=== PATIENT | male | born 1945 | race Caucasian/White ===

== ENCOUNTER → 2017-03-08 | Outpatient (CLI) | payer OTHER ==
[~2017-03-08] MED LIST: ASPI325T45 PO; CLIN300C2 PO; DUTA0.5C PO; FLUT0.15 NAE; HYDR12.56 PO; LORA24TA7 PO; METO25TA56 PO; NAPR-1169 PO; ROSU5TAB PO; SPIR25TA PO; TAMS0.4C38 PO; [UNRECOGNIZED DRUG - CODE] NAE
[2017-03-08 12:57] LABS: HEMATOCRIT 42.2 % (42-52); MEAN CELL VOLUME 90.9 fL (80-100); MEAN CORPUSCULAR HEMOGLOBIN 30.8 pg (25-34); MEAN CORPUSCULAR HGB CONC 33.9 g/dl (32-36); MEAN PLATELET VOLUME 9.9 fL (7.4-10.4); PLATELET COUNT 179 K/uL (130-400); RED BLOOD COUNT 4.64 M/uL (4.7-6.1); WHITE BLOOD COUNT 5.17 K/uL (4.8-10.8)
[2017-03-08 13:15] LABS: CALCIUM 9.1 mg/dl (8.5-10.1)
[2017-03-08 13:16] LABS: ALT/SGPT 37 U/L (12-78); AST/SGOT 30 U/L (15-37); BLOOD UREA NITROGEN 26 mg/dl (7-18); BUN/CREATININE RATIO 18.5 (10-20); CARBON DIOXIDE 27 mmol/L (21-32); CHLORIDE 105 mmol/L (98-107); CHOLESTEROL 168 mg/dl (0-200); GLUCOSE 106 mg/dl (70-99); MAGNESIUM 2.6 mg/dl (1.8-2.4); POTASSIUM 3.7 mmol/L (3.5-5.1); SODIUM 140 mmol/L (136-145); TRIGLYCERIDES 169 mg/dl (0-150); VERY LOW DENSITY LIPOPROT CALC 34 mg/dl
[2017-03-08 13:36] LABS: ALKALINE PHOSPHATASE 97 U/L (45-117); CHOLESTEROL/HDL RATIO 3.5; HDL CHOLESTEROL 48 mg/dl; THYROID STIMULATING HORMONE 0.941 uIu/ml (0.300-4.500)
[2017-03-08 14:05] LABS: ESTIMATED AVERAGE GLUCOSE 123 mg/dl; HA1C FLAG Normal (Normal)
== END | disposition home or self-care (01) ==
LOC: C.LABPBG 10:02
PROVIDERS: ATTEND Physician Assistant Medical
DX: I10 Essential (primary) hypertension (principal); E78.5 Hyperlipidemia, unspecified; R00.2 Palpitations; Z51.81 Encounter for therapeutic drug level monitoring; Z79.899 Other long term (current) drug therapy

== ENCOUNTER 2017-05-01 00:35 | Emergency (ER) | payer OTHER ==
[~2017-05-01] VITALS: Ht 177.8 cm; Wt 84.0 kg
[2017-05-01 00:46] VITALS: TEMP 36.8; Ht 177.8 cm; Wt 84.0 kg
--- NOTE | 2017-05-01 01:24 | EMERGENCY ROOM VISIT NOTE ---
History Report prepared by Kate: Clementine Atkinson Under the Supervision of: Dr. Mariel Dunlap D.O. First contact with patient: 00:56 Chief Complaint: FEVER Stated Complaint: SWOLLEN FOOT,FEVER,TROUBLE BREATHING History of Present Illness The patient is a 71 year old male who presents to the Emergency Room with complaints of persistent right foot pain, swelling, and erythema starting yesterday morning. The patient also had a fever today. He has a history of similar symptoms occurring about a year ago which resolved with antibiotics. The patient also reports difficulty breathing and congestion which started a few days ago. He has a cough with mucous production. He does not have a history of diabetes. He is unsure about any previous episodes of gout. He also has a history of hypertension and heart disease. He takes aspirin daily. He is not a smoker. The patient denies chest pain, abdominal pain, or any other complaints. Source of History: patient Onset: yesterday morning Position: foot (right) Quality: other (swelling and erythema) Timing: other (persistent) Associated Symptoms: + fevers, + cough, + SOB, No chest pain, No abdominal pain Review of Systems See HPI for pertinent positives & negatives. A total of 10 systems reviewed and were otherwise negative. Past Medical & Surgical Medical Problems: (1) Heart disease (2) Hypertension Surgical Problems: (1) History of cardiac catheterization (2) Hx of cholecystectomy Family History Cancer Diabetes mellitus Gallbladder disease Heart disease Hypertension Lung disease Social History Smoking Status: Former Smoker Alcohol Use: none Marital Status: Housing Status: lives with significant other Occupation Status: employed Current/Historical Medications Scheduled Clindamycin Hcl (Cleocin), 1 CAP PO TID Loratadine/Pseudoephedrine (Claritin-D 24 Hour), 1 TAB PO DAILY Oxymetazoline Hcl (Afrin 12 Hour), 1 SPRAY JEAN-PAUL Q12 Allergies Coded Allergies: Penicillins (Verified Allergy, Intermediate, RASH, 05/01/17) Sulfa Antibiotics (Verified Allergy, Intermediate, RASH, 05/01/17) Uncoded Allergies: ALLERGY SHOTS (Allergy, Severe, CAUSES BLINDNESS, 05/01/17) STEROIDS (Allergy, Severe, CAUSES BLINDNESS, 05/01/17) Physical Exam Vital Signs Date Time Temp Pulse Resp B/P (MAP) Pulse Ox O2 Delivery O2 Flow Rate FiO2 05/01/17 03:35 72 20 136/72 97 05/01/17 02:31 58 18 139/71 95 Room Air 05/01/17 00:46 36.8 65 18 136/75 95 Room Air Physical Exam HEENT: Head - normocephalic and atraumatic Pupils are equal, round, and reactive to light. Extraocular eye muscles are intact, and sclera are anicteric. Nose - moist nasal mucosa without discharge. Mouth - moist buccal mucosa. Oropharynx is nonerythematous and there is no tonsillar exudate or edema noted. Neck: Supple; no JVD, nuchal rigidity, cervical lymphadenopathy. Heart: Regular rate and rhythm. There is a normal S1 and S2 with no murmurs, clicks, or gallops appreciated. Lungs: Clear to auscultation bilaterally with no wheezes, rales, or rhonchi. Abdomen: Soft, completely nontender, nondistended, with good bowel sounds. There are no palpable pulsatile masses or hepatosplenomegaly. There is no guarding, rigidity, or rebound noted. Extremities: No evidence of cyanosis, clubbing, or edema. There are easily palpable peripheral pulses. Right foot is erythematous on both the plantar and dorsal surface in the mid foot and great toe area. Right foot is warm to touch. Skin: warm and dry with good turgor and no rashes. Medical Decision & Procedures ER Provider Diagnostic Interpretation: X-ray results as stated below per interpretation by me: CHEST X-RAY No cardiomegaly, no pulmonary infiltrates, no consolidation. RIGHT FOOT X-RAY No obvious evidence of osteomyelitis, no obvious fracture. Laboratory Results 05/01/17 01:20 Red Blood Count 4.22, Mean Corpuscular Volume 90.3, Mean Corpuscular Hemoglobin 30.6, Mean Corpuscular Hemoglobin Concent 33.9, Mean Platelet Volume 9.6, Neutrophils (%) (Auto) 59.2, Lymphocytes (%) (Auto) 24.8, Monocytes (%) (Auto) 12.3, Eosinophils (%) (Auto) 3.6, Basophils (%) (Auto) 0.0, Neutrophils # (Auto ) 4.66, Lymphocytes # (Auto) 1.95, Monocytes # (Auto) 0.97, Eosinophils # (Auto ) 0.28, Basophils # (Auto) 0.00 05/01/17 01:20 Test 05/01/17 01:20 05/01/17 01:27 White Blood Count 7.87 K/uL (4.8-10.8) Red Blood Count 4.22 M/uL (4.7-6.1) Hemoglobin 12.9 g/dL (14.0-18.0) Hematocrit 38.1 % (42-52) Mean Corpuscular Volume 90.3 fL (80-100) Mean Corpuscular Hemoglobin 30.6 pg (25-34) Mean Corpuscular Hemoglobin Concent 33.9 g/dl (32-36) Platelet Count 167 K/uL (130-400) Mean Platelet Volume 9.6 fL (7.4-10.4) Neutrophils (%) (Auto) 59.2 % Lymphocytes (%) (Auto) 24.8 % Monocytes (%) (Auto) 12.3 % Eosinophils (%) (Auto) 3.6 % Basophils (%) (Auto) 0.0 % Neutrophils # (Auto) 4.66 K/uL (1.4-6.5) Lymphocytes # (Auto) 1.95 K/uL (1.2-3.4) Monocytes # (Auto) 0.97 K/uL (0.11-0.59) Eosinophils # (Auto) 0.28 K/uL (0-0.5) Basophils # (Auto) 0.00 K/uL (0-0.2) RDW Standard Deviation 43.0 fL (36.4-46.3) RDW Coefficient of Variation 13.1 % (11.5-14.5) Immature Granulocyte % (Auto) 0.1 % Immature Granulocyte # (Auto) 0.01 K/uL (0.00-0.02) Prothrombin Time 10.7 SECONDS (9.0-12.0) Prothromb Time International Ratio 1.0 (0.9-1.1) Activated Partial Thromboplast Time 31.3 SECONDS (21.0-31.0) Partial Thromboplastin Ratio 1.2 Anion Gap 8.0 mmol/L (3-11) Est Creatinine Clear Calc Drug Dose 60.0 ml/min Estimated GFR () 71.1 Estimated GFR (Non- 61.3 BUN/Creatinine Ratio 18.7 (10-20) Uric Acid 6.6 mg/dl (2.6-7.2) Calcium Level 8.2 mg/dl (8.5-10.1) Total Bilirubin 0.4 mg/dl (0.2-1) Aspartate Amino Transf (AST/SGOT) 15 U/L (15-37) Alanine Aminotransferase (ALT/SGPT) 26 U/L (12-78) Alkaline Phosphatase 96 U/L (45-117) Total Protein 7.3 gm/dl (6.4-8.2) Albumin 3.3 gm/dl (3.4-5.0) Globulin 4.0 gm/dl (2.5-4.0) Albumin/Globulin Ratio 0.8 (0.9-2) Bedside Lactic Acid Venous 0.96 mmol/L (0.90-1.70) Laboratory results per my review. Medications Administered Medications (Trade) Dose Ordered Sig/Day Route Start Time Stop Time Status Last Admin Dose Admin Clindamycin Phosphate 900 mg/ Dextrose 106 ml @ 100 mls/hr ONE ONCE IV 05/01/17 02:30 05/01/17 03:33 DC 05/01/17 02:30 100 MLS/HR Ketorolac Tromethamine (Toradol Inj) 30 mg NOW STAT IV 05/01/17 02:33 05/01/17 02:34 DC 05/01/17 02:38 30 MG Procedure Clindamycin Phosphate 900 mg/Dextrose 106 ml @ 100 mls/hr IV, Toradol Inj 30 mg IV ED Course 0056: Past medical records reviewed. The patient was evaluated in room B12B. A complete history and physical exam was performed. A septic protocol was performed. The patient went for an x-ray of the right foot as described above. 0210: I reevaluated the patient. He does not want anything for pain right now. 0230: Clindamycin Phosphate 900 mg/Dextrose 106 ml @ 100 mls/hr IV 0233: Toradol Inj 30 mg IV 0305: Upon reevaluation, the patient is resting comfortably. I discussed findings and results with him. He verbalized agreement of the treatment plan. He was discharged home. Medical Decision The patient presents to the Emergency Room with complaints of right foot swelling and erythema. Differential diagnosis includes but is not limited to gout, cellulitis, osteomyelitis, sepsis, bacteremia, pneumonia. His labs showed white count of 7.8, hemoglobin of 12.9, BUN 22, creatinine 1.2, lactic acid 0.9 , glucose 104, LFTs are normal, coags normal. I attest that I have personally reviewed the patient's current medication list. Patient was found to have normal blood pressure on screening and does not require follow-up. The patient hasn't significant erythema and edema to the right foot. This was outlined. Findings were considered an acute cellulitis. There is no evidence of osteomyelitis. The patient has multiple drug allergies. He will be treated with IV clindamycin and oral clindamycin. The patient was given specific instructions to return to the ER if symptoms worsened. Impression Primary Impression: Cellulitis of right foot Scribe Attestation The scribe's documentation has been prepared under my direction and personally reviewed by me in its entirety. I confirm that the note above accurately reflects all work, treatment, procedures, and medical decision making performed by me. Departure Information Dispostion Home / Self-Care Prescriptions Clindamycin Hcl (CLEOCIN) 300 Mg Cap 1 CAP PO TID for 10 Days, #30 CAP Prov: Mariel Dunlap D.O. 05/01/17 Referrals No Doctor, Assigned (PCP) Forms HOME CARE DOCUMENTATION FORM, IMPORTANT VISIT INFORMATION Patient Instructions Cellulitis Dc, My [facility] Additional Instructions Rest with the right foot elevated. Clindamycin - every 8 hours Return to the ER if you develop worsening symptoms such as fever, vomiting, or redness extends up the ankle/leg.
[2017-05-01 01:37] LABS: COMPLETE YES; EOS % 3.6 %; HEMATOCRIT 38.1 % (42-52); IG% 0.1 %; LYMPH % 24.8 %; LYMPH ABS # 1.95 K/uL (1.2-3.4); MEAN CELL VOLUME 90.3 fL (80-100); MEAN CORPUSCULAR HEMOGLOBIN 30.6 pg (25-34); MEAN CORPUSCULAR HGB CONC 33.9 g/dl (32-36); MEAN PLATELET VOLUME 9.6 fL (7.4-10.4); MONO % 12.3 %; NEUT % 59.2 %; PLATELET COUNT 167 K/uL (130-400); RED BLOOD COUNT 4.22 M/uL (4.7-6.1); WHITE BLOOD COUNT 7.87 K/uL (4.8-10.8)
[2017-05-01] MEDS ORDERED: [UNRECOGNIZED DRUG - CODE] NAE (01:46)
[2017-05-01] MEDS ORDERED: LORA24TA7 PO (01:46)
[2017-05-01 01:54] LABS: PARTIAL THROMBOPLASTIN RATIO 1.2; PROTHROMBIN TIME (PATIENT) 10.7 SECONDS (9.0-12.0)
[2017-05-01 01:55] LABS: BUN/CREATININE RATIO 18.7 (10-20); CALCIUM 8.2 mg/dl (8.5-10.1); CREATININE 1.2 mg/dl (0.60-1.40); POTASSIUM 3.6 mmol/L (3.5-5.1); URIC ACID 6.6 mg/dl (2.6-7.2)
[2017-05-01 01:58] LABS: ALB/GLOB RATIO 0.8 (0.9-2)
[2017-05-01] MEDS ORDERED: CLINDAMYCIN IV 900 MG in DEXTROSE 5% ADD-VANTAGE 100ML 100 ML IV ONE (02:30)
[2017-05-01] MEDS ORDERED: KETOROLAC TROMETHAMINE 30 MG/ML VIAL IV STA (02:33)
[2017-05-01] MEDS ORDERED: CLIN300C2 PO (03:26)
[2017-05-01 03:35] VITALS: BP 136/72; PULSE 72; O2SAT 97
--- NOTE | 2017-05-01 06:44 | DIAGNOSTIC IMAGING REPORT ---
RIGHT FOOT MIN 3 VIEWS ROUTINE CLINICAL HISTORY: right foot pain - redness - eval for osteo Right pain COMPARISON: None. DISCUSSION: Moderate generalized degenerative change. Bunion deformity distal first metatarsal. Hallux obvious configuration. Degenerative change of the second metatarsophalangeal joint. No well-defined lytic or blastic process. Moderate soft tissue edema. IMPRESSION: Soft tissue edema. Degenerative change. Electronically signed by: Devante Pond M.D. 05/01/2017 6:43 AM Dictated Date/Time: 05/01/2017 6:40 AM
--- NOTE | 2017-05-01 06:45 | DIAGNOSTIC IMAGING REPORT ---
CHEST ONE VIEW PORTABLE CLINICAL HISTORY: Sepsis dyspnea COMPARISON STUDY: No previous studies for comparison. FINDINGS: Minimal parenchymal interstitial infiltrate left base. Lungs otherwise appear clear. Diaphragms smooth. IMPRESSION: Minimal infiltrate left base. Electronically signed by: Devante Pond M.D. 05/01/2017 6:43 AM Dictated Date/Time: 05/01/2017 6:43 AM
== END 2017-05-01 03:36 | disposition home or self-care (01) ==
LOC: C.EDB 00:37
DX: L03.115 Cellulitis of right lower limb (principal); R06.00 Dyspnea, unspecified; R05 Cough; E11.9 Type 2 diabetes mellitus without complications; I10 Essential (primary) hypertension; Z79.82 Long term (current) use of aspirin; Z87.891 Personal history of nicotine dependence; Z83.3 Family history of diabetes mellitus; Z82.49 Family history of ischemic heart disease and other diseases of the circulatory system

== ENCOUNTER 2017-08-31 07:16 | Emergency (ER) | payer OTHER ==
[~2017-08-31] VITALS: Ht 177.8 cm; Wt 88.0 kg
[~2017-08-31 07:16] MED LIST changes: -ASPI325T45 PO; -CLIN300C2 PO; -DUTA0.5C PO; -FLUT0.15 NAE; -HYDR12.56 PO; -METO25TA56 PO; -NAPR-1169 PO; -ROSU5TAB PO; -SPIR25TA PO; -TAMS0.4C38 PO
[2017-08-31 07:30] VITALS: TEMP 36.3; Ht 177.8 cm; Wt 88.0 kg
[2017-08-31 07:36] VITALS: O2SAT 96
[2017-08-31] MEDS ORDERED: SODIUM CHLORIDE 0.9% 1000ML 1,000 ML IV ONE (07:45)
[2017-08-31] MEDS ORDERED: METO25TA56 PO (07:58)
[2017-08-31] MEDS ORDERED: ROSU5TAB PO (07:58)
[2017-08-31] MEDS ORDERED: HYDR12.56 PO (07:58)
[2017-08-31] MEDS ORDERED: ASPI325T45 PO (07:58)
--- NOTE | 2017-08-31 08:10 | EMERGENCY ROOM VISIT NOTE ---
History Report prepared by Kate: Juanita Barron Under the Supervision of: Dr. Eduardo Pelletier M.D. First contact with patient: 07:37 Chief Complaint: ILLNESS Stated Complaint: DIZZINESS/NAUSEA History of Present Illness The patient is a 72 year old male who presents to the Emergency Room with complaints of constant dizziness beginning this morning. He states that yesterday he was feeling fine, but he was feeling more tired than usual. He went to bed and woke up this morning with dizziness that he describes as feeling like the room is spinning. He has never experienced this before. The patient's symptoms worsen with sitting up and he states he is unable to stand because he feels so dizzy. His legs feel weak and he is still feeling very tired. He states that this is unusual for him. He is also nauseated. The patient was brought to the ED by ambulance for further evaluation. He denies any drug or alcohol use. He denies any recent changes to his medications. Source of History: patient Onset: this morning Position: other (global) Quality: other (dizziness) Timing: constant Modifying Factors (Worsening): other (sitting up) Modifying Factors (Relieving): rest Associated Symptoms: + fatigue, + weakness (legs) Review of Systems All systems have been listed, reviewed, and are negative other than those previously mentioned. Please see Additional Medical History Sheet. Past Medical & Surgical Medical Problems: (1) Heart disease (2) Hypertension Surgical Problems: (1) History of cardiac catheterization (2) Hx of cholecystectomy Family History Cancer Diabetes mellitus Gallbladder disease Heart disease Hypertension Lung disease Social History Smoking Status: Never Smoker Alcohol Use: none Marital Status: Housing Status: lives with significant other Occupation Status: employed Current/Historical Medications Scheduled Aspirin (Aspirin), 325 MG PO DAILY Dutasteride (Avodart), 0.5 MG PO DAILY Fluticasone Propionate (Nasal) (Flonase Allergy Relief), 1 SPRAY JEAN-PAUL BID Hydrochlorothiazide (Hctz), 12.5 MG PO DAILY Metoprolol Tartrate (Lopressor) (Lopressor), 12.5 MG PO BID Rosuvastatin Calcium (Crestor), 10 MG PO DAILY Spironolactone (Aldactone), 25 MG PO DAILY Tamsulosin Hcl (Flomax), 0.4 MG PO DAILY Scheduled PRN Naproxen (Naprosyn), 500 MG PO BID PRN for PRN Allergies Coded Allergies: Penicillins (Verified Allergy, Intermediate, RASH, 08/31/17) Sulfa Antibiotics (Verified Allergy, Intermediate, RASH, 08/31/17) Uncoded Allergies: ALLERGY SHOTS (Allergy, Severe, CAUSES BLINDNESS, 05/01/17) STEROIDS (Allergy, Severe, CAUSES BLINDNESS, 05/01/17) Physical Exam Vital Signs Date Time Temp Pulse Resp B/P (MAP) Pulse Ox O2 Delivery O2 Flow Rate FiO2 08/31/17 11:54 81 18 151/89 96 Room Air 08/31/17 10:45 76 20 141/82 96 Room Air 08/31/17 08:53 70 20 141/68 96 Room Air 86 156/95 08/31/17 07:36 96 Room Air 08/31/17 07:30 36.3 62 20 148/84 96 Room Air 08/31/17 07:23 66 Physical Exam GENERAL: Patient awake, alert, oriented x 3. Patient follows commands. Patient does not appear toxic. Patient is adequately hydrated and well- nourished. Patient appears exhausted, was asleep on my arrival but awakened easily. Patient appears to have no pain at present time. SKIN: No erythema, pallor, cyanosis or rash HEENT: Normal head, pupils equal, reactive to light and accommodation. Right gaze nystagmus. Ears normal. Oral cavity and posterior pharynx appear normal. Neck: Without adenopathy, no neck vein distention. LUNGS: Clear to auscultation. No wheezes, no rales, no rhonchi. HEART: No murmurs. No gallops. No rubs ABDOMEN: No masses, no rebound, no hepatomegaly or splenomegaly. EXTREMITIES: No signs of trauma. No pedal or pretibial edema. No calf or thigh tenderness. NEUROLOGIC: Cranial nerves II-XII within normal limits. No gross motor sensory function deficits. Patient moves all extremities well. Medical Decision & Procedures ER Provider Diagnostic Interpretation: Radiology results as stated below per my review and radiologist interpretation: CT SCAN OF THE BRAIN WITHOUT IV CONTRAST CLINICAL HISTORY: Dizziness and weakness. COMPARISON STUDY: No priors. TECHNIQUE: Unenhanced axial CT scan of the brain is performed from the vertex to the skull base. CT DOSE: 537.48 mGy.cm FINDINGS: Brain parenchyma: There are age-related involutional changes noting mild subcortical and periventricular microangiopathic change. There is no hemorrhage, mass effect, or evidence of acute territorial ischemia by CT criteria. Robin-white matter is preserved. No extra-axial fluid collection is seen. Ventricles, sulci, cisterns: Prominent secondary to involutional change. Intracranial vasculature: The intracranial vessels at the skull base are normal as visualized. Calvarium: Unremarkable. Sinuses and mastoids: There is moderate mucosal thickening throughout the ethmoid sinuses. Mild mucosal thickening is seen within the maxillary antra and the left frontal sinus. An air-fluid level seen in the right sphenoid sinus. The mastoid air cells are well pneumatized. A 1.5 cm slightly hyperdense ovoid structure is noted in the right nasal cavity on image #3. Orbits: The bony orbits are grossly intact. There are bilateral ocular lens implants. IMPRESSION: 1. There is no hemorrhage, mass effect, or evidence of acute territorial ischemia by CT criteria. 2. Paranasal sinus disease as above. 3. There is a 1.5 cm ovoid and slightly hyperdense structure noted in the right nasal cavity. This may represent inspissated secretions, a retention cyst, or possibly a polyp. Correlation with direct visualization is recommended. Electronically signed by: Baltazar Green M.D. 08/31/2017 8:36 AM Dictated Date/Time: 08/31/2017 8:33 AM SINGLE VIEW CHEST CLINICAL HISTORY: Dizziness and weakness. FINDINGS: An AP, portable, semierect chest radiograph is compared to study dated 05/01/2017. The cardiomediastinal silhouette is unremarkable. There is mild bibasilar atelectasis. The lungs and pleural spaces are otherwise clear. No pneumothorax is seen. The bony thorax is grossly intact. Cholecystectomy clips are seen in the right upper quadrant. IMPRESSION: No acute cardiopulmonary abnormality. Electronically signed by: Baltazar Green M.D. 08/31/2017 8:16 AM Dictated Date/Time: 08/31/2017 8:15 AM Laboratory Results 08/31/17 08:05 Red Blood Count 4.42, Mean Corpuscular Volume 88.5, Mean Corpuscular Hemoglobin 30.3, Mean Corpuscular Hemoglobin Concent 34.3, Mean Platelet Volume 9.6, Neutrophils (%) (Auto) 64.3, Lymphocytes (%) (Auto) 24.5, Monocytes (%) (Auto) 6.6, Eosinophils (%) (Auto) 4.4, Basophils (%) (Auto) 0.0, Neutrophils # (Auto) 3.53, Lymphocytes # (Auto) 1.34, Monocytes # (Auto) 0.36, Eosinophils # (Auto) 0.24, Basophils # (Auto) 0.00 08/31/17 08:05 Test 08/31/17 08:05 08/31/17 09:55 White Blood Count 5.48 K/uL (4.8-10.8) Red Blood Count 4.42 M/uL (4.7-6.1) Hemoglobin 13.4 g/dL (14.0-18.0) Hematocrit 39.1 % (42-52) Mean Corpuscular Volume 88.5 fL (80-100) Mean Corpuscular Hemoglobin 30.3 pg (25-34) Mean Corpuscular Hemoglobin Concent 34.3 g/dl (32-36) Platelet Count 142 K/uL (130-400) Mean Platelet Volume 9.6 fL (7.4-10.4) Neutrophils (%) (Auto) 64.3 % Lymphocytes (%) (Auto) 24.5 % Monocytes (%) (Auto) 6.6 % Eosinophils (%) (Auto) 4.4 % Basophils (%) (Auto) 0.0 % Neutrophils # (Auto) 3.53 K/uL (1.4-6.5) Lymphocytes # (Auto) 1.34 K/uL (1.2-3.4) Monocytes # (Auto) 0.36 K/uL (0.11-0.59) Eosinophils # (Auto) 0.24 K/uL (0-0.5) Basophils # (Auto) 0.00 K/uL (0-0.2) RDW Standard Deviation 42.6 fL (36.4-46.3) RDW Coefficient of Variation 13.1 % (11.5-14.5) Immature Granulocyte % (Auto) 0.2 % Immature Granulocyte # (Auto) 0.01 K/uL (0.00-0.02) Anion Gap 6.0 mmol/L (3-11) Est Creatinine Clear Calc Drug Dose 51.5 ml/min Estimated GFR () 54.3 Estimated GFR (Non- 46.9 BUN/Creatinine Ratio 23.0 (10-20) Calcium Level 8.6 mg/dl (8.5-10.1) Total Bilirubin 0.4 mg/dl (0.2-1) Aspartate Amino Transf (AST/SGOT) 22 U/L (15-37) Alanine Aminotransferase (ALT/SGPT) 31 U/L (12-78) Alkaline Phosphatase 88 U/L (45-117) Troponin I 0.029 ng/ml (0-0.045) Total Protein 6.7 gm/dl (6.4-8.2) Albumin 3.2 gm/dl (3.4-5.0) Globulin 3.5 gm/dl (2.5-4.0) Albumin/Globulin Ratio 0.9 (0.9-2) Urine Color YELLOW Urine Appearance CLEAR (CLEAR) Urine pH 5.5 (4.5-7.5) Urine Specific [place] 1.020 (1.000-1.030) Urine Protein 1+ (NEG) Urine Glucose (UA) NEG (NEG) Urine Ketones NEG (NEG) Urine Occult Blood NEG (NEG) Urine Nitrite NEG (NEG) Urine Bilirubin NEG (NEG) Urine Urobilinogen NEG (NEG) Urine Leukocyte Esterase NEG (NEG) Urine WBC (Auto) 0 /hpf (0-5) Urine RBC (Auto) 0-4 /hpf (0-4) Urine Hyaline Casts (Auto) 1-5 /lpf (0-5) Urine Epithelial Cells (Auto) 0-5 /lpf (0-5) Urine Bacteria (Auto) NEG (NEG) Laboratory results as stated above per my review. Medications Administered Medications (Trade) Dose Ordered Sig/Day Route Start Time Stop Time Status Last Admin Dose Admin Sodium Chloride 1,000 ml @ 1,000 mls/hr Q1H ONCE IV 08/31/17 07:45 08/31/17 08:44 DC 08/31/17 08:53 1,000 MLS/HR ECG Indication: nausea Rate (beats per minute): 65 Rhythm: sinus with SA Findings: no acute ischemic change, no ectopy ED Course 0738: Past medical records reviewed. The patient was evaluated in room B11B. A complete history and physical examination was performed. 0745: NSS 1000 ml @ 1000 mls/hr IV 0942: I updated the patient. He is feeling better and going to have an ambulatory trial. 1041: The patient passed his ambulatory trial at this time. He is doing well. 1144: I reassessed the patient at this time. He is feeling better and resting comfortably. I discussed the results and treatment plan with the patient. I answered all pertaining questions that he had. He expressed understanding and verbalized agreement. The patient will be discharged home. Medical Decision Nurses notes reviewed. Medical history sheet reviewed. Differential diagnosis includes but is not limited to: CVA, TIA, BPV, vestibular neuronitis, dehydration, anemia, metabolic disorder. The patient is here with dizziness and weakness. He was evaluated for possible stroke. CT is negative. Patient is no focal deficits. Multiple labs were obtained. Please see above. The patient was given IV fluids followed by oral rehydration. The patient felt significantly better. He was able to pass an ambulatory trial. He was not orthostatic. I believe the patient is safe to return home. He was given encouraged to continue pushing fluids. The patient is to follow-up with his family physician. Medication Reconcilliation Current Medication List: was personally reviewed by me Blood Pressure Screening Patient's blood pressure: Elevated blood pressure Blood pressure disposition: Referred to PCP Impression Primary Impression: Dehydration Additional Impression: Weakness Scribe Attestation The scribe's documentation has been prepared under my direction and personally reviewed by me in its entirety. I confirm that the note above accurately reflects all work, treatment, procedures, and medical decision making performed by me. Departure Information Dispostion Home / Self-Care Referrals No Doctor, Assigned (PCP) Forms HOME CARE DOCUMENTATION FORM, IMPORTANT VISIT INFORMATION, WORK / SCHOOL INSTRUCTIONS Patient Instructions [facility] Additional Instructions Drink extra fluids today and tomorrow. REST Continue your current medications as prescribed. Problem Qualifiers
[2017-08-31 08:14] LABS: COMPLETE YES; EOS % 4.4 %; HEMATOCRIT 39.1 % (42-52); IG% 0.2 %; LYMPH % 24.5 %; LYMPH ABS # 1.34 K/uL (1.2-3.4); MEAN CELL VOLUME 88.5 fL (80-100); MEAN CORPUSCULAR HEMOGLOBIN 30.3 pg (25-34); MEAN CORPUSCULAR HGB CONC 34.3 g/dl (32-36); MEAN PLATELET VOLUME 9.6 fL (7.4-10.4); MONO % 6.6 %; NEUT % 64.3 %; PLATELET COUNT 142 K/uL (130-400); RED BLOOD COUNT 4.42 M/uL (4.7-6.1); WHITE BLOOD COUNT 5.48 K/uL (4.8-10.8)
--- NOTE | 2017-08-31 08:17 | DIAGNOSTIC IMAGING REPORT ---
SINGLE VIEW CHEST CLINICAL HISTORY: Dizziness and weakness. FINDINGS: An AP, portable, semierect chest radiograph is compared to study dated 05/01/2017. The cardiomediastinal silhouette is unremarkable. There is mild bibasilar atelectasis. The lungs and pleural spaces are otherwise clear. No pneumothorax is seen. The bony thorax is grossly intact. Cholecystectomy clips are seen in the right upper quadrant. IMPRESSION: No acute cardiopulmonary abnormality. Electronically signed by: Baltazar Green M.D. 08/31/2017 8:16 AM Dictated Date/Time: 08/31/2017 8:15 AM
[2017-08-31 08:32] LABS: CALCIUM 8.6 mg/dl (8.5-10.1); CREATININE 1.49 mg/dl (0.60-1.40); POTASSIUM 4.5 mmol/L (3.5-5.1)
[2017-08-31 08:37] LABS: ALB/GLOB RATIO 0.9 (0.9-2)
--- NOTE | 2017-08-31 08:38 | DIAGNOSTIC IMAGING REPORT ---
CT SCAN OF THE BRAIN WITHOUT IV CONTRAST CLINICAL HISTORY: Dizziness and weakness. COMPARISON STUDY: No priors. TECHNIQUE: Unenhanced axial CT scan of the brain is performed from the vertex to the skull base. CT DOSE: 537.48 mGy.cm FINDINGS: Brain parenchyma: There are age-related involutional changes noting mild subcortical and periventricular microangiopathic change. There is no hemorrhage, mass effect, or evidence of acute territorial ischemia by CT criteria. Robin-white matter is preserved. No extra-axial fluid collection is seen. Ventricles, sulci, cisterns: Prominent secondary to involutional change. Intracranial vasculature: The intracranial vessels at the skull base are normal as visualized. Calvarium: Unremarkable. Sinuses and mastoids: There is moderate mucosal thickening throughout the ethmoid sinuses. Mild mucosal thickening is seen within the maxillary antra and the left frontal sinus. An air-fluid level seen in the right sphenoid sinus. The mastoid air cells are well pneumatized. A 1.5 cm slightly hyperdense ovoid structure is noted in the right nasal cavity on image #3. Orbits: The bony orbits are grossly intact. There are bilateral ocular lens implants. IMPRESSION: 1. There is no hemorrhage, mass effect, or evidence of acute territorial ischemia by CT criteria. 2. Paranasal sinus disease as above. 3. There is a 1.5 cm ovoid and slightly hyperdense structure noted in the right nasal cavity. This may represent inspissated secretions, a retention cyst, or possibly a polyp. Correlation with direct visualization is recommended. Electronically signed by: Baltazar Green M.D. 08/31/2017 8:36 AM Dictated Date/Time: 08/31/2017 8:33 AM
[2017-08-31] MEDS ORDERED: SPIR25TA PO (10:00)
[2017-08-31] MEDS ORDERED: NAPR-1169 PO (10:00)
[2017-08-31] MEDS ORDERED: FLUT0.15 NAE (10:00)
[2017-08-31] MEDS ORDERED: DUTA0.5C PO (10:00)
[2017-08-31] MEDS ORDERED: TAMS0.4C38 PO (10:00)
[2017-08-31 10:17] LABS: URINE APPEARANCE CLEAR (CLEAR); URINE BILIRUBIN NEG (NEG); URINE COLOR YELLOW; URINE EPITHELIAL CELL AUTO 0-5 /lpf (0-5); URINE NITRITE NEG (NEG); URINE PH 5.5 (4.5-7.5); UROBILINOGEN NEG (NEG); ZZUR CULT IF INDIC CLEAN CATCH NO
[2017-08-31 10:18] LABS: MANUAL MICROSCOPIC REQUIRED? NO; REVIEW REQ? NO
[2017-08-31 11:54] VITALS: BP 151/89; PULSE 81; O2SAT 96
== END 2017-08-31 11:56 | disposition home or self-care (01) ==
LOC: EDBD 07:16 → C.EDB 07:19
DX: E86.0 Dehydration (principal); R53.1 Weakness; I51.9 Heart disease, unspecified; I10 Essential (primary) hypertension; Z83.3 Family history of diabetes mellitus; Z82.49 Family history of ischemic heart disease and other diseases of the circulatory system; Z79.82 Long term (current) use of aspirin

== ENCOUNTER 2017-12-11 23:09 | Emergency (ER) | payer OTHER ==
[~2017-12-11] VITALS: Ht 177.8 cm; Wt 89.6 kg
[~2017-12-11 23:09] MED LIST changes: +ASPI325T45 PO; +DUTA0.5C PO; +FLUT0.15 NAE; +HYDR12.56 PO; -LORA24TA7 PO; +METO25TA56 PO; +NAPR-1169 PO; +ROSU5TAB PO; +SPIR25TA PO; +TAMS0.4C38 PO; -[UNRECOGNIZED DRUG - CODE] NAE
[2017-12-11 23:26] VITALS: TEMP 36.6; Ht 177.8 cm; Wt 89.6 kg
[2017-12-12 00:29] LABS: EOS % 3.7 %; EOS ABS # 0.25 K/uL (0-0.5); HEMATOCRIT 37.4 % (42-52); HEMOGLOBIN 12.8 g/dL (14.0-18.0); IG# 0.01 K/uL (0.00-0.02); LYMPH % 27.7 %; LYMPH ABS # 1.88 K/uL (1.2-3.4); MEAN CELL VOLUME 92.1 fL (80-100); MEAN CORPUSCULAR HEMOGLOBIN 31.5 pg (25-34); MEAN CORPUSCULAR HGB CONC 34.2 g/dl (32-36); MEAN PLATELET VOLUME 9.9 fL (7.4-10.4); MONO ABS # 0.61 K/uL (0.11-0.59); NEUT % 59.5 %; NEUT ABS # 4.04 K/uL (1.4-6.5); PLATELET COUNT 158 K/uL (130-400); RED CELL DISTRIBUTION WIDTH CV 13.4 % (11.5-14.5); RED CELL DISTRIBUTION WIDTH SD 44.6 fL (36.4-46.3); WHITE BLOOD COUNT 6.79 K/uL (4.8-10.8)
[2017-12-12 00:34] LABS: ALBUMIN 3.3 gm/dl (3.4-5.0); CALCIUM 8.4 mg/dl (8.5-10.1); CREATININE 1.28 mg/dl (0.60-1.40); POTASSIUM 3.8 mmol/L (3.5-5.1)
[2017-12-12 00:37] LABS: TOTAL PROTEIN 7.2 gm/dl (6.4-8.2)
[2017-12-12] MEDS ORDERED: SODIUM CHLORIDE 0.9% 1000ML 1,000 ML IV STA (01:14)
[2017-12-12] MEDS ORDERED: MoRPHine SULFATE 4 MG/ML 1 ML CARP\\VIAL IV STA (01:14)
[2017-12-12] MEDS ORDERED: ONDANSETRON INJ 2 MG/ML 2 ML VIAL IV STA (01:14)
--- NOTE | 2017-12-12 01:18 | EMERGENCY ROOM VISIT NOTE ---
History Report prepared by Kate: Nadeem Guardado Under the Supervision of: Dr. Susan Bowling M.D. First contact with patient: 01:07 Chief Complaint: ABDOMINAL PAIN Stated Complaint: PAIN IN RT SIDE Nursing Triage Summary: Pt complains of right sided rib/abdominal pain. It started yesterday. Denies any nausea, vomiting or diarrhea. Pt denies cough. Pt does report pain is similar to when he had pleurisy. History of Present Illness The patient is a 72 year old male who presents to the Emergency Room with complaints of constant right sided abdominal pain starting yesterday around 1700. The patient currently rates his discomfort as a 4/10 in severity. He notes that the pain started after eating supper. He reports that he is also having some shortness of breath. He is denying any vomiting or blood in his stool and his last bowel movement was normal this morning. He notes that he drank a beer tonight for the first time in six months, and this did not make the pain worse. 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 He states his client renewal specialist recently increased his 81 mg baby aspirin to a full strength aspirin daily. He ate ham, potatoes, and peas for supper. He takes a baby aspirin daily. Source of History: patient Onset: yesterday around 1700 Position: abdomen (right sided) Symptom Intensity: 4/10 Timing: constant Associated Symptoms: + SOB, No vomiting Review of Systems See HPI for pertinent positives & negatives. A total of 10 systems reviewed and were otherwise negative. Past Medical & Surgical Medical Problems: (1) Heart disease (2) Hypertension Surgical Problems: (1) History of cardiac catheterization (2) Hx of cholecystectomy Family History Cancer Diabetes mellitus Gallbladder disease Heart disease Hypertension Lung disease Social History Smoking Status: Never Smoker Alcohol Use: none Marital Status: Housing Status: lives with significant other Occupation Status: employed Current/Historical Medications Scheduled Aspirin (Aspirin), 325 MG PO DAILY Hydrochlorothiazide (Hctz), 12.5 MG PO DAILY Levofloxacin (Levaquin), 750 MG PO DAILY Metoprolol Tartrate (Lopressor) (Lopressor), 12.5 MG PO BID Rosuvastatin Calcium (Crestor), 10 MG PO DAILY Terazosin Hcl (Hytrin), 1 TAB PO DAILY Scheduled PRN Fluticasone Propionate (Nasal) (Flonase Allergy Relief), 1 SPRAY JEAN-PAUL BID PRN for allergy symptoms Allergies Coded Allergies: Penicillins (Verified Allergy, Intermediate, RASH, 12/12/17) Sulfa Antibiotics (Verified Allergy, Intermediate, RASH, 12/12/17) Uncoded Allergies: ALLERGY SHOTS (Allergy, Severe, CAUSES BLINDNESS, 05/01/17) STEROIDS (Allergy, Severe, CAUSES BLINDNESS, 05/01/17) Physical Exam Vital Signs Date Time Temp Pulse Resp B/P (MAP) Pulse Ox O2 Delivery O2 Flow Rate FiO2 12/12/17 03:03 66 16 164/92 96 12/12/17 01:57 68 16 171/95 94 Room Air 12/12/17 01:30 57 12/12/17 00:58 65 16 147/98 97 12/11/17 23:26 36.6 65 19 178/75 95 Room Air Physical Exam Vital signs reviewed. General: Well-appearing male, in no significant distress. HEENT: No scleral icterus, PERRLA, neck supple. Atraumatic. Cardiovascular: Regular rate and rhythm, no extra sounds. Pulmonary: Clear to auscultation bilaterally, normal work of breathing. Abdomen: Tenderness to palpation in the right upper quadrant. No rebound or guarding. Soft, nondistended, positive bowel sounds. Musculoskeletal: Atraumatic, no peripheral edema. Neurologic: Patient awake alert and oriented x 3 Skin: Warm, dry, no rash Medical Decision & Procedures ER Provider Diagnostic Interpretation: X-ray results as stated below per interpretation by me: CHEST: Increased interstitial marking to the bases bilaterally. No pneumothorax. No evidence of failure. Radiology results as stated below per my review and radiologist interpretation: CT ABDOMEN & PELVIS With Contrast: Cholecystectomy. No biliary ductal dilatation. No radiographic evidence of pancreatitis. Basilar infiltrates. Cardiomegaly. Too small to characterize low attenuation foci in kidneys. Large heterogeneous prostate. No evidence of colitis or diverticulitis. Appendix not identified. Radiologist: Claire Sims M.D Laboratory Results 12/11/17 23:45 Red Blood Count 4.06, Mean Corpuscular Volume 92.1, Mean Corpuscular Hemoglobin 31.5, Mean Corpuscular Hemoglobin Concent 34.2, Mean Platelet Volume 9.9, Neutrophils (%) (Auto) 59.5, Lymphocytes (%) (Auto) 27.7, Monocytes (%) (Auto) 9.0, Eosinophils (%) (Auto) 3.7, Basophils (%) (Auto) 0.0, Neutrophils # (Auto) 4.04, Lymphocytes # (Auto) 1.88, Monocytes # (Auto) 0.61, Eosinophils # (Auto) 0.25, Basophils # (Auto) 0.00 12/11/17 23:45 Test 12/11/17 23:45 12/12/17 01:20 White Blood Count 6.79 K/uL (4.8-10.8) Red Blood Count 4.06 M/uL (4.7-6.1) Hemoglobin 12.8 g/dL (14.0-18.0) Hematocrit 37.4 % (42-52) Mean Corpuscular Volume 92.1 fL (80-100) Mean Corpuscular Hemoglobin 31.5 pg (25-34) Mean Corpuscular Hemoglobin Concent 34.2 g/dl (32-36) Platelet Count 158 K/uL (130-400) Mean Platelet Volume 9.9 fL (7.4-10.4) Neutrophils (%) (Auto) 59.5 % Lymphocytes (%) (Auto) 27.7 % Monocytes (%) (Auto) 9.0 % Eosinophils (%) (Auto) 3.7 % Basophils (%) (Auto) 0.0 % Neutrophils # (Auto) 4.04 K/uL (1.4-6.5) Lymphocytes # (Auto) 1.88 K/uL (1.2-3.4) Monocytes # (Auto) 0.61 K/uL (0.11-0.59) Eosinophils # (Auto) 0.25 K/uL (0-0.5) Basophils # (Auto) 0.00 K/uL (0-0.2) RDW Standard Deviation 44.6 fL (36.4-46.3) RDW Coefficient of Variation 13.4 % (11.5-14.5) Immature Granulocyte % (Auto) 0.1 % Immature Granulocyte # (Auto) 0.01 K/uL (0.00-0.02) Anion Gap 7.0 mmol/L (3-11) Est Creatinine Clear Calc Drug Dose 60.5 ml/min Estimated GFR () 65.3 Estimated GFR (Non- 56.3 BUN/Creatinine Ratio 20.6 (10-20) Calcium Level 8.4 mg/dl (8.5-10.1) Total Bilirubin 0.2 mg/dl (0.2-1) Aspartate Amino Transf (AST/SGOT) 19 U/L (15-37) Alanine Aminotransferase (ALT/SGPT) 30 U/L (12-78) Alkaline Phosphatase 112 U/L (45-117) Total Protein 7.2 gm/dl (6.4-8.2) Albumin 3.3 gm/dl (3.4-5.0) Globulin 3.9 gm/dl (2.5-4.0) Albumin/Globulin Ratio 0.8 (0.9-2) Lipase 368 U/L (73-393) Urine Color YELLOW Urine Appearance CLEAR (CLEAR) Urine pH 5.5 (4.5-7.5) Urine Specific [place] 1.022 (1.000-1.030) Urine Protein 3+ (NEG) Urine Glucose (UA) NEG (NEG) Urine Ketones NEG (NEG) Urine Occult Blood NEG (NEG) Urine Nitrite NEG (NEG) Urine Bilirubin NEG (NEG) Urine Urobilinogen NEG (NEG) Urine Leukocyte Esterase NEG (NEG) Urine WBC (Auto) 0 /hpf (0-5) Urine RBC (Auto) 0-4 /hpf (0-4) Urine Hyaline Casts (Auto) 1-5 /lpf (0-5) Urine Epithelial Cells (Auto) 5-10 /lpf (0-5) Urine Bacteria (Auto) NEG (NEG) Laboratory results per my review. Medications Administered Medications (Trade) Dose Ordered Sig/Day Route Start Time Stop Time Status Last Admin Dose Admin Morphine Sulfate (MoRPHine SULFATE INJ) 4 mg NOW STAT IV 12/12/17 01:14 12/12/17 01:17 DC 12/12/17 01:25 4 MG Ondansetron HCl (Zofran Inj) 4 mg NOW STAT IV 12/12/17 01:14 12/12/17 01:17 DC 12/12/17 01:24 4 MG Sodium Chloride 1,000 ml @ 150 mls/hr Q6H40M STAT IV 12/12/17 01:14 12/12/17 04:21 DC 12/12/17 01:24 150 MLS/HR Levofloxacin (Levaquin Tab) 750 mg NOW ONCE PO 12/12/17 02:30 12/12/17 02:31 DC 12/12/17 03:04 750 MG ED Course 0107: Past medical records reviewed. The patient was evaluated in room A3. A complete history and physical examination was performed. 0114: Sodium Chloride 1000 ml @ 150 mls/hr IV, Zofran 4mg IV, Morphine Sulfate 4mg IV 0230: Levofloxacin 750mg PO 0252: Upon reevaluation, the patient appeared to have improvement of his symptoms. I discussed findings with him. He verbalized agreement of the treatment plan. He was discharged home. Medical Decision Differential diagnoses include: Pancreatitis, peptic ulcer disease, hepatitis, biliary obstruction, constipation, diverticulitis, pneumonia, pleural effusion This patient was evaluated and appeared to be in no distress. IV access was obtained and laboratory work was drawn. The patient was placed on the cardiac tech and found to be in a normal sinus rhythm. Vital signs are stable. Laboratory work reveals a normal white blood cell count, stable H&H. There is no elevation of the lipase. Urinalysis is clear. CT scan of the abdomen and pelvis was performed and is significant for bilateral basilar infiltrates per STAT RAD. There is no significant intra-abdominal finding to explain the patient's pain. On reevaluation, the patient was concerned about his full dose aspirin as a new change in his medications. He was advised to hold his aspirin and begin Pepcid 20 mg twice a day. He was started on Levaquin 750 mg by mouth daily for 7 days for the possibility of pneumonia as read by radiology. The patient was discharged to the care of his family. Shortly thereafter the local radiologist read the CAT scan as bibasilar atelectasis. As the patient has no fever, no cough and no white count, he was advised to stop the Levaquin. He will hold his aspirin and begin Protonix 40 mg daily for 30 days. He will follow-up with his PCP and client renewal specialist as soon as possible. The patient will return to the ER for worsening of symptoms, fevers, shortness of breath, cough or any medical concerns. Medication Reconcilliation Current Medication List: was personally reviewed by me Blood Pressure Screening Patient's blood pressure: Elevated blood pressure Blood pressure disposition: Elevated BP felt to be situational Impression Primary Impression: Epigastric abdominal pain Additional Impression: Bilateral atelectasis Scribe Attestation The scribe's documentation has been prepared under my direction and personally reviewed by me in its entirety. I confirm that the note above accurately reflects all work, treatment, procedures, and medical decision making performed by me. Departure Information Dispostion Home / Self-Care Prescriptions Levofloxacin (Levaquin) 750 Mg Tab 750 MG PO DAILY, #6 TAB Prov: Susan Bowling M.D. 12/12/17 Referrals Ritu Robledo DO (PCP) Forms Call Back Authorization, HOME CARE DOCUMENTATION FORM, IMPORTANT VISIT INFORMATION Patient Instructions [facility] Additional Instructions Diagnosis: Bilateral pneumonia, epigastric abdominal pain Hold your aspirin for 2 days. Resume at 81 mg daily and then speak with cardiology. Pepcid 20 mg twice daily as needed for gastritis. Levaquin 750 mg daily for the next 6 days, start tomorrow. Follow-up with your primary care physician this week for reevaluation. Return to the ER for worsening of symptoms or any medical concerns. Problem Qualifiers
[2017-12-12] MEDS ORDERED: OPTIRAY 320 IV PRN (01:30)
[2017-12-12] MEDS ORDERED: LEVOFLOXACIN 250 MG TAB PO ONE (02:30)
[2017-12-12] MEDS ORDERED: TERA1CAP PO (02:59)
[2017-12-12 03:03] VITALS: BP 164/92; PULSE 66; O2SAT 96
[2017-12-12] MEDS ORDERED: LEVO1TAB35 PO (03:44)
--- NOTE | 2017-12-12 07:07 | DIAGNOSTIC IMAGING REPORT ---
SINGLE VIEW CHEST CLINICAL HISTORY: Dyspnea. FINDINGS: An AP, portable, upright chest radiograph is compared to study dated 08/31/2017. The examination is degraded by portable technique and patient rotation. The heart is enlarged and there is atherosclerotic calcification of the thoracic aorta. The pulmonary vasculature is noncongested. Bibasilar airspace opacities are noted. No large pleural effusion or pneumothorax is seen. The skeletal structures are osteopenic. The bony thorax is grossly intact. IMPRESSION: 1. Cardiomegaly without radiographic evidence of congestive failure. 2. There are bibasilar airspace opacities. This likely represents atelectasis. Clinical correlation will be required. Electronically signed by: Baltazar Green M.D. 12/12/2017 7:05 AM Dictated Date/Time: 12/12/2017 7:04 AM
--- NOTE | 2017-12-12 07:21 | DIAGNOSTIC IMAGING REPORT ---
CT SCAN OF THE ABDOMEN AND PELVIS WITH IV CONTRAST CLINICAL HISTORY: Right upper quadrant abdominal pain. Reported history of recent cholecystectomy. COMPARISON STUDY: No priors. TECHNIQUE: Following the IV administration of 118 cc of Optiray 320, CT scan of the abdomen and pelvis is performed from the lung bases to the proximal femora. Images are reviewed in the axial, sagittal, and coronal planes. IV contrast was administered without complication. A dose lowering technique was utilized adhering to the principles of ALARA. CT DOSE: 512.92 mGy.cm FINDINGS: Lung bases: The heart is enlarged and without pericardial effusion. The coronary arteries are densely calcified. There is bibasilar consolidation. A tiny hiatal hernia is identified. Liver: The contrast-enhanced liver is normal in size, contour, and attenuation. There is no intrahepatic biliary ductal dilatation. The hepatic veins and portal veins are patent. Gallbladder: Surgically absent noting clips in the gallbladder fossa. No fluid or inflammatory changes seen in the gallbladder fossa. Spleen: Normal in size and attenuation. Pancreas: Unremarkable. Adrenal glands: Unremarkable. Kidneys: The contrast enhanced kidneys demonstrate cortical atrophy and are without hydronephrosis. The kidneys enhance symmetrically. A 1.6 cm cyst is noted in the left lower pole. Additional subcentimeter cortical hypodensities also likely represent cysts but are too small for definitive characterization. Abdominal vasculature: The abdominal aorta is normal in course and caliber noting moderate atherosclerotic calcification. Bowel: There is mild colonic diverticulosis without CT evidence of acute diverticulitis. Mild colonic fecal retention is observed. No bowel obstruction is seen. The appendix is well-visualized and normal. Peritoneum: There is no intraperitoneal free air or abdominal ascites. There is mild inflammatory change seen just deep to the peritoneal reflection the right upper quadrant on image #143. No organized fluid collection is identified. Lymphadenopathy: None. Pelvic viscera: The prostate gland is enlarged and heterogeneous, measuring 6.3 cm in transverse diameter. The bladder wall is thickened and trabeculated. Small bladder diverticula are noted and the appearance is consistent with chronic bladder outlet obstruction. The seminal vesicles are normal as visualized. Skeletal structures: The skeletal structures are osteopenic. There is mild to moderate lumbosacral spondylosis and scoliosis. No lytic or blastic lesions are seen. IMPRESSION: 1. The gallbladder is surgically absent. No inflammatory change or fluid is identified in the gallbladder fossa. 2. There is minimal inflammatory change seen just deep to the peritoneal reflection in the ventricles right upper quadrant. This is nonspecific and may be related to the reported history of recent surgery. No organized fluid collection is identified. 3. There is bibasilar consolidation which likely represents atelectasis. Correlate clinically for evidence of pneumonia. 4. Cardiomegaly. 5. Additional findings as above. Electronically signed by: Baltazar Green M.D. 12/12/2017 7:19 AM Dictated Date/Time: 12/12/2017 7:02 AM
== END 2017-12-12 03:40 | disposition home or self-care (01) ==
LOC: C.EDB 23:10 → C.EDA 12-12 03:40
DX: R10.13 Epigastric pain (principal); J98.11 Atelectasis; I51.9 Heart disease, unspecified; I10 Essential (primary) hypertension; Z83.3 Family history of diabetes mellitus; Z82.49 Family history of ischemic heart disease and other diseases of the circulatory system; Z79.82 Long term (current) use of aspirin

== ENCOUNTER → 2017-12-12 | Outpatient (CLI) | payer OTHER ==
[~2017-12-12] MED LIST changes: +LEVO1TAB35 PO; +TERA1CAP PO
[2017-12-12 12:30] LABS: BASO % 0.2 %; BASO ABS # 0.01 K/uL (0-0.2); EOS % 4.3 %; EOS ABS # 0.26 K/uL (0-0.5); HEMATOCRIT 38.4 % (42-52); HEMOGLOBIN 12.8 g/dL (14.0-18.0); IG# 0.01 K/uL (0.00-0.02); LYMPH % 25.9 %; LYMPH ABS # 1.56 K/uL (1.2-3.4); MEAN CELL VOLUME 93.2 fL (80-100); MEAN CORPUSCULAR HEMOGLOBIN 31.1 pg (25-34); MEAN CORPUSCULAR HGB CONC 33.3 g/dl (32-36); MEAN PLATELET VOLUME 9.7 fL (7.4-10.4); MONO % 10.9 %; MONO ABS # 0.66 K/uL (0.11-0.59); NEUT % 58.5 %; NEUT ABS # 3.53 K/uL (1.4-6.5); PLATELET COUNT 165 K/uL (130-400); RED CELL DISTRIBUTION WIDTH CV 13.8 % (11.5-14.5); RED CELL DISTRIBUTION WIDTH SD 46.7 fL (36.4-46.3); WHITE BLOOD COUNT 6.03 K/uL (4.8-10.8)
[2017-12-12 18:23] LABS: ALBUMIN 3.3 gm/dl (3.4-5.0); ALKALINE PHOSPHATASE 93 U/L (45-117); ALT/SGPT 29 U/L (12-78); AST/SGOT 18 U/L (15-37); BLOOD UREA NITROGEN 20 mg/dl (7-18); CALCIUM 8.6 mg/dl (8.5-10.1); CARBON DIOXIDE 27 mmol/L (21-32); CREATININE 1.21 mg/dl (0.60-1.40); GLUCOSE 91 mg/dl (70-99); POTASSIUM 4.4 mmol/L (3.5-5.1); SODIUM 138 mmol/L (136-145); TOTAL PROTEIN 7.2 gm/dl (6.4-8.2)
== END | disposition home or self-care (01) ==
LOC: C.LABPBG 10:46
PROVIDERS: ATTEND Family Medicine
DX: R10.9 Unspecified abdominal pain (principal)

== ENCOUNTER → 2018-01-01 | Day surgery (SDC) | payer OTHER ==
[2017-12-20 08:44] VITALS: Ht 177.8 cm; Wt 86.4 kg
[~2018-01-01] VITALS: Ht 177.8 cm; Wt 86.4 kg
[~2018-01-01] MED LIST changes: -ASPI325T45 PO; +ASPI81TA28 PO; +DAYQLIQ PO; -DUTA0.5C PO; -HYDR12.56 PO; +HYDR25TA4 PO; -LEVO1TAB35 PO; +LIDOCAINE HCL 2% 2 ML VIAL (20MG/ML) ONE; +MAGN1CAP4 PO; +METR-163 PO; +MIDAZOLAM HCL 1 MG/ML 2ML VIAL ONE; -NAPR-1169 PO; +ONDANSETRON INJ 2 MG/ML 2 ML VIAL ONE; +OXYM0.056 INTNAS; +PROPOFOL IV EMULSION 10 MG/ML 20 ML VIAL IV ONE; +ROSU20TA PO; -ROSU5TAB PO; +SODIUM CHLORIDE 0.9% 500ML 500 ML IV ONE; -SPIR25TA PO; -TERA1CAP PO; +TERA1CAP63 PO
[2018-01-01 13:38] VITALS: TEMP 36.8
--- NOTE | 2018-01-01 13:53 | Endo History and Physical ---
History & Physical Date of Service: Jan 01, 2018. Chief Complaint: history of polyps Referring Physician: Dr. Ritu Robledo History of Present Illness 72 yo CM who presents for EGD secondary to history of colon polyps. Past Surgical History Hx Cardiac Surgery: Yes (HEART CATH X3, STENT X3) Hx Internal Defibrillator: No Hx Pacemaker: No Hx Abdominal Surgery: Yes (ABDI) Hx of Implantable Prosthesis: No Hx Post-Op Nausea and Vomiting: No Hx Cancer Surgery: No Hx Thoracic Surgery: No Hx Orthopedic: No Hx Urinary Tract Surgery: No Family History None Social History Smoking Status: Former Smoker Hx Substance Use: No Hx Alcohol Use: No Allergies Coded Allergies: Prednisone (Unverified Allergy, Severe, BLINDNESS, 01/01/18) Penicillins (Verified Allergy, Intermediate, RASH, 12/20/17) Sulfa Antibiotics (Verified Allergy, Intermediate, RASH, 12/20/17) Adhesives (Verified Allergy, Unknown, SKIN IRRITATION AND ULCER WITH EXTENDED USE, 12/20/17) Apple Cider Vinegar (Verified Allergy, Unknown, RASH, 12/20/17) Uncoded Allergies: ALLERGY SHOTS (Allergy, Severe, CAUSES BLINDNESS, 05/01/17) STEROIDS (Allergy, Severe, CAUSES BLINDNESS, 05/01/17) Current Medications Reported Home Medications Medications Dose Route/Sig Max Daily Dose Days Date Category Dose Instructions Afrin (Oxymetazoline Hcl) 0.05 % Spr 1 [place] INTNAS DAILY 01/01/18 Reported [Dayquil] 1 Dose PO QAM PRN 12/20/17 Reported Magnesium (Magnesium Oxide) 500 Mg Cap 1 Cap PO DAILY 12/20/17 Reported Flomax (Tamsulosin Hcl) 0.4 Mg Cap 0.4 Mg PO DAILY 12/20/[address] OF TERAZOSIN - NEW PRESCRIPTION, HAS NOT STARTED YET Aspirin Ec (Aspirin) 81 Mg Tab 81 Mg PO QAM 12/20/17 Reported Hctz (Hydrochlorothiazide) 25 Mg Tab 25 Mg PO QAM 12/20/17 Reported Crestor (Rosuvastatin Calcium) 20 Mg Tab 0.5 Tab PO HS 12/20/17 Reported Flonase Allergy Relief (Fluticasone Propionate (Nasal)) 50 Mcg/Act Spr 1 [place] JEAN-PAUL BID PRN 08/31/17 Reported Lopressor (Metoprolol Tartrate) 25 Mg Tab 12.5 Mg PO BID 08/31/17 Reported Vital Signs Weight (Kilograms): 86.36 Height (Feet): 5 Height (Inches): 10 Date Time Temp Pulse Resp B/P (MAP) Pulse Ox O2 Delivery O2 Flow Rate FiO2 01/01/18 13:38 36.8 56 20 164/92 (116) 97 Room Air Physical Exam General Appearance: WD/WN, no apparent distress Respiratory/Chest: Auscultation: breath sounds normal Cardiovascular: Heart Auscultation: RRR Abdomen: Bowel Sounds: normal Inspection & Palpation: soft, non-distended, no tenderness, guarding & rebound Assessment and Plan Assessment: 72 yo CM who presents for EGD secondary to history of colon polyps. Plan: Proceed with colonoscopy.
--- NOTE | 2018-01-01 15:14 | GI REPORT ---
Procedure Date: 01/01/2018 2:41 PM Procedure: Colonoscopy Indications: High risk colon cancer surveillance: Personal history of colonic polyps Medicines: Monitored Anesthesia Care Complications: No immediate complications. Estimated Blood Loss: Estimated blood loss: none. Procedure: Pre-Anesthesia Assessment: - Prior to the procedure, a History and Physical was performed, and patient medications and allergies were reviewed. The patient's tolerance of previous anesthesia was also reviewed. The risks and benefits of the procedure and the sedation options and risks were discussed with the patient. All questions were answered, and informed consent was obtained. Prior Anticoagulants: The patient has taken aspirin, last dose was day of procedure. ASA Grade Assessment: III - A patient with severe systemic disease. After reviewing the risks and benefits, the patient was deemed in satisfactory condition to undergo the procedure. After I obtained informed consent, the scope was passed under direct vision. Throughout the procedure, the patient's blood pressure, pulse, and oxygen saturations were monitored continuously. The On-site loaner was introduced through the anus and advanced to the terminal ileum. The colonoscopy was performed without difficulty. The patient tolerated the procedure well. The quality of the bowel preparation was good. The ileocecal valve, appendiceal orifice, and rectum were photographed. Findings: The perianal and digital rectal examinations were normal. Multiple small-mouthed diverticula were found in the sigmoid colon. Non-bleeding internal hemorrhoids were found during retroflexion. The hemorrhoids were small. Impression: - Diverticulosis in the sigmoid colon. - Non-bleeding internal hemorrhoids. - No specimens collected. Recommendation: - Resume previous diet. - Continue present medications. - Repeat colonoscopy for surveillance based on pathology results. - Return to primary care physician as previously scheduled. Ayan Bean, 01/01/2018 3:14:02 PM This report has been signed electronically. Note Initiated On: 01/01/2018 2:41 PM I attest to the content of the Intraoperative Record and orders documented therein, exceptions below
--- NOTE | 2018-01-01 15:19 | Discharge Instructions ---
Endoscopy Patient Instructions Date / Procedure(s) Performed Jan 01, 2018. Colonoscopy Allergy Information Coded Allergies: Prednisone (Unverified Allergy, Severe, BLINDNESS, 01/01/18) Penicillins (Verified Allergy, Intermediate, RASH, 12/20/17) Sulfa Antibiotics (Verified Allergy, Intermediate, RASH, 12/20/17) Adhesives (Verified Allergy, Unknown, SKIN IRRITATION AND ULCER WITH EXTENDED USE, 12/20/17) Apple Cider Vinegar (Verified Allergy, Unknown, RASH, 12/20/17) Uncoded Allergies: ALLERGY SHOTS (Allergy, Severe, CAUSES BLINDNESS, 05/01/17) STEROIDS (Allergy, Severe, CAUSES BLINDNESS, 05/01/17) Discharge Date / Findings Jan 01, 2018. Diverticulosis Internal hemorrhoids Medication Instructions OK to resume all medications today as prescribed Reported Home Medications Medications Dose Route/Sig Max Daily Dose Days Date Category Dose Instructions Afrin (Oxymetazoline Hcl) 0.05 % Spr 1 [place] INTNAS DAILY 01/01/18 Reported [Dayquil] 1 Dose PO QAM PRN 12/20/17 Reported Magnesium (Magnesium Oxide) 500 Mg Cap 1 Cap PO DAILY 12/20/17 Reported Flomax (Tamsulosin Hcl) 0.4 Mg Cap 0.4 Mg PO DAILY 12/20/[address] OF TERAZOSIN - NEW PRESCRIPTION, HAS NOT STARTED YET Aspirin Ec (Aspirin) 81 Mg Tab 81 Mg PO QAM 12/20/17 Reported Hctz (Hydrochlorothiazide) 25 Mg Tab 25 Mg PO QAM 12/20/17 Reported Crestor (Rosuvastatin Calcium) 20 Mg Tab 0.5 Tab PO HS 12/20/17 Reported Flonase Allergy Relief (Fluticasone Propionate (Nasal)) 50 Mcg/Act Spr 1 [place] JEAN-PAUL BID PRN 08/31/17 Reported Lopressor (Metoprolol Tartrate) 25 Mg Tab 12.5 Mg PO BID 08/31/17 Reported Provider Instructions Activity Restrictions - No exercising or heavy lifting for 24 hours. - Do not drink alcohol the day of the procedure. - Do not drive a car or operate machinery until the day after the procedure. - Do not make any important decisions or sign important papers in 24 hours after the procedure. Following Day: - Return to full activity which may include returning to work/school. Diet Start your diet with liquids and light foods (jello, soup, juice, toast). Then eat your usual diet if not nauseated. Treatment For Common After Affects For mild abdominal pain, bloating, or excessive gas: - Rest - Eat lightly - Lie on right side Follow-Up Information Follow-up with Dr. Ritu Robledo as scheduled Anesthesia Information What You Should Know You have had a procedure that required some medicine to reduce anxiety and discomfort. This treatment is called moderate sedation. After receiving the treatment, you may be sleepy, but you will be able to breathe on your own. The effects of the treatment may last for several hours. Follow these instructions along with Activity/Diet recommendations noted above: * Do NOT do anything where dizziness or clumsiness would be dangerous. * Rest quietly at home today, then you can be up and about tomorrow. * Have a responsible person stay with you the rest of today. * You may have had an I.V. today. If so, you may take the dressing off later today. Recommendations Call your doctor if: * Trouble breathing * Continuous vomiting for more than 24 hours * Temperature above 101 degrees * Severe abdominal pain or bloating * Pain not relieved by pain medicine ordered * There is increased drainage or redness from any incision * A large amount of rectal bleeding greater than 2-3 tablespoons. (If you had a polyp/s removed or have hemorrhoids, a small amount of blood - from the rectum is to be expected.) * You have any unanswered questions or concerns. IN THE EVENT OF A SERIOUS EMERGENCY, GO TO THE NEAREST EMERGENCY ROOM Your discharge instructions were prepared by provider Ayan Bean. Patient Instructions Signature Page Freddie Soliman Patient (or Guardian) Signature/Date: I have read and understand the instructions given to me by my caregivers. Caregiver/RN/Doctor Signature/Date: The above-named patient and/or guardian has received patient instructions on this date. + Original Patient Signature Page (only) stays with chart. Please make copy for patient.
[2018-01-01 15:40] VITALS: BP 166/105; PULSE 57; O2SAT 95
--- NOTE | 2018-01-01 16:10 | Anesthesiology Progress Note ---
Anesthesia Post Op Note Date & Time Jan 01, 2018 at 16:10 Vital Signs Pain Intensity: 3 Vital Signs Past 12 Hours Date Time Temp Pulse Resp B/P (MAP) Pulse Ox O2 Delivery O2 Flow Rate FiO2 01/01/18 15:40 57 18 166/105 (125) 95 Room Air 01/01/18 15:25 55 18 143/87 (105) 96 Room Air 01/01/18 15:10 63 16 155/85 (108) 95 Nasal Cannula 2 01/01/18 13:38 36.8 56 20 164/92 (116) 97 Room Air Notes Mental Status: alert / awake / arousable, participated in evaluation Pt Amnestic to Procedure: Yes Nausea / Vomiting: adequately controlled Pain: adequately controlled Airway Patency, RR, SpO2: stable & adequate BP & HR: stable & adequate Hydration State: stable & adequate Anesthetic Complications: no major complications apparent
== END | disposition home or self-care (01) ==
LOC: C.GI 12:59
PROVIDERS: ATTEND Internal Medicine
DX: Z12.11 Encounter for screening for malignant neoplasm of colon (principal); Z86.010 Personal history of colon polyps; K57.30 Diverticulosis of large intestine without perforation or abscess without bleeding; K64.8 Other hemorrhoids; I10 Essential (primary) hypertension; K21.9 Gastro-esophageal reflux disease without esophagitis; I25.10 Atherosclerotic heart disease of native coronary artery without angina pectoris; E78.5 Hyperlipidemia, unspecified; K44.9 Diaphragmatic hernia without obstruction or gangrene; Z95.5 Presence of coronary angioplasty implant and graft; Z90.49 Acquired absence of other specified parts of digestive tract; Z87.891 Personal history of nicotine dependence; Z88.0 Allergy status to penicillin; Z88.2 Allergy status to sulfonamides; Z88.8 Allergy status to other drugs, medicaments and biological substances; Z79.82 Long term (current) use of aspirin; Z98.41 Cataract extraction status, right eye; Z98.42 Cataract extraction status, left eye

== ENCOUNTER → 2018-01-28 | Day surgery (SDC) | payer OTHER ==
[2018-01-16 16:24] VITALS: Ht 177.8 cm; Wt 86.4 kg
[~2018-01-28] VITALS: Ht 177.8 cm; Wt 86.4 kg
[~2018-01-28] MED LIST changes: -DAYQLIQ PO; +LISI10TA PO; -METR-163 PO; +OMEP40CA41 PO; -TERA1CAP63 PO
--- NOTE | 2018-01-28 13:17 | Endo History and Physical ---
History & Physical Date of Service: Jan 28, 2018. Chief Complaint: Abd pain, Black stools, hiatal hernia, nausea Referring Physician: Ritu Robledo History of Present Illness 72 yo CM who presents for EGD secondary to abdominal pain, black stools and hiatal hernia. Past Surgical History Hx Cardiac Surgery: Yes (HEART CATH X3, STENT X3) Hx Internal Defibrillator: No Hx Pacemaker: No Hx Abdominal Surgery: Yes (ABDI) Hx of Implantable Prosthesis: No Hx Post-Op Nausea and Vomiting: No Hx Cancer Surgery: No Hx Thoracic Surgery: No Hx Orthopedic: No Hx Urinary Tract Surgery: No Family History None Social History Smoking Status: Former Smoker Hx Substance Use: No Hx Alcohol Use: No Allergies Coded Allergies: Prednisone (Unverified Allergy, Severe, BLINDNESS, 01/28/18) Penicillins (Verified Allergy, Intermediate, RASH, 01/28/18) Sulfa Antibiotics (Verified Allergy, Intermediate, RASH, 01/28/18) Adhesives (Verified Allergy, Unknown, SKIN IRRITATION AND ULCER WITH EXTENDED USE, 01/28/18) Apple Cider Vinegar (Verified Allergy, Unknown, RASH, 01/28/18) Uncoded Allergies: ALLERGY SHOTS (Allergy, Severe, CAUSES BLINDNESS, 05/01/17) STEROIDS (Allergy, Severe, CAUSES BLINDNESS, 05/01/17) Current Medications Reported Home Medications Medications Dose Route/Sig Max Daily Dose Days Date Category Dose Instructions Prinivil (Lisinopril) 10 Mg Tab 10 Mg PO QAM 01/16/18 Reported Prilosec (Omeprazole) 40 Mg Cap 40 Mg PO QAM 01/16/18 Reported Afrin (Oxymetazoline Hcl) 0.05 % Spr 1 [place] INTNAS DAILY 01/01/18 Reported Magnesium (Magnesium Oxide) 500 Mg Cap 1 Cap PO DAILY 12/20/17 Reported Flomax (Tamsulosin Hcl) 0.4 Mg Cap 0.4 Mg PO DAILY 12/20/[address] OF TERAZOSIN - NEW PRESCRIPTION, HAS NOT STARTED YET Aspirin Ec (Aspirin) 81 Mg Tab 81 Mg PO QAM 12/20/17 Reported Hctz (Hydrochlorothiazide) 25 Mg Tab 25 Mg PO QAM 12/20/17 Reported Crestor (Rosuvastatin Calcium) 20 Mg Tab 10 Mg PO HS 12/20/17 Reported Flonase Allergy Relief (Fluticasone Propionate (Nasal)) 50 Mcg/Act Spr 1 [place] JEAN-PAUL BID PRN 08/31/17 Reported Lopressor (Metoprolol Tartrate) 25 Mg Tab 12.5 Mg PO BID 08/31/17 Reported Vital Signs Weight (Kilograms): 86.36 Height (Feet): 5 Height (Inches): 10 Date Time Temp Pulse Resp B/P (MAP) Pulse Ox O2 Delivery O2 Flow Rate FiO2 01/28/18 11:57 36.4 57 18 176/94 (121) 97 Room Air Physical Exam General Appearance: WD/WN, no apparent distress Respiratory/Chest: Auscultation: breath sounds normal Cardiovascular: Heart Auscultation: RRR Abdomen: Bowel Sounds: normal Inspection & Palpation: soft, non-distended, no tenderness, guarding & rebound Assessment and Plan Assessment: 72 yo CM who presents for EGD secondary to abdominal pain, black stools and hiatal hernia. Plan: Proceed with EGD.
--- NOTE | 2018-01-28 13:41 | GI REPORT ---
Procedure Date: 01/28/2018 12:56 PM Procedure: Upper GI endoscopy Indications: Epigastric abdominal pain, Gastro-esophageal reflux disease Medicines: Monitored Anesthesia Care Complications: No immediate complications. Estimated Blood Loss: Estimated blood loss: none. Procedure: Pre-Anesthesia Assessment: - Prior to the procedure, a History and Physical was performed, and patient medications and allergies were reviewed. The patient's tolerance of previous anesthesia was also reviewed. The risks and benefits of the procedure and the sedation options and risks were discussed with the patient. All questions were answered, and informed consent was obtained. Prior Anticoagulants: The patient has taken aspirin, last dose was 1 day prior to procedure. ASA Grade Assessment: III - A patient with severe systemic disease. After reviewing the risks and benefits, the patient was deemed in satisfactory condition to undergo the procedure. After obtaining informed consent, the endoscope was passed under direct vision. Throughout the procedure, the patient's blood pressure, pulse, and oxygen saturations were monitored continuously. The On-site loaner was introduced through the mouth, and advanced to the second part of duodenum. The upper GI endoscopy was accomplished without difficulty. The patient tolerated the procedure well. Findings: A non-obstructing Schatzki ring (acquired) was found at the gastroesophageal junction. A small hiatal hernia was present. Biopsies were taken with a cold forceps in the gastric antrum for Helicobacter pylori testing. The examined duodenum was normal. Impression: - Non-obstructing Schatzki ring. - Small hiatal hernia. - Normal examined duodenum. - Biopsies were taken with a cold forceps for Helicobacter pylori testing. Recommendation: - Resume previous diet. - Continue present medications. - Await pathology results. - Return to primary care physician as previously scheduled. Ayan Bean, 01/28/2018 1:40:26 PM This report has been signed electronically. Note Initiated On: 01/28/2018 12:56 PM I attest to the content of the Intraoperative Record and orders documented therein, exceptions below
--- NOTE | 2018-01-28 13:41 | Discharge Instructions ---
Endoscopy Patient Instructions Date / Procedure(s) Performed Jan 28, 2018. EGD Allergy Information Coded Allergies: Prednisone (Unverified Allergy, Severe, BLINDNESS, 01/28/18) Penicillins (Verified Allergy, Intermediate, RASH, 01/28/18) Sulfa Antibiotics (Verified Allergy, Intermediate, RASH, 01/28/18) Adhesives (Verified Allergy, Unknown, SKIN IRRITATION AND ULCER WITH EXTENDED USE, 01/28/18) Apple Cider Vinegar (Verified Allergy, Unknown, RASH, 01/28/18) Uncoded Allergies: ALLERGY SHOTS (Allergy, Severe, CAUSES BLINDNESS, 05/01/17) STEROIDS (Allergy, Severe, CAUSES BLINDNESS, 05/01/17) Discharge Date / Findings Jan 28, 2018. Gastric antrum biopsies Hiatal hernia Non-obstructing Schatzki's ring Medication Instructions Stopped Medication(s): Aspirin last taken on 01/27/18 OK to resume all medications today as prescribed Reported Home Medications Medications Dose Route/Sig Max Daily Dose Days Date Category Dose Instructions Prinivil (Lisinopril) 10 Mg Tab 10 Mg PO QAM 01/16/18 Reported Prilosec (Omeprazole) 40 Mg Cap 40 Mg PO QAM 01/16/18 Reported Afrin (Oxymetazoline Hcl) 0.05 % Spr 1 [place] INTNAS DAILY 01/01/18 Reported Magnesium (Magnesium Oxide) 500 Mg Cap 1 Cap PO DAILY 12/20/17 Reported Flomax (Tamsulosin Hcl) 0.4 Mg Cap 0.4 Mg PO DAILY 12/20/[address] OF TERAZOSIN - NEW PRESCRIPTION, HAS NOT STARTED YET Aspirin Ec (Aspirin) 81 Mg Tab 81 Mg PO QAM 12/20/17 Reported Hctz (Hydrochlorothiazide) 25 Mg Tab 25 Mg PO QAM 12/20/17 Reported Crestor (Rosuvastatin Calcium) 20 Mg Tab 10 Mg PO HS 12/20/17 Reported Flonase Allergy Relief (Fluticasone Propionate (Nasal)) 50 Mcg/Act Spr 1 [place] JEAN-PAUL BID PRN 08/31/17 Reported Lopressor (Metoprolol Tartrate) 25 Mg Tab 12.5 Mg PO BID 08/31/17 Reported Provider Instructions Activity Restrictions - No exercising or heavy lifting for 24 hours. - Do not drink alcohol the day of the procedure. - Do not drive a car or operate machinery until the day after the procedure. - Do not make any important decisions or sign important papers in 24 hours after the procedure. Following Day: - Return to full activity which may include returning to work/school. Diet Start your diet with liquids and light foods (jello, soup, juice, toast). Then eat your usual diet if not nauseated. Treatment For Common After Affects For mild abdominal pain, bloating, or excessive gas: - Rest - Eat lightly - Lie on right side Follow-Up Information Follow-up with Ritu Robledo as scheduled Anesthesia Information What You Should Know You have had a procedure that required some medicine to reduce anxiety and discomfort. This treatment is called moderate sedation. After receiving the treatment, you may be sleepy, but you will be able to breathe on your own. The effects of the treatment may last for several hours. Follow these instructions along with Activity/Diet recommendations noted above: * Do NOT do anything where dizziness or clumsiness would be dangerous. * Rest quietly at home today, then you can be up and about tomorrow. * Have a responsible person stay with you the rest of today. * You may have had an I.V. today. If so, you may take the dressing off later today. Recommendations Call your doctor if: * Trouble breathing * Continuous vomiting for more than 24 hours * Temperature above 101 degrees * Severe abdominal pain or bloating * Pain not relieved by pain medicine ordered * There is increased drainage or redness from any incision * A large amount of rectal bleeding greater than 2-3 tablespoons. (If you had a polyp/s removed or have hemorrhoids, a small amount of blood - from the rectum is to be expected.) * You have any unanswered questions or concerns. IN THE EVENT OF A SERIOUS EMERGENCY, GO TO THE NEAREST EMERGENCY ROOM Your discharge instructions were prepared by provider Ayan Bean. Patient Instructions Signature Page Freddie Soliman Patient (or Guardian) Signature/Date: I have read and understand the instructions given to me by my caregivers. Caregiver/RN/Doctor Signature/Date: The above-named patient and/or guardian has received patient instructions on this date. + Original Patient Signature Page (only) stays with chart. Please make copy for patient.
--- NOTE | 2018-01-28 13:59 | Anesthesiology Progress Note ---
Anesthesia Post Op Note Date & Time Jan 28, 2018 at 13:59 Vital Signs Pain Intensity: 0 Vital Signs Past 12 Hours Date Time Temp Pulse Resp B/P (MAP) Pulse Ox O2 Delivery O2 Flow Rate FiO2 01/28/18 13:48 36.4 56 16 115/66 (82) 95 Room Air 01/28/18 11:57 36.4 57 18 176/94 (121) 97 Room Air Notes Mental Status: alert / awake / arousable, participated in evaluation Pt Amnestic to Procedure: Yes Nausea / Vomiting: adequately controlled Pain: adequately controlled Airway Patency, RR, SpO2: stable & adequate BP & HR: stable & adequate Hydration State: stable & adequate Anesthetic Complications: no major complications apparent
[2018-01-28 14:17] VITALS: BP 139/80; PULSE 54; O2SAT 96
== END | disposition home or self-care (01) ==
LOC: C.GI 11:19
PROVIDERS: ATTEND Internal Medicine
DX: K29.50 Unspecified chronic gastritis without bleeding (principal); K21.9 Gastro-esophageal reflux disease without esophagitis; K22.2 Esophageal obstruction; K44.9 Diaphragmatic hernia without obstruction or gangrene; R19.5 Other fecal abnormalities; I25.10 Atherosclerotic heart disease of native coronary artery without angina pectoris; I10 Essential (primary) hypertension; F41.9 Anxiety disorder, unspecified; M19.90 Unspecified osteoarthritis, unspecified site; Z98.41 Cataract extraction status, right eye; Z98.42 Cataract extraction status, left eye; Z90.49 Acquired absence of other specified parts of digestive tract; Z87.891 Personal history of nicotine dependence; Z88.0 Allergy status to penicillin; Z88.2 Allergy status to sulfonamides; Z91.018 Allergy to other foods; Z79.82 Long term (current) use of aspirin; Z79.899 Other long term (current) drug therapy

== ENCOUNTER → 2018-02-26 | Outpatient (CLI) | payer OTHER ==
[~2018-02-26] MED LIST changes: +AMINOPHYLLINE 25 MG/ML 20ML VIAL IV ONE; -LIDOCAINE HCL 2% 2 ML VIAL (20MG/ML) ONE; -MIDAZOLAM HCL 1 MG/ML 2ML VIAL ONE; -ONDANSETRON INJ 2 MG/ML 2 ML VIAL ONE; -PROPOFOL IV EMULSION 10 MG/ML 20 ML VIAL IV ONE; +REGADENOSON 0.4 MG/5 ML SYR ONE; -SODIUM CHLORIDE 0.9% 500ML 500 ML IV ONE
--- NOTE | 2018-02-26 17:05 | Myocardial Perfusion Study ---
Myocardial Perfusion Study Rpt Myocardial Perfusion Study Rpt Date of Service 02/26/2018 Myocardial Perfusion Study Rpt Procedure: 1. Myocardial perfusion study performed in multiple views/images 2. Lexiscan pharmacologic stress ECG Indications: 1. Chest pain 2. CAD status post PCI Consent: Informed written consent was obtained prior to the procedure. Ordering physician: Dr. Robledo Procedural details: For the stress portion of the study, Lexiscan 0.4 mg was intravenously administered followed by a saline flush. This was followed by 32.1 mCi of technetium 99m Cardiolite, injected at 11:15 a.m. on 02/26/2018. 30 minutes following the injection, imaging of the heart was performed in multiple projections. For the rest portion of the study, 11.1 mCi technetium 99m Cardiolite was injected intravenously at 9:20 a.m. on 02/26/2018. 1 hour following the injection, imaging of the heart was performed in the same projections. Lexiscan stress ECG: Resting ECG demonstrated: Sinus bradycardia at 55 bpm Maximum heart rate: 90 bpm Resting blood pressure: 153/87 mmHg Maximum blood pressure: 172/90 mmHg Maximal, age-predicted heart rate: 60 % Significant ST changes: None Arrhythmia: None Symptoms: Transient lightheadedness. No chest pain or shortness of breath. Findings: Rotating raw imaging demonstrated no significant lung uptake. There is no significant motion artifact. Heart size appeared normal. Myocardial perfusion demonstrated a small to moderate sized area with mildly to moderately reduced uptake involving the inferior wall from base to mid ventricle, which was reversible on rest imaging. Other areas appear to have normal perfusion. Ejection fraction: 65 % Wall motion: Normal No significant transient ischemic dilation. Impression: 1. Abnormal myocardial perfusion study suggesting base to mid inferior ischemia (RCA territory). 2. Normal wall motion. 3. Normal left ventricular systolic function. EF 65%. 4. Nondiagnostic Lexiscan ECG. 5. No chest pain reported. 6. Abnormal findings were communicated with ordering physician via electronic health record. Phone calls were attempted but were unsuccessful.
== END | disposition home or self-care (01) ==
LOC: C.NUCL 09:04
PROVIDERS: ATTEND Family Medicine
DX: R07.9 Chest pain, unspecified (principal)

== ENCOUNTER 2021-09-09 06:15 | Inpatient (IN) ==
--- NOTE | 2021-09-09 06:49 | Emergency Department Note ---
History of Present Illness General Chief complaint: Shortness of Breath/Dyspnea Stated complaint: SOB Time Seen by Provider: 09/09/21 06:31 History of Present Illness 76-year-old male presents to the ED with a chief complaint of shortness of breath. The patient was diagnosed with Covid several days ago. He states that he has had Covid symptoms for couple of weeks. Initially had some diarrhea and fevers and chills and has had some upper respiratory symptoms as well. His primary complaint this morning was that he could not catch his breath and had shallow breathing. He also reports some nausea and vomiting yesterday. He also reports body aches today. He had some chest pain a week ago but does not have any now. His shortness of breath is worse with exertion. EMS brought him in. They had a room air oxygen saturations of 88%. He was also 88% here off of oxygen. He does not wear home oxygen. No immunization for covid. Home Medications Medication Instructions Recorded Confirmed Type aspirin 325 mg tablet 162.5 mg PO BID 04/17/19 09/09/21 History metoprolol tartrate 25 mg tablet 12.5 mg PO BID #180 tab 06/05/19 09/09/21 Rx rosuvastatin 40 mg tablet 40 mg PO QPM 11/19/19 09/09/21 History cholecalciferol (vitamin D3) 50 2,000 unit PO QAM 09/23/20 09/09/21 History mcg (2,000 unit) capsule lanolin alcohols-mineral 1 applic TOPICAL DAILY 05/05/21 09/09/21 History oil-w.petrolatum-ceresin topical cream (Eucerin) allopurinol 100 mg tablet 300 mg PO QAM 09/09/21 09/09/21 History amlodipine 10 mg tablet 10 mg PO QAM 09/09/21 09/09/21 History losartan 100 mg tablet 100 mg PO QAM 09/09/21 09/09/21 History tamsulosin 0.4 mg capsule (Flomax) 0.04 mg PO QPM 09/09/21 09/09/21 History vitamin B12 0.5 mg-folic acid 1 mg 1 tab PO QAM 09/09/21 09/09/21 History tablet Allergies Allergy/AdvReac Type Severity Reaction Status Date / Time prednisone Allergy Severe BLINDNESS Verified 09/09/21 07:29 Penicillins Allergy Intermediate RASH Verified 09/09/21 07:29 Sulfa (Sulfonamide Allergy Intermediate RASH Verified 09/09/21 07:29 Antibiotics) adhesive Allergy Unknown SKIN Verified 09/09/21 07:29 IRRITATION AND ULCER WITH EXTENDED USE ALLERGY SHOTS Allergy Severe CAUSES Uncoded 09/09/21 07:29 BLINDNESS STEROIDS Allergy Severe CAUSES Uncoded 09/09/21 07:29 BLINDNESS Apple Cider Vinegar Allergy Unknown RASH Uncoded 09/09/21 07:29 Past Med/Surg History Medical History (Updated 09/09/21 @ 08:29 by Alex Awad DO) Allergic rhinitis Arthritis BPH (benign prostatic hyperplasia) CAD (coronary artery disease) Chronic kidney disease, stage III (moderate) Chronic sinusitis Depression with anxiety Gout Hiatal hernia History of colonic polyps Hyperlipidemia Hypertension Prediabetes Schatzki's ring Tinea corporis Vitamin D deficiency Surgical History History of cataract surgery History of cholecystectomy History of coronary artery stent placement Distal LAD stent 2007, proximal LAD June 2009, stent to the RCA 2013 History of eye surgery Family History Father Cardiac disorder Hypertension Prostate cancer Myocardial infarction, Onset Age: 65 Brother Cardiac disorder Diabetes Mother Diabetes Liver cancer Ovarian cancer, Onset Age: 59 Sister Diabetes Denies family history of Breast cancer Colorectal cancer Social History Smoking Status: Former smoker Age Quit Using Tobacco: 37; Second Hand Exposure: No; Hx Alcohol Use: Yes Hx Substance Use: No Preferred Language: French Visual Impairment: Limited Hearing Ability: Hard of Hearing [place] Required: No Beliefs That Will Affect Care: None marital status: Current Living Situation: Spouse Current Living Situation Comment: , grandson, grandson GF and their 4 young children current occupational status: retired Feels Safe at Home: Yes Childhood Exposure to Second-Hand Smoke: Yes Diet Comment: regular caffeine: No during the past year weight has: remained stable Dental Care, Regularly: Yes Physical Activity Frequency: 1-2 Times per Week Physical Activity Frequency Comment: walking Seatbelt Use: never Sunscreen Use: No Review of Systems A total of 10 systems reviewed and were otherwise negative Physical Exam Vital Signs Vital Signs - 24 hr 09/09/21 06:27 09/09/21 06:28 09/09/21 06:49 Temperature 37.2 C 37.2 C Temperature Source Oral Oral Pulse Rate 87 Pulse Rate [Apical] Pulse Rhythm Regular Pulse Strength Normal Respiratory Rate 24 Respiratory Effort / Characteristics Labored Short of Breath Labored Respiratory Depth Normal Normal Respiratory Pattern Regular Regular Blood Pressure 146/87 H Blood Pressure [Right Arm] Blood Pressure Mean 106 Blood Pressure Mean [Right Arm] Blood Pressure Position Lying Blood Pressure Position [Right Arm] Pulse Oximetry 94 88 L 93 Oxygen Delivery Method Nasal Cannula Room Air Nasal Cannula Oxygen Flow Rate 4 4 Sepsis Recent Fever Within 48 Hours No Sepsis New/Unexplained Change in Mental Status No Sepsis Action Taken by Nursing No Action Required Oxygen Flow Rate - Titration Pulse Oximetry Post Tiitration 09/09/21 06:50 09/09/21 07:46 Temperature Temperature Source Pulse Rate Pulse Rate [Apical] 93 H Pulse Rhythm Pulse Strength Respiratory Rate 24 Respiratory Effort / Characteristics Respiratory Depth Respiratory Pattern Blood Pressure Blood Pressure [Right Arm] 128/72 Blood Pressure Mean Blood Pressure Mean [Right Arm] 90 Blood Pressure Position Blood Pressure Position [Right Arm] Semi-fowlers Pulse Oximetry 88 L 91 Oxygen Delivery Method Room Air Nasal Cannula Oxygen Flow Rate 2 Sepsis Recent Fever Within 48 Hours Sepsis New/Unexplained Change in Mental Status Sepsis Action Taken by Nursing Oxygen Flow Rate - Titration 4 Pulse Oximetry Post Tiitration 93 CONSTITUTIONAL/VITAL SIGNS: Reviewed / noted above. GENERAL: Non-toxic in appearance. INTEGUMENTARY: Warm, dry, and [place]. HEAD: Normocephalic. EYES: without scleral icterus or trauma. ENT/OROPHARYNX: clear and moist. LYMPHADENOPATHY/NECK: Is supple without lymphadenopathy or meningismus. RESPIRATORY: Minimal crackles in the left base. Mild increased work of breathing. CARDIOVASCULAR: Regular rate and rhythm. GI/ABDOMEN: Soft and nontender. No organomegaly or pulsatile mass. EXTREMITIES: Warm and well perfused. BACK: No CVA tenderness. NEUROLOGICAL: Intact without focal deficits. PSYCHIATRIC: normal affect. MUSCULOSKELETAL: Normally developed with good muscle tone. TRIAGE NURSING DOCUMENTATION REVIEWED. Medical Decision Making Differential Diagnosis The differential was considered includes acute myocardial infarction, acute coronary syndrome, myocarditis, pericarditis, pericardial effusions /tamponad, esophageal perforation, pulmonary embolism, pneumonia, pneumothorax, cardiomyopathy, congestive heart, anemia , COPD/asthma exacerbation. Medical Records Attestation: I reviewed the patient's medical records. Home Medications Current Medication List: was personally reviewed by me Laboratory Data Attestation: I reviewed the patient's lab results. Result diagrams: 09/09/21 07:16 09/09/21 07:16 Lab Results 09/09/21 09/09/21 09/09/21 Range/Units 07:16 07:16 07:16 WBC 6.11 (4.8-10.8) K/uL RBC 3.92 L (4.7-6.1) M/uL Hgb 12.4 L (14.0-18.0) g/dL Hct 36.6 L (42-52) % MCV 93.4 (80-100) fL MCH 31.6 (25-34) pg MCHC 33.9 (32-36) g/dL RDW Std Deviation 48.2 H (36.4-46.3) fL RDW Coeff of Judith 14.1 (11.5-14.5) % Plt Count 180 (130-400) K/uL MPV 9.6 (7.4-10.4) fL Immature Gran % (Auto) 0.3 % Neut % (Auto) 80.4 % Lymph % (Auto) 10.1 % [place] % (Auto) 9.0 % Eos % (Auto) 0.0 % Baso % (Auto) 0.2 % Neut # (Auto) 4.91 (1.4-6.5) K/uL Lymph # (Auto) 0.62 L (1.2-3.4) K/uL [place] # (Auto) 0.55 (0.11-0.59) K/uL Eos # (Auto) 0.00 (0-0.5) K/uL Baso # (Auto) 0.01 (0-0.2) K/uL Immature Gran # (Auto) 0.02 (0.00-0.02) K/uL PT 10.0 (9.0-12.0) Seconds INR 1.0 (0.9-1.1) APTT 29.7 (21.0-31.0) Seconds PTT Ratio 1.1 D-Dimer 790 H* (0-500) ug/L FEU Sodium 139 (136-145) mmol/L Potassium 4.2 (3.5-5.1) mmol/L Chloride 108 H (98-107) mmol/L Carbon Dioxide 23 (21-32) mmol/L Anion Gap 8.0 (3-11) BUN 38 H (7-18) mg/dl Creatinine 2.05 H (0.6-1.4) mg/dl Est Cr Clr Drug Dosing 33.8 ml/min Est GFR ( Amer) 35.9 ml/min Est GFR (Non-Af Amer) 31.0 ml/min BUN/Creatinine Ratio 18.3 (10-20) Glucose 119 H (70-99) mg/dl Calcium 8.5 (8.5-10.1) mg/dl Total Bilirubin 0.3 (0.2-1) mg/dl AST 54 H (15-37) U/L ALT 42 (12-78) U/L Alkaline Phosphatase 61 (45-117) U/L Troponin I 0.025 (0-0.045) ng/ml NT-Pro-B Natriuret Pep 156 (0-900) pg/ml Total Protein 6.7 (6.4-8.2) gm/dl Albumin 2.3 L (3.4-5.0) gm/dl Globulin 4.4 H (2.5-4.0) gm/dl Albumin/Globulin Ratio 0.5 L (0.9-2) COVID-19 Eval Order 09/09/21 Range/Units 07:42 WBC (4.8-10.8) K/uL RBC (4.7-6.1) M/uL Hgb (14.0-18.0) g/dL Hct (42-52) % MCV (80-100) fL MCH (25-34) pg MCHC (32-36) g/dL RDW Std Deviation (36.4-46.3) fL RDW Coeff of Judith (11.5-14.5) % Plt Count (130-400) K/uL MPV (7.4-10.4) fL Immature Gran % (Auto) % Neut % (Auto) % Lymph % (Auto) % [place] % (Auto) % Eos % (Auto) % Baso % (Auto) % Neut # (Auto) (1.4-6.5) K/uL Lymph # (Auto) (1.2-3.4) K/uL [place] # (Auto) (0.11-0.59) K/uL Eos # (Auto) (0-0.5) K/uL Baso # (Auto) (0-0.2) K/uL Immature Gran # (Auto) (0.00-0.02) K/uL PT (9.0-12.0) Seconds INR (0.9-1.1) APTT (21.0-31.0) Seconds PTT Ratio D-Dimer (0-500) ug/L FEU Sodium (136-145) mmol/L Potassium (3.5-5.1) mmol/L Chloride (98-107) mmol/L Carbon Dioxide (21-32) mmol/L Anion Gap (3-11) BUN (7-18) mg/dl Creatinine (0.6-1.4) mg/dl Est Cr Clr Drug Dosing ml/min Est GFR ( Amer) ml/min Est GFR (Non-Af Amer) ml/min BUN/Creatinine Ratio (10-20) Glucose (70-99) mg/dl Calcium (8.5-10.1) mg/dl Total Bilirubin (0.2-1) mg/dl AST (15-37) U/L ALT (12-78) U/L Alkaline Phosphatase (45-117) U/L Troponin I (0-0.045) ng/ml NT-Pro-B Natriuret Pep (0-900) pg/ml Total Protein (6.4-8.2) gm/dl Albumin (3.4-5.0) gm/dl Globulin (2.5-4.0) gm/dl Albumin/Globulin Ratio (0.9-2) COVID-19 Eval Order Covid19 at [facility] Imaging Data Radiologist's Impression: Chest X-Ray 09/09/21 06:44 XR chest 1V portable HISTORY: Dyspnea COMPARISON: Chest 11/27/2019. FINDINGS: No pneumothorax. No pleural effusions. The heart is mildly enlarged. There are patchy peripheral airspace opacities within the mid to lower lung zones most pronounced on the left. This is consistent with a multifocal viral pneumonia. IMPRESSION: Multifocal viral pneumonia. ACT 112: Negative or not required by law. Electronically signed by: Praful Gonzalez M.D. 09/09/2021 7:47 AM ECG Data Attestation: I personally reviewed and interpreted this ECG as follows: Additional Comments: Twelve-lead EKG: Per my interpretation there is normal sinus rhythm at a rate of 82. No ST elevation. No PVCs. Normal QTC MDM Narrative Patient presents with shortness of breath that is worse with exertion as detailed above. Vital signs are stable. Oxygen saturation is documented at 88% on room air. Twelve-lead EKG shows normal sinus rhythm at a rate of 82 without ischemic changes. Chest x-ray revealed findings suggesting a bilateral viral pneumonia. CBC was unremarkable. Chemistry panel shows a an elevation of the BUN and creatinine over the patient's baseline. Troponin was negative. BNP is normal. D-dimer was slightly elevated likely related to Covid. The patient has ox saturations of 88% on room air and will require further inpatient evaluation and care. He does not use oxygen at home. He will be seen by the hospitalist for further evaluation and care. He was given a liter of normal saline IV here. He was placed on oxygen and his oxygen saturations are in the low 90s on 2 to 3 L. Impression & Plan Pneumonia due to COVID-19 virus, Hypoxia, JUDY (acute kidney injury) Discharge Plan Visit Data Chief Complaint: Shortness of Breath/Dyspnea Stated Complaint: SOB ED Provider: Alex Awad Discharge Problem: Pneumonia due to COVID-19 virus, Hypoxia, JUDY (acute kidney injury) Patient Disposition: Being Evaluated by Hospitalist Forms Stand Alone Forms: My [facility], Virtual Emergency Department, Important Visit Information Prescriptions Prescriptions: No Action cholecalciferol (vitamin D3) 50 mcg (2,000 unit) capsule 2,000 unit PO QAM RF: 0 metoprolol tartrate 25 mg tablet 12.5 mg PO BID Qty: 180 RF: 3 rosuvastatin 40 mg tablet 40 mg PO QPM RF: 0 Eucerin Cream 1 applic topical DAILY RF: 0 aspirin 325 mg Tablet 162.5 mg PO BID RF: 0 vitamin [id number] acid 0.5-1 mg Tablet 1 tab PO QAM RF: 0 allopurinol 100 mg tablet 300 mg PO QAM RF: 0 tamsulosin [Flomax] 0.4 mg capsule 0.04 mg PO QPM RF: 0 amlodipine 10 mg tablet 10 mg PO QAM RF: 0 losartan 100 mg tablet 100 mg PO QAM RF: 0 Referrals Referrals: Ritu Robledo DO [Primary Care Provider] -
[2021-09-09 07:29] LABS: Basophils # (auto) 0.01 K/uL (0-0.2); Basophils % (auto) 0.2 %; Hematocrit (blood only) 36.6 % (42-52); Hemoglobin 12.4 g/dL (14.0-18.0); Immature Granulocytes # (auto) 0.02 K/uL (0.00-0.02); Immature Granulocytes % (auto) 0.3 %; Lymphocytes # (auto) 0.62 K/uL (1.2-3.4); Lymphocytes % (auto) 10.1 %; Mean Corpuscular Hemoglobin 31.6 pg (25-34); Mean Corpuscular Hgb Conc 33.9 g/dL (32-36); Mean Corpuscular Volume 93.4 fL (80-100); Mean Platelet Volume 9.6 fL (7.4-10.4); Monocytes # (auto) 0.55 K/uL (0.11-0.59); Neutrophils # (auto) 4.91 K/uL (1.4-6.5); Neutrophils % (auto) 80.4 %; Platelet Count 180 K/uL (130-400); RDW Coefficient of Variation 14.1 % (11.5-14.5); RDW Standard Deviation 48.2 fL (36.4-46.3); Red Blood Count 3.92 M/uL (4.7-6.1); White Blood Count 6.11 K/uL (4.8-10.8)
[2021-09-09 07:40] LABS: Partial Thromboplastin Ratio 1.1; Partial Thromboplastin Time 29.7 Seconds (21.0-31.0)
[2021-09-09 07:41] LABS: D Dimer 790 ug/L FEU (0-500)
[2021-09-09 07:47] LABS: Albumin Level 2.3 gm/dl (3.4-5.0); BUN Creatinine Ratio 18.3 (10-20); Calcium 8.5 mg/dl (8.5-10.1); Creatinine Clr Calc Pharmacy 33.8 ml/min; Est GFR (African American) 35.9 ml/min; Potassium 4.2 mmol/L (3.5-5.1)
--- NOTE | 2021-09-09 07:48 | XRay Report ---
XR chest 1V portable HISTORY: Dyspnea COMPARISON: Chest 11/27/2019. FINDINGS: No pneumothorax. No pleural effusions. The heart is mildly enlarged. There are patchy perip heral airspace opacities within the mid to lower lung zones most pronounced on the left. This is cons istent with a multifocal viral pneumonia. IMPRESSION: Multifocal viral pneumonia. ACT 112: Negative or not required by law. Electronically signed by: Praful Gonzalez M.D. 09/09/2021 7:47 AM
[2021-09-09 07:52] LABS: Albumin Globulin Ratio 0.5 (0.9-2); Bilirubin,Total 0.3 mg/dl (0.2-1); Globulin 4.4 gm/dl (2.5-4.0); Total Protein 6.7 gm/dl (6.4-8.2); Troponin I 0.025 ng/ml (0-0.045)
[2021-09-09] MEDS ORDERED: SODIUM CHLORIDE 0.9% 1000ML 1,000 ML IV ONE (07:54)
--- NOTE | 2021-09-09 08:28 | History & Physical Report ---
Date of Service September 09, 2021 Assessment & Plan (1) Pneumonia due to COVID-19 virus: Plan: Unvaccinated No dexamethasone due to history of retinal detachment. Patient specifically declines this even in a life or scenario. No remdesivir given borderline renal function and duration of symptoms - 14 days through illness Does not meet criteria for baricitinib. Encourage pronation (2) Acute respiratory failure with hypoxia: Plan: Aim O2 sats > 90%. 2LPM O2 on admission. (3) History of coronary artery stent placement: Plan: Distal LAD stent 2007, proximal LAD June 2009, stent to the RCA 2013 Continue asa (reduce to 81mg PO daily), metoprolol and rosuvastatin (losartan on hold due to elevated Cr) (4) BPH (benign prostatic hyperplasia): Plan: Tamsulosin 0.4mg PO daily (5) Chronic kidney disease, stage III (moderate): Plan: Cr 2.05 on admission, elevated from baseline but not diagnostic of JUDY from prior baseline 1.43. Iv fluids given in ER but will discontinue further fluids to avoid making his respiratory state worse. (6) Hypertension: Plan: Hold amlodipine. and losartan. Continue metoprolol. If blood pressure elevated will restart on amlodipine. (7) Vitamin D deficiency: Plan: Continue supplementation (8) Gout: Plan: No active flares Continue allopurinol (9) Benign essential tremor: Plan: Primidone PRN. Will avoid scheduled dosing as patient is already significantly fatigued. Plan: VTE Prophylaxis - Lovenox 40mg SQ BID Diet - heart healthy Disposition - admit to med/tele Admission and Anticipated Discharge Date Admission Date: September 09, 2021 History of Present Illness Chief Complaint: Shortness of breath Primary Care Provider: Ritu Robledo DO Freddie Soliman is a 76 year old male who presents to the ER with shortness of breath. Sick for 14 days. Short of breath (not getting worse but not improving), loss of taste and smell, nasal congestion, sore throat, poor appetite. No chest pain, diarrhea, abdominal pain, urinary symptoms. Diagnosed with COVID-19 two days ago. He comes to the ER today He reports prior retinal detachment with prednisone eye drops. He tells me this occurred twice. Therefore declines all steroids. In the ER SARS-COV-2 PCR positive. CXR concerning for multifocal pneumonia. Allergies Allergy/AdvReac Type Severity Reaction Status Date / Time prednisone Allergy Severe BLINDNESS Verified 09/09/21 07:29 Penicillins Allergy Intermediate RASH Verified 09/09/21 07:29 Sulfa (Sulfonamide Allergy Intermediate RASH Verified 09/09/21 07:29 Antibiotics) adhesive Allergy Unknown SKIN Verified 09/09/21 07:29 IRRITATION AND ULCER WITH EXTENDED USE ALLERGY SHOTS Allergy Severe CAUSES Uncoded 09/09/21 07:29 BLINDNESS STEROIDS Allergy Severe CAUSES Uncoded 09/09/21 07:29 BLINDNESS Apple Cider Vinegar Allergy Unknown RASH Uncoded 09/09/21 07:29 Home Medications Medication Instructions Recorded Confirmed Type aspirin 325 mg tablet 162.5 mg PO BID 04/17/19 09/09/21 History metoprolol tartrate 25 mg tablet 12.5 mg PO BID #180 tab 06/05/19 09/09/21 Rx rosuvastatin 40 mg tablet 40 mg PO QPM 11/19/19 09/09/21 History cholecalciferol (vitamin D3) 50 2,000 unit PO QAM 09/23/20 09/09/21 History mcg (2,000 unit) capsule lanolin alcohols-mineral 1 applic TOPICAL DAILY 05/05/21 09/09/21 History oil-w.petrolatum-ceresin topical cream (Eucerin) allopurinol 100 mg tablet 300 mg PO QAM 09/09/21 09/09/21 History amlodipine 10 mg tablet 10 mg PO QAM 09/09/21 09/09/21 History losartan 100 mg tablet 100 mg PO QAM 09/09/21 09/09/21 History tamsulosin 0.4 mg capsule (Flomax) 0.4 mg PO QPM 09/09/21 09/09/21 History vitamin B12 0.5 mg-folic acid 1 mg 1 tab PO QAM 09/09/21 09/09/21 History tablet Past Med/Surg History Medical History (Updated 09/10/21 @ 08:42 by Juan Carlos Johnson MD) Allergic rhinitis Arthritis BPH (benign prostatic hyperplasia) CAD (coronary artery disease) Chronic kidney disease, stage III (moderate) Chronic sinusitis Depression with anxiety Gout Hiatal hernia History of colonic polyps Hyperlipidemia Hypertension Prediabetes Schatzki's ring Tinea corporis Vitamin D deficiency Surgical History History of cataract surgery History of cholecystectomy History of coronary artery stent placement Distal LAD stent 2007, proximal LAD June 2009, stent to the RCA 2013 History of eye surgery Family History Father Cardiac disorder Hypertension Prostate cancer Myocardial infarction, Onset Age: 65 Brother Cardiac disorder Diabetes Mother Diabetes Liver cancer Ovarian cancer, Onset Age: 59 Sister Diabetes Denies family history of Breast cancer Colorectal cancer Social History Smoking Status: Former smoker Age Quit Using Tobacco: 37; Second Hand Exposure: No; Do You Dip or Chew Tobacco: No; Hx Alcohol Use: No Hx Substance Use: No Preferred Language: Bulgarian Communication Ability: Effective Visual Impairment: Limited Hearing Ability: Hard of Hearing Unemployment Inspector Required: No Beliefs That Will Affect Care: None marital status: Current Living Situation: Spouse Current Living Situation Comment: , grandson, grandson GF and their 4 young children current occupational status: retired Other Information That Helps Us Care for You: No Feels Safe at Home: Yes Safety Concerns: Feels Safe At This Time Childhood Exposure to Second-Hand Smoke: Yes Diet Comment: regular caffeine: No during the past year weight has: remained stable Dental Care, Regularly: Yes Physical Activity Frequency: 1-2 Times per Week Physical Activity Frequency Comment: walking Seatbelt Use: never Sunscreen Use: No Assistive Devices: Oxygen - Continuous Review of Systems Review of Systems: All systems reviewed & are unremarkable except as noted in HPI & below Reports a provider diagnosed him with possible Parkisnon's, reports a tremor worse when trying to hold objects Physical Exam Constitutional: WD/WN, vitals as above + obese Eyes: + anicteric sclerae; normal pupil size ENMT: external ear and nose normal, oropharynx normal Neck: trachea midline, no thyromegaly Respiratory: + uses accessory muscles and able to speak in complete sentences; no labored breathing, no retractions, expiratory phase not prolonged and no audible wheezes Auscultation: + diminished lung sounds (throughout); no crackles and no wheezes Cardiovascular: Rate/Rhythm: regular rate and regular rhythm Heart Sounds: no murmur Vessels: no JVD Extremities: normal capillary refill; no calf tenderness and no pedal edema Gastrointestinal (Abdomen): normal bowel sounds, soft, nontender, no hepatosplenomegaly Musculoskeletal: no cyanosis or clubbing, extremities motor strength 5/5 Skin: no rashes, warm and dry Neurologic: moves all extremities and awake; no focal motor deficits (no lateralizing deficit) and not confused Psychiatric: A+Ox3, euthymic affect Genitourinary: no CVA tenderness Results & Data Results & Data ([facility]) Vital Signs (Past 12 Hours) Vital Signs Temp Pulse Pulse Resp BP BP Pulse Ox 09/09/21 07:46 93 H 24 128/72 91 09/09/21 06:50 88 L 09/09/21 06:49 93 09/09/21 06:28 37.2 C 87 24 146/87 H 88 L 09/09/21 06:27 37.2 C 94 Laboratory Results Abnormal lab results 09/09/21 09/09/21 09/09/21 Range/Units 07:16 07:16 07:16 RBC 3.92 L (4.7-6.1) M/uL Hgb 12.4 L (14.0-18.0) g/dL Hct 36.6 L (42-52) % RDW Std Deviation 48.2 H (36.4-46.3) fL Lymph # (Auto) 0.62 L (1.2-3.4) K/uL D-Dimer 790 H* (0-500) ug/L FEU Chloride 108 H (98-107) mmol/L BUN 38 H (7-18) mg/dl Creatinine 2.05 H (0.6-1.4) mg/dl Glucose 119 H (70-99) mg/dl AST 54 H (15-37) U/L Albumin 2.3 L (3.4-5.0) gm/dl Globulin 4.4 H (2.5-4.0) gm/dl Albumin/Globulin Ratio 0.5 L (0.9-2) Diagnostic Findings XR chest 1V portable HISTORY: Dyspnea COMPARISON: Chest 11/27/2019. FINDINGS: No pneumothorax. No pleural effusions. The heart is mildly enlarged. There are patchy peripheral airspace opacities within the mid to lower lung zones most pronounced on the left. This is consistent with a multifocal viral pneumonia. IMPRESSION: Multifocal viral pneumonia. Medications Administered ER Medications Given: NSS 1L bolus ECG Indication: SOB/dyspnea Rate (beats per minute): 82 Rhythm: normal sinus Findings: + other (T wave flatterning in inferior leads) Comparison ECG Date: from (Nov 27, 2019) Change: no significant change Code Status & VTE Plan Code Status Full - as discussed with the patient VTE Prophylaxis Plan VTE Prophylaxis will be ordered: Yes PG Care Time/CCT Total # of Minutes Spent Total Time Spent with Patient: Total time spent is greater than 50% in coordination of care (as documented) at patient's floor/unit and/or counseling patient: Coding Level of Care Code 40651 Initial Inpt Care Lvl 3 Diagnoses Acute respiratory failure with hypoxia J96.01 History of coronary artery stent placement Z95.5 BPH (benign prostatic hyperplasia) N40.0 Chronic kidney disease, stage III (moderate) N18.3 Hypertension I10 Vitamin D deficiency E55.9 Gout M10.9 Pneumonia due to COVID-19 virus U07.1; J12.82 Benign essential tremor G25.0
[2021-09-09] MEDS ORDERED: dexAMETHasone 6 MG in SYRINGE 0 ML IV STA (08:52)
[2021-09-09] MEDS: allopurinoL 300 MG TAB PO SCH (11:31)
[2021-09-09] MEDS: CHOLECALCIFEROL 1,000 UNITS 25 MCG TAB PO SCH (11:31)
[2021-09-09] MEDS: METOPROLOL TARTRATE 25 MG TAB PO SCH ×2 (11:31→20:38)
[2021-09-09 11:49] LABS: Appearance Urine Clear (Clear); Bilirubin Urine Negative (Negative); Blood Urine 2+ (Negative); Color Urine Yellow; Epithelial Cell Urine Auto 20-30 /lpf (0-5); Glucose Urine UA Negative (Negative); Ketones Urine Negative (Negative); Leukocyte Esterase Urine Negative (Negative); Nitrite Urine Negative (Negative); Protein Urine 4+ (Negative); RBC Urine Automated 0-4 /hpf (0-4); Specific Gravity Urine 1.018 (1.000-1.030); Urobilinogen Urine Negative (Negative)
[2021-09-09 13:08] LABS: Bacteria Urine Automated 1+ (Negative); Mucus Urine Present (None Prsent)
[2021-09-09] MEDS ORDERED: PRIMIDONE 50 MG TAB PO PRN (15:58)
[2021-09-09] MEDS ORDERED: CHLORASEPTIC 1.4% SOLN 180 ML BTL MT PRN (18:08)
[2021-09-09] MEDS: ROSUVASTATIN CALCIUM 20 MG TAB PO SCH (20:37)
[2021-09-09] MEDS: TAMSULOSIN HCL 0.4 MG CAP PO SCH (20:38)
[2021-09-09] MEDS: ENOXAPARIN INJ 40 MG/0.4 ML SYR SQ SCH (20:39)
[2021-09-09] MEDS ORDERED: TAMSULOSIN HCL 0.4 MG CAP PO SCH (21:00)
[2021-09-09] MEDS: MELATONIN 3 MG TAB PO PRN (21:29)
[2021-09-10 07:02] LABS: Basophils # (auto) 0.01 K/uL (0-0.2); Basophils % (auto) 0.2 %; Hematocrit (blood only) 36.5 % (42-52); Hemoglobin 12.2 g/dL (14.0-18.0); Immature Granulocytes # (auto) 0.02 K/uL (0.00-0.02); Immature Granulocytes % (auto) 0.3 %; Lymphocytes # (auto) 0.82 K/uL (1.2-3.4); Lymphocytes % (auto) 13.4 %; Mean Corpuscular Hemoglobin 31.6 pg (25-34); Mean Corpuscular Hgb Conc 33.4 g/dL (32-36); Mean Corpuscular Volume 94.6 fL (80-100); Mean Platelet Volume 9.4 fL (7.4-10.4); Monocytes # (auto) 0.47 K/uL (0.11-0.59); Monocytes % (auto) 7.7 %; Neutrophils % (auto) 78.4 %; Platelet Count 188 K/uL (130-400); RDW Coefficient of Variation 14.3 % (11.5-14.5); RDW Standard Deviation 49.1 fL (36.4-46.3); Red Blood Count 3.86 M/uL (4.7-6.1); White Blood Count 6.12 K/uL (4.8-10.8)
[2021-09-10 07:28] LABS: BUN Creatinine Ratio 18.7 (10-20); Calcium 8.5 mg/dl (8.5-10.1); Creatinine Clr Calc Pharmacy 35.8 ml/min; Est GFR (African American) 38.9 ml/min; Est GFR (Non-African American) 33.5 ml/min; Potassium 4.3 mmol/L (3.5-5.1)
--- NOTE | 2021-09-10 07:58 | Electrocardiogram Report ---
Test Reason : Blood Pressure : / mmHG Vent. Rate : 082 BPM Atrial Rate : 082 BPM P-R Int : 146 ms QRS Dur : 080 ms QT Int : 358 ms P-R-T Axes : 007 031 029 degrees QTc Int : 418 ms Normal sinus rhythm Normal ECG When compared with ECG of 27-NOV-2019 16:11, Vent. rate has increased BY 27 BPM Nonspecific T wave abnormality now evident in Inferior leads Confirmed by Heriberto Mclain ([id number]) on 09/10/2021 7:58:05 AM Referred By: REFERRED SELF Confirmed By:Vernon Mclain
[2021-09-10] MEDS: allopurinoL 300 MG TAB PO SCH (08:20)
[2021-09-10] MEDS: FOLIC ACID 1 MG TAB PO SCH (08:20)
[2021-09-10] MEDS: METOPROLOL TARTRATE 25 MG TAB PO SCH ×2 (08:20→20:24)
[2021-09-10] MEDS: CHOLECALCIFEROL 1,000 UNITS 25 MCG TAB PO SCH (08:20)
[2021-09-10] MEDS: CYANOCOBALAMIN 500 MCG TABLET (VITAMIN B-12) PO SCH (08:20)
[2021-09-10] MEDS: ASPIRIN 81 MG ECTAB PO SCH (08:20)
[2021-09-10] MEDS: ENOXAPARIN INJ 40 MG/0.4 ML SYR SQ SCH ×2 (08:21→20:28)
[2021-09-10] MEDS: EUCERIN CR 120 GM JAR EXT SCH (08:21)
--- NOTE | 2021-09-10 10:56 | Hospitalist Progress Note ---
Date of Service September 10, 2021 Assessment & Plan (1) Pneumonia due to COVID-19 virus: Plan: Unvaccinated. No dexamethasone due to history of retinal detachment. Patient continues to declines this even in a life or scenario. Requesting records from Dr Christie's office to aid in conversation regarding dexamethasone No remdesivir given borderline renal function and duration of symptoms - 14 days through illness. Does not meet criteria for baricitinib - but suspect will be candidate for this tomorrow therefore will touch base with pulmonology today. Encourage pronation. (2) Acute respiratory failure with hypoxia: Plan: Aim O2 sats > 90%. 2LPM O2 on admission. (3) History of coronary artery stent placement: Plan: Distal LAD stent 2007, proximal LAD June 2009, stent to the RCA 2013. Continue asa (reduce to 81mg PO daily), metoprolol and rosuvastatin (losartan on hold due to elevated Cr). (4) BPH (benign prostatic hyperplasia): Plan: Tamsulosin 0.4mg PO daily. (5) Chronic kidney disease, stage III (moderate): Plan: Cr 2.05 on admission, elevated from baseline but not diagnostic of JUDY from prior baseline 1.43. Iv fluids given in ER but will discontinue further fluids to avoid making his respiratory state worse. (6) Hypertension: Plan: Hold amlodipine. and losartan. Continue metoprolol. If blood pressure elevated will restart on amlodipine. (7) Vitamin D deficiency: Plan: Continue supplementation. (8) Gout: Plan: No active flares. Continue allopurinol. (9) Benign essential tremor: Plan: Primidone PRN. Will avoid scheduled dosing as patient is already significantly fatigued. Plan: VTE Prophylaxis - Lovenox 40mg SQ BID. Diet - heart healthy. Disposition - continue on med/tele, may need to upgrade o PCU if oxygen requirement gets any worse. Admission and Anticipated Discharge Date Admission Date: September 09, 2021 Subjective Patient reportedly rude to multiple members of staff overnight and this morning. He reports he is feels the care has been poor and that the dredge mechanic hit a nerve and the Lovenox shots have been painful. Per RN he has been rude to overnight nurse, respiratory, phlebotomy and herself. I discussed he has a right to refuse care such as the Lovenox injections but re-iterated the reason we are giving this to him is to prevent blood clots. Continues to refuse steroids but allowing me to try and get records and talk to Dr Christie given he has never tried dexamethasone in the past but he reiterates currently he would rather diet than take steroids. Unfortunately his oxygen requirement has significantly increased overnight. Currently on 15LPM O2. He denies any increased shortness of breath but continues to be significantly fatigued. Tolerating lying on his left side when seen. Review of Systems Review of Systems: All systems reviewed & are unremarkable except as noted in HPI & below Physical Exam Constitutional: WD/WN, vitals as above + obese Eyes: + anicteric sclerae; normal pupil size ENMT: external ear and nose normal, oropharynx normal Neck: trachea midline, no thyromegaly Respiratory: normal respiratory effort and able to speak in complete sentences; no labored breathing, no retractions, does not use accessory muscles, expiratory phase not prolonged and no audible wheezes Auscultation: + diminished lung sounds (throughout); no crackles and no wheezes Cardiovascular: Rate/Rhythm: regular rate and regular rhythm Heart Sounds: no murmur Vessels: no JVD Extremities: normal capillary refill; no calf tenderness and no pedal edema Gastrointestinal (Abdomen): normal bowel sounds, soft, nontender, no hepatosplenomegaly Skin: no rashes, warm and dry Neurologic: moves all extremities and awake; no focal motor deficits (no lateralizing deficit) and not confused Psychiatric: A+Ox3, euthymic affect Results & Data Results & [facility] ([facility]) Vital Signs (Past 12 Hours) Vital Signs Temp Pulse Resp BP BP Pulse Ox 09/10/21 08:25 89 19 90 09/10/21 07:15 36.7 C 87 20 127/75 91 09/10/21 03:32 36.5 C 80 20 106/66 93 09/09/21 22:54 37.0 C 82 20 115/70 92 PG Care Time/CCT Total # of Minutes Spent Total Time Spent with Patient: Total time spent is greater than 50% in coordination of care (as documented) at patient's floor/unit and/or counseling patient: Coding Level of Care Code 33432 Subseq Hosp Care Lvl 3 Diagnoses Pneumonia due to COVID-19 virus U07.1; J12.82 Acute respiratory failure with hypoxia J96.01 History of coronary artery stent placement Z95.5 BPH (benign prostatic hyperplasia) N40.0 Chronic kidney disease, stage III (moderate) N18.3 Hypertension I10 Vitamin D deficiency E55.9 Gout M10.9 Benign essential tremor G25.0
[2021-09-10] MEDS: ALUMINUM/MAGNESIUM SUSP 50 ML, diphenhydrAMINE Syrup 125 MG, LIDOCAINE VISCOUS 2% SOLN ... PO SCH ×2 (16:53→19:45)
[2021-09-10] MEDS: NYSTATIN SUSP 500,000 U/5 ML UDC PO SCH ×2 (18:32→20:25)
[2021-09-10] MEDS: ROSUVASTATIN CALCIUM 20 MG TAB PO SCH (20:24)
[2021-09-10] MEDS: TAMSULOSIN HCL 0.4 MG CAP PO SCH (20:25)
[2021-09-10] MEDS: MELATONIN 3 MG TAB PO PRN (22:28)
[2021-09-11] MEDS ORDERED: LORazepam 1 MG/2 ML VIAL IV STA (00:55)
[2021-09-11] MEDS ORDERED: MoRPHine SULFATE 2 MG/ML CARP IV STA (00:57)
[2021-09-11] MEDS: LORazepam 1 MG/2 ML VIAL IV PRN (05:01)
[2021-09-11] MEDS: MoRPHine SULFATE 2 MG/ML CARP IV PRN (05:03)
[2021-09-11 08:40] LABS: C Reactive Protein 8.25 mg/dl (0-0.29); Calcium 8.9 mg/dl (8.5-10.1); Creatinine Clr Calc Pharmacy 28.4 ml/min; Est GFR (African American) 29.4 ml/min; Est GFR (Non-African American) 25.4 ml/min; Potassium 4.4 mmol/L (3.5-5.1)
--- NOTE | 2021-09-11 09:30 | Hospitalist Progress Note ---
Date of Service September 11, 2021 Assessment & Plan (1) Pneumonia due to COVID-19 virus: Plan: Acute respiratory failure with hypoxia unvaccinated. No dexamethasone due to history of retinal detachment. Patient continues to declines this even in a life or scenario. No remdesivir given borderline renal function and duration of symptoms - 14 days through illness. Does not meet criteria for baricitinib - but suspect will be candidate for this tomorrow therefore will touch base with pulmonology today. Encourage pronation. (2) Acute respiratory failure with hypoxia: Plan: Aim O2 sats > 90%. 2LPM O2 on admission. Escalated to Vapotherm (3) History of coronary artery stent placement: Plan: Distal LAD stent 2007, proximal LAD June 2009, stent to the RCA 2013. Continue asa (reduce to 81mg PO daily), metoprolol and rosuvastatin (losartan on hold due to elevated Cr). (4) BPH (benign prostatic hyperplasia): Plan: Tamsulosin 0.4mg PO daily. (5) Chronic kidney disease, stage III (moderate): Plan: Cr 2.05 on admission, elevated from baseline but not diagnostic of JUDY from prior baseline 1.43. Iv fluids given in ER but will discontinue further fluids to avoid making his respiratory state worse. (6) Hypertension: Plan: Hold amlodipine. and losartan. Continue metoprolol. If blood pressure elevated will restart on amlodipine. (7) Vitamin D deficiency: Plan: Continue supplementation. (8) Gout: Plan: No active flares. Continue allopurinol. (9) Benign essential tremor: Plan: Primidone PRN. Will avoid scheduled dosing as patient is already significantly fatigued. Plan: VTE Prophylaxis - Lovenox 40mg SQ BID. Diet - heart healthy. Admission and Anticipated Discharge Date Admission Date: September 09, 2021 Subjective pt seems pleasantly confused, he is with significant oxygen requirement, is confused and has a sitter at the bedside Review of Systems Review of Systems: Unobtainable due to cognitive status Physical Exam Physical Exam: The patient appeared well nourished and normally developed. Is fairly dyspneic with conversational dyspnea Vital signs as documented. Head exam is normocephalic atraumatic Neck is without JVD, thyromegaly, or carotid bruits. Lungs are coarse rales both lung humphrey Cardiac exam, Rhythm is regular.. Stock ejection murmur Abdominal exam reveals normal bowel sounds, soft non tender, no masses Extremities are nonedematous and both pedal pulses are present Neurologic exam is alert and oriented x2 no focal loss of strength or sensation Skin is without bruises or rashes Psychologically is with concerns for memory impairment Results & Data Results & Data ([facility]) Vital Signs (Past 12 Hours) Vital Signs Temp Pulse Pulse Pulse Resp BP Pulse Ox 09/11/21 08:01 97.7 F 94 H 19 141/84 H 97 09/11/21 07:26 85 18 94 09/11/21 03:43 98.2 F 90 18 128/76 94 09/11/21 01:46 84 24 94 09/11/21 00:27 88 18 60 L 09/10/21 23:03 97.9 F 93 H 130/87 87 L 09/10/21 23:00 84 14 87 L PG Care Time/CCT Total # of Minutes Spent Total Time Spent with Patient: Total time spent is greater than 50% in coordination of care (as documented) at patient's floor/unit and/or counseling patient: Coding Level of Care Code 90798 Subseq Hosp Care Lvl 3 Diagnoses Pneumonia due to COVID-19 virus U07.1; J12.82 Acute respiratory failure with hypoxia J96.01 History of coronary artery stent placement Z95.5 BPH (benign prostatic hyperplasia) N40.0 Chronic kidney disease, stage III (moderate) N18.3 Hypertension I10 Vitamin D deficiency E55.9 Gout M10.9 Benign essential tremor G25.0
[2021-09-11] MEDS: ALUMINUM/MAGNESIUM SUSP 50 ML, diphenhydrAMINE Syrup 125 MG, LIDOCAINE VISCOUS 2% SOLN ... PO SCH ×4 (10:25→20:05)
[2021-09-11] MEDS: allopurinoL 300 MG TAB PO SCH (10:25)
[2021-09-11] MEDS: ASPIRIN 81 MG ECTAB PO SCH (10:25)
[2021-09-11] MEDS: CYANOCOBALAMIN 500 MCG TABLET (VITAMIN B-12) PO SCH (10:26)
[2021-09-11] MEDS: CHOLECALCIFEROL 1,000 UNITS 25 MCG TAB PO SCH (10:26)
[2021-09-11] MEDS: ENOXAPARIN INJ 40 MG/0.4 ML SYR SQ SCH ×2 (10:26→20:03)
[2021-09-11] MEDS: FOLIC ACID 1 MG TAB PO SCH (10:26)
[2021-09-11] MEDS: NYSTATIN SUSP 500,000 U/5 ML UDC PO SCH ×4 (10:28→20:04)
[2021-09-11] MEDS: EUCERIN CR 120 GM JAR EXT SCH (10:28)
[2021-09-11] MEDS: METOPROLOL TARTRATE 25 MG TAB PO SCH ×2 (10:28→20:04)
[2021-09-11] MEDS ORDERED: ACETAMINOPHEN 500 MG TAB PO PRN (13:45)
[2021-09-11] MEDS ORDERED: OLANZapine ZYDIS 5 MG ORALLY DIS. TAB PO ONE (19:15)
[2021-09-11] MEDS: ROSUVASTATIN CALCIUM 20 MG TAB PO SCH (20:03)
[2021-09-11] MEDS: TAMSULOSIN HCL 0.4 MG CAP PO SCH (20:04)
[2021-09-11] MEDS: MELATONIN 3 MG TAB PO PRN (23:31)
[2021-09-12] MEDS: LORazepam 1 MG/2 ML VIAL IV PRN (04:24)
--- NOTE | 2021-09-12 07:21 | Hospitalist Progress Note ---
Date of Service September 12, 2021 Assessment & Plan (1) Pneumonia due to COVID-19 virus: Plan: Acute respiratory failure with hypoxia unvaccinated. No dexamethasone due to history of retinal detachment. Patient continues to declines this even in a life or scenario. 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 Initial episode in 2010 in association with oral prednisone. Second episode with prednisone eye drops after cataract surgery. Recommended to avoid all steroids in the future. No remdesivir given borderline renal function and duration of symptoms - 14 days through illness. significant excalation in oxygen requirements, would benefit from steroids but not wanting to risk vision loss, ok to start Baricitinib 09/12/21 (2) Acute respiratory failure with hypoxia: Plan: Aim O2 sats > 90%. 2LPM O2 on admission. Escalated to Vapotherm (3) History of coronary artery stent placement: Plan: Distal LAD stent 2007, proximal LAD June 2009, stent to the RCA 2013. Continue asa (reduce to 81mg PO daily), metoprolol and rosuvastatin (losartan on hold due to elevated Cr). (4) BPH (benign prostatic hyperplasia): Plan: Tamsulosin 0.4mg PO daily. (5) Chronic kidney disease, stage III (moderate): Plan: Cr 2.05 on admission, elevated from baseline but not diagnostic of JUDY from prior baseline 1.43. (6) Hypertension: Plan: continue to hold amlodipine. and losartan. Continue metoprolol. If blood pressure elevated will restart on amlodipine. (7) Vitamin D deficiency: Plan: Continue supplementation. (8) Gout: Plan: No active flares. Continue allopurinol. (9) Benign essential tremor: Plan: Primidone PRN. Will avoid scheduled dosing as patient is already significantly fatigued. Plan: VTE Prophylaxis - Lovenox 40mg SQ BID. Diet - heart healthy. Admission and Anticipated Discharge Date Admission Date: September 09, 2021 Subjective this pt was sleeping and did arouse, reportedly did have issues with some agitation earlier in the day pulling at lines and high flow Review of Systems Review of Systems: Unobtainable due to cognitive status Physical Exam Physical Exam: The patient appeared well nourished and normally developed. Is fairly dyspneic with conversational dyspnea Vital signs as documented. Head exam is normocephalic atraumatic Neck is without JVD, thyromegaly, or carotid bruits. Lungs are coarse rales both lung humphrey Cardiac exam, Rhythm is regular.. Stock ejection murmur Abdominal exam reveals normal bowel sounds, soft non tender, no masses Extremities are nonedematous and both pedal pulses are present Neurologic exam is alert and oriented x2 no focal loss of strength or sensation Skin is without bruises or rashes Psychologically is with concerns for memory impairment Results & Data Results & [facility] ([facility]) Vital Signs (Past 12 Hours) Vital Signs Temp Pulse Pulse Pulse Resp BP Pulse Ox 09/12/21 06:37 97 H 18 92 09/12/21 04:29 118 H 22 95 09/12/21 03:41 122 H 20 88 L 09/12/21 03:15 98.2 F 121 H 27 H 144/89 H 88 L 09/11/21 22:57 78 15 89 L 09/11/21 22:11 97.7 F 75 27 H 148/80 H 89 L PG Care Time/CCT Total # of Minutes Spent Total Time Spent with Patient: Total time spent is greater than 50% in coordination of care (as documented) at patient's floor/unit and/or counseling patient: Coding Level of Care Code 46320 Subseq Hosp Care Lvl 3 Diagnoses Pneumonia due to COVID-19 virus U07.1; J12.82 Acute respiratory failure with hypoxia J96.01 History of coronary artery stent placement Z95.5 BPH (benign prostatic hyperplasia) N40.0 Chronic kidney disease, stage III (moderate) N18.3 Hypertension I10 Vitamin D deficiency E55.9 Gout M10.9 Benign essential tremor G25.0
[2021-09-12] MEDS ORDERED: TOCILIZUMAB 400 MG, TOCILIZUMAB 200 MG, TOCILIZUMAB 80 MG in 0.9 % SODIUM CHLORIDE 66 ML IV ONE (08:30)
[2021-09-12] MEDS: FOLIC ACID 1 MG TAB PO SCH (08:35)
[2021-09-12] MEDS: CYANOCOBALAMIN 500 MCG TABLET (VITAMIN B-12) PO SCH (08:35)
[2021-09-12] MEDS: allopurinoL 300 MG TAB PO SCH (08:35)
[2021-09-12] MEDS: ENOXAPARIN INJ 40 MG/0.4 ML SYR SQ SCH ×2 (08:35→20:52)
[2021-09-12] MEDS: NYSTATIN SUSP 500,000 U/5 ML UDC PO SCH ×4 (08:36→20:52)
[2021-09-12] MEDS: METOPROLOL TARTRATE 25 MG TAB PO SCH ×2 (08:36→20:52)
[2021-09-12] MEDS: CHOLECALCIFEROL 1,000 UNITS 25 MCG TAB PO SCH (08:37)
[2021-09-12] MEDS: EUCERIN CR 120 GM JAR EXT SCH (08:37)
[2021-09-12] MEDS: ASPIRIN 81 MG ECTAB PO SCH (08:37)
[2021-09-12] MEDS: ALUMINUM/MAGNESIUM SUSP 50 ML, diphenhydrAMINE Syrup 125 MG, LIDOCAINE VISCOUS 2% SOLN ... PO SCH ×4 (09:12→20:49)
[2021-09-12] MEDS: [UNRECOGNIZED DRUG - REMARK] PO SCH (10:40)
--- NOTE | 2021-09-12 19:21 | Hospitalist Progress Note ---
Date of Service September 12, 2021 Assessment & Plan (1) Pneumonia due to COVID-19 virus: Plan: Acute respiratory failure with hypoxia unvaccinated. No dexamethasone due to history of retinal detachment. Patient continues to declines this even in a life or scenario. 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 Initial episode in 2010 in association with oral prednisone. Second episode with prednisone eye drops after cataract surgery. Recommended to avoid all steroids in the future. No remdesivir given borderline renal function and duration of symptoms - 14 days through illness. significant excalation in oxygen requirements, would benefit from steroids but not wanting to risk vision loss, ok to start Baricitinib 09/12/21 (2) Acute respiratory failure with hypoxia: Plan: Aim O2 sats > 90%. 2LPM O2 on admission. Escalated to Vapotherm (3) History of coronary artery stent placement: Plan: Distal LAD stent 2007, proximal LAD June 2009, stent to the RCA 2013. Continue asa (reduce to 81mg PO daily), metoprolol and rosuvastatin (losartan on hold due to elevated Cr). (4) BPH (benign prostatic hyperplasia): Plan: Tamsulosin 0.4mg PO daily. (5) Chronic kidney disease, stage III (moderate): Plan: Cr 2.05 on admission, elevated from baseline but not diagnostic of JUDY from prior baseline 1.43. (6) Hypertension: Plan: continue to hold amlodipine. and losartan. Continue metoprolol. If blood pressure elevated will restart on amlodipine. (7) Vitamin D deficiency: Plan: Continue supplementation. (8) Gout: Plan: No active flares. Continue allopurinol. (9) Benign essential tremor: Plan: Primidone PRN. Will avoid scheduled dosing as patient is already significantly fatigued. (10) Metabolic encephalopathy: Plan: likely from covid infection, will try to re orient and have day night orientation Plan: VTE Prophylaxis - Lovenox 40mg SQ BID. Diet - heart healthy. Admission and Anticipated Discharge Date Admission Date: September 09, 2021 Results & Data Results & Data ([facility]) Vital Signs (Past 12 Hours) Vital Signs Temp Pulse Pulse Resp BP BP Pulse Ox 09/12/21 19:00 97.7 F 93 H 18 145/84 H 92 09/12/21 14:48 97.7 F 83 22 119/63 91 09/12/21 14:23 84 20 93 09/12/21 11:58 98.6 F 81 16 139/88 93 09/12/21 11:10 81 20 92 09/12/21 10:00 09/12/21 07:43 98.2 F 99 H 22 125/72 92 Pulse Ox 09/12/21 19:00 09/12/21 14:48 09/12/21 14:23 09/12/21 11:58 09/12/21 11:10 09/12/21 10:00 90 09/12/21 07:43 PG Care Time/CCT Total # of Minutes Spent Total Time Spent with Patient: Total time spent is greater than 50% in coordination of care (as documented) at patient's floor/unit and/or counseling patient: Coding Level of Care Code None Diagnoses Pneumonia due to COVID-19 virus U07.1; J12.82 Acute respiratory failure with hypoxia J96.01 History of coronary artery stent placement Z95.5 BPH (benign prostatic hyperplasia) N40.0 Chronic kidney disease, stage III (moderate) N18.3 Hypertension I10 Vitamin D deficiency E55.9 Gout M10.9 Benign essential tremor G25.0 Metabolic encephalopathy G93.41
[2021-09-12] MEDS: ROSUVASTATIN CALCIUM 20 MG TAB PO SCH (20:52)
[2021-09-12] MEDS: TAMSULOSIN HCL 0.4 MG CAP PO SCH (20:53)
[2021-09-13] MEDS: LORazepam 1 MG/2 ML VIAL IV PRN ×2 (06:07→15:18)
[2021-09-13 08:26] LABS: Est GFR (African American) 34.3 ml/min; Est GFR (Non-African American) 29.6 ml/min
[2021-09-13] MEDS: CHOLECALCIFEROL 1,000 UNITS 25 MCG TAB PO SCH (08:37)
[2021-09-13] MEDS: allopurinoL 300 MG TAB PO SCH (08:37)
[2021-09-13] MEDS: ASPIRIN 81 MG ECTAB PO SCH (08:37)
[2021-09-13] MEDS: CYANOCOBALAMIN 500 MCG TABLET (VITAMIN B-12) PO SCH (08:37)
[2021-09-13] MEDS: ENOXAPARIN INJ 40 MG/0.4 ML SYR SQ SCH ×2 (08:37→19:52)
[2021-09-13] MEDS: EUCERIN CR 120 GM JAR EXT SCH (08:38)
[2021-09-13] MEDS: METOPROLOL TARTRATE 25 MG TAB PO SCH ×2 (08:38→19:52)
[2021-09-13] MEDS: FOLIC ACID 1 MG TAB PO SCH (08:38)
[2021-09-13] MEDS: NYSTATIN SUSP 500,000 U/5 ML UDC PO SCH ×4 (08:39→19:52)
[2021-09-13] MEDS: ALUMINUM/MAGNESIUM SUSP 50 ML, diphenhydrAMINE Syrup 125 MG, LIDOCAINE VISCOUS 2% SOLN ... PO SCH ×4 (08:45→20:02)
[2021-09-13] MEDS: [UNRECOGNIZED DRUG - REMARK] PO SCH (09:46)
--- NOTE | 2021-09-13 13:29 | Hospitalist Progress Note ---
Date of Service September 13, 2021 Assessment & Plan (1) Pneumonia due to COVID-19 virus: Plan: Acute respiratory failure with hypoxia unvaccinated. No dexamethasone due to history of retinal detachment. Patient continues to declines this even in a life or scenario. 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 Initial episode in 2010 in association with oral prednisone. Second episode with prednisone eye drops after cataract surgery. Recommended to avoid all steroids in the future. No remdesivir given borderline renal function and duration of symptoms - 14 days through illness. significant excalation in oxygen requirements, would benefit from steroids but not wanting to risk vision loss, pulmonary ok to start Baricitinib 09/12/21 metabolic encephalopathy from covid pneumonia (2) Acute respiratory failure with hypoxia: Plan: Aim O2 sats > 90%. 2LPM O2 on admission. Escalated to Vapotherm (3) History of coronary artery stent placement: Plan: Distal LAD stent 2007, proximal LAD June 2009, stent to the RCA 2013. Continue asa (reduce to 81mg PO daily), metoprolol and rosuvastatin (losartan on hold due to elevated Cr). (4) BPH (benign prostatic hyperplasia): Plan: Tamsulosin 0.4mg PO daily. (5) Chronic kidney disease, stage III (moderate): Plan: [place], in the setting of covid pneumonia, CKD3 (6) Hypertension: Plan: continue to hold amlodipine. and losartan. Continue metoprolol. (7) Vitamin D deficiency: Plan: Continue supplementation. (8) Gout: Plan: No active flares. Continue allopurinol. (9) Benign essential tremor: Plan: Primidone PRN. Will avoid scheduled dosing as patient is already significantly fatigued. (10) Metabolic encephalopathy: Plan: likely from covid infection, will try to re orient and have day night orien tation Plan: VTE Prophylaxis - Lovenox 40mg SQ BID. Diet - heart healthy. Admission and Anticipated Discharge Date Admission Date: September 09, 2021 Subjective pt has waxing and waining issues says he has a fighting nasty attitude at home, at time with some periods of forgetfulness Review of Systems Review of Systems: Moderate distress and fatigue no headache, no visual changes no speech or swallowing issues no chest pain, pressure or palpitations persistent significant shortness of breath, non productive, cough or wheezes no abdominal pain, nausea or vomiting, diarrhea or constipation no dysuria, hematuria or frequency no focal joint pain or swelling no back pain, CVA tenderness or radicular pain no bruising, bleeding or rashes no focal signs of weakness or numbness or altered sensation no complaints of anxiety or depression.. Reports a provider diagnosed him with possible Parkisnon's, reports a tremor worse when trying to hold objects Physical Exam Physical Exam: The patient appeared well nourished and normally developed. Is fairly dyspneic with conversational dyspnea Vital signs as documented. Head exam is normocephalic atraumatic Neck is without JVD, thyromegaly, or carotid bruits. Lungs are coarse rales both lung humphrey Cardiac exam, Rhythm is regular.. Stock ejection murmur Abdominal exam reveals normal bowel sounds, soft non tender, no masses Extremities are nonedematous and both pedal pulses are present Neurologic exam is alert and oriented x2 no focal loss of strength or sensation Skin is without bruises or rashes Psychologically is with concerns for memory impairment Results & Data Results & Data ([facility]) Vital Signs (Past 12 Hours) Vital Signs Temp Pulse Pulse Resp BP Pulse Ox 09/13/21 11:12 98.2 F 79 20 143/81 H 92 09/13/21 06:57 90 20 86 L 09/13/21 06:55 98.1 F 97 H 18 135/78 87 L 09/13/21 02:14 95 H 20 90 PG Care Time/CCT Total # of Minutes Spent Total Time Spent with Patient: Total time spent is greater than 50% in coordination of care (as documented) at patient's floor/unit and/or counseling patient: Coding Level of Care Code 30051 Subseq Hosp Care Lvl 2 Diagnoses Pneumonia due to COVID-19 virus U07.1; J12.82 Acute respiratory failure with hypoxia J96.01 History of coronary artery stent placement Z95.5 BPH (benign prostatic hyperplasia) N40.0 Chronic kidney disease, stage III (moderate) N18.3 Hypertension I10 Vitamin D deficiency E55.9 Gout M10.9 Benign essential tremor G25.0 Metabolic encephalopathy G93.41
[2021-09-13] MEDS: QUEtiapine FUMARATE 25 MG TABLET PO SCH (20:02)
[2021-09-13] MEDS: ROSUVASTATIN CALCIUM 20 MG TAB PO SCH (21:06)
[2021-09-13] MEDS: TAMSULOSIN HCL 0.4 MG CAP PO SCH (21:06)
[2021-09-14] MEDS: LORazepam 0.5 MG/1 ML VIAL IV PRN (00:34)
[2021-09-14] MEDS ORDERED: HALOPERIDOL LACTATE 5 MG/ML 1 ML VIAL IV STA (01:14)
[2021-09-14] MEDS ORDERED: HALOPERIDOL LACTATE 5 MG/ML 1 ML VIAL IM STA (01:48)
[2021-09-14] MEDS ORDERED: LORazepam 0.5 MG/1 ML VIAL IV STA (01:48)
[2021-09-14] MEDS ORDERED: ALBUT/IPRATROP 3MG/0.5MG NEB 3 ML VIAL NEB STA (01:58)
[2021-09-14] MEDS: ENOXAPARIN INJ 40 MG/0.4 ML SYR SQ SCH ×2 (10:11→20:21)
[2021-09-14] MEDS: FOLIC ACID 1 MG TAB PO SCH (10:12)
[2021-09-14] MEDS: ASPIRIN 81 MG ECTAB PO SCH (10:12)
[2021-09-14] MEDS: CHOLECALCIFEROL 1,000 UNITS 25 MCG TAB PO SCH (10:12)
[2021-09-14] MEDS: CYANOCOBALAMIN 500 MCG TABLET (VITAMIN B-12) PO SCH (10:12)
[2021-09-14] MEDS: allopurinoL 300 MG TAB PO SCH (10:12)
[2021-09-14] MEDS: METOPROLOL TARTRATE 25 MG TAB PO SCH ×2 (10:12→20:22)
[2021-09-14] MEDS: EUCERIN CR 120 GM JAR EXT SCH (10:13)
[2021-09-14] MEDS: NYSTATIN SUSP 500,000 U/5 ML UDC PO SCH ×4 (10:13→20:23)
[2021-09-14] MEDS: [UNRECOGNIZED DRUG - REMARK] PO SCH (10:48)
[2021-09-14] MEDS: ALUMINUM/MAGNESIUM SUSP 50 ML, diphenhydrAMINE Syrup 125 MG, LIDOCAINE VISCOUS 2% SOLN ... PO SCH ×4 (10:50→19:26)
--- NOTE | 2021-09-14 17:54 | Hospitalist Progress Note ---
Date of Service September 14, 2021 Assessment & Plan (1) Pneumonia due to COVID-19 virus: Plan: Acute respiratory failure with hypoxia unvaccinated. No dexamethasone due to history of retinal detachment. Patient continues to declines this even in a life or scenario. 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 Initial episode in 2010 in association with oral prednisone. Second episode with prednisone eye drops after cataract surgery. Recommended to avoid all steroids in the future. No remdesivir given borderline renal function and duration of symptoms - 14 days through illness. significant excalation in oxygen requirements, would benefit from steroids but not wanting to risk vision loss, pulmonary ok to start Baricitinib 09/12/21, renal dose adjusted metabolic encephalopathy from covid pneumonia (2) Acute respiratory failure with hypoxia: Plan: Aim O2 sats > 90%. 2LPM O2 on admission. Escalated to Vapotherm with persistent high oxygen demand (3) History of coronary artery stent placement: Plan: Distal LAD stent 2007, proximal LAD June 2009, stent to the RCA 2013. Continue asa (reduce to 81mg PO daily), metoprolol and rosuvastatin (losartan on hold due to elevated Cr). (4) BPH (benign prostatic hyperplasia): Plan: Tamsulosin 0.4mg PO daily. (5) Chronic kidney disease, stage III (moderate): Plan: Santiago, in the setting of covid pneumonia, CKD3 (6) Hypertension: Plan: continue to hold amlodipine. and losartan. Continue metoprolol. (7) Vitamin D deficiency: Plan: Continue supplementation. (8) Gout: Plan: No active flares. Continue allopurinol. (9) Benign essential tremor: Plan: Primidone PRN. Will avoid scheduled dosing as patient is already significantly fatigued. (10) Metabolic encephalopathy: Plan: likely from covid infection, will try to re orient and have day night orientation (11) Sundowning: Plan: will try seroquel again to help sundowning Plan: VTE Prophylaxis - Lovenox 40mg SQ BID. Diet - heart healthy. Admission and Anticipated Discharge Date Admission Date: September 09, 2021 Subjective pt has waxing and waining issues says he has a fighting nasty attitude at home, at time with some periods of forgetfulness today he remains with some periods of confusion maybe slighlty better with hs Seroquel Review of Systems Review of Systems: Moderate distress and fatigue no headache, no visual changes no speech or swallowing issues no chest pain, pressure or palpitations persistent significant shortness of breath, non productive, cough or wheezes no abdominal pain, nausea or vomiting, diarrhea or constipation no dysuria, hematuria or frequency no focal joint pain or swelling no back pain, CVA tenderness or radicular pain no bruising, bleeding or rashes no focal signs of weakness or numbness or altered sensation no complaints of anxiety or depression.. Reports a provider diagnosed him with possible Parkisnon's, reports a tremor worse when trying to hold objects Physical Exam Physical Exam: The patient appeared well nourished and normally developed. Is fairly dyspneic with conversational dyspnea Vital signs as documented. Head exam is normocephalic atraumatic Neck is without JVD, thyromegaly, or carotid bruits. Lungs are coarse rales both lung humphrey Cardiac exam, Rhythm is regular.. Stock ejection murmur Abdominal exam reveals normal bowel sounds, soft non tender, no masses Extremities are nonedematous and both pedal pulses are present Neurologic exam is alert and oriented x2 no focal loss of strength or sensation Skin is without bruises or rashes Psychologically is with concerns for memory impairment Results & Data Results & Data ([facility]) Vital Signs (Past 12 Hours) Vital Signs Temp Pulse Pulse Resp BP Pulse Ox Pulse Ox 09/14/21 15:53 19 93 09/14/21 14:52 98.1 F 78 20 144/55 H 92 09/14/21 11:16 98.1 F 112 H 16 132/84 94 09/14/21 11:13 112 H 22 95 09/14/21 10:00 97 09/14/21 09:00 87 09/14/21 07:26 85 24 95 09/14/21 07:00 98.2 F 88 24 132/83 92 PG Care Time/CCT Total # of Minutes Spent Total Time Spent with Patient: Total time spent is greater than 50% in coordination of care (as documented) at patient's floor/unit and/or counseling patient: Coding Level of Care Code 27459 Subseq Hosp Care Lvl 2 Diagnoses Pneumonia due to COVID-19 virus U07.1; J12.82 Acute respiratory failure with hypoxia J96.01 History of coronary artery stent placement Z95.5 BPH (benign prostatic hyperplasia) N40.0 Chronic kidney disease, stage III (moderate) N18.3 Hypertension I10 Vitamin D deficiency E55.9 Gout M10.9 Benign essential tremor G25.0 Metabolic encephalopathy G93.41 F05
[2021-09-14] MEDS: QUEtiapine FUMARATE 25 MG TABLET PO SCH (20:23)
[2021-09-14] MEDS: TAMSULOSIN HCL 0.4 MG CAP PO SCH (20:23)
[2021-09-14] MEDS: ROSUVASTATIN CALCIUM 20 MG TAB PO SCH (20:23)
[2021-09-15] MEDS: LORazepam 0.5 MG/1 ML VIAL IV PRN ×2 (05:47→22:47)
[2021-09-15] MEDS: MoRPHine SULFATE 2 MG/ML CARP IV PRN (08:34)
[2021-09-15] MEDS: allopurinoL 300 MG TAB PO SCH (08:38)
[2021-09-15] MEDS: ASPIRIN 81 MG ECTAB PO SCH (08:38)
[2021-09-15] MEDS: CYANOCOBALAMIN 500 MCG TABLET (VITAMIN B-12) PO SCH (08:38)
[2021-09-15] MEDS: ENOXAPARIN INJ 40 MG/0.4 ML SYR SQ SCH ×2 (08:39→19:53)
[2021-09-15] MEDS: METOPROLOL TARTRATE 25 MG TAB PO SCH ×2 (08:39→19:54)
[2021-09-15] MEDS: CHOLECALCIFEROL 1,000 UNITS 25 MCG TAB PO SCH (08:39)
[2021-09-15] MEDS: EUCERIN CR 120 GM JAR EXT SCH (08:40)
[2021-09-15] MEDS: NYSTATIN SUSP 500,000 U/5 ML UDC PO SCH ×4 (08:40→19:53)
[2021-09-15] MEDS: FOLIC ACID 1 MG TAB PO SCH (08:40)
[2021-09-15] MEDS: ALUMINUM/MAGNESIUM SUSP 50 ML, diphenhydrAMINE Syrup 125 MG, LIDOCAINE VISCOUS 2% SOLN ... PO SCH ×4 (09:53→19:53)
[2021-09-15] MEDS: [UNRECOGNIZED DRUG - REMARK] PO SCH (09:54)
--- NOTE | 2021-09-15 18:52 | Hospitalist Progress Note ---
Date of Service September 15, 2021 Assessment & Plan (1) Pneumonia due to COVID-19 virus: Plan: Acute respiratory failure with hypoxia unvaccinated. No dexamethasone due to history of retinal detachment. Patient continues to declines this even in a life or scenario. 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 Initial episode in 2010 in association with oral prednisone. Second episode with prednisone eye drops after cataract surgery. Recommended to avoid all steroids in the future. No remdesivir given borderline renal function and duration of symptoms - 14 days through illness. significant excalation in oxygen requirements, would benefit from steroids but not wanting to risk vision loss, started Baricitinib 09/12/21, renal dose adjusted metabolic encephalopathy from covid pneumonia (2) Acute respiratory failure with hypoxia: Plan: Aim O2 sats > 90%. 2LPM O2 on admission. Escalated to Vapotherm with persistent high oxygen demand (3) History of coronary artery stent placement: Plan: Distal LAD stent 2007, proximal LAD June 2009, stent to the RCA 2013. Continue asa (reduce to 81mg PO daily), metoprolol and rosuvastatin (losartan on hold due to elevated Cr). (4) BPH (benign prostatic hyperplasia): Plan: Tamsulosin 0.4mg PO daily. (5) Chronic kidney disease, stage III (moderate): Plan: Santiago, in the setting of covid pneumonia, CKD3 (6) Hypertension: Plan: continue to hold amlodipine. and losartan. Continue metoprolol. (7) Vitamin D deficiency: Plan: Continue supplementation. (8) Gout: Plan: No active flares. Continue allopurinol. (9) Benign essential tremor: Plan: Primidone PRN. Will avoid scheduled dosing as patient is already significantly fatigued. (10) Metabolic encephalopathy: Plan: likely from covid infection, will try to re orient and have day night orientation (11) : Plan: improved with Seroquel Plan: VTE Prophylaxis - Lovenox 40mg SQ BID. Diet - heart healthy. Admission and Anticipated Discharge Date Admission Date: September 09, 2021 Subjective pt has waxing and waining issues says he has a fighting nasty attitude at home, at time with some periods of forgetfulness today he remains with some periods of confusion seems much more calm after hs Seroquel Review of Systems Review of Systems: Moderate distress and fatigue no headache, no visual changes no speech or swallowing issues no chest pain, pressure or palpitations persistent significant shortness of breath, non productive, cough or wheezes no abdominal pain, nausea or vomiting, diarrhea or constipation no dysuria, hematuria or frequency no focal joint pain or swelling no back pain, CVA tenderness or radicular pain no bruising, bleeding or rashes no focal signs of weakness or numbness or altered sensation no complaints of anxiety or depression.. Reports a provider diagnosed him with possible Parkisnon's, reports a tremor worse when trying to hold objects Physical Exam Physical Exam: The patient appeared well nourished and normally developed. Is fairly dyspneic with conversational dyspnea Vital signs as documented. Head exam is normocephalic atraumatic Neck is without JVD, thyromegaly, or carotid bruits. Lungs are coarse rales both lung humphrey Cardiac exam, Rhythm is regular.. Stock ejection murmur Abdominal exam reveals normal bowel sounds, soft non tender, no masses Extremities are nonedematous and both pedal pulses are present Neurologic exam is alert and oriented x2 no focal loss of strength or sensation Skin is without bruises or rashes Psychologically is with concerns for memory impairment Results & Data Results & Data ([facility]) Vital Signs (Past 12 Hours) Vital Signs Temp Pulse Pulse Resp BP Pulse Ox Pulse Ox 09/15/21 16:13 97.9 F 84 20 151/87 H 89 L 09/15/21 15:35 78 20 60 L 09/15/21 12:01 98.1 F 86 18 142/86 H 90 09/15/21 11:04 75 18 93 09/15/21 10:00 97 09/15/21 07:45 91 H 20 93 09/15/21 07:19 98.1 F 93 H 23 157/88 H 92 PG Care Time/CCT Total # of Minutes Spent Total Time Spent with Patient: Total time spent is greater than 50% in coordination of care (as documented) at patient's floor/unit and/or counseling patient: Coding Level of Care Code 81769 Subseq Hosp Care Lvl 2 Diagnoses Pneumonia due to COVID-19 virus U07.1; J12.82 Acute respiratory failure with hypoxia J96.01 History of coronary artery stent placement Z95.5 BPH (benign prostatic hyperplasia) N40.0 Chronic kidney disease, stage III (moderate) N18.3 Hypertension I10 Vitamin D deficiency E55.9 Gout M10.9 Benign essential tremor G25.0 Metabolic encephalopathy G93.41 F05
[2021-09-15] MEDS: ROSUVASTATIN CALCIUM 20 MG TAB PO SCH (19:53)
[2021-09-15] MEDS: TAMSULOSIN HCL 0.4 MG CAP PO SCH (19:54)
[2021-09-15] MEDS: QUEtiapine FUMARATE 25 MG TABLET PO SCH (19:54)
[2021-09-16 08:16] LABS: Creatinine Clr Calc Pharmacy 36.9 ml/min; Est GFR (Non-African American) 38.9 ml/min
[2021-09-16] MEDS: NYSTATIN SUSP 500,000 U/5 ML UDC PO SCH ×4 (09:02→21:29)
[2021-09-16] MEDS: ENOXAPARIN INJ 40 MG/0.4 ML SYR SQ SCH ×2 (09:02→21:31)
[2021-09-16] MEDS: ASPIRIN 81 MG ECTAB PO SCH (09:03)
[2021-09-16] MEDS: CYANOCOBALAMIN 500 MCG TABLET (VITAMIN B-12) PO SCH (09:03)
[2021-09-16] MEDS: METOPROLOL TARTRATE 25 MG TAB PO SCH ×2 (09:03→21:30)
[2021-09-16] MEDS: FOLIC ACID 1 MG TAB PO SCH (09:03)
[2021-09-16] MEDS: CHOLECALCIFEROL 1,000 UNITS 25 MCG TAB PO SCH (09:03)
[2021-09-16] MEDS: EUCERIN CR 120 GM JAR EXT SCH (09:04)
[2021-09-16] MEDS: ALUMINUM/MAGNESIUM SUSP 50 ML, diphenhydrAMINE Syrup 125 MG, LIDOCAINE VISCOUS 2% SOLN ... PO SCH ×4 (09:23→21:29)
[2021-09-16] MEDS: [UNRECOGNIZED DRUG - REMARK] PO SCH (10:47)
[2021-09-16] MEDS: allopurinoL 300 MG TAB PO SCH (10:47)
[2021-09-16] MEDS ORDERED: [UNRECOGNIZED DRUG - REMARK] PO STA (13:06)
--- NOTE | 2021-09-16 16:29 | Hospitalist Progress Note ---
Date of Service September 16, 2021 Assessment & Plan (1) Pneumonia due to COVID-19 virus: Plan: Acute respiratory failure with hypoxia remains on vapotherm unvaccinated. No dexamethasone due to history of retinal detachment. Patient continues to declines this even in a life or scenario. 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 Initial episode in 2010 in association with oral prednisone. Second episode with prednisone eye drops after cataract surgery. Recommended to avoid all steroids in the future. No remdesivir given borderline renal function and duration of symptoms - 14 days through illness. based on oxygen requirements, would benefit from steroids but not wanting to risk vision loss, started Baricitinib 09/12/21, renal dose adjusted, dose increased as renal function improved 09/16/21 metabolic encephalopathy from covid pneumonia (2) Acute respiratory failure with hypoxia: Plan: Aim O2 sats > 90%. 2LPM O2 on admission. Escalated to Vapotherm with persistent high oxygen demand (3) History of coronary artery stent placement: Plan: Distal LAD stent 2007, proximal LAD June 2009, stent to the RCA 2013. Continue asa (reduce to 81mg PO daily), metoprolol and rosuvastatin (losartan on hold due to elevated Cr). (4) BPH (benign prostatic hyperplasia): Plan: Tamsulosin 0.4mg PO daily. (5) Chronic kidney disease, stage III (moderate): Plan: Santiago, in the setting of covid pneumonia, CKD3 (6) Hypertension: Plan: continue to hold amlodipine. and losartan. Continue metoprolol. (7) Vitamin D deficiency: Plan: Continue supplementation. (8) Gout: Plan: No active flares. Continue allopurinol. (9) Benign essential tremor: Plan: Primidone PRN. Will avoid scheduled dosing as patient is already significantly fatigued. (10) Metabolic encephalopathy: Plan: likely from covid infection, will try to re orient and have day night orientation (11) : Plan: improved with Seroquel Plan: VTE Prophylaxis - Lovenox 40mg SQ BID. Diet - heart healthy. Admission and Anticipated Discharge Date Admission Date: September 09, 2021 Subjective pt has improved with hs seroquel today he remains with some periods of confusion Review of Systems Review of Systems: Moderate distress and fatigue no headache, no visual changes no speech or swallowing issues no chest pain, pressure or palpitations persistent significant shortness of breath, non productive cough no abdominal pain, nausea or vomiting, diarrhea or constipation no dysuria, hematuria or frequency no focal joint pain or swelling no back pain, CVA tenderness or radicular pain no bruising, bleeding or rashes no focal signs of weakness or numbness or altered sensation no complaints of anxiety or depression.. Reports a provider diagnosed him with possible Parkinson's, Physical Exam Physical Exam: The patient appeared well nourished and normally developed. Vital signs as documented. Head exam is normocephalic atraumatic Neck is without JVD, thyromegaly, or carotid bruits. Lungs are coarse rales both lung humphrey Cardiac exam, Rhythm is regular.. Stock ejection murmur Abdominal exam reveals normal bowel sounds, soft non tender, no masses Extremities are nonedematous and both pedal pulses are present Neurologic exam is alert and oriented x2 no focal loss of strength or sensation Skin is without bruises or rashes Psychologically is with concerns for memory impairment Results & Data Results & Data ([facility]) Vital Signs (Past 12 Hours) Vital Signs Temp Pulse Pulse Resp BP BP Pulse Ox 09/16/21 15:22 72 20 94 09/16/21 14:58 97.7 F 75 20 150/83 H 93 09/16/21 12:36 97.9 F 74 146/74 H 91 09/16/21 10:54 82 20 92 09/16/21 10:00 80 09/16/21 07:48 98.2 F 76 18 129/73 94 09/16/21 07:37 69 18 93 09/16/21 05:17 98.2 F 92 H 22 152/89 H 93 Pulse Ox 09/16/21 15:22 09/16/21 14:58 09/16/21 12:36 09/16/21 10:54 09/16/21 10:00 92 09/16/21 07:48 09/16/21 07:37 09/16/21 05:17 PG Care Time/CCT Total # of Minutes Spent Total Time Spent with Patient: Total time spent is greater than 50% in coordination of care (as documented) at patient's floor/unit and/or counseling patient: Coding Level of Care Code 25878 Subseq Hosp Care Lvl 2 Diagnoses Pneumonia due to COVID-19 virus U07.1; J12.82 Acute respiratory failure with hypoxia J96.01 History of coronary artery stent placement Z95.5 BPH (benign prostatic hyperplasia) N40.0 Chronic kidney disease, stage III (moderate) N18.3 Hypertension I10 Vitamin D deficiency E55.9 Gout M10.9 Benign essential tremor G25.0 Metabolic encephalopathy G93.41 F05
[2021-09-16] MEDS: QUEtiapine FUMARATE 25 MG TABLET PO SCH (21:30)
[2021-09-16] MEDS: TAMSULOSIN HCL 0.4 MG CAP PO SCH (21:31)
[2021-09-16] MEDS: ROSUVASTATIN CALCIUM 20 MG TAB PO SCH (21:31)
[2021-09-17] MEDS: LORazepam 0.5 MG/1 ML VIAL IV PRN ×2 (04:04→19:39)
[2021-09-17] MEDS: BARICITINIB 2 MG TAB PO SCH (10:34)
[2021-09-17] MEDS: METOPROLOL TARTRATE 25 MG TAB PO SCH ×2 (10:35→19:38)
[2021-09-17] MEDS: ASPIRIN 81 MG ECTAB PO SCH (10:35)
[2021-09-17] MEDS: ALUMINUM/MAGNESIUM SUSP 50 ML, diphenhydrAMINE Syrup 125 MG, LIDOCAINE VISCOUS 2% SOLN ... PO SCH ×4 (10:35→19:37)
[2021-09-17] MEDS: NYSTATIN SUSP 500,000 U/5 ML UDC PO SCH ×4 (10:35→19:39)
[2021-09-17] MEDS: CHOLECALCIFEROL 1,000 UNITS 25 MCG TAB PO SCH (10:36)
[2021-09-17] MEDS: FOLIC ACID 1 MG TAB PO SCH (10:36)
[2021-09-17] MEDS: CYANOCOBALAMIN 500 MCG TABLET (VITAMIN B-12) PO SCH (10:36)
[2021-09-17] MEDS: allopurinoL 300 MG TAB PO SCH (10:36)
[2021-09-17] MEDS: ENOXAPARIN INJ 40 MG/0.4 ML SYR SQ SCH ×2 (10:36→19:38)
[2021-09-17] MEDS: EUCERIN CR 120 GM JAR EXT SCH (10:37)
--- NOTE | 2021-09-17 15:56 | Hospitalist Progress Note ---
Date of Service September 17, 2021 Assessment & Plan (1) Pneumonia due to COVID-19 virus: Plan: Acute respiratory failure with hypoxia tapering off oxygen unvaccinated. No dexamethasone due to history of retinal detachment. Patient continues to declines this even in a life or scenario. 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 Initial episode in 2010 in association with oral prednisone. Second episode with prednisone eye drops after cataract surgery. Recommended to avoid all steroids in the future. No remdesivir given borderline renal function and duration of symptoms - 14 days through illness. based on oxygen requirements, would benefit from steroids but not wanting to risk vision loss, started Baricitinib 09/12/21, renal dose adjusted, dose increased as renal function improved 09/16/21 metabolic encephalopathy from covid pneumonia (2) Acute respiratory failure with hypoxia: Plan: Aim O2 sats > 90%. 2LPM O2 on admission. now able to get off additional support (3) History of coronary artery stent placement: Plan: Distal LAD stent 2007, proximal LAD June 2009, stent to the RCA 2013. Continue asa (reduce to 81mg PO daily), metoprolol and rosuvastatin (losartan on hold due to elevated Cr). (4) BPH (benign prostatic hyperplasia): Plan: Tamsulosin 0.4mg PO daily. (5) Chronic kidney disease, stage III (moderate): Plan: Santiago, in the setting of covid pneumonia, CKD3 (6) Hypertension: Plan: continue to hold amlodipine. and losartan. Continue metoprolol. (7) Vitamin D deficiency: Plan: Continue supplementation. (8) Gout: Plan: No active flares. Continue allopurinol. (9) Benign essential tremor: Plan: Primidone PRN. Will avoid scheduled dosing as patient is already significantly fatigued. (10) Metabolic encephalopathy: Plan: likely from covid infection, will try to re orient and have day night orientation (11) : Plan: improved with hs Seroquel Plan: VTE Prophylaxis - Lovenox 40mg SQ BID. Diet - heart healthy. Admission and Anticipated Discharge Date Admission Date: September 09, 2021 Subjective pt has improved with hs seroquel today he remains with some periods of confusion, now has been able to be titrated down off oxygen for intermittent times Review of Systems Review of Systems: mild distress and fatigue no headache, no visual changes no speech or swallowing issues no chest pain, pressure or palpitations persistent significant shortness of breath, non productive cough no abdominal pain, nausea or vomiting, diarrhea or constipation no dysuria, hematuria or frequency no focal joint pain or swelling no back pain, CVA tenderness or radicular pain no bruising, bleeding or rashes no focal signs of weakness or numbness or altered sensation periods of confusion and lethargy Reports a provider diagnosed him with possible Parkinson's, Physical Exam Physical Exam: The patient appeared well nourished and normally developed. Vital signs as documented. Head exam is normocephalic atraumatic Neck is without JVD, thyromegaly, or carotid bruits. Lungs are coarse rales both lung humphrey Cardiac exam, Rhythm is regular.. Stock ejection murmur Abdominal exam reveals normal bowel sounds, soft non tender, no masses Extremities are nonedematous and both pedal pulses are present Neurologic exam is alert and oriented x2 no focal loss of strength or sensation, at times feigning sleeping Skin is without bruises or rashes Psychologically is with concerns for memory impairment Results & Data Results & Data ([facility]) Vital Signs (Past 12 Hours) Vital Signs Temp Pulse Pulse Resp BP BP Pulse Ox 09/17/21 11:50 96 09/17/21 11:24 98.2 F 74 19 144/83 H 93 09/17/21 10:00 09/17/21 08:38 98.6 F 71 19 138/78 93 09/17/21 08:00 61 09/17/21 04:35 97.7 F 76 20 148/83 H 94 Pulse Ox 09/17/21 11:50 09/17/21 11:24 09/17/21 10:00 95 09/17/21 08:38 09/17/21 08:00 09/17/21 04:35 PG Care Time/CCT Total # of Minutes Spent Total Time Spent with Patient: Total time spent is greater than 50% in coordination of care (as documented) at patient's floor/unit and/or counseling patient: Coding Level of Care Code 15048 Subseq Hosp Care Lvl 2 Diagnoses Pneumonia due to COVID-19 virus U07.1; J12.82 Acute respiratory failure with hypoxia J96.01 History of coronary artery stent placement Z95.5 BPH (benign prostatic hyperplasia) N40.0 Chronic kidney disease, stage III (moderate) N18.3 Hypertension I10 Vitamin D deficiency E55.9 Gout M10.9 Benign essential tremor G25.0 Metabolic encephalopathy G93.41 F05
[2021-09-17] MEDS: QUEtiapine FUMARATE 25 MG TABLET PO SCH (19:38)
[2021-09-17] MEDS: ROSUVASTATIN CALCIUM 20 MG TAB PO SCH (19:39)
[2021-09-17] MEDS: TAMSULOSIN HCL 0.4 MG CAP PO SCH (19:39)
[2021-09-18 06:51] LABS: Creatinine Clr Calc Pharmacy 42.7 ml/min; Est GFR (African American) 53.7 ml/min; Est GFR (Non-African American) 46.3 ml/min
[2021-09-18] MEDS: METOPROLOL TARTRATE 25 MG TAB PO SCH ×2 (08:50→21:08)
[2021-09-18] MEDS: CYANOCOBALAMIN 500 MCG TABLET (VITAMIN B-12) PO SCH (08:52)
[2021-09-18] MEDS: CHOLECALCIFEROL 1,000 UNITS 25 MCG TAB PO SCH (08:53)
[2021-09-18] MEDS: ALUMINUM/MAGNESIUM SUSP 50 ML, diphenhydrAMINE Syrup 125 MG, LIDOCAINE VISCOUS 2% SOLN ... PO SCH ×3 (08:54→16:40)
[2021-09-18] MEDS: FOLIC ACID 1 MG TAB PO SCH (08:54)
[2021-09-18] MEDS: allopurinoL 300 MG TAB PO SCH (08:54)
[2021-09-18] MEDS: ENOXAPARIN INJ 40 MG/0.4 ML SYR SQ SCH ×2 (08:55→21:15)
[2021-09-18] MEDS: ASPIRIN 81 MG ECTAB PO SCH (08:55)
[2021-09-18] MEDS: EUCERIN CR 120 GM JAR EXT SCH (10:22)
[2021-09-18] MEDS: NYSTATIN SUSP 500,000 U/5 ML UDC PO SCH ×4 (10:22→21:12)
[2021-09-18] MEDS: BARICITINIB 2 MG TAB PO SCH (10:22)
[2021-09-18] MEDS: QUEtiapine FUMARATE 25 MG TABLET PO SCH (21:06)
[2021-09-18] MEDS: ROSUVASTATIN CALCIUM 20 MG TAB PO SCH (21:07)
[2021-09-18] MEDS: TAMSULOSIN HCL 0.4 MG CAP PO SCH (21:08)
--- NOTE | 2021-09-18 22:36 | Hospitalist Progress Note ---
Date of Service September 18, 2021 Assessment & Plan (1) Pneumonia due to COVID-19 virus: Plan: Acute respiratory failure with hypoxia tapering off oxygen unvaccinated. No dexamethasone due to history of retinal detachment. Patient continues to declines this even in a life or scenario. Prior ophthalmology appointment from 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 Initial episode in 2010 in association with oral prednisone. Second episode with prednisone eye drops after cataract surgery. Recommended to avoid all steroids in the future. No remdesivir given borderline renal function and duration of symptoms - 14 days through illness. based on oxygen requirements, would benefit from steroids but not wanting to risk vision loss, started Baricitinib 09/12/21, renal dose adjusted, dose increased as renal function improved 09/16/21 metabolic encephalopathy from covid pneumonia down to 2L today, try to get to room air (2) Acute respiratory failure with hypoxia: Plan: Aim O2 sats > 90%. 2LPM O2 on admission required some additional oxygen but back to 2L try to wean to room air (3) History of coronary artery stent placement: Plan: Distal LAD stent 2007, proximal LAD June 2009, stent to the RCA 2013. Continue asa (reduce to 81mg PO daily), metoprolol and rosuvastatin (losartan on hold due to elevated Cr). (4) BPH (benign prostatic hyperplasia): Plan: Tamsulosin 0.4mg PO daily. (5) Chronic kidney disease, stage III (moderate): Plan: Santiago, in the setting of covid pneumonia, CKD3 (6) Hypertension: Plan: continue to hold amlodipine. and losartan. Continue metoprolol. (7) Vitamin D deficiency: Plan: Continue supplementation. (8) Gout: Plan: No active flares. Continue allopurinol. (9) Benign essential tremor: Plan: Primidone PRN. Will avoid scheduled dosing as patient is already significantly fatigued. (10) Metabolic encephalopathy: Plan: likely from covid infection, will try to re orient and have day night orientation possible hallucinations today? seeing mice or just shadows, he claims that they went away (11) : Plan: improved with hs Seroquel Plan: VTE Prophylaxis - Lovenox 40mg SQ BID. Diet - heart healthy. try to get to home if he is stronger and off oxygen Admission and Anticipated Discharge Date Admission Date: September 09, 2021 Subjective patient had a controlled fall this morning, the 1 to 1 was off for a while, seeing if he would be okay with 15 minute checks asked him what happened, he said he needed to go to the bathroom, admits he should have asked for help he is having difficulty swallowing food that needs chewed, like his pasta and beef tips, he can swallow soft food like pudding and yogurt he can drink liquids he said that he though he saw some "shadows under the door earlier" but nothing since he is feeling stronger, walking okay when with assistance only on 2L, will try to get him to room air Review of Systems Review of Systems: All systems reviewed & are unremarkable except as noted in Subjective Physical Exam Physical Exam: General: well developed, well nourished, elderly male, slightly disheveled, no distress Neck: supple, trachea midline, normal thyroid Lungs: clear to auscultation bilaterally, normal respiratory effort, no accessory muscle use, no distress Heart: regular S1 and S2, no murmur, peripheral pulses normal, capillary refill normal, no edema Abdomen: soft, NT, ND, + BS, no hepatomegaly, normal to percussion Extremities: normal in appearance, no cyanosis, no petechiae, strength slightly diminished in general Neuro: awake, cooperative, moves all extremities, no focal motor deficits, CN II-XII intact, sensation in extremities intact, normal speech Skin: warm, dry, no rash, normal turgor Psych: Awake, alert oriented x 3, euthymic affect Results & Data Results & Data ([facility]) Vital Signs (Past 12 Hours) Vital Signs Temp Pulse Resp BP Pulse Ox 09/18/21 18:56 36.4 C L 70 16 135/78 97 09/18/21 12:09 36.8 C 67 145/94 H 93 Laboratory Results Laboratory Results - last 24 hr 09/18/21 05:29 Creatinine 1.47 H Est Cr Clr Drug Dosing 42.7 Est GFR ( Amer) 53.7 Est GFR (Non-Af Amer) 46.3 Medications Administered Current Inpatient Medications Acetaminophen (Acetaminophen 500 Mg Tab) 1,000 mg PO TID PRN PRN Reason: pain Stop: 10/11/21 13:59 Last Admin: 09/11/21 16:22 Dose: 1,000 mg Documented by: Allopurinol (Allopurinol 300 Mg Tab) 300 mg PO QAM [facility] Stop: 10/09/21 10:59 Last Admin: 09/18/21 08:54 Dose: 300 mg Documented by: Aspirin (Aspirin 81 Mg Ectab) 81 mg PO QAM [facility] Stop: 10/10/21 08:59 Last Admin: 09/18/21 08:55 Dose: 81 mg Documented by: Baricitinib (Baricitinib 2 Mg Tab) 2 mg PO DAILY [facility]; Protocol Stop: 09/26/21 08:59 Last Admin: 09/18/21 10:22 Dose: 2 mg Documented by: Al Hydrox/Mg Hydrox/Simethicone 50 ml/Diphenhydramine HCl 125 mg/Lidocaine HCl 40 ml/Sucralfate 10,000 mg/ BARCODE IDENTIFIER 1 ea 0 ml PO Q4HWA [facility] Stop: 10/10/21 16:29 Last Admin: 09/18/21 16:40 Dose: 5 ml Documented by: Cyanocobalamin (Cyanocobalamin 500 Mcg Tablet (Vitamin B-12)) 500 mcg PO QAM [facility] Stop: 10/10/21 08:59 Last Admin: 09/18/21 08:52 Dose: 500 mcg Documented by: Enoxaparin Sodium (Enoxaparin Inj 40 Mg/0.4 Ml Syr) 40 mg SQ BID [facility] Stop: 10/09/21 20:59 Last Admin: 09/18/21 21:15 Dose: 40 mg Documented by: Folic Acid (Folic Acid 1 Mg Tab) 1 mg PO DAILY [facility] Stop: 10/10/21 08:59 Last Admin: 09/18/21 08:54 Dose: 1 mg Documented by: Lorazepam (Ativan) 0.5 mg in 1 mls @ 1 mls/min IV Q4H PRN PRN Reason: Agitation Stop: 10/13/21 18:59 Last Admin: 09/17/21 19:39 Dose: 1 mls/min Documented by: Melatonin (Melatonin 3 Mg Tab) 3 mg PO HS PRN PRN Reason: Sleep Stop: 10/09/21 21:06 Last Admin: 09/11/21 23:31 Dose: 3 mg Documented by: Metoprolol Tartrate (Metoprolol Tartrate 25 Mg Tab) 12.5 mg PO BID [facility] Stop: 10/09/21 10:59 Last Admin: 09/18/21 21:08 Dose: 12.5 mg Documented by: Morphine Sulfate (Morphine Sulfate 2 Mg/Ml Carp) 0.5 mg IV Q4H PRN PRN Reason: Agitation Stop: 09/25/21 02:34 Last Admin: 09/15/21 08:34 Dose: 0.5 mg Documented by: Multi-Ingredient Cream (Eucerin Cr 120 Gm Jar) 1 appln EXT DAILY [facility] Stop: 10/10/21 08:59 Last Admin: 09/18/21 10:22 Dose: 1 appln Documented by: Nystatin (Nystatin Susp 500,000 U/5 Ml Udc) 5 ml PO QID [facility] Stop: 09/20/21 16:59 Last Admin: 09/18/21 21:12 Dose: 5 ml Documented by: Phenol (Chloraseptic 1.4% Soln 180 Ml Btl) 2 sprays MT PRN PRN PRN Reason: Sore Throat Stop: 10/09/21 18:07 Last Admin: 09/09/21 20:39 Dose: 2 sprays Documented by: Primidone (Primidone 50 Mg Tab) 25 mg PO HS PRN PRN Reason: Essential tremor Stop: 10/09/21 15:57 Quetiapine Fumarate (Quetiapine Fumarate 25 Mg Tablet) 25 mg PO HS [facility] Stop: 10/13/21 20:59 Last Admin: 09/18/21 21:06 Dose: 25 mg Documented by: Rosuvastatin Calcium (Rosuvastatin Calcium 20 Mg Tab) 40 mg PO QPM [facility] Stop: 10/09/21 20:59 Last Admin: 09/18/21 21:07 Dose: 40 mg Documented by: Tamsulosin HCl (Tamsulosin Hcl 0.4 Mg Cap) 0.4 mg PO QPM [facility] Stop: 10/09/21 20:59 Last Admin: 09/18/21 21:08 Dose: 0.4 mg Documented by: Vitamin D (Cholecalciferol 1,000 Units 25 Mcg Tab) 2,000 units PO QAM [facility] Stop: 10/09/21 10:59 Last Admin: 09/18/21 08:53 Dose: 2,000 units Documented by: PG Care Time/CCT Total # of Minutes Spent Total Time Spent with Patient: Total time spent is greater than 50% in coordination of care (as documented) at patient's floor/unit and/or counseling patient: Coding Level of Care Code 00318 Subseq Hosp Care Lvl 2 Diagnoses Pneumonia due to COVID-19 virus U07.1; J12.82 Acute respiratory failure with hypoxia J96.01 History of coronary artery stent placement Z95.5 BPH (benign prostatic hyperplasia) N40.0 Chronic kidney disease, stage III (moderate) N18.3 Hypertension I10 Vitamin D deficiency E55.9 Gout M10.9 Benign essential tremor G25.0 Metabolic encephalopathy G93.41 F05
[2021-09-19] MEDS: ALUMINUM/MAGNESIUM SUSP 50 ML, diphenhydrAMINE Syrup 125 MG, LIDOCAINE VISCOUS 2% SOLN ... PO SCH ×3 (07:24→12:50)
[2021-09-19] MEDS: NYSTATIN SUSP 500,000 U/5 ML UDC PO SCH ×2 (08:44→12:50)
[2021-09-19] MEDS: METOPROLOL TARTRATE 25 MG TAB PO SCH (08:44)
[2021-09-19] MEDS: CHOLECALCIFEROL 1,000 UNITS 25 MCG TAB PO SCH (08:45)
[2021-09-19] MEDS: allopurinoL 300 MG TAB PO SCH (08:45)
[2021-09-19] MEDS: ASPIRIN 81 MG ECTAB PO SCH (08:46)
[2021-09-19] MEDS: ENOXAPARIN INJ 40 MG/0.4 ML SYR SQ SCH (08:46)
[2021-09-19] MEDS: FOLIC ACID 1 MG TAB PO SCH (08:46)
[2021-09-19] MEDS: EUCERIN CR 120 GM JAR EXT SCH (08:47)
[2021-09-19] MEDS: CYANOCOBALAMIN 500 MCG TABLET (VITAMIN B-12) PO SCH (08:47)
[2021-09-19] MEDS: BARICITINIB 2 MG TAB PO SCH (08:55)
[2021-09-19 11:36] LABS: Creatinine Clr Calc Pharmacy 40.7 ml/min; Est GFR (African American) 50.8 ml/min; Est GFR (Non-African American) 43.8 ml/min
--- NOTE | 2021-09-20 21:01 | Discharge Summary ---
Date of Service September 19, 2021 Admission HPI Per Admitting Provider Freddie Soliman is a 76 year old male who presents to the ER with shortness of breath. Sick for 14 days. Short of breath (not getting worse but not improving), loss of taste and smell, nasal congestion, sore throat, poor appetite. No chest pain, diarrhea, abdominal pain, urinary symptoms. Diagnosed with COVID-19 two days ago. He comes to the ER today He reports prior retinal detachment with prednisone eye drops. He tells me this occurred twice. Therefore declines all steroids. In the ER SARS-COV-2 PCR positive. CXR concerning for multifocal pneumonia. Principal Diagnosis COVID 19 pneumonia, acute hypoxic respiratory failure, encephalopathy Discharge Exam General: well developed, well nourished, elderly male, slightly disheveled, no distress Neck: supple, trachea midline, normal thyroid Lungs: clear to auscultation bilaterally, normal respiratory effort, no accessory muscle use, no distress Heart: regular S1 and S2, no murmur, peripheral pulses normal, capillary refill normal, no edema Abdomen: soft, NT, ND, + BS, no hepatomegaly, normal to percussion Extremities: normal in appearance, no cyanosis, no petechiae, strength slightly diminished in general Neuro: awake, cooperative, moves all extremities, no focal motor deficits, CN II-XII intact, sensation in extremities intact, normal speech Skin: warm, dry, no rash, normal turgor Psych: Awake, alert oriented x 3, euthymic affect Discharge Data Allergies Allergy/AdvReac Type Severity Reaction Status Date / Time Corticosteroids Allergy Severe CAUSES Verified 09/15/21 13:47 (Glucocorticoids) BLINDNESS prednisone Allergy Severe BLINDNESS Verified 09/09/21 07:29 acetic acid Allergy Intermediate Rash - Verified 09/15/21 13:47 Apple Cider Vinegar Penicillins Allergy Intermediate RASH Verified 09/09/21 07:29 Sulfa (Sulfonamide Allergy Intermediate RASH Verified 09/09/21 07:29 Antibiotics) adhesive Allergy Unknown SKIN Verified 09/09/21 07:29 IRRITATION AND ULCER WITH EXTENDED USE ALLERGY SHOTS Allergy Severe CAUSES Uncoded 09/09/21 07:29 BLINDNESS Consultations 09/09/21 08:13 ED Decision to Admit Stat Hospital Course (1) Pneumonia due to COVID-19 virus: Acute respiratory failure with hypoxia tapering off oxygen unvaccinated. No dexamethasone due to history of retinal detachment. Patient continues to declines this even in a life or scenario. 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 Initial episode in 2010 in association with oral prednisone. Second episode with prednisone eye drops after cataract surgery. Recommended to avoid all steroids in the future. No remdesivir given borderline renal function and duration of symptoms - 14 days through illness. based on oxygen requirements, would benefit from steroids but not wanting to risk vision loss, started Baricitinib 09/12/21, renal dose adjusted, dose increased as renal function improved 09/16/21 can stop baricitinib on discharge down to room air, discharge to home, lives with his , can stay on one level metabolic encephalopathy from COVID pneumonia (2) Metabolic encephalopathy: likely from COVID infection, slowly improving having some slight issues with initiation of swallow when eating tough foods like chicken or beef no issues swallowing soft, slippery foods should follow up with PCP if swallowing is an ongoing issue (3) Acute respiratory failure with hypoxia: Aim O2 sats > 90%. 2LPM O2 on admission required some additional oxygen but now down t room air discharge to home (4) History of coronary artery stent placement: Distal LAD stent 2007, proximal LAD June 2009, stent to the RCA 2013. Continue asa (reduce to 81mg PO daily), metoprolol and rosuvastatin (losartan on hold due to elevated Cr). (5) BPH (benign prostatic hyperplasia): Tamsulosin 0.4mg PO daily. (6) Chronic kidney disease, stage III (moderate): Santiago, in the setting of covid pneumonia, CKD3 (7) Hypertension: continue to hold amlodipine 10mg daily, BP stable off of it continue metoprolol and Losartan (8) Vitamin D deficiency: Continue supplementation. (9) Gout: No active flares. Continue allopurinol. (10) Benign essential tremor: Primidone PRN. Will avoid scheduled dosing as patient is already significantly fatigued. (11) : improved with chandrika Pratt I certify that this patient is under my care and that I, or a physicians medical record assistant working with me, had a face to-face encounter that meets the home health [id number] encounter requirements with this patient. The encounter with the patient was in whole, or in part, for the following medical condition, which is the primary reason for home health care (list medical condition): Covid I certify that, based on my findings, the following services are medically necessary home health services: My clinical findings support the need for the above services because: OT Assess ADL Status and Restore Function w ADLs PT Assessment for Endurance / Balance / Strength PT Eval for Safety and Mobility PT Eval for Safety, Gait Training, Assistive Devices PT Gait and Balance Training, Strengthening and Safety Skilled Nsg Assessment Further, I certify that my clinical findings support that this patient is homebound (i.e. absences from home require considerable and taxing effort and are for medical reasons or [employer]on services or infrequently or of short duration when for other reasons) because: Supportive Aid - Walker Certification for Home Health Services: Based on the above findings, I certify that this patient is confined to the home and needs intermittent penitentiary care, physical therapy and/or speech therapy or continues to need occupational therapy. The patient is under my care, and I have initiated the establishment of the plan of care. This patient will be followed by a physician who will periodically review the plan of care. Total Time Total Time Spent Total Time Spent (In Minutes): 35 minutes Total Time Includes: Examination of the Patient, Discharge Planning, Medication Reconciliation and Other (spoke with ) Discharge Plan Discharge Items Patient Disposition: Home - Home Health Services Reason For Visit: ACUTE RESPIRATORY FAILURE WITH HYPOXIA,COVID-19 PN Discharge Diagnosis: COVID 19 pneumonia Acute hypoxia Encephalopathy (confusion) Condition on Discharge: Good Goals: improve nutrition and hydration improve strength and mobility Activity: Resume your previous activity Driving/Machine Use: would not drive until cleared by PCP Weightbearing: Full weightbearing Non-emergency contact: Primary Care Provider Call non-emergency contact if: you have any medication questions, your symptoms worsen and you have a fever Follow-up/Referrals: Ritu Robledo, [Primary Care Provider] - (one week) Diet: Regular Addtl Attending Provider Instructions: Medications: no new medications - AMLODIPINE: stop this medication, we have been holding it while here, blood pressure has been stable off of it COVID 19 pneumonia, acute hypoxic respiratory failure you recovered well on baricitinib, no need to continue on discharge as you are not hypoxic you did NOT receive dexamethasone or any other steroid due to your history of retinal detachment improve your strength and mobility at home, use walker whenever you are walking and recommend that you stay on one floor until strength is improved stay well nourished and well hydrated some issues with initiating a swallow with foods that are difficult to chew, some degree of swallowing dysfunction can occur with COVID infection, encephalopathy you have tolerated soft foods and slippery foods here in the hospital this issue should slowly resolve with time, Dr. Robledo can refer you to speech therapy as outpatient Pending Studies at Discharge: No Stand-Alone Forms: My [facility], Smoking Cessation Medications and DC Order Prescriptions: Continued cholecalciferol (vitamin D3) 50 mcg (2,000 unit) capsule 2,000 unit PO QAM RF: 0 metoprolol tartrate 25 mg tablet 12.5 mg PO BID Qty: 180 RF: 3 rosuvastatin 40 mg tablet 40 mg PO QPM RF: 0 Eucerin Cream 1 applic topical DAILY RF: 0 aspirin 325 mg Tablet 162.5 mg PO BID RF: 0 vitamin [id number] acid 0.5-1 mg Tablet 1 tab PO QAM RF: 0 allopurinol 100 mg tablet 300 mg PO QAM RF: 0 tamsulosin [Flomax] 0.4 mg capsule 0.4 mg PO QPM RF: 0 losartan 100 mg tablet 100 mg PO QAM RF: 0 Discontinued amlodipine 10 mg tablet 10 mg PO QAM RF: 0 Discharge Orders: Discharge Order (Routine); Ordered 09/19/21 Ordered By: Luis Koehler Admission Data Admit Date/Time: 09/09/21 08:29 Attending Provider: Luis Koehler Admit Provider: Juan Carlos Johnson Primary Care Provider: Ritu Robledo Other Providers: Juan Carlos Johnson Other Interventions: Discharge Summary Assessment (RN) Last Done: 09/19/21 15:25 Coding Level of Care Code D/C DAY MANAGEMENT >30 MINS Diagnoses Pneumonia due to COVID-19 virus U07.1; J12.82 Acute respiratory failure with hypoxia J96.01 History of coronary artery stent placement Z95.5 BPH (benign prostatic hyperplasia) N40.0 Chronic kidney disease, stage III (moderate) N18.3 Hypertension I10 Vitamin D deficiency E55.9 Gout M10.9 Benign essential tremor G25.0 Metabolic encephalopathy G93.41 F05
== END 2021-09-19 16:12 | disposition home health service (06) | DRG 177 ==
LOC: ED 06:15 → 2S 08:29 → SUATTDRO 08:29 → 2S 09:14
DX: Z88.8 Allergy status to other drugs, medicaments and biological substances; N18.30 Chronic kidney disease, stage 3 unspecified; J96.01 Acute respiratory failure with hypoxia; Z88.0 Allergy status to penicillin; Z79.82 Long term (current) use of aspirin; T38.0X5A Adverse effect of glucocorticoids and synthetic analogues, initial encounter; I25.10 Atherosclerotic heart disease of native coronary artery without angina pectoris; G93.41 Metabolic encephalopathy; Z88.2 Allergy status to sulfonamides; M10.9 Gout, unspecified; N40.0 Benign prostatic hyperplasia without lower urinary tract symptoms; N17.9 Acute kidney failure, unspecified; F05 Delirium due to known physiological condition; J12.82 Pneumonia due to coronavirus disease 2019; U07.1 COVID-19; I12.9 Hypertensive chronic kidney disease with stage 1 through stage 4 chronic kidney disease, or unspecified chronic kidney disease; Z87.891 Personal history of nicotine dependence; Z95.5 Presence of coronary angioplasty implant and graft; G25.0 Essential tremor; Y92.009 Unspecified place in unspecified non-institutional (private) residence as the place of occurrence of the external cause; E55.9 Vitamin D deficiency, unspecified; H35.719 Central serous chorioretinopathy, unspecified eye

== ENCOUNTER 2024-02-16 21:11 | Inpatient (IN) ==
--- OUTSIDE RECORDS SUMMARY | 2024-02-16 21:15 | External Medical Summary | Summary of Care ---
Author Name Unknown Organization [facility] Address [address] [place] [address] Phone [phone] Care Team Providers Care Spark Tester Name Role Phone Александр Martínez MD Primary Care Provide r Reason for Visit * Reason Comments eRx-Medication Refill Encounter Details Date Type Department Care Team (Late st Contact Info) Description 01/23/2024 Refill Family Medicine [address] [phone] Александр Martínez MD [address] [place] [address] [place] [phone] BPH with obstruction/lower urinary tract symptoms Allergies Active Allergy Reactions Criticality Noted Date Comments Apple Cider Vinegar 01/30/2017 Penicillins 01/30/2017 Prednisolone 01/30/2017 Sulfa Antibiotics 04/03/2005 rash documented as of this encounter (statuses as of 01/29/2024) Medications Medication Sig Dispensed Refills Start Date End Date Status Vitamin D 25 MCG (1000 UT) Oral Tablet Take 1 Tablet by mouth in the morning. 0 Active Aspirin EC 81 MG Oral Tablet Delayed Release Take by mouth 1 Tablet in the morning. 90 Tablet 3 03/08/2022 Active Primidone 50 MG Oral Tablet (Mysoline)Indicat ions:Essential tremor TAKE 50 MG IN THE AM AND 50 MG IN THE PM 60 Tablet 5 08/14/2022 Active Tamsulosin HCl 0.4 MG Oral Capsule (Flomax) Take 1 Capsule by mouth in the morning. 0 Active Metoprolol Succinate ER 25 MG Oral Tablet Extended Release 24 Hour (toPROL XL) Take 0.5 Tablets by mouth in the morning. 30 Tablet 5 01/31/2023 Active Rosuvastatin Calcium 20 MG Oral Tablet (Crestor)Indicati ons:HTN, goal below 140/90 Take 1 Tablet by mouth in the morning. 90 Tablet 3 03/18/2023 Active Losartan Potassium 50 MG Oral Tablet (Cozaar)Indicatio ns:HTN, goal below 140/90 TAKE 1 TABLET BY MOUTH EVERY MORNING 90 Tablet 4 03/29/2023 Active amLODIPine Besylate 10 MG Oral Tablet (Norvasc) Take 1 Tablet by mouth in the morning. 100 Tablet 3 09/06/2023 Active Allopurinol 100 MG Oral Tablet (Zyloprim) TAKE THREE TABLETS BY MOUTH IN THE MORNING 90 Tablet 5 09/25/2023 Active Furosemide 20 MG Oral Tablet (Lasix)Indication s:HTN, goal below 140/90 TAKE 1 TABLET BY MOUTH EVERY MORNING 90 Tablet 0 12/05/2023 Active Finasteride 5 MG Oral Tablet (Proscar)Indicati ons:BPH with obstruction/lower urinary tract symptoms TAKE 1 TABLET BY MOUTH EVERY MORNING 90 Tablet 0 01/24/2024 Active Finasteride 5 MG Oral Tablet (Proscar)Indicati ons:BPH with obstruction/lower urinary tract symptoms TAKE 1 TABLET BY MOUTH EVERY MORNING 90 Tablet 1 07/25/2023 01/24/2024 Discontinued documented as of this encounter (statuses as of 01/29/2024) Active Problems Problem Noted Date Diagnosed Date Prediabetes 01/11/2023 Chronic kidney disease, stage 3b 11/19/2022 Overview: Per CKD protocol Hypertensive kidney disease with stage 3b chronic kidney disease 11/19/2022 Overview: Per CKD protocol Tremor 11/08/2022 Gout of multiple sites 11/08/2022 S/P angioplasty with stent 11/01/2022 BPH without obstruction/lower urinary tract symp toms 08/02/2022 Metabolic syndrome 08/02/2022 Overview: hgba1c 6.0/126 Coronary artery disease invo lving [place] coronary artery of [place] heart without angina pectoris 01/03/2022 Gastro-esophageal reflux disease without esophag itis 01/03/2022 Anemia 01/22/2019 Dyslipidemia, goal LDL below 100 10/20/2009 Overview: Per Lipid Taxonomy. HTN, goal below 140/90 07/04/2006 Overview: 170/100 ADVANCE DIRECTIVE INFORMATION 11/29/2005 Overview: No, Advance Directive brochure offered , patient declined. Rosacea 11/29/2005 Allergic rhinitis 08/05/2003 documented as of this encounter (statuses as of 01/29/2024) Resolved Problems Problem Noted Date Diagnosed Date Resolved Date Hypertensive kidney disease with stage 3a chronic kidney disease 07/23/2022 11/22/2022 Overview: Per CKD protocol Chronic kidney disease, stage 3a 07/23/2022 11/22/2022 Overview: Per CKD protocol Hypertensive kidney disease with chronic kidney disease stage III 07/20/2022 07/26/2022 Overview: Per CKD protocol Stage 3 chronic kidney disease 01/03/2022 07/26/2022 Overview: Per CKD protocol Rectal bleeding 01/22/2019 08/02/2022 Occult blood positive stool 01/22/2019 08/02/2022 Mixed dyslipidemia 12/11/2006 12/10/200 9 Overview: Per Lipid Taxonomy. Other allergic rhinitis 09/27/200507/2022 Overview: ICD-10 update of inactive term Nasal polyp 01/11/2005 09/20/2022 PLEURISY W-O EFFUS OR TB 07/29/200307/2022 documented as of this encounter (statuses as of 01/29/2024) Immunizations Name Administration Dates Next Due Seasonal Influenza, Split, IIV3, With Preserve, Inj 11/14/2006 TD - Tetanus/Diptheria (ADULT) 11/07/2011 documented as of this encounter Social History Tobacco Use Types Packs/Day Years Used Date Smoking Tobacco: Former Passive Smoke Exposure: Past Smokeless Tobacco: Never Alcohol Use Standard Drinks/Week Comments No 0 (1 standard drink = 0.6 oz pur e alcohol) Sex and Gender Information Value Date Recorded Sex Assigned at Not on file Gender Identity Not on file Sexual Orientation Not on file Job Start Date Occupation Industry Not on file Not on file Not on file documented as of this encounter Miscellaneous Notes * Telephone Encounter - Roula Ventura - 01/29/2024 10:05 AM EDT Received message from [facility] regarding patient needing appointment. Patient was notified. Successfully contacted patient and provided [facility] message. * Telephone Encounter - Khoa Davis [facility] - 01/24/2024 3:34 PM EDTSigned Prescriptions: Disp Refills Finasteride 5 MG Oral Tablet (Proscar) 90 Tab*0 Sig: TAKE 1 TABLET BY MOUTH EVERY MORNING Authorizing Provider: АЛЕКСАНДР MARTÍNEZ User: KHOA DAVIS * Telephone Encounter - Khoa Davis [facility] - 01/24/2024 3:33 PM EDT Please contact patient so that an appointment can be scheduled with his PRIMARY CARE provider. Refill authorized to hold patient over in the mean time. Last Visit: 01/11/2023 (in office), Visit date not found (telemedicine) Next Visit: Visit date not found Thank You, Khoa Davis, Pharm-D Clinical Pharmacist [facility] ([facility]) [phone] 01/24/2024, 3:33 PM documented in this encounter Plan of Treatment Health Maintenance Due Date Last Done Comments Pneumococcal Vaccine: 65+ Years (1 of 2 - PCV) 1951 Depression Screening 1959 Zoster Vaccines (1 of 2) 1997 DTaP,Tdap,and Td Vaccines (1 - Tdap) 11/08/2011 11/07/2011 COVID-19 Vaccine (1 - 2022-24 season) 2023 Influenza Vaccine (FLU shot) (#1) 2023 11/19/2019, 11/14/2006, 09/27/2005 HbA1c 11/01/2023 11/01/2022, 08/02/2022 GFR 11/02/2023 05/03/2023, 01/2023, 11/01/2022, Additional history exists CKD HGB USE SMARTSET 29457 01/12/202401/11, 01/11/2023, 11/01/2022, Additional history exists CKD PHOS USE SMARTSET 69637 01/12/20240 01/2023, 01/18/2022, 01/03/2022 Albumin/Creatinine Ratio 05/03/2024 05/03/2023, 090 06/2022 Colonoscopy Discontinued 01/01/2018 Colorectal Cancer Screening Discontinued Cologuard Discontinued Fecal Occult Blood Test Discontinued GARDASIL-HPV IMMUNIZATION SERIES Aged Out No longer eligible based on patient's age to complete this topic Hepatitis B Aged Out No longer eligi ble based on patient's age to complete this topic MENINGOCOCCAL (MENACTRA/MENVEO) Aged Out No longer eligible based on patient's age to complete this topic Sigmoidoscopy Discontinued documented as of this encounter Medical Devices Not on filedocumented as of this encounter Visit Diagnoses Diagnosis BPH with obstruction/lower urinary tract symptoms Hypertrophy of prostate with urinary obstruction and other lower urinary tract symptoms (LUTS) documented in this encounter Care Teams Spark Tester Relationship Specialty Start Date End Date Александр Martínez MD [address] [place] [address] [place] [phone] PCP - General Family Medicine 01/11/23 documented as of this encounter
--- OUTSIDE RECORDS SUMMARY | 2024-02-16 21:15 | External Medical Summary | Summary of Care ---
Author Name Unknown Organization [facility] Address [address] [place] [address] Phone [phone] Care Team Providers Care Cuff Matcher Name Role Phone Александр Martínez MD Primary Care Provide r Reason for Visit * Reason Comments eRx-Medication Refill Encounter Details Date Type Department Care Team (Late st Contact Info) Description 12/05/2023 Refill Cardiology, [facility] [address] [place] [id number] Elizabeth Harris CRNP [address] [place] [phone] HTN, goal below 140/90* Allergies Active Allergy Reactions Criticality Noted Date Comments Apple Cider Vinegar 01/30/2017 Penicillins 01/30/2017 Prednisolone 01/30/2017 Sulfa Antibiotics 04/03/2005 rash documented as of this encounter (statuses as of 12/05/2023) Medications Medication Sig Dispensed Refills Start Date [...] EVERY MORNING 90 Tablet 4 03/29/2023 Active Finasteride 5 MG Oral Tablet (Proscar)Indicati ons:BPH with obstruction/lower urinary tract symptoms TAKE 1 TABLET BY MOUTH EVERY MORNING 90 Tablet 1 07/25/2023 Active amLODIPine Besylate 10 MG Oral Tablet (Norvasc) Take 1 Tablet by mouth in the morning. 100 Tablet 3 09/06/2023 Active Allopurinol 100 MG Oral Tablet (Zyloprim) TAKE THREE TABLETS BY MOUTH IN THE MORNING 90 Tablet 5 09/25/2023 Active Furosemide 20 MG Oral Tablet (Lasix)Indication s:HTN, goal below 140/90 TAKE 1 TABLET BY MOUTH EVERY MORNING 90 Tablet 0 12/05/2023 Active Furosemide 20 MG Oral Tablet (Lasix) TAKE 1 TABLET BY MOUTH EVERY MORNING 90 Tablet 1 05/15/2023 12/05/2023 Discontinued documented as of this encounter (statuses as of 12/05/2023) Active Problems Problem Noted Date Diagnosed Date [...] hgba1c 6.0/126 Coronary artery disease invo lving [place] coronary artery of [place] heart without angina pectoris 01/03/2022 Gastro-esophageal reflux disease without esophag itis 01/03/2022 Anemia 01/22/2019 Dyslipidemia, goal LDL below 100 10/20/2009 Overview: Per Lipid Taxonomy. HTN, goal below 140/90 07/04/2006 Overview: 170/100 ADVANCE DIRECTIVE INFORMATION 11/29/2005 Overview: No, Advance Directive brochure offered , patient declined. Rosacea 11/29/2005 Allergic rhinitis 08/05/2003 documented as of this encounter (statuses as of 12/05/2023) Resolved Problems Problem Noted Date Diagnosed Date [...] positive stool 01/22/2019 08/02/2022 Mixed dyslipidemia 12/11/2006 9 Overview: Per Lipid Taxonomy. Other allergic rhinitis 09/27/2005 09/0 07/2022 Overview: ICD-10 update of inactive term Nasal polyp 01/11/2005 09/20/2022 PLEURISY W-O EFFUS OR TB 07/29/200307/2022 documented as of this encounter (statuses as of 12/05/2023) Immunizations Name Administration Dates Next Due Seasonal [...] encounter Miscellaneous Notes * Telephone Encounter - Nury Chan COT - 12/05/2023 2:53 PM ESTPending Prescriptions: Disp Refills Furosemide 20 MG Oral Tablet (Lasix) 90 Tab*0 Sig: TAKE 1 TABLET BY MOUTH EVERY MORNING * Telephone Encounter - Nury Chan COT - 12/05/2023 2:53 PM EST Scheduling -- please contact pt for follow up. * Telephone Encounter - Nury Chan COT - 12/05/2023 2:53 PM EST Did you pend patient's preferred pharmacy and medication before forwarding?yes Pharmacy: [id number] [address] [facility] Pending Prescriptions: Disp Refills Furosemide 20 MG Oral Tablet (Lasix) [Pha*90 Tab*0 Sig: TAKE 1 TABLET BY MOUTH EVERY MORNING Last Visit: 01/31/2023 (in office), Visit date not found (telemedicine) Next Visit: Visit date not found If no future appointments scheduled, and last appointment is greater than a year ago, please schedule patient for a follow-up appointment Last date the medication was ordered: 05-15-2023 Is this request for a controlled substance?No Urine Drug Screen:No results found for this or any previous visit. Patient Phone Numbers [email or web address] [phone] Labs: Lab Results Component Value Date/Time CREAT 1.6 (H) 05/03/2023 09:40 AM CREAT 1.54 (A) 10/02/2021 12:00 AM CREAT 1.3 (H) 09/24/2017 10:31 AM POTASSIUM 4.6 05/03/2023 09:40 AM POTASSIUM 4.3 10/02/2021 12:00 AM POTASSIUM 4.4 09/24/2017 10:31 AM TSH 2.53 11/01/2022 09:08 AM LDLCALC 88 01/11/2023 11:18 AM LDLCALC 67 10/02/2021 12:00 AM LDLCALC 159 (H) 08/05/2003 08:37 AM LDLDIRECT 62 01/03/2022 03:54 PM ALT 24 05/03/2023 09:40 AM ALT 29 09/09/2007 01:55 PM HGBA1C 5.8 (H) 11/01/2022 09:08 AM documented in this encounter Plan of Treatment Health Maintenance Due Date Last Done Comments COVID-19 Vaccine (#1) 1945 Pneumococcal Vaccine: 65+ Years (1 - PCV) 1951 Depression Screening 1959 Zoster Vaccines (1 of 2) 1997 Hepatitis B (1 of 3 - Risk 3-dose series) 2007 DTaP,Tdap,and Td Vaccines (1 - Tdap) 11/08/2011 11/07/2011 Influenza Vaccine (FLU shot) (#1) 2023 11/19/2019, 11/14/2006, 09/27/2005 HbA1c 11/01/2023 11/01/2022, 08/02/2022 GFR 11/02/2023 05/03/2023, 03/0 01/2023, 11/01/2022, Additional history exists CKD HGB USE SMARTSET 22411 01/12/202401/11, 01/11/2023, 11/01/2022, Additional history exists CKD PHOS USE SMARTSET 45024 01/12/2024 03/0 01/2023, 01/18/2022, 01/03/2022 Albumin/Creatinine Ratio 05/03/2024 05/03/2023, 06/2022 Colonoscopy Discontinued 01/01/2018 Colorectal Cancer Screening [...] as of this encounter Visit Diagnoses Diagnosis HTN, goal below 140/90- Primary Unspecified essential hypertension documented in this encounter Care Teams Cuff Matcher Relationship Specialty Start Date End Date Александр Martínez MD [address] [place] [address] [place] [id number] PCP - General Family Medicine 01/11/23 documented as of this encounter
[2024-02-16 21:48] LABS: Basophils # (auto) 0.02 K/uL (0.00-0.20); Basophils % (auto) 0.2 %; Eosinophils # (auto) 0.31 K/uL (0.00-0.50); Eosinophils % (auto) 3.7 %; Hematocrit (blood only) 32.8 % (42.0-52.0); Hemoglobin 11.2 g/dl (14.0-18.0); Immature Granulocytes # (auto) 0.03 K/uL (0.01-0.20); Immature Granulocytes % (auto) 0.4 %; Lymphocytes # (auto) 1.66 K/uL (1.20-3.40); Lymphocytes % (auto) 19.8 %; Mean Corpuscular Hemoglobin 32.4 pg (25.0-34.0); Mean Corpuscular Hgb Conc 34.1 g/dL (32.0-36.0); Mean Corpuscular Volume 94.8 fL (80.0-100.0); Mean Platelet Volume 9.6 fL (9.4-12.4); Monocytes # (auto) 0.55 K/uL (0.11-0.59); Monocytes % (auto) 6.6 %; Neutrophils # (auto) 5.82 K/uL (1.40-6.50); Neutrophils % (auto) 69.3 %; Platelet Count 256 K/uL (130-400); RDW Coefficient of Variation 14.5 % (11.5-14.5); RDW Standard Deviation 50.1 fL (36.4-46.3); Red Blood Count 3.46 M/uL (4.70-6.10); White Blood Count 8.39 K/ul (4.8-10.8)
--- NOTE | 2024-02-16 21:50 | Emergency Department Note ---
Impression & Plan AV junctional bradycardia, Hypotension, Acute hyperkalemia, JUDY (acute kidney injury) ED Provider Note NAME: TODD CLAY AGE: 78 SEX: M : 1945 ARRIVES VIA: Walk-In INFORMANT: Patient, the patient's family and ED PROVIDER(S): Elbert Saunders DO CHIEF COMPLAINT: Weakness HPI: The patient is a 78-year-old male who presented to the emergency department with family for an evaluation of weakness. The patient has been having problems with cough and difficulty breathing over the course the last few days. He has been noticing dyspnea on exertion as well as a productive cough. He denies having any fever. He went to see his family doctor and was started on a Zithromax as well as Tessalon Perles. He states he still has the cough but has been noticing that he is very lightheaded upon standing. He denies having any fever or hypoxia. The patient denies having a recent changes to his medications. He states is been compliant with his outpatient medications which does include a beta-dg. ROS: See above HPI for pertinent positives & negatives. A total of 10 systems reviewed and were otherwise negative. PAST MEDICAL HISTORY: See Below PAST SURGICAL HISTORY: See Below FAMILY HISTORY: See Below SOCIAL HISTORY: See Below HOME MEDICATIONS: See Below ALLERGIES: See Below VITALS: See Below PHYSICAL EXAMINATION: GENERAL: Patient is awake alert in no acute distress patient is resting comfortably and showing no signs of anxiety EYES: The conjunctivae are clear. The pupils are round and reactive. EARS, NOSE, MOUTH AND THROAT: The nose is without any evidence of any deformity NECK: The neck is nontender and supple. RESPIRATORY: Diminished breath sounds are noted both bases. There is no tachypnea or conversational dyspnea at rest. CARDIOVASCULAR: Regular and bradycardic heart sounds were noted to auscultation. There is no definite murmur GASTROINTESTINAL: The abdomen is soft. Abdomen is nontender. MUSCULOSKELETAL/EXTREMITIES: There is no evidence of gross deformity full range of motion is noted in the hips and shoulders. SKIN: Trace pedal edema was noted bilaterally. NEUROLOGIC: Patient is awake alert and oriented x3 MEDICAL DECISION MAKING: The patient is a 78-year-old male who presented to the emergency department with family for an evaluation of generalized weakness. The patient was noted to have hypotension and bradycardia. The patient has been treated for an upper respiratory infection recently. He was found to have an elevated creatinine as well as elevated potassium in the emergency department. I discussed patient's laboratory and radiographic studies with him. He was treated with IV fluids as well as IV calcium dextrose insulin and a DuoNeb. Patient's rhythm improved somewhat but he continued to become significantly bradycardic. Because of the bradycardia and the hypotension he was also treated as sepsis but he was not able to receive a full fluid bolus because of his cardiac history. [facility] have agreed to evaluate the patient in the emergency department for further management and disposition. Triage Nursing notes reviewed. Prior medical records reviewed Vital Signs: reviewed and remarkable for hypotension and bradycardia. Differential diagnosis: Reactive airway disease, pneumonia, pneumothorax, COPD, CHF, infections, cardiac ischemia, pulmonary embolism, musculoskeletal, gastrointestinal, as well as other pathologies. ER treatment provided: See below Diagnostics interpreted by me: ECG: EKG was obtained in the emergency department. My interpretation is junctional bradycardia at 42 bpm. Retrograde P waves are noted. There is no PVCs noted. This was compared to a tracing from September 09, 2021. Sinus rhythm has replaced with junctional bradycardia A second EKG was obtained after treatment of hyperkalemia. My interpretation is sinus bradycardia at 50 bpm. There is no ectopy. There is no acute ST segment abnormalities noted. This was compared to a tracing from September 09, 2021. No significant changes were noted. The junctional bradycardia that was initially noted on arrival has since improved. Cardiac Monitoring: An order was placed for continuous cardiac monitoring. The monitor shows a rate of 42 bpm with junctional bradycardia. Laboratory studies: As stated above and show below. Imaging studies: See below. Radiographic imaging was reviewed by myself Consultation(s): I discussed this case with Dr. Lopez who [facility] ED COURSE: Procedures: none Critical Care: I have personally spent greater than 55 minutes of critical care time in the direct management of this patient. This includes bedside care, interpretation of diagnostic studies, and testing, discussion with consultants, patient, and family members, and other required patient management activities. This 55 minutes is in excess of all separately billable procedures. Past Med/Surg History Medical History History of COVID-19 (08/2021) Anemia Sundowning Metabolic encephalopathy Hypoxia Pneumonia due to COVID-19 virus Acute respiratory failure with hypoxia Prediabetes Tinea corporis History of colonic polyps Vitamin D deficiency Schatzki's ring Hyperlipidemia Hiatal hernia Gout Depression with anxiety Chronic sinusitis Chronic kidney disease, stage III (moderate) CAD (coronary artery disease) BPH (benign prostatic hyperplasia) Allergic rhinitis Hypertension Arthritis Surgical History History of eye surgery History of cholecystectomy History of coronary artery stent placement Distal LAD stent 2007, proximal LAD June 2009, stent to the RCA 2013 History of cataract surgery Family History Father Cardiac disorder Hypertension Prostate cancer Myocardial infarction, Onset Age: 65 Brother Cardiac disorder Diabetes Mother Diabetes Liver cancer Ovarian cancer, Onset Age: 59 Sister Diabetes Denies family history of Breast cancer Colorectal cancer Social History Smoking Status: Former smoker Age Quit Using Tobacco: 37; Second Hand Exposure: No; Do You Dip or Chew Tobacco: No; Hx Alcohol Use: No Hx Substance Use: No Preferred Language: Khmer Communication Ability: Impaired Visual Impairment: Limited Hearing Ability: Hard of Hearing Clerk Secretary Required: No Beliefs That Will Affect Care: None marital status: Current Living Situation: Spouse Current Living Situation Comment: , grandson, grandson GF and their 4 young children current occupational status: retired Feels Safe at Home: Yes Childhood Exposure to Second-Hand Smoke: Yes Diet: regular Diet Comment: regular caffeine: No during the past year weight has: remained stable Dental Care, Regularly: Yes Physical Activity Frequency: 1-2 Times per Week Physical Activity Frequency Comment: walking Seatbelt Use: never Sunscreen Use: No Assistive Devices: Walker Allergies Allergies Allergy/AdvReac Type Severity Reaction Status Date / Time Corticosteroids Allergy Severe CAUSES Verified 02/16/24 22:48 (Glucocorticoids) BLINDNESS acetic acid Allergy Intermediate Rash - Verified 02/16/24 22:48 Apple Cider Vinegar adhesive Allergy Intermediate SKIN Verified 02/16/24 22:48 IRRITATION AND ULCER WITH EXTENDED USE Penicillins Allergy Intermediate RASH Verified 02/16/24 22:48 Sulfa (Sulfonamide Allergy Intermediate RASH Verified 02/16/24 22:48 Antibiotics) prednisone AdvReac Severe BLINDNESS Verified 02/16/24 22:48 tamsulosin [From Flomax] AdvReac Severe all over Verified 02/16/24 22:48 body pain Home Meds Home Medications Medication Instructions Recorded Confirmed aspirin 81 mg chewable tablet 81 mg PO DAILY 03/30/22 02/16/24 amlodipine 10 mg tablet 10 mg PO QAM 02/16/24 02/16/24 cyanocobalamin (vitamin B-12) 1,000 mcg PO DAILY 02/16/24 02/16/24 1,000 mcg tablet (Vitamin B-12) finasteride 5 mg tablet 5 mg PO DAILY 02/16/24 02/16/24 furosemide 20 mg tablet (Lasix) 20 mg PO QAM 02/16/24 02/16/24 losartan 100 mg tablet 100 mg PO DAILY 02/16/24 02/16/24 metoprolol succinate 25 mg 12.5 mg PO DAILY 02/16/24 02/16/24 tablet,extended release 24 hr rosuvastatin 40 mg tablet 20 mg PO DAILY 02/16/24 02/16/24 spironolactone 25 mg tablet 25 mg PO DAILY 02/16/24 02/16/24 tamsulosin 0.4 mg capsule (Flomax) 0.4 mg PO HS 02/16/24 02/16/24 triamcinolone acetonide 0.1 % 1 applic topical DIRECTED PRN 02/16/24 02/16/24 topical cream Skin Irritation Previous Rx's Medication Instructions Recorded allopurinol 100 mg tablet 300 mg (3 x 100 mg) PO QA #270 11/15/21 tabs Results & Data (ED) Vital Signs Vital Signs - 24 hr 02/16/24 21:15 02/16/24 21:29 02/16/24 21:29 Temperature 36.7 C Temperature Source Temporal Artery Scan Pulse Rate 50 L Pulse Rate [Right Finger] 40 L Pulse Rate from SpO2 Sensor Respiratory Rate 18 18 Blood Pressure 85/54 L Blood Pressure [Right Arm] 105/55 L Blood Pressure Mean 64 Blood Pressure Mean [Right Arm] 71 Blood Pressure Position Sitting Pulse Oximetry 94 96 Oxygen Delivery Method Room Air Room Air Room Air Sepsis Recent Fever Within 48 Hours No Sepsis New/Unexplained Change in Mental Status No Sepsis Action Taken by Nursing No Action Required 02/16/24 21:30 02/16/24 21:39 02/16/24 21:45 Temperature Temperature Source Pulse Rate 40 L 38 L 40 L Pulse Rate [Right Finger] Pulse Rate from SpO2 Sensor Respiratory Rate 14 Blood Pressure 105/62 82/54 L Blood Pressure [Right Arm] Blood Pressure Mean 85 64 Blood Pressure Mean [Right Arm] Blood Pressure Position Pulse Oximetry 95 97 Oxygen Delivery Method Sepsis Recent Fever Within 48 Hours Sepsis New/Unexplained Change in Mental Status Sepsis Action Taken by Nursing 02/16/24 21:50 02/16/24 22:00 02/16/24 22:00 Temperature Temperature Source Pulse Rate 40 L Pulse Rate [Right Finger] Pulse Rate from SpO2 Sensor 39 L Respiratory Rate 11 L Blood Pressure 96/56 L 100/58 L Blood Pressure [Right Arm] Blood Pressure Mean 80 66 Blood Pressure Mean [Right Arm] Blood Pressure Position Pulse Oximetry 96 Oxygen Delivery Method Sepsis Recent Fever Within 48 Hours Sepsis New/Unexplained Change in Mental Status Sepsis Action Taken by Nursing 02/16/24 22:10 Temperature Temperature Source Pulse Rate 40 L Pulse Rate [Right Finger] Pulse Rate from SpO2 Sensor 39 L Respiratory Rate 17 Blood Pressure Blood Pressure [Right Arm] Blood Pressure Mean Blood Pressure Mean [Right Arm] Blood Pressure Position Pulse Oximetry 95 Oxygen Delivery Method Sepsis Recent Fever Within 48 Hours Sepsis New/Unexplained Change in Mental Status Sepsis Action Taken by Detention Medications Current Medication List: was personally reviewed by me Laboratory Data Attestation: I reviewed the patient's lab results. 02/16/24 21:30 02/16/24 21:30 Lab Results 02/16/24 02/16/24 02/16/24 Range/Units 21:30 21:57 21:58 WBC 8.39 (4.8-10.8) K/ul RBC 3.46 L (4.70-6.10) M/uL Hgb 11.2 L (14.0-18.0) g/dl POC Hgb 9.2 L (14.0-18.0) g/dl Hct 32.8 L (42.0-52.0) % POC Hct 27 L (42-52) % MCV 94.8 (80.0-100.0) fL MCH 32.4 (25.0-34.0) pg MCHC 34.1 (32.0-36.0) g/dL RDW Std Deviation 50.1 H (36.4-46.3) fL RDW Coeff of Judith 14.5 (11.5-14.5) % Plt Count 256 (130-400) K/uL MPV 9.6 (9.4-12.4) fL Immature Gran % (Auto) 0.4 % Neut % (Auto) 69.3 % Lymph % (Auto) 19.8 % Gibson % (Auto) 6.6 % Eos % (Auto) 3.7 % Baso % (Auto) 0.2 % Neut # (Auto) 5.82 (1.40-6.50) K/uL Lymph # (Auto) 1.66 (1.20-3.40) K/uL Gibson # (Auto) 0.55 (0.11-0.59) K/uL Eos # (Auto) 0.31 (0.00-0.50) K/uL Baso # (Auto) 0.02 (0.00-0.20) K/uL Immature Gran # (Auto) 0.03 (0.01-0.20) K/uL PT 10.7 (9.0-12.0) Seconds INR 1.0 (0.9-1.1) APTT 32 H (21-31) Seconds PTT Ratio 1.1 VBG pH 7.30 L (7.36-7.41) VBG pCO2 33 L (38-50) mmHg VBG pO2 36 mmHg VBG HCO3 16 mmol/L VBG O2 Saturation < 60.0 % VBG Base Excess -9.2 mEq/L POC Sodium 139 (135-144) mmol/L Sodium 137 (136-145) mmol/L POC Potassium 5.8 H (3.3-5.0) mmol/L Potassium 5.6 H (3.5-5.1) mmol/L POC Chloride 114 H (101-112) mmol/L Chloride 113 H (98-107) mmol/L Carbon Dioxide 16 L (21-32) mmol/L POC Total CO2 18 L (24-31) mmol/L Anion Gap 8 (3-11) POC Anion Gap 14.0 L (16-25) mmol/L POC BUN 53 H (7-18) mg/dl BUN 58 H (6-23) mg/dl Creatinine 2.64 H (0.6-1.4) mg/dl POC Creatinine 3.1 H (0.6-1.3) mg/dl Est Cr Clr Drug Dosing Not Reportable Est GFR ( Amer) 26.1 ml/min Est GFR (Non-Af Amer) 22.5 ml/min BUN/Creatinine Ratio 22.0 H (10-20) Glucose 99 (70-99(Fasting)) mg/dl POC Glucose (70-99) mg/dl POC Glucose (other) 104 H (70-99) mg/dl Lactate 0.9 (0.4-2.0) mmol/L Calcium 9.0 (8.6-10.3) mg/dl POC Ioniz Calcium Oleksandr 1.21 (1.12-1.32) mmol/l Magnesium 2.2 (1.7-2.4) mg/dl Total Bilirubin 0.2 (0.2-1.0) mg/dl Direct Bilirubin 0.0 (0-0.2) mg/dl AST 15 (13-39) U/L ALT 19 (7-52) U/L Alkaline Phosphatase 84 (34-104) U/L Troponin I High Sens 7.7 (0-20) pg/ml B-Natriuretic Peptide 369 H (0-100) pg/ml Total Protein 7.1 (6.0-8.3) gm/dl Albumin 3.8 (3.4-5.0) gm/dl Procalcitonin 0.15 (0-0.5) ng/ml Adenovirus (PCR) (NotDetected) B. pertussis DNA (PCR) (NotDetected) B.parapertussis DNA PCR (NotDetected) C. pneumoniae DNA (PCR) (NotDetected) Coronavirus OC43 (PCR) (NotDetected) Coronavirus HKU1 (PCR) (NotDetected) Coronavirus 229E (PCR) (NotDetected) SARS-CoV-2 (PCR) (NotDetected) Coronavirus NL63 (PCR) (NotDetected) Human Metapneumovir PCR (NotDetected) Influenza Type A (PCR) (NotDetected) Influenza Type B (PCR) (NotDetected) M. pneumoniae (PCR) (NotDetected) Parainfluenza 1 (PCR) (NotDetected) Parainfluenza 2 (PCR) (NotDetected) Parainfluenza 3 (PCR) (NotDetected) Parainfluenza 4 (PCR) (NotDetected) RSV (PCR) (NotDetected) Entero/Rhino (PCR) (NotDetected) 02/16/24 02/16/24 Range/Units 22:15 22:33 WBC (4.8-10.8) K/ul RBC (4.70-6.10) M/uL Hgb (14.0-18.0) g/dl POC Hgb (14.0-18.0) g/dl Hct (42.0-52.0) % POC Hct (42-52) % MCV (80.0-100.0) fL MCH (25.0-34.0) pg MCHC (32.0-36.0) g/dL RDW Std Deviation (36.4-46.3) fL RDW Coeff of Judith (11.5-14.5) % Plt Count (130-400) K/uL MPV (9.4-12.4) fL Immature Gran % (Auto) % Neut % (Auto) % Lymph % (Auto) % Gibson % (Auto) % Eos % (Auto) % Baso % (Auto) % Neut # (Auto) (1.40-6.50) K/uL Lymph # (Auto) (1.20-3.40) K/uL Gibson # (Auto) (0.11-0.59) K/uL Eos # (Auto) (0.00-0.50) K/uL Baso # (Auto) (0.00-0.20) K/uL Immature Gran # (Auto) (0.01-0.20) K/uL PT (9.0-12.0) Seconds INR (0.9-1.1) APTT (21-31) Seconds PTT Ratio VBG pH (7.36-7.41) VBG pCO2 (38-50) mmHg VBG pO2 mmHg VBG HCO3 mmol/L VBG O2 Saturation % VBG Base Excess mEq/L POC Sodium (135-144) mmol/L Sodium (136-145) mmol/L POC Potassium (3.3-5.0) mmol/L Potassium (3.5-5.1) mmol/L POC Chloride (101-112) mmol/L Chloride (98-107) mmol/L Carbon Dioxide (21-32) mmol/L POC Total CO2 (24-31) mmol/L Anion Gap (3-11) POC Anion Gap (16-25) mmol/L POC BUN (7-18) mg/dl BUN (6-23) mg/dl Creatinine (0.6-1.4) mg/dl POC Creatinine (0.6-1.3) mg/dl Est Cr Clr Drug Dosing Est GFR ( Amer) ml/min Est GFR (Non-Af Amer) ml/min BUN/Creatinine Ratio (10-20) Glucose (70-99(Fasting)) mg/dl POC Glucose 113 H (70-99) mg/dl POC Glucose (other) (70-99) mg/dl Lactate (0.4-2.0) mmol/L Calcium (8.6-10.3) mg/dl POC Ioniz Calcium Oleksandr (1.12-1.32) mmol/l Magnesium (1.7-2.4) mg/dl Total Bilirubin (0.2-1.0) mg/dl Direct Bilirubin (0-0.2) mg/dl AST (13-39) U/L ALT (7-52) U/L Alkaline Phosphatase (34-104) U/L Troponin I High Sens (0-20) pg/ml B-Natriuretic Peptide (0-100) pg/ml Total Protein (6.0-8.3) gm/dl Albumin (3.4-5.0) gm/dl Procalcitonin (0-0.5) ng/ml Adenovirus (PCR) Not Detected (NotDetected) B. pertussis DNA (PCR) Not Detected (NotDetected) B.parapertussis DNA PCR Not Detected (NotDetected) C. pneumoniae DNA (PCR) Not Detected (NotDetected) Coronavirus OC43 (PCR) Not Detected (NotDetected) Coronavirus HKU1 (PCR) Not Detected (NotDetected) Coronavirus 229E (PCR) Not Detected (NotDetected) SARS-CoV-2 (PCR) Not Detected (NotDetected) Coronavirus NL63 (PCR) Not Detected (NotDetected) Human Metapneumovir PCR Not Detected (NotDetected) Influenza Type A (PCR) Not Detected (NotDetected) Influenza Type B (PCR) Not Detected (NotDetected) M. pneumoniae (PCR) Not Detected (NotDetected) Parainfluenza 1 (PCR) Not Detected (NotDetected) Parainfluenza 2 (PCR) Not Detected (NotDetected) Parainfluenza 3 (PCR) Not Detected (NotDetected) Parainfluenza 4 (PCR) Not Detected (NotDetected) RSV (PCR) Not Detected (NotDetected) Entero/Rhino (PCR) Not Detected (NotDetected) Administered Medications Discontinued Medications Albuterol (Albut/Ipratrop 3mg/0.5mg Neb 3 Ml Vial) 3 ml NEB NOW STA; Protocol Stop: 02/16/24 22:04 Last Admin: 02/16/24 22:34 Dose: 3 ml Documented By: PAULO Dextrose (Dextrose 50% 50 Ml Syringe) 50 ml IV NOW STA Stop: 02/16/24 22:04 Last Admin: 02/16/24 22:34 Dose: 50 ml Documented By: PAULO Sodium Chloride (Nss) 500 mls @ 999 mls/hr IV .Q31M ONE Stop: 02/16/24 22:31 Last Infusion: 02/16/24 22:35 Dose: Infused Documented By: Admin: 02/16/24 22:06 Dose: 999 mls/hr Documented By: CODY Calcium Chloride 1,000 mg/ (Dextrose) 60 mls @ 240 mls/hr IV NOW STA Stop: 02/16/24 22:15 Last Infusion: 02/16/24 22:51 Dose: Infused Documented By: Admin: 02/16/24 22:33 Dose: 240 mls/hr Documented By: PAULO Ceftriaxone Sodium (Rocephin) 2,000 mg in 50 mls @ 100 mls/hr IV NOW STA Stop: 02/16/24 23:07 Last Admin: 02/16/24 23:00 Dose: 100 mls/hr Documented By: CODY Insulin Human Regular (Novolin-R Insulin Per Unit Charge) 10 units IV NOW STA Stop: 02/16/24 22:04 Last Admin: 02/16/24 22:34 Dose: 10 units Documented By: KAF Co-signed By: CODY Sodium Bicarbonate (Sodium Bicarb 8.4% Inj 50 Meq/50 Ml Syr) 50 meq IV NOW STA Stop: 02/16/24 22:43 Last Admin: 02/16/24 23:00 Dose: 50 meq Documented By: CODY Imaging Data Attestation: I personally reviewed and interpreted this imaging study as follows: My Impression: 1 view chest x-ray was obtained in the emergency department. My interpretation is cardiomegaly, no definite infiltrate or pulmonary edema, final report pending. Discharge Plan Visit Data Chief Complaint: Cardiac Assessment Stated Complaint: DIZZINESS, SHORT OF BREATH, HYPOTENSION ED Provider: Elbert Saunders Discharge Problem: AV junctional bradycardia, Hypotension, Acute hyperkalemia, JUDY (acute kidney injury) Patient Disposition: Being Evaluated by Hospitalist Forms Stand Alone Forms: My [facility] Prescriptions Prescriptions: No Action allopurinol 100 mg tablet 300 mg PO QAM Qty: 270 1RF aspirin 81 mg tablet,chewable 81 mg PO DAILY cyanocobalamin (vitamin B-12) [Vitamin B-12] 1,000 mcg Tablet 1,000 mcg PO DAILY triamcinolone acetonide 0.1 % Cream 1 applic TOPICAL DIRECTED PRN (Reason: Skin Irritation) spironolactone 25 mg Tablet 25 mg PO DAILY tamsulosin [Flomax] 0.4 mg Capsule 0.4 mg PO HS amlodipine 10 mg tablet 10 mg PO QAM furosemide [Lasix] 20 mg Tablet 20 mg PO QAM metoprolol succinate 25 mg Tablet Extended Release 24 Hr 12.5 mg PO DAILY losartan 100 mg Tablet 100 mg PO DAILY finasteride 5 mg Tablet 5 mg PO DAILY rosuvastatin 40 mg Tablet 20 mg PO DAILY Referrals Referrals: Ritu Robledo DO [Primary Care Provider] - Discharge Problem: Hypotension Qualifiers: Hypotension type: unspecified hypotension type Qualified Code(s): I95.9 - Hypotension, unspecified
[2024-02-16] MEDS: SODIUM CHLORIDE 0.9% 500 ML IV ONE ×2 (22:06→23:00)
[2024-02-16 22:07] LABS: Alanine Aminotransferase 19 U/L (7-52); Albumin Level 3.8 gm/dl (3.4-5.0); Alkaline Phosphatase 84 U/L (34-104); Anion Gap 8 (3-11); Aspartate Aminotransferase 15 U/L (13-39); Bilirubin,Total 0.2 mg/dl (0.2-1.0); Blood Urea Nitrogen 58 mg/dl (6-23); Carbon Dioxide 16 mmol/L (21-32); Chloride 113 mmol/L (98-107); Est GFR (African American) 26.1 ml/min; Est GFR (Non-African American) 22.5 ml/min; Glucose 99 mg/dl (70-99(Fasting)); Magnesium 2.2 mg/dl (1.7-2.4); Potassium 5.6 mmol/L (3.5-5.1); Sodium 137 mmol/L (136-145); Total Protein 7.1 gm/dl (6.0-8.3)
[2024-02-16 22:09] LABS: iSTAT Creatinine 3.1 mg/dl (0.6-1.3); iSTAT Hemoglobin 9.2 g/dl (14.0-18.0); iSTAT Ionized Calcium 1.21 mmol/l (1.12-1.32); iSTAT Potassium 5.8 mmol/L (3.3-5.0)
[2024-02-16 22:13] LABS: Troponin I High Sensitivity 7.7 pg/ml (0-20)
[2024-02-16 22:16] LABS: Base Excess VBG -9.2 mEq/L; HCO3 VBG 16 mmol/L; Oxygen Saturation VBG < 60.0 %; PCO2 VBG 33 mmHg (38-50); PO2 VBG 36 mmHg
[2024-02-16 22:29] LABS: Partial Thromboplastin Ratio 1.1; Partial Thromboplastin Time 32 Seconds (21-31); Prothrombin Time 10.7 Seconds (9.0-12.0)
[2024-02-16] MEDS: CALCIUM CHLORIDE 10% 1,000 MG in DEXTROSE 5% 50 ML IV STA (22:33)
[2024-02-16] MEDS: ALBUT/IPRATROP 3MG/0.5MG NEB 3 ML VIAL NEB STA (22:34)
[2024-02-16] MEDS: DEXTROSE 50% 50 ML SYRINGE IV STA (22:34)
[2024-02-16] MEDS: NovoLIN-R INSULIN PER UNIT CHARGE IV STA (22:34)
[2024-02-16] MEDS: SODIUM BICARB 8.4% INJ 50 MEQ/50 ML SYR IV STA (23:00)
[2024-02-16] MEDS: cefTRIAXone SODIUM 2,000 MG/50 ML BAG IV STA (23:00)
[2024-02-16] MEDS ORDERED: ATROPINE SULFATE 0.1 MG/ML 10ML SYR IV PRN (23:10)
[2024-02-16 23:14] LABS: Adenovirus PCR Not Detected (NotDetected); Bordetella parapertussis PCR Not Detected (NotDetected); Bordetella pertussis PCR Not Detected (NotDetected); Chlamydia pneumoniae PCR Not Detected (NotDetected); Coronavirus 229E PCR Not Detected (NotDetected); Coronavirus CoV-2 (COVID19)PCR Not Detected (NotDetected); Coronavirus HKU1 PCR Not Detected (NotDetected); Coronavirus NL63 PCR Not Detected (NotDetected); Coronavirus OC43PCR Not Detected (NotDetected); Human Metapneumovirus PCR Not Detected (NotDetected); Influenza A PCR Not Detected (NotDetected); Influenza B PCR Not Detected (NotDetected); Mycoplasma pneumoniae PCR Not Detected (NotDetected); Parainfluenza Virus 1 PCR Not Detected (NotDetected); Parainfluenza Virus 2 PCR Not Detected (NotDetected); Parainfluenza Virus 3 PCR Not Detected (NotDetected); Parainfluenza Virus 4 PCR Not Detected (NotDetected); Respiratory Syncytial VirusPCR Not Detected (NotDetected); Rhinovirus/Enterovirus PCR Not Detected (NotDetected)
--- NOTE | 2024-02-16 23:57 | History & Physical Report ---
Date of Service February 16, 2024 Assessment & Plan (1) Hypotension: Plan: Multifactorial hypovolemia secondary to respiratory illness/persistent complicated bronchitis symptoms despite Z-Juan Rx Multiple antihypertensive medications and prostate medications contributory ? Symptomatic bradycardia Hyperkalemia, NAGMA secondary to ARF on CKD Nephrotic range proteinuria as per records Home medications and high consumption of potatoes, bananas as per family account contributory hx CAD status post stent mild AR hyperlipidemia, on statin Rx chronic anemia, hemoglobin at baseline prediabetes, hemoglobin A1c of 5.8 from 2021 past tobacco abuse PCU Baseline UA, monitor creatinine response to IVF, hold Lasix until patient euvolemic Bicarb bolus in addition to regular insulin given at the ER Hold ARB, spironolactone given hyperkalemia Patient counseled regarding high potassium content of potatoes and bananas. Recheck serum chemistry, renal ultrasound if without improvement Nephrology consult if with recurrent hyperkalemia Hold beta-dg for now given bradycardic episode Atropine as needed symptomatic bradycardia Cardiology consult if with recurrence Doxycycline for persistent complicated bronchitis symptoms Update hemoglobin A1c DVT prophylaxis. Heparin subcu Full code Text document was generated using [employer] voice recognition software. It may contain grammatical or spelling errors. Kindly contact undersigned for clarification of any documentation item in question. History of Present Illness Chief Complaint: Worsening cough, weakness Primary Care Provider: Александр Martínez MD History obtained from patient, family, and records. Medical history significant for CAD status post stent, mild AR, hypertension, hyperlipidemia, CRI (baseline creatinine 1.6), nephrotic range proteinuria as per records, chronic anemia, prediabetes, chronic tremors, gout, BPH, past tobacco abuse. Last confinement September 2021 for COVID-19 pneumonia. Last week, patient noted cough symptoms productive of junky yellow sputum associated with shortness of breath. No chest pain. Denies aspiration. Not sure about sick contacts. Appetite okay. Lightheadedness on standing up and generalized weakness. Minimal improvement despite [facility]. Antibiotic for tick bite completed 3 months ago. Denies OTC NSAID intake. Admits to eating a lot of potatoes. SBP 80s, heart rate 40 to 50s upon arrival at the ER. NSS, IV ceftriaxone, regular insulin, calcium gluconate administered at the ER. 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 Allergies Allergy/AdvReac Type Severity Reaction Status Date / Time Corticosteroids Allergy Severe CAUSES Verified 02/16/24 22:48 (Glucocorticoids) BLINDNESS acetic acid Allergy Intermediate Rash - Verified 02/16/24 22:48 Apple Cider Vinegar adhesive Allergy Intermediate SKIN Verified 02/16/24 22:48 IRRITATION AND ULCER WITH EXTENDED USE Penicillins Allergy Intermediate RASH Verified 02/16/24 22:48 Sulfa (Sulfonamide Allergy Intermediate RASH Verified 02/16/24 22:48 Antibiotics) prednisone AdvReac Severe BLINDNESS Verified 02/16/24 22:48 tamsulosin [From Flomax] AdvReac Severe all over Verified 02/16/24 22:48 body pain Home Medications Medication Instructions Recorded Confirmed Type allopurinol 100 mg tablet 300 mg (3 x 100 mg) PO QA #270 11/15/21 02/16/24 Rx tabs aspirin 81 mg chewable tablet 81 mg PO DAILY 03/30/22 02/16/24 History amlodipine 10 mg tablet 10 mg PO QAM 02/16/24 02/16/24 History cyanocobalamin (vitamin B-12) 1,000 mcg PO DAILY 02/16/24 02/16/24 History 1,000 mcg tablet (Vitamin B-12) finasteride 5 mg tablet 5 mg PO DAILY 02/16/24 02/16/24 History furosemide 20 mg tablet (Lasix) 20 mg PO QAM 02/16/24 02/16/24 History losartan 100 mg tablet 100 mg PO DAILY 02/16/24 02/16/24 History metoprolol succinate 25 mg 12.5 mg PO DAILY 02/16/24 02/16/24 History tablet,extended release 24 hr rosuvastatin 40 mg tablet 20 mg PO DAILY 02/16/24 02/16/24 History spironolactone 25 mg tablet 25 mg PO DAILY 02/16/24 02/16/24 History tamsulosin 0.4 mg capsule (Flomax) 0.4 mg PO HS 02/16/24 02/16/24 History triamcinolone acetonide 0.1 % 1 applic topical DIRECTED PRN 02/16/24 02/16/24 History topical cream Skin Irritation Past Med/Surg History Medical History History of COVID-19 (08/2021) Anemia Sundowning Metabolic encephalopathy Hypoxia Pneumonia due to COVID-19 virus Acute respiratory failure with hypoxia Prediabetes Tinea corporis History of colonic polyps Vitamin D deficiency Schatzki's ring Hyperlipidemia Hiatal hernia Gout Depression with anxiety Chronic sinusitis Chronic kidney disease, stage III (moderate) CAD (coronary artery disease) BPH (benign prostatic hyperplasia) Allergic rhinitis Hypertension Arthritis Surgical History History of eye surgery History of cholecystectomy History of coronary artery stent placement Distal LAD stent 2007, proximal LAD June 2009, stent to the RCA 2013 History of cataract surgery Family History Father Cardiac disorder Hypertension Prostate cancer Myocardial infarction, Onset Age: 65 Brother Cardiac disorder Diabetes Mother Diabetes Liver cancer Ovarian cancer, Onset Age: 59 Sister Diabetes Denies family history of Breast cancer Colorectal cancer Social History Smoking Status: Never smoker Age Quit Using Tobacco: 37; Second Hand Exposure: No; Do You Dip or Chew Tobacco: No; Tobacco Cessation Education Requested by Patient: No Hx Alcohol Use: No Hx Substance Use: No Preferred Language: Maltese Communication Ability: Effective Visual Impairment: Limited Hearing Ability: Hard of Hearing Ceo Required: No Beliefs That Will Affect Care: None marital status: Current Living Situation: Spouse and Family Current Living Situation Comment: Lives with at daughter's house current occupational status: retired Feels Safe at Home: Yes Safety Concerns: Feels Safe At This Time Childhood Exposure to Second-Hand Smoke: Yes Diet: regular Diet Comment: regular caffeine: No during the past year weight has: remained stable Dental Care, Regularly: Yes Physical Activity Frequency: 1-2 Times per Week Physical Activity Frequency Comment: walking Seatbelt Use: never Sunscreen Use: No Assistive Devices: None Review of Systems Review of Systems: As per HPI, all other systems reviewed and negative Physical Exam Physical Exam: GENERAL: Comfortable, pleasant, hyponasal voice, no respiratory distress, currently receiving breathing treatment SKIN: Pallor, warm HEENT: Pale palpebral conjunctivae, no ptosis, dry buccal mucosa NECK : Supple, no tenderness CHEST : Decreased breath sounds, no tenderness HEART : RRR, no obvious murmurs ABDOMEN: Some distention, nontender EXTREMITIES : No LE swelling/tenderness, no other conspicuous deformities noted NEUROLOGIC : Coherent, no facial asymmetry, rest tremors left upper extremity, gait and stance not assessed Results & Data Results & Data Vital Signs (Past 12 Hours) Vital Signs Temp Pulse Pulse Resp BP BP Pulse Ox 02/16/24 23:19 64 12 118/67 96 02/16/24 22:10 40 L 17 95 02/16/24 22:00 40 L 11 L 96 02/16/24 22:00 100/58 L 02/16/24 21:50 96/56 L 02/16/24 21:45 40 L 82/54 L 97 02/16/24 21:39 38 L 02/16/24 21:30 40 L 14 105/62 95 02/16/24 21:29 40 L 18 105/55 L 96 02/16/24 21:29 02/16/24 21:15 36.7 C 50 L 18 85/54 L 94 O2 Del Method 02/16/24 23:19 Room Air 02/16/24 22:10 02/16/24 22:00 02/16/24 22:00 02/16/24 21:50 02/16/24 21:45 02/16/24 21:39 02/16/24 21:30 02/16/24 21:29 Room Air 02/16/24 21:29 Room Air 02/16/24 21:15 Room Air Laboratory Results Laboratory Results WBC 8.39 K/ul (4.8-10.8) 02/16/24 21:30 RBC 3.46 M/uL (4.70-6.10) L 02/16/24 21:30 Hgb 11.2 g/dl (14.0-18.0) L 02/16/24 21:30 POC Hgb 9.2 g/dl (14.0-18.0) L 02/16/24 21:58 Hct 32.8 % (42.0-52.0) L 02/16/24 21:30 POC Hct 27 % (42-52) L 02/16/24 21:58 MCV 94.8 fL (80.0-100.0) 02/16/24 21:30 MCH 32.4 pg (25.0-34.0) 02/16/24 21: MCHC 34.1 g/dL (32.0-36.0) 02/16/24 21: RDW Std Deviation 50.1 fL (36.4-46.3) H 02/16/24: RDW Coeff of Judith 14.5 % (11.5-14.5) 02/16/24: Plt Count 256 K/uL (130-400) 02/16/24 21: MPV 9.6 fL (9.4-12.4) 02/16/24 21: Immature Gran % (Auto) 0.4 % 02/16/24 21: Neut % (Auto) 69.3 % 02/16/24 21: Lymph % (Auto) 19.8 % 02/16/24: [place] % (Auto) 6.6 % 02/16/24: Eos % (Auto) 3.7 % 02/16/24: Baso % (Auto) 0.2 % 02/16/24:30 Neut # (Auto) 5.82 K/uL (1.40-6.50) 02/16/24 21: Lymph # (Auto) 1.66 K/uL (1.20-3.40) 02/16/24:30 [place] # (Auto) 0.55 K/uL (0.11-0.59) 02/16/24 21: Eos # (Auto) 0.31 K/uL (0.00-0.50) 02/16/24: Baso # (Auto) 0.02 K/uL (0.00-0.20) 02/16/24: Immature Gran # (Auto) 0.03 K/uL (0.01-0.20) 02/16/24: PT 10.7 Seconds (9.0-12.0) 02/16/24: INR 1.0 (0.9-1.1) 02/16/24: APTT 32 Seconds (21-31) H 02/16/24: PTT Ratio 1.1 02/16/24 21: VBG pH 7.30 (7.36-7.41) L 02/16/24 21:57 VBG pCO2 33 mmHg (38-50) L 02/16/24 21:57 VBG pO2 36 mmHg 02/16/24 21:57 VBG HCO3 16 mmol/L 02/16/24 21:57 VBG O2 Saturation < 60.0 % 02/16/24 21:57 VBG Base Excess -9.2 mEq/L 02/16/24 21:57 POC Sodium 139 mmol/L (135-144) 02/16/24 21:58 Sodium 137 mmol/L (136-145) 02/16/24 21:30 POC Potassium 5.8 mmol/L (3.3-5.0) H 02/16/24 21:58 Potassium 5.6 mmol/L (3.5-5.1) H 02/16/24 21:30 POC Chloride 114 mmol/L (101-112) H 02/16/24 21:58 Chloride 113 mmol/L (98-107) H 02/16/24 21:30 Carbon Dioxide 16 mmol/L (21-32) L 02/16/24 21:30 POC Total CO2 18 mmol/L (24-31) L 02/16/24 21:58 Anion Gap 8 (3-11) 02/16/24 21:30 POC Anion Gap 14.0 mmol/L (16-25) L 02/16/24 21:58 POC BUN 53 mg/dl (7-18) H 02/16/24 21:58 BUN 58 mg/dl (6-23) H 02/16/24 21:30 Creatinine 2.64 mg/dl (0.6-1.4) H 02/16/24 21:30 POC Creatinine 3.1 mg/dl (0.6-1.3) H 02/16/24 21:58 Est Cr Clr Drug Dosing Not Reportable 02/16/24 21:30 Est GFR ( Amer) 26.1 ml/min 02/16/24 21:30 Est GFR (Non-Af Amer) 22.5 ml/min 02/16/24 21:30 BUN/Creatinine Ratio 22.0 (10-20) H 02/16/24 21:30 Glucose 99 mg/dl (70-99(Fasting)) 02/16/24 21:30 POC Glucose 135 mg/dl (70-99) H 02/16/24 23:26 POC Glucose (other) 104 mg/dl (70-99) H 02/16/24 21:58 Lactate 0.9 mmol/L (0.4-2.0) 02/16/24 21:57 Calcium 9.0 mg/dl (8.6-10.3) 02/16/24 21:30 POC Ioniz Calcium Oleksandr 1.21 mmol/l (1.12-1.32) 02/16/24 21:58 Magnesium 2.2 mg/dl (1.7-2.4) 02/16/24 21:30 Total Bilirubin 0.2 mg/dl (0.2-1.0) 02/16/24 21:30 Direct Bilirubin 0.0 mg/dl (0-0.2) 02/16/24 21:30 AST 15 U/L (13-39) 02/16/24 21:30 ALT 19 U/L (7-52) 02/16/24 21:30 Alkaline Phosphatase 84 U/L (34-104) 02/16/24 21:30 Troponin I High Sens 7.7 pg/ml (0-20) 02/16/24 21:30 B-Natriuretic Peptide 369 pg/ml (0-100) H 02/16/24 21:30 Total Protein 7.1 gm/dl (6.0-8.3) 02/16/24 21:30 Albumin 3.8 gm/dl (3.4-5.0) 02/16/24 21:30 Procalcitonin 0.15 ng/ml (0-0.5) 02/16/24 21:30 TSH 1.820 uIu/ml (0.300-4.500) 02/16/24 21:30 Adenovirus (PCR) Not Detected (NotDetected) 02/16/24 22:15 B. pertussis DNA (PCR) Not Detected (NotDetected) 02/16/24 22:15 B.parapertussis DNA PCR Not Detected (NotDetected) 02/16/24 22:15 Lyme Disease Screen Negative (Negative) 02/16/24 21:30 C. pneumoniae DNA (PCR) Not Detected (NotDetected) 02/16/24 22:15 Coronavirus OC43 (PCR) Not Detected (NotDetected) 02/16/24 22:15 Coronavirus HKU1 (PCR) Not Detected (NotDetected) 02/16/24 22:15 Coronavirus 229E (PCR) Not Detected (NotDetected) 02/16/24 22:15 SARS-CoV-2 (PCR) Not Detected (NotDetected) 02/16/24 22:15 Coronavirus NL63 (PCR) Not Detected (NotDetected) 02/16/24 22:15 Human Metapneumovir PCR Not Detected (NotDetected) 02/16/24 22:15 Influenza Type A (PCR) Not Detected (NotDetected) 02/16/24 22:15 Influenza Type B (PCR) Not Detected (NotDetected) 02/16/24 22:15 M. pneumoniae (PCR) Not Detected (NotDetected) 02/16/24 22:15 Parainfluenza 1 (PCR) Not Detected (NotDetected) 02/16/24 22:15 Parainfluenza 2 (PCR) Not Detected (NotDetected) 02/16/24 22:15 Parainfluenza 3 (PCR) Not Detected (NotDetected) 02/16/24 22:15 Parainfluenza 4 (PCR) Not Detected (NotDetected) 02/16/24 22:15 RSV (PCR) Not Detected (NotDetected) 02/16/24 22:15 Entero/Rhino (PCR) Not Detected (NotDetected) 02/16/24 22:15 CT chest: No acute finding of the chest. Diagnostic Findings EKG as per my interpretation :Rate 40, junctional bradycardia, normal axis, no ischemia, peaked T waves (1) Hypotension Hypotension type: unspecified hypotension type Qualified Code(s): I95.9 - Hypotension, unspecified
[2024-02-17] MEDS ORDERED: ACETAMINOPHEN 325 MG TAB PO PRN (00:01)
[2024-02-17] MEDS: ATROPINE SULFATE 0.1 MG/ML 10ML SYR IV STA (00:11)
[2024-02-17 01:15] LABS: Base Excess VBG -7.8 mEq/L; HCO3 VBG 18 mmol/L; Oxygen Saturation VBG 67.9 %; PCO2 VBG 35 mmHg (38-50); PO2 VBG 43 mmHg; pH VBG 7.31 (7.36-7.41)
[2024-02-17 01:32] LABS: Appearance Urine Clear (Clear); Bacteria Urine Automated Negative (Negative); Bilirubin Urine Negative (Negative); Blood Urine Negative (Negative); Color Urine Yellow; Epithelial Cell Urine Auto 0-5 /lpf (0-5); Glucose Urine UA Negative (Negative); Ketones Urine Negative (Negative); Leukocyte Esterase Urine Negative (Negative); Nitrite Urine Negative (Negative); Protein Urine 2+ (Negative); RBC Urine Automated 0-4 /hpf (0-4); Urobilinogen Urine Negative (Negative); WBC Urine Automated 0 /hpf (0-5); pH Urine 5.5 (4.5-7.5)
[2024-02-17 01:35] LABS: BUN Creatinine Ratio 24.1 (10-20); Creatinine Clr Calc Pharmacy 26.9 ml/min; Est GFR (African American) 29.1 ml/min; Est GFR (Non-African American) 25.1 ml/min
[2024-02-17] MEDS: SODIUM CHLORIDE 0.9% 1,000 ML IV STA (02:17)
--- NOTE | 2024-02-17 06:18 | CT Scan Report ---
Exam(s): CT CHEST Without Contrast EXAM: CT Chest Without Intravenous Contrast CLINICAL HISTORY: Cough. TECHNIQUE: Axial computed tomography images of the chest without intravenous contrast. CTDI is 17.68 mGy and DLP is 637.64 mGy-cm. Automated exposure control was utilized for the study. A dose lowering technique was utilized adhering to the principles of ALARA. COMPARISON: No relevant prior studies available. FINDINGS: Lungs: Unremarkable. No mass. No consolidation. Pleural space: Unremarkable. No pneumothorax. No significant effusion. Heart: Unremarkable. No cardiomegaly. No significant pericardial effusion. No significant coronary artery calcifications. Bones/joints: There are degenerative changes of the spine. No acute fracture. No dislocation. Soft tissues: Unremarkable. Vasculature: Mild atherosclerotic disease. No thoracic aortic aneurysm. Lymph nodes: Unremarkable. No enlarged lymph nodes. IMPRESSION: No acute finding of the chest. Electronically signed by: Ambika Ryan MD 02/17/24 06:17 AM
[2024-02-17] MEDS: ALBUT/IPRATROP 3MG/0.5MG NEB 3 ML VIAL NEB STA (06:24)
[2024-02-17 06:37] LABS: Basophils # (auto) 0.02 K/uL (0.00-0.20); Basophils % (auto) 0.2 %; Eosinophils # (auto) 0.31 K/uL (0.00-0.50); Eosinophils % (auto) 3.5 %; Hematocrit (blood only) 29.2 % (42.0-52.0); Hemoglobin 9.5 g/dl (14.0-18.0); Immature Granulocytes # (auto) 0.03 K/uL (0.01-0.20); Immature Granulocytes % (auto) 0.3 %; Lymphocytes # (auto) 1.76 K/uL (1.20-3.40); Lymphocytes % (auto) 20.1 %; Mean Corpuscular Hemoglobin 31.6 pg (25.0-34.0); Mean Corpuscular Hgb Conc 32.5 g/dL (32.0-36.0); Mean Platelet Volume 9.3 fL (9.4-12.4); Monocytes # (auto) 0.52 K/uL (0.11-0.59); Monocytes % (auto) 5.9 %; Neutrophils # (auto) 6.12 K/uL (1.40-6.50); Platelet Count 215 K/uL (130-400); RDW Coefficient of Variation 14.6 % (11.5-14.5); RDW Standard Deviation 51.6 fL (36.4-46.3); Red Blood Count 3.01 M/uL (4.70-6.10); White Blood Count 8.76 K/ul (4.8-10.8)
[2024-02-17] MEDS: HEPARIN SOD 5,000 UNIT/0.5 ML VIAL SQ SCH (06:43)
[2024-02-17 06:52] LABS: BUN Creatinine Ratio 24.2 (10-20); Calcium 8.8 mg/dl (8.6-10.3); Creatinine Clr Calc Pharmacy 30.2 ml/min; Est GFR (African American) 33.4 ml/min; Est GFR (Non-African American) 28.8 ml/min; Potassium 5.4 mmol/L (3.5-5.1)
[2024-02-17] MEDS ORDERED: INSULIN HUMAN REGULAR PER UNIT 5 UNITS in SYRINGE 0 ML IV STA (07:08)
[2024-02-17 07:16] LABS: Estimated Average Glucose 134 mg/dl; Hemoglobin A1C 6.3 % (4.5-5.6)
--- NOTE | 2024-02-17 07:43 | XRay Report ---
XR chest 1V portable CLINICAL HISTORY: Sepsis TECHNIQUE: Single frontal radiograph of the chest was obtained. Comparison: Comparison is made to chest radiograph 09/09/2021 FINDINGS: No lines and tubes are seen. Cardiomegaly is noted. The lungs are clear. No evidence of pleural effus ion or pneumothorax. IMPRESSION: No acute abnormalities and in particular no radiographic evidence of pneumonia. ACT 112: Negative or not required by law. Electronically signed by: Luis Bernardo M.D. 02/17/2024 7:41 AM
[2024-02-17] MEDS: DOXYCYCLINE HYCLATE 100 MG in DEXTROSE 5% MINI-B 100 ML IV STA (07:46)
[2024-02-17] MEDS: INSULIN HUMAN REGULAR PER UNIT 5 UNITS in SYRINGE 4.95 ML IV ONE (07:46)
[2024-02-17] MEDS: DEXTROSE 50% 50 ML SYRINGE IV ONE (07:46)
[2024-02-17] MEDS: SODIUM BICARB 8.4% INJ 50 MEQ/50 ML SYR IV STA (07:46)
--- NOTE | 2024-02-17 07:50 | XRay Report ---
XR chest 1V portable CLINICAL HISTORY: sob TECHNIQUE: Single frontal radiograph of the chest was obtained. Comparison: Comparison is made to chest radiograph 02/16/2024 FINDINGS: No lines and tubes are seen. The cardiomediastinal silhouette is normal. The lungs are clear. No evid ence of pleural effusion or pneumothorax. IMPRESSION: No acute abnormalities and in particular no radiographic evidence of pneumonia. ACT 112: Negative or not required by law. Electronically signed by: Luis Bernardo M.D. 02/17/2024 7:49 AM
[2024-02-17] MEDS: ASPIRIN 81 MG ECTAB PO SCH (08:47)
[2024-02-17] MEDS: CYANOCOBALAMIN (B-12) 500 MCG TABLET PO SCH (08:47)
[2024-02-17] MEDS: allopurinoL 300 MG TAB PO SCH (08:48)
[2024-02-17] MEDS: amLODIPine BESYLATE 5 MG TAB PO SCH (08:48)
[2024-02-17] MEDS: ROSUVASTATIN CALCIUM 20 MG TAB PO SCH (08:48)
[2024-02-17] MEDS: FINASTERIDE 5 MG TAB PO SCH (08:48)
[2024-02-17] MEDS ORDERED: amLODIPine BESYLATE 5 MG TAB PO SCH (09:00)
--- NOTE | 2024-02-17 11:17 | Nephrology Consultation ---
Date of Consultation February 17, 2024 Assessment & Plan (1) Hyperkalemia: in the setting of losartan, spironolactone -started lokelma tid as rebound K expected w/ therapies so far and obligate heparin -continue to hold ARB, linda antagonist -changed NS to bicarb gtt to help K and NAGMA -cont for now low K diet 1800 labs reviewed > creat has risen to 2.5; K improved /stable mid 4s; ongoing NAGMA improving -continue bicarb gtt but changed to hypotonic solution so BP will not be higher -will cancel low K diet -f/u aM labs (2) JUDY (acute kidney injury): Stage 1 presume nonoliguric JUDY on CKD 3B >> improved initially then worsened > ? delayed worsening related to transient hypotension/ischemia last evening baseline creatinine 1.7; admitted w/ creatinine 2.6, improving w/ IV fluids, supportive care, improved HR and BP but this PM worse again to 2.5 -IVF as above -daily bmp History of Present Illness Reason for Consultation: recurrent hyperkalemia Requesting Physician: Dr Brito Attending Physician: Tiarra Comer MD History of Present Illness 78 y/o M whom I'm asked to see for recurrent hyperkalemia was admitted overnight for management of hypotension attributed to persistent complicated bronchitis +/- to symptomatic bradycardia w/ HR in 40-50s on presentation. PMH includes CAD, CKD3B w/ nephrotic range proteinuria (baseline creatinine 1.6); hypertension, hyperlipidemia, chronic anemia, prediabetes, chronic tremors, gout, BPH, past tobacco abuse. HTN managed as OP w/ lasix 20 mg daily and losartan 100 mg daily as well as spironolactone 25 mg daily, ER metoprolol. No issues w/ hyperkalemia as OP historically (last labs April 2023). Follows w/ [facility], which recently added spironolactone for better BP control. States he was seen at [facility] one week prior to presentation w/ similar sx he presented with here - weakness, fatigue; and was sent home, no labs. His presenting K was 5.6; rebounded to 5.4 this am; most recently 4.5 on 9 AM labs. Presenting creatinine 2.6, improved to 2.1 today. SBP 80s and HR 40-50s on arrival; improved to 110s SBP and HR 70s this am. He had 5 units IV insulin and an amp of sodium bicarbonate at 0700; had albuterol neb at 0600; had 10 units IV insulin, amp sodium bicarbonate, albuterol, and 1/2 L NS x 2 at 2200 yesterday evening. he is currently receiving NS at 75 mL/hr and heparin 5K units q8h SQ. Also on doxycycline. Endorses orthostatic sx but no fall; ongoing generalized weakness; productive cough and dyspnea minimally improved after Zpak last week. no chest pain or palpitations; no decreased po. no missed med doses; no nsaids. no edema, no diarrhea; no new/worrisome voiding sx. Allergies Allergy/AdvReac Type Severity Reaction Status Date / Time Corticosteroids Allergy Severe CAUSES Verified 02/16/24 22:48 (Glucocorticoids) BLINDNESS acetic acid Allergy Intermediate Rash - Verified 02/16/24 22:48 Apple Cider Vinegar adhesive Allergy Intermediate SKIN Verified 02/16/24 22:48 IRRITATION AND ULCER WITH EXTENDED USE Penicillins Allergy Intermediate RASH Verified 02/16/24 22:48 Sulfa (Sulfonamide Allergy Intermediate RASH Verified 02/16/24 22:48 Antibiotics) prednisone AdvReac Severe BLINDNESS Verified 02/16/24 22:48 tamsulosin [From Flomax] AdvReac Severe all over Verified 02/16/24 22:48 body pain Home Medications Medication Instructions Recorded Confirmed Type allopurinol 100 mg tablet 300 mg (3 x 100 mg) PO QA #270 11/15/21 02/16/24 Rx tabs aspirin 81 mg chewable tablet 81 mg PO DAILY 03/30/22 02/16/24 History amlodipine 10 mg tablet 10 mg PO QAM 02/16/24 02/16/24 History cyanocobalamin (vitamin B-12) 1,000 mcg PO DAILY 02/16/24 02/16/24 History 1,000 mcg tablet (Vitamin B-12) finasteride 5 mg tablet 5 mg PO DAILY 02/16/24 02/16/24 History furosemide 20 mg tablet (Lasix) 20 mg PO QAM 02/16/24 02/16/24 History losartan 100 mg tablet 100 mg PO DAILY 02/16/24 02/16/24 History metoprolol succinate 25 mg 12.5 mg PO DAILY 02/16/24 02/16/24 History tablet,extended release 24 hr rosuvastatin 40 mg tablet 20 mg PO DAILY 02/16/24 02/16/24 History spironolactone 25 mg tablet 25 mg PO DAILY 02/16/24 02/16/24 History tamsulosin 0.4 mg capsule (Flomax) 0.4 mg PO HS 02/16/24 02/16/24 History triamcinolone acetonide 0.1 % 1 applic topical DIRECTED PRN 02/16/24 02/16/24 History topical cream Skin Irritation Patient History Medical History History of COVID-19 (08/2021) Anemia Sundowning Metabolic encephalopathy Hypoxia Pneumonia due to COVID-19 virus Acute respiratory failure with hypoxia Prediabetes Tinea corporis History of colonic polyps Vitamin D deficiency Schatzki's ring Hyperlipidemia Hiatal hernia Gout Depression with anxiety Chronic sinusitis Chronic kidney disease, stage III (moderate) CAD (coronary artery disease) BPH (benign prostatic hyperplasia) Allergic rhinitis Hypertension Arthritis Surgical History History of eye surgery History of cholecystectomy History of coronary artery stent placement Distal LAD stent 2007, proximal LAD June 2009, stent to the RCA 2013 History of cataract surgery Family History Father Cardiac disorder Hypertension Prostate cancer Myocardial infarction, Onset Age: 65 Brother Cardiac disorder Diabetes Mother Diabetes Liver cancer Ovarian cancer, Onset Age: 59 Sister Diabetes Denies family history of Breast cancer Colorectal cancer Social History Smoking Status: Never smoker Age Quit Using Tobacco: 37; Second Hand Exposure: No; Do You Dip or Chew Tobacco: No; Tobacco Cessation Education Requested by Patient: No Hx Alcohol Use: No Hx Substance Use: No Preferred Language: [place] Communication Ability: Effective Visual Impairment: Limited Hearing Ability: Hard of Hearing Pet Caretaker Required: No Beliefs That Will Affect Care: None marital status: Current Living Situation: Spouse and Family Current Living Situation Comment: Lives with at daughter's house current occupational status: retired Feels Safe at Home: Yes Safety Concerns: Feels Safe At This Time Childhood Exposure to Second-Hand Smoke: Yes Diet: regular Diet Comment: regular caffeine: No during the past year weight has: remained stable Dental Care, Regularly: Yes Physical Activity Frequency: 1-2 Times per Week Physical Activity Frequency Comment: walking Seatbelt Use: never Sunscreen Use: No Assistive Devices: Cane, Glasses, Walker and Wheelchair Review of Systems 2 Review of Systems: All systems reviewed & are unremarkable except as noted in HPI & below Physical Exam 2 Constitutional: well developed, well nourished, average body habitus and cooperative Eyes: EOM intact bilaterally ENMT: Ears: no external ear abnormality Nose: no external nose abnormality Mouth: + dry oral mucous membranes Neck: no nuchal rigidity Respiratory: normal respiratory effort and + cough (frequent, thick) A uscultation: + diminished lung sounds Cardiovascular: RRR, no murmur, no edema Gastrointestinal (Abdomen): Inspection/Auscultation: normal bowel sounds P ercussion/Palpation: abdomen soft; abdomen nontender Musculoskeletal: Extremities: strength 5/5 throughout Skin: no rashes, warm and dry Neurologic: blackwell, fluent speech, no tremor Psychiatric: A+Ox3, euthymic affect Results & Data Vital Signs (Past 12 Hours) Vital Signs Pulse Pulse Resp BP BP Pulse Ox O2 Del Method 02/17/24 10:01 73 18 120/88 97 Room Air 02/17/24 09:00 74 16 128/82 97 Room Air 02/17/24 06:57 67 18 130/74 96 02/17/24 06:55 60 02/17/24 06:00 56 L 12 130/74 95 Room Air 02/17/24 05:00 56 L 18 109/49 L 95 02/17/24 04:05 58 L 12 116/59 L 94 02/17/24 03:00 67 15 115/61 94 Room Air 02/17/24 02:17 65 15 120/61 95 Room Air 02/17/24 01:39 78 16 131/67 98 Room Air 02/17/24 01:36 65 02/17/24 01:23 67 16 136/83 97 Room Air 02/17/24 00:00 62 14 120/78 96 02/16/24 23:40 75 14 96 02/16/24 23:30 67 13 94 02/16/24 23:30 122/74 02/16/24 23:20 60 15 95 02/16/24 23:19 118/67 02/16/24 23:19 64 12 118/67 96 Room Air 02/16/24 23:00 68 18 97/56 L 99 Laboratory Results 02/17/24 06:19 02/17/24 09:00 02/17/24 06:19 02/17/24 18:10
[2024-02-17] MEDS: SODIUM ZIRCONIUM CYCLOSILICATE 10 GM PACKET PO SCH (11:54)
[2024-02-17] MEDS: SODIUM BICARBONATE 8.4% 150 MEQ in DEXTROSE 5% 1,000 ML IV SCH (11:54)
--- NOTE | 2024-02-17 15:01 | Hospitalist Progress Note ---
Date of Service February 17, 2024 Assessment & Plan (1) Hypotension: Plan: Pt is a 78yoM with PMhx significant for CAD status post stent, mild AR, hypertension, hyperlipidemia, CKD (baseline creatinine 1.6), nephrotic range proteinuria as per records, chronic anemia, prediabetes, chronic tremors, gout, BPH, past tobacco abuse admitted with chronic cough and admitted with bradycardia, hypotension and hyperkalemia. Hypotension Multifactorial hypovolemia secondary to respiratory illness/persistent complicated bronchitis symptoms despite Z-Juan Rx Multiple antihypertensive medications and prostate medications contributory Currently improving Possible symptomatic bradycardia HR 38-40 on admission Hold beta-dg for now given bradycardic episode Atropine as needed symptomatic bradycardia Cardiology consult if with recurrence Hyperkalemia NAGMA secondary to ARF on CKD Nephrotic range proteinuria as per records Nephrology consulted, appreciate recs Home medications and high consumption of potatoes, bananas as per family account contributory, pt counseled Bicarb bolus in addition to regular insulin given at the ER Hold ARB, spironolactone given hyperkalemia Complicated bronchitis Pt presenting with cough and SOB Doxycycline for persistent complicated bronchitis symptoms hx CAD status post stent mild AR Stable hyperlipidemia on statin Rx chronic anemia hemoglobin at baseline prediabetes hemoglobin A1c of 5.8 from 2021 hemoglobin A1c 6.3 DVT prophylaxis. Heparin subcu Admission and Anticipated Discharge Date Admission Date: February 16, 2024 Subjective pt was seen while still down in the ED. Denied acute concerns. Was eating lunch. Review of Systems Review of Systems: All systems reviewed & are unremarkable except as noted in Subjective Physical Exam Physical Exam: General: Alert, oriented. No acute distress Skin: No noted rashes or bruises Psych: Appropriate mood and affect HEENT: NC/AT CV: RRR Resp: Breath sounds clear bilaterally, no increased effort of breathing. Abdomen: Soft, nontender Extremities: No edema in lower extremities bilaterally. Results & Data Results & Data Vital Signs (Past 12 Hours) Vital Signs Pulse Resp BP Pulse Ox O2 Del Method 02/17/24 10:01 73 18 120/88 97 Room Air 02/17/24 09:00 74 16 128/82 97 Room Air 02/17/24 06:57 67 18 130/74 96 02/17/24 06:55 60 02/17/24 06:00 56 L 12 130/74 95 Room Air 02/17/24 05:00 56 L 18 109/49 L 95 02/17/24 04:05 58 L 12 116/59 L 94 (1) Hypotension Hypotension type: unspecified hypotension type Qualified Code(s): I95.9 - Hypotension, unspecified
[2024-02-17 18:43] LABS: BUN Creatinine Ratio 17.2 (10-20); Calcium 8.6 mg/dl (8.6-10.3); Est GFR (African American) 27.9 ml/min; Potassium 4.6 mmol/L (3.5-5.1)
[2024-02-17] MEDS: SODIUM BICARBONATE 8.4% 75 MEQ in DEXTROSE 5% 1,000 ML IV SCH (20:51)
[2024-02-17] MEDS: TAMSULOSIN HCL 0.4 MG CAP PO SCH (20:52)
[2024-02-17] MEDS: DOXYCYCLINE HYCLATE 100 MG CAP PO SCH (20:52)
--- NOTE | 2024-02-17 21:49 | Communication Note ---
Date of Service: February 17, 2024 Patient asking for topical triamcinolone ointment prescribed by [place] doctor to be ordered inpatient. Patient unable to provide details regarding frequency of ointment application. One-time application now. Patient requested to bring prescription to hospital for a.m. provider to order accordingly.
[2024-02-17] MEDS: PROMETHAZINE HCL 6.25 MG in SODIUM CHLORIDE 0.9% 50 ML IV PRN (22:33)
[2024-02-17] MEDS: TRIAMCINOLONE ACET 0.1% OINT 15 GM TUBE EXT STA (22:34)
[2024-02-18] MEDS: IPRATROPIUM BROMIDE NEB SOLN 0.02% 0.5MG/2.5ML VIAL INH STA (01:56)
[2024-02-18] MEDS: LEVALBUTEROL 1.25 MG/3 ML NEB NEB STA (01:56)
--- NOTE | 2024-02-18 05:54 | Electrocardiogram Report ---
Test Reason : Blood Pressure : / mmHG Vent. Rate : 042 BPM Atrial Rate : 000 BPM P-R Int : 000 ms QRS Dur : 092 ms QT Int : 420 ms P-R-T Axes : 000 062 070 degrees QTc Int : 350 ms Junctional bradycardia with retrograde conduction Nonspecific ST abnormality Abnormal ECG When compared with ECG of 09-SEP-2021 06:44, Junctional rhythm has replaced Sinus rhythm Vent. rate has decreased BY [address] now depressed in Lateral leads Nonspecific T wave abnormality no longer evident in Inferior leads QT has shortened Confirmed by Adams Plunkett ([id number]) on 02/18/2024 5:54:22 AM Referred By: REFERRED SELF Confirmed By:Adams Plunkett
--- NOTE | 2024-02-18 05:57 | Electrocardiogram Report ---
Test Reason : Blood Pressure : / mmHG Vent. Rate : 058 BPM Atrial Rate : 058 BPM P-R Int : 188 ms QRS Dur : 092 ms QT Int : 390 ms P-R-T Axes : 030 049 061 degrees QTc Int : 382 ms Sinus bradycardia Otherwise normal ECG When compared with ECG of 16-FEB-2024 21:24, Sinus rhythm has replaced Junctional rhythm ST no longer depressed in Lateral leads Confirmed by Adams Plunkett ([id number]) on 02/18/2024 5:57:08 AM Referred By: REFERRED SELF Confirmed By:Adams Plunkett
[2024-02-18 06:59] LABS: Hematocrit (blood only) 27.6 % (42.0-52.0); Hemoglobin 9.4 g/dl (14.0-18.0); Mean Corpuscular Hemoglobin 31.6 pg (25.0-34.0); Mean Corpuscular Hgb Conc 34.1 g/dL (32.0-36.0); Mean Corpuscular Volume 92.9 fL (80.0-100.0); Mean Platelet Volume 9.8 fL (9.4-12.4); Platelet Count 225 K/uL (130-400); RDW Coefficient of Variation 14.5 % (11.5-14.5); RDW Standard Deviation 48.8 fL (36.4-46.3); Red Blood Count 2.97 M/uL (4.70-6.10); White Blood Count 6.86 K/ul (4.8-10.8)
[2024-02-18] MEDS: LEVALBUTEROL 1.25 MG/3 ML NEB NEB SCH (07:24)
[2024-02-18] MEDS: IPRATROPIUM BROMIDE NEB SOLN 0.02% 0.5MG/2.5ML VIAL INH SCH (07:24)
[2024-02-18 07:27] LABS: Magnesium 1.7 mg/dl (1.7-2.4); Phosphorus 3.5 mg/dl (2.5-4.9)
--- NOTE | 2024-02-18 07:29 | XRay Report ---
XR chest 1V portable HISTORY: 78 years-old Male sob acute shortness of breath COMPARISON: 02/17/2024 TECHNIQUE: AP view of the chest FINDINGS: Cardiomediastinal and hilar silhouettes are within normal limits. Left mid lung and right basilar roel ear atelectasis versus scarring. No pneumothorax, large pleural effusion or overt pulmonary edema. No lobar airspace consolidation to suggest pneumonia. Bones appear grossly intact. IMPRESSION: No acute process. ACT 112: Negative or not required by law. The above report was generated using voice recognition software. It may contain grammatical, syntax o r spelling errors. Electronically signed by: Maciej Fields M.D. 02/18/2024 7:27 AM
[2024-02-18 07:45] LABS: BUN Creatinine Ratio 19.9 (10-20); Calcium 8.5 mg/dl (8.6-10.3); Creatinine Clr Calc Pharmacy 32.3 ml/min; Est GFR (African American) 36.3 ml/min; Est GFR (Non-African American) 31.3 ml/min; Potassium 4.3 mmol/L (3.5-5.1)
--- NOTE | 2024-02-18 12:01 | Nephrology Progress Note ---
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 delayed worsening related to transient hypotension/ischemia evening of admission baseline creatinine 1.7; admitted w/ creatinine 2.6, improving w/ IV fluids, supportive care, improved HR and BP; up and down creat but today down to 2.0 -IVF as above through the day, stop in pm -daily bmp Admission and Anticipated Discharge Date Admission Date: February 16, 2024 Subjective seen on midday rounds; feeling improved; no sob, no edema; still no diarrhea; appetite good Review of Systems 2 Review of Systems: All systems reviewed & are unremarkable except as noted in Subjective Physical Exam 2 Constitutional: well developed, well nourished, average body habitus and cooperative Eyes: EOM intact bilaterally ENMT: Ears: no external ear abnormality Nose: no external nose abnormality Mouth: + dry oral mucous membranes Neck: no nuchal rigidity Respiratory: normal respiratory effort; no cough Auscultation: + diminished lung sounds Cardiovascular: RRR, no murmur, no edema Gastrointestinal (Abdomen): Inspection/Auscultation: normal bowel sounds P ercussion/Palpation: abdomen soft; abdomen nontender Musculoskeletal: Extremities: strength 5/5 throughout Skin: no rashes, warm and dry Psychiatric: A+Ox3, euthymic affect Results & Data Vital Signs (Past 12 Hours) Vital Signs Temp Pulse Pulse Resp BP Pulse Ox O2 Del Method 02/18/24 11:11 36.4 C L 75 18 150/86 H 97 Room Air 02/18/24 10:26 67 02/18/24 07:24 65 14 96 Room Air 02/18/24 07:21 36.4 C L 67 18 129/77 95 Room Air 02/18/24 03:10 36.5 C 80 18 124/70 94 Room Air 02/18/24 01:58 68 18 97 Room Air FiO2 02/18/24 11:11 02/18/24 10:26 02/18/24 07:24 21 02/18/24 07:21 02/18/24 03:10 02/18/24 01:58 Laboratory Results 02/18/24 05:50 02/18/24 05:50
--- NOTE | 2024-02-18 13:15 | Hospitalist Progress Note ---
Date of Service February 18, 2024 Assessment & Plan (1) Hypotension: Plan: Pt is a 78yoM with PMhx significant for CAD status post stent, mild AR, hypertension, hyperlipidemia, CKD (baseline creatinine 1.6), nephrotic range proteinuria as per records, chronic anemia, prediabetes, chronic tremors, gout, BPH, past tobacco abuse admitted with chronic cough and admitted with bradycardia, hypotension and hyperkalemia. Hypotension Multifactorial hypovolemia secondary to respiratory illness/persistent complicated bronchitis symptoms despite Z-Juan Rx Multiple antihypertensive medications and prostate medications contributory Currently improving Possible symptomatic bradycardia HR 38-40 on admission Hold beta-dg for now given bradycardic episode Atropine as needed symptomatic bradycardia Cardiology consult if with recurrence Hyperkalemia NAGMA secondary to ARF on CKD Nephrotic range proteinuria as per records Nephrology consulted, appreciate recs Home medications and high consumption of potatoes, bananas as per family account contributory, pt counseled Bicarb bolus in addition to regular insulin given at the ER Hold ARB, spironolactone given hyperkalemia on lokelma Appreciate nephrology recs Complicated bronchitis Pt presenting with cough and SOB Doxycycline for persistent complicated bronchitis symptoms hx CAD status post stent mild AR Stable hyperlipidemia on statin Rx chronic anemia hemoglobin at baseline prediabetes hemoglobin A1c of 5.8 from 2021 hemoglobin A1c 6.3 DVT prophylaxis. Heparin subcu Admission and Anticipated Discharge Date Admission Date: February 16, 2024 Subjective pt resting comfortably in bed. Concerned about his BP. Review of Systems Review of Systems: All systems reviewed & are unremarkable except as noted in Subjective Physical Exam Physical Exam: General: Alert, oriented. No acute distress Skin: No noted rashes or bruises Psych: Appropriate mood and affect HEENT: NC/AT CV: RRR Resp: Breath sounds clear bilaterally, no increased effort of breathing. Abdomen: Soft, nontender Extremities: No edema in lower extremities bilaterally. Results & Data Results & Data Vital Signs (Past 12 Hours) Vital Signs Temp Pulse Pulse Resp BP Pulse Ox O2 Del Method 02/18/24 11:11 36.4 C L 75 18 150/86 H 97 Room Air 02/18/24 10:26 67 02/18/24 07:24 65 14 96 Room Air 02/18/24 07:21 36.4 C L 67 18 129/77 95 Room Air 02/18/24 03:10 36.5 C 80 18 124/70 94 Room Air 02/18/24 01:58 68 18 97 Room Air FiO2 02/18/24 11:11 02/18/24 10:26 02/18/24 07:24 21 02/18/24 07:21 02/18/24 03:10 02/18/24 01:58 (1) Hypotension Hypotension type: unspecified hypotension type Qualified Code(s): I95.9 - Hypotension, unspecified
[2024-02-18] MEDS: LEVALBUTEROL 1.25 MG/3 ML NEB NEB PRN (14:42)
[2024-02-18] MEDS: IPRATROPIUM BROMIDE NEB SOLN 0.02% 0.5MG/2.5ML VIAL INH PRN (14:42)
[2024-02-19 06:46] LABS: Hematocrit (blood only) 29.8 % (42.0-52.0); Hemoglobin 9.8 g/dl (14.0-18.0); Mean Corpuscular Hemoglobin 31.4 pg (25.0-34.0); Mean Corpuscular Hgb Conc 32.9 g/dL (32.0-36.0); Mean Corpuscular Volume 95.5 fL (80.0-100.0); Mean Platelet Volume 10.2 fL (9.4-12.4); Platelet Count 211 K/uL (130-400); RDW Coefficient of Variation 14.3 % (11.5-14.5); RDW Standard Deviation 49.2 fL (36.4-46.3); Red Blood Count 3.12 M/uL (4.70-6.10); White Blood Count 7.45 K/ul (4.8-10.8)
[2024-02-19 06:59] LABS: BUN Creatinine Ratio 18.9 (10-20); Calcium 8.8 mg/dl (8.6-10.3); Creatinine Clr Calc Pharmacy 37.1 ml/min; Est GFR (African American) 42.9 ml/min; Magnesium 1.7 mg/dl (1.7-2.4); Phosphorus 3.6 mg/dl (2.5-4.9); Potassium 4.4 mmol/L (3.5-5.1)
[2024-02-19] MEDS: traMADol HCL 50 MG TABLET PO PRN (08:51)
--- NOTE | 2024-02-19 13:44 | Hospitalist Progress Note ---
Date of Service February 19, 2024 Assessment & Plan (1) Hypotension: Plan: Pt is a 78yoM with PMhx significant for CAD status post stent, mild AR, hypertension, hyperlipidemia, CKD (baseline creatinine 1.6), nephrotic range proteinuria as per records, chronic anemia, prediabetes, chronic tremors, gout, BPH, past tobacco abuse admitted with chronic cough and admitted with bradycardia, hypotension and hyperkalemia. Hypotension Multifactorial Hypovolemia secondary to respiratory illness/persistent complicated bronchitis symptoms despite Z-Juan Rx Multiple antihypertensive medications and prostate medications contributory Hypotension resolved BP currently running high Possible symptomatic bradycardia HR 38-40 on admission Home metoprolol succinate 12.5mg has been on hold Reviewed outpatient Card notes. Last seen a year ago HR running up to 94 now. Will get Cardiology input regarding medication mgt considering patient's cardiac history Hyperkalemia NAGMA secondary to ARF on CKD Nephrotic range proteinuria as per records Home medications and high consumption of potatoes, bananas as per family account contributory, pt counseled Bicarb bolus in addition to regular insulin given at the ER Continue to hold ARB, spironolactone given hyperkalemia Received some doses of lokelma now off Hyperkalemia has resolved Appreciate nephrology recs Complicated bronchitis Pt presenting with cough and SOB Currently on doxycycline hx CAD status post stent mild AR Stable hyperlipidemia on statin Rx chronic anemia hemoglobin at baseline prediabetes hemoglobin A1c of 5.8 from 2021 Hemoglobin A1c 6.3 DVT prophylaxis. Heparin subcu I spent a total of 40 minutes coordinating, documenting and providing care for this patient excluding time spent in performance of separately billed services Admission and Anticipated Discharge Date Admission Date: February 16, 2024 Subjective Patient seen and examined. Reports nausea and dizziness today. Reports poor appetite. Abdominal pain, diarrhea Denies chest pain, shortness of breath today. Reports mild cough today. Physical Exam Constitutional: + well hydrated; no acute distress Eyes: PERRL, conjunctivae normal, anicteric sclerae ENMT: external ear and nose normal, oropharynx normal Respiratory: normal respiratory effort, lungs clear to auscultation Gastrointestinal (Abdomen): normal bowel sounds, soft, nontender, no hepatosplenomegaly Musculoskeletal: No pedal edema Neurologic: PERRL, EOMI, accommodation nl, no face palsy, no dysarthria Psychiatric: A+Ox3, euthymic affect Results & Data Results & Data Vital Signs (Past 12 Hours) Vital Signs Temp Pulse Pulse Resp BP Pulse Ox O2 Del Method 02/19/24 10:55 36.2 C L 94 H 18 144/87 H 97 Room Air 02/19/24 08:00 Room Air 02/19/24 07:48 36.4 C L 69 18 174/94 H 96 Room Air 02/19/24 07:35 67 02/19/24 03:21 36.9 C 113 H 18 159/90 H 95 Room Air Laboratory Results Abnormal lab results 02/19/24 Range/Units 05:31 RBC 3.12 L (4.70-6.10) M/uL Hgb 9.8 L (14.0-18.0) g/dl Hct 29.8 L (42.0-52.0) % RDW Std Deviation 49.2 H (36.4-46.3) fL BUN 33 H (6-23) mg/dl Creatinine 1.75 H (0.6-1.4) mg/dl (1) Hypotension Hypotension type: unspecified hypotension type Qualified Code(s): I95.9 - Hypotension, unspecified
--- NOTE | 2024-02-19 14:23 | Nephrology Progress Note ---
Date of Service February 19, 2024 Assessment & Plan (1) Hyperkalemia: Plan: in the setting of losartan, spironolactone; resolved w/ medical/conservative care >resume lasix 20 mg daily, losartan 25 mg daily and hold spironolactone > note home doses of these meds have been modified; ordered to start in AM 4/11 ok from neph standpoint to d/c NEPH d/c recs: -lasix, losartan, spironolactone as above; low threshold to lower/stop amlodipine -f/u w/ cardiology as he resumes beta dg -bmp at PCP f/u visit -recommend hospital d/c visit w/ me in 2-4 wks w/ neph nurse to order bmp, uacm, ACR, pth, 25 OHD, transferrin sat, hgb phos all to be drawn about 3 days before appt AND pt to bring home bp cuff if he has one to nephro visit; renal nurse also to refer pt to MTM to partner w/ me on HTN mgt goal <130/80 (2) JUDY (acute kidney injury): Plan: now resolved Stage 1 presume nonoliguric JUDY on CKD 3B >> improved initially then worsened > delayed worsening related to transient hypotension/ischemia evening of admission baseline creatinine 1.7; admitted w/ creatinine 2.6, improving w/ IV fluids, supportive care, improved HR and BP; up and down creat but today down to 2.0 -daily bmp Admission and Anticipated Discharge Date Admission Date: February 16, 2024 Subjective seen on evening rounds. feels well; not lightheaded or dizzy getting up or bathing. no sob. cardiology eval today re beta blockade >> for trial of low dose coreg starting tonight Review of Systems 2 Review of Systems: All systems reviewed & are unremarkable except as noted in Subjective Physical Exam 2 Constitutional: well developed, well nourished, average body habitus and cooperative Eyes: EOM intact bilaterally ENMT: Ears: no external ear abnormality Nose: no external nose abnormality Mouth: + dry oral mucous membranes Neck: no nuchal rigidity Respiratory: normal respiratory effort; no cough Auscultation: + diminished lung sounds Cardiovascular: RRR, no murmur, no edema Gastrointestinal (Abdomen): Inspection/Auscultation: normal bowel sounds P ercussion/Palpation: abdomen soft; abdomen nontender Musculoskeletal: Extremities: strength 5/5 throughout Skin: no rashes, warm and dry Psychiatric: A+Ox3, euthymic affect Results & Data Vital Signs (Past 12 Hours) Vital Signs Temp Pulse Pulse Resp BP Pulse Ox O2 Del Method 02/19/24 10:55 36.2 C L 94 H 18 144/87 H 97 Room Air 02/19/24 08:00 Room Air 02/19/24 07:48 36.4 C L 69 18 174/94 H 96 Room Air 02/19/24 07:35 67 02/19/24 03:21 36.9 C 113 H 18 159/90 H 95 Room Air Laboratory Results 02/19/24 05:31 02/19/24 05:31
--- NOTE | 2024-02-19 15:53 | Cardiology Consultation ---
Date of Consultation February 19, 2024 Assessment & Plan (1) JUDY (acute kidney injury): (2) AV junctional bradycardia: (3) Acute hyperkalemia: (4) ASCVD (arteriosclerotic cardiovascular disease): Plan 78-year-old male admitted with symptomatic hypotension/bradycardia appearing to be due to volume depletion from diuretics and decreased oral intake in the setting of acute complicated bronchitis, acute on chronic renal dysfunction with associated hyperkalemia. Junctional bradycardia on presentation resolved with correction of hyperkalemia, without reoccurrence on continuous telemetry monitoring. Heart rates currently in the 80's with occasional ventricular ectopy. Recommendations: 1. Maintain normokalemia 2. Trial low dose Carvedilol 3.125 mg twice a day for BP, angina, and ventricular ectopy. 3. Continue aspirin and statin I spent a total of 53 minutes on the date of service in preparation, delivery, and documentation of the care provided to this patient excluding any time spent in the performance of separately billed services. This visit was a split-shared visit with the substantive portion of the medical decision making performed by the supervising purchasing and fiscal clerk/billing provider. Supervising Physician Co-Signing Physician Notes I have reviewed the advance practitioner's documentation, and I agree with, and take responsibility for the plan of care. Patient seen and examined at the bedside. Admitted with ARF, hyperkalemia and junctional bradycardia. No recurrent bradycardia over the past 72 hours. Respiratory status improved. Elevated BP noted. PE: VSS. hypertensive. Gen: NAD, AAO x3. Heart: Regular rhythm. Normal S1S2. Lungs: clear B/L. No rales, rhonchi, or wheeze. A/P: Transient junctional bradycardia in setting of ARF, hyperkalemia, and volume depletion. Spironolactone discontinued. Trial low dose carvedilol to improve BP control. Monitor telemetry. Continue aspirin and statin. I spent a total of 25 minutes on the date of service in preparation, delivery, and documentation of the care provided to this patient, excluding any time spent in the performance of separately billed services. History of Present Illness Reason for Consultation: Bradycardia down to 30/40 on admission, medical management Requesting Physician: Dr. Sergei MD. Attending Physician: Dr. Sergei MD History of Present Illness Mr. Freddie Soliman is a very pleasant 78-year-old who is followed by [facility] in [place], [place]. Patient notes elevated systolic blood pressures with readings typically in the 150s and 160s. Given December 2023 spironolactone was added with observed improvement in hypertension. Over the last week or 2 patient notes acute on chronic sinusitis and bronchitis symptoms including worsening nasal congestion, cough productive of yellow sputum, worsening shortness of breath, decreased oral intake. Over the past few days patient began to experience lightheadedness and dizziness as well as weakness with positional change and some nausea without vomiting and ultimately presented to the [facility] ER on February 16, 2024. Initial blood pressure was 85/54. Laboratory work revealed acute on chronic renal dysfunction with a creatinine of 2.64 g/dL and hyperkalemia with a potassium of 5.6 mmol/L. EKG on presentation revealed junctional bradycardia with ventricular rate of 42 bpm with retrograde conduction, nonspecific ST abnormality and a QTc of 350 ms. Bradycardia improved with correction of hyperkalemia. A second EKG was obtained in the ER on February 16, 2024 and revealed sinus bradycardia at 58 bpm. No further EKG tracings are available for review. Review of the patient's continuous telemetry monitoring reveals bradycardia down to 40 bpm on admission. Over the past 24 hours patient has had heart rates primarily in the 60s to 90s, ranging from 50 to 100 bpm, currently 80 bpm. No ongoing bradycardia observed. No atrial fibrillation or flutter. Patient denies chest pain or discomfort. No recent palpitations. Breathing has significantly improved since admission. Nasal congestion and cough have also improved. Patient notes chronic right greater than left lower extremity peripheral edema. No orthopnea or PND with patient noting that his breathing is better when lying down flat. No syncope. No fevers. No chills. No melena or hematochezia. Cardiac Problem List: ASCVD. [facility] 10/01/2008 and [facility] by Dr. Mckeon, status post angioplasty and stenting of the LAD and angioplasty of the diagonal branch. Repeat [facility] 06/27/2009 demonstrating 30% stenosis of the LM, proximal stenosis of the LAD, distal patent stent to the LAD, diagonal branch was patent. Septal electrodynamicist had a 95% stenosis. LCx marginal had 20% stenosis. RCA had distal 20% stenosis. Status post PCI to the proximal portion of the LAD on 06/27/[address] Mckeon. Negative nuclear stress 07/2022 Hypertension Hyperlipidemia Aortic insufficiency Family History: Father with an DE at 68. Mother with liver cancer at 62. Sister had an DE in her 40s. One brother drowned at 21. Social History: Reformed smoker, quitting some 50 years ago. No significant alcohol. No illegal drug use. Lives in [place]. 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 Allergies Allergy/AdvReac Type Severity Reaction Status Date / Time Corticosteroids Allergy Severe CAUSES Verified 02/16/24 22:48 (Glucocorticoids) BLINDNESS acetic acid Allergy Intermediate Rash - Verified 02/16/24 22:48 Apple Cider Vinegar adhesive Allergy Intermediate SKIN Verified 02/16/24 22:48 IRRITATION AND ULCER WITH EXTENDED USE Penicillins Allergy Intermediate RASH Verified 02/16/24 22:48 Sulfa (Sulfonamide Allergy Intermediate RASH Verified 02/16/24 22:48 Antibiotics) prednisone AdvReac Severe BLINDNESS Verified 02/16/24 22:48 tamsulosin [From Flomax] AdvReac Severe all over Verified 02/16/24 22:48 body pain Home Medications Medication Instructions Recorded Confirmed Type allopurinol 100 mg tablet 300 mg (3 x 100 mg) PO QAM #270 11/15/21 02/16/24 Rx tabs aspirin 81 mg chewable tablet 81 mg PO DAILY 03/30/22 02/16/24 History cyanocobalamin (vitamin B-12) 1,000 mcg PO DAILY 02/16/24 02/16/24 History 1,000 mcg tablet (Vitamin B-12) finasteride 5 mg tablet 5 mg PO DAILY 02/16/24 02/16/24 History furosemide 20 mg tablet (Lasix) 20 mg PO QAM 02/16/24 02/16/24 History rosuvastatin 40 mg tablet 20 mg PO DAILY 02/16/24 02/16/24 History tamsulosin 0.4 mg capsule (Flomax) 0.4 mg PO HS 02/16/24 02/16/24 History triamcinolone acetonide 0.1 % 1 applic topical DIRECTED PRN 02/16/24 02/16/24 History topical cream Skin Irritation amlodipine 5 mg tablet (Norvasc) 5 mg PO QAM #30 tabs 02/20/24 Rx carvedilol 3.125 mg tablet 3.125 mg PO BIDM #30 tabs 02/20/24 Rx losartan 25 mg tablet 25 mg PO QAM #30 tabs 02/20/24 Rx Patient History Medical History History of COVID-19 (08/2021) Anemia Sundowning Metabolic encephalopathy Hypoxia Pneumonia due to COVID-19 virus Acute respiratory failure with hypoxia Prediabetes Tinea corporis History of colonic polyps Vitamin D deficiency Schatzki's ring Hyperlipidemia Hiatal hernia Gout Depression with anxiety Chronic sinusitis Chronic kidney disease, stage III (moderate) CAD (coronary artery disease) BPH (benign prostatic hyperplasia) Allergic rhinitis Hypertension Arthritis Surgical History History of eye surgery History of cholecystectomy History of coronary artery stent placement Distal LAD stent 2007, proximal LAD June 2009, stent to the RCA 2013 History of cataract surgery Family History Father Cardiac disorder Hypertension Prostate cancer Myocardial infarction, Onset Age: 65 Brother Cardiac disorder Diabetes Mother Diabetes Liver cancer Ovarian cancer, Onset Age: 59 Sister Diabetes Denies family history of Breast cancer Colorectal cancer Social History Smoking Status: Never smoker Age Quit Using Tobacco: 37; Second Hand Exposure: No; Do You Dip or Chew Tobacco: No; Tobacco Cessation Education Requested by Patient: No Hx Alcohol Use: No Hx Substance Use: No Preferred Language: Azeri Communication Ability: Effective Visual Impairment: Limited Hearing Ability: Hard of Hearing 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: No Beliefs That Will Affect Care: None marital status: Current Living Situation: Spouse and Family Current Living Situation Comment: Lives with at daughter's house current occupational status: retired Feels Safe at Home: Yes Safety Concerns: Feels Safe At This Time Childhood Exposure to Second-Hand Smoke: Yes Diet: regular Diet Comment: regular caffeine: No during the past year weight has: remained stable Dental Care, Regularly: Yes Physical Activity Frequency: 1-2 Times per Week Physical Activity Frequency Comment: walking Seatbelt Use: never Sunscreen Use: No Assistive Devices: Cane, Glasses, Walker and Wheelchair Review of Systems Review of Systems: Complete review of systems is otherwise as stated above, negative, or noncontributory Physical Exam Physical Exam: General: A&Ox3. NAD. HENT: Normocephalic. Atraumatic. Eyes: PER. Conjunctiva pink, sclera clear. Neck: Left carotid bruit. No JVD. Heart: RRR, 80 bpm. Soft systolic ejection murmur. Soft diastolic decrescendo murmur. No rub. Lungs: Clear to auscultation. Abdomen: +BS. Soft. Nontender. No masses or organomegaly. Extremities: Mild right greater than left lower extremity peripheral edema. Varicosities. No clubbing. No cyanosis. Limited neurological examination is without focal deficits. Pulses: radial=2/4, posterior tibial=1/4. Results & Data Vital Signs (Past 12 Hours) Vital Signs Temp Pulse Pulse Resp BP Pulse Ox O2 Del Method 02/19/24 15:10 36.7 C 80 18 146/91 H 97 Room Air 02/19/24 10:55 36.2 C L 94 H 18 144/87 H 97 Room Air 02/19/24 08:00 Room Air 02/19/24 07:48 36.4 C L 69 18 174/94 H 96 Room Air 02/19/24 07:35 67 Laboratory Results CBC 02/19/24 Range/Units 05:31 WBC 7.45 (4.8-10.8) K/ul RBC 3.12 L (4.70-6.10) M/uL Hgb 9.8 L (14.0-18.0) g/dl Hct 29.8 L (42.0-52.0) % Plt Count 211 (130-400) K/uL Comprehensive Metabolic Panel 02/19/24 Range/Units 05:31 Sodium 138 (136-145) mmol/L Potassium 4.4 (3.5-5.1) mmol/L Chloride 105 (98-107) mmol/L Carbon Dioxide 26 (21-32) mmol/L BUN 33 H (6-23) mg/dl Creatinine 1.75 H (0.6-1.4) mg/dl Glucose 91 (70-99(Fasting)) mg/dl Calcium 8.8 (8.6-10.3) mg/dl Intake and Output 02/19/24 02/19/24 02/19/24 06:59 14:59 22:59 Intake Total 240 / 2452.667 290.25 / 290.25 Balance 240 / 2452.667 290.25 / 290.25 Intake: IV 50.25 / 50.25 Promethazine HCl 6.25 mg In 50.25 / 50.25 Sodium Chloride 0.9% 50 ml @ 201 mls/hr IV Q6H PRN Rx#: [id number] Oral 240 / 1315 240 / 240 Other: # Unmeasured Voids 2 Weight 87 kg Weight Measurement Method Built in [facility]
[2024-02-19] MEDS: carvediloL 3.125 MG TAB PO SCH (18:05)
[2024-02-20 08:09] LABS: Hematocrit (blood only) 31.5 % (42.0-52.0); Hemoglobin 10.4 g/dl (14.0-18.0); Mean Corpuscular Hemoglobin 31.7 pg (25.0-34.0); Mean Platelet Volume 9.8 fL (9.4-12.4); Platelet Count 224 K/uL (130-400); RDW Coefficient of Variation 14.4 % (11.5-14.5); RDW Standard Deviation 49.9 fL (36.4-46.3); Red Blood Count 3.28 M/uL (4.70-6.10); White Blood Count 8.62 K/ul (4.8-10.8)
[2024-02-20 08:28] LABS: Calcium 9.1 mg/dl (8.6-10.3); Creatinine Clr Calc Pharmacy 35.7 ml/min; Est GFR (African American) 40.9 ml/min; Est GFR (Non-African American) 35.3 ml/min; Magnesium 1.7 mg/dl (1.7-2.4); Phosphorus 3.5 mg/dl (2.5-4.9); Potassium 4.4 mmol/L (3.5-5.1)
[2024-02-20] MEDS: FUROSEMIDE 20 MG TAB PO SCH (08:34)
[2024-02-20] MEDS: LOSARTAN POTASSIUM 25 MG TAB PO SCH (08:36)
--- NOTE | 2024-02-20 13:00 | Discharge Summary ---
Date of Service February 20, 2024 Admission HPI Per Admitting Provider History obtained from patient, family, and records. Medical history significant for CAD status post stent, mild AR, hypertension, hyperlipidemia, CRI (baseline creatinine 1.6), nephrotic range proteinuria as per records, chronic anemia, prediabetes, chronic tremors, gout, BPH, past tobacco abuse. Last confinement September 2021 for COVID-19 pneumonia. Last week, patient noted cough symptoms productive of junky yellow sputum associated with shortness of breath. No chest pain. Denies aspiration. Not sure about sick contacts. Appetite okay. Lightheadedness on standing up and generalized weakness. Minimal improvement despite [facility]ith[facility]. Antibiotic for tick bite completed 3 months ago. Denies OTC NSAID intake. Admits to eating a lot of potatoes. SBP 80s, heart rate 40 to 50s upon arrival at the ER. NSS, IV ceftriaxone, regular insulin, calcium gluconate administered at the ER. Medical History as above Surgical History : Cholecystectomy, laser surgery of the eye, cataract surgeries Family History : DM, heart disease, stroke, liver cancer Personal/Social history : Past tobacco abuse, no EtOH intake, retired from [employer] Admission Exam Per Admitting Provider GENERAL: Comfortable, pleasant, hyponasal voice, no respiratory distress, currently receiving breathing treatment SKIN: Pallor, warm HEENT: Pale palpebral conjunctivae, no ptosis, dry buccal mucosa NECK : Supple, no tenderness CHEST : Decreased breath sounds, no tenderness HEART : RRR, no obvious murmurs ABDOMEN: Some distention, nontender EXTREMITIES : No LE swelling/tenderness, no other conspicuous deformities noted NEUROLOGIC : Coherent, no facial asymmetry, rest tremors left upper extremity, gait and stance not assessed Principal Diagnosis Hypotension Bronchitis Symptomatic bradycardia Hyperkalemia Acute on chronic kidney disease Discharge Exam Constitutional + well hydrated; no acute distress Eyes PERRL, conjunctivae normal, anicteric sclerae ENMT external ear and nose normal, oropharynx normal Respiratory normal respiratory effort, lungs clear to auscultation Cardiovascular Rate/Rhythm: regular rate and regular rhythm S1 S2 Gastrointestinal (Abdomen) normal bowel sounds, soft, nontender, no hepatosplenomegaly Neurologic PERRL, EOMI, accommodation nl, no face palsy, no dysarthria Psychiatric A+Ox3, euthymic affect Discharge Data Allergies Allergy/AdvReac Type Severity Reaction Status Date / Time Corticosteroids Allergy Severe CAUSES Verified 02/16/24 22:48 (Glucocorticoids) BLINDNESS acetic acid Allergy Intermediate Rash - Verified 02/16/24 22:48 Apple Cider Vinegar adhesive Allergy Intermediate SKIN Verified 02/16/24 22:48 IRRITATION AND ULCER WITH EXTENDED USE Penicillins Allergy Intermediate RASH Verified 02/16/24 22:48 Sulfa (Sulfonamide Allergy Intermediate RASH Verified 02/16/24 22:48 Antibiotics) prednisone AdvReac Severe BLINDNESS Verified 02/16/24 22:48 tamsulosin [From Flomax] AdvReac Severe all over Verified 02/16/24 22:48 body pain Consultations 02/16/24 22:38 ED Decision to Admit Stat 02/17/24 07:07 Consult Nephrology Routine 02/19/24 14:12 Consult Cardiology Routine Ordered Studies 02/17/24 01:42 CT chest diagnostic wo con Stat Hospital Course (1) Hypotension: Pt is a 78yoM with PMhx significant for CAD status post stent, mild AR, hypertension, hyperlipidemia, CKD (baseline creatinine 1.6), nephrotic range proteinuria as per records, chronic anemia, prediabetes, chronic tremors, gout, BPH, past tobacco abuse admitted with chronic cough and admitted with bradycardia, hypotension and hyperkalemia. Hypotension Multifactorial Hypovolemia secondary to respiratory illness/persistent complicated bronchitis symptoms despite Z-Juan Rx Multiple antihypertensive medications and prostate medications contributory Hypotension resolved Possible symptomatic bradycardia HR 38-40 on admission Home metoprolol succinate 12.5mg was stopped Reviewed outpatient Card notes. Last seen a year ago Cardiology evaluated Started on carvedilol 3.125mg bid Home losartan reduced from 100mg daily to 25mg daily Home amlodipine reduced from 10mg daily to 5mg daily Spironolactone discontinued due to hyperkalemia Hyperkalemia NAGMA secondary to ARF on CKD Nephrotic range proteinuria as per records Home medications and high consumption of potatoes, bananas as per family account contributory, pt counseled Was managed with Conche Operator assistance Hyperkalemia and JUDY resolved Spironolactone discontinued Complicated bronchitis Pt presenting with cough and SOB Got doxycycline inpatient Symptoms significantly improved hx CAD status post stent mild AR Stable hyperlipidemia on statin Rx chronic anemia hemoglobin at baseline prediabetes hemoglobin A1c of 5.8 from 2021 Hemoglobin A1c 6.3 I called daughter and updated her on plans and changes Needs to follow up with his PCP/Nephro/Cardiology She reported she will take over his medication management Total Time Total Time Spent Total Time Spent (In Minutes): 50 Total Time Includes: Examination of the Patient, Discharge Planning, Medication Reconciliation, Communication With Other Providers and Other Discharge Plan Discharge Items Patient Disposition: Home - Self-Care Reason For Visit: Weakness, cough Discharge Diagnosis: Hypotension Bronchitis Symptomatic bradycardia Hyperkalemia Acute on chronic kidney disease Activity: Resume your previous activity Non-emergency contact: Primary Care Provider and Conche Operator Call non-emergency contact if: you have any medication questions Follow-up/Referrals: Miriam Donovan MD, PhD [Physician] - (The Nephrology office will contact you for a follow up appointment and lab work.) Devante Alcala [Physician Dairy Scientist] - (The Cardiology office will contact you for a follow up appointment.) Александр Martínez MD [Primary Care Provider] - (Date & Time 02/27/2024 9:40 AM Provider Khanh Cruz MD Department Family [facility] ) Diet: Heart Healthy and Low Sodium (2gm) Addtl Attending Provider Instructions: Mr Janny Jenkins presented to the hospital with weakness and worsening cough You were evaluated and managed for the above listed diagnoses. You are being discharged home. The following adjustments were made to your medications: -STOP SPIRONOLACTONE -STOP METOPROLOL SUCCINATE -Your losartan was reduced to 25mg daily -Your amlodipine was reduced to 5mg daily -You were started on low dose Carvedilol 3.125mg twice a day Please ensure follow up with Nephrology, Cardiology and your Family. It was a pleasure taking of you. Pending Studies at Discharge: No Stand-Alone Forms: [facility], Smoking Cessation Medications and DC Order Prescriptions: New amlodipine [Norvasc] 5 mg Tablet 5 mg PO QAM Qty: 30 0RF carvedilol 3.125 mg Tablet 3.125 mg PO BIDM Qty: 30 0RF losartan 25 mg Tablet 25 mg PO QAM Qty: 30 0RF Continued allopurinol 100 mg tablet 300 mg PO QAM Qty: 270 1RF aspirin 81 mg tablet,chewable 81 mg PO DAILY cyanocobalamin (vitamin B-12) [Vitamin B-12] 1,000 mcg Tablet 1,000 mcg PO DAILY triamcinolone acetonide 0.1 % Cream 1 applic TOPICAL DIRECTED PRN (Reason: Skin Irritation) tamsulosin [Flomax] 0.4 mg Capsule 0.4 mg PO HS furosemide [Lasix] 20 mg Tablet 20 mg PO QAM finasteride 5 mg Tablet 5 mg PO DAILY rosuvastatin 40 mg Tablet 20 mg PO DAILY Discontinued spironolactone 25 mg Tablet 25 mg PO DAILY amlodipine 10 mg tablet 10 mg PO QAM metoprolol succinate 25 mg Tablet Extended Release 24 Hr 12.5 mg PO DAILY losartan 100 mg Tablet 100 mg PO DAILY Discharge Orders: Discharge Order (Routine); Ordered 02/20/24 Ordered By: Krystle Coleman/Other Patient Handouts: Prediabetes, 5 Steps for Eating Healthier Admission Data Admit Date/Time: 02/16/24 23:59 Attending Provider: Krystle Mai I. Admit Provider: Mehul Brito Primary Care Provider: Александр Martínez Other Providers: Mehul Brito; Rodo Fabian Other Interventions: Discharge Summary Assessment (RN) Last Done: 02/20/24 13:19
--- NOTE | 2024-02-20 13:02 | Cardiology Progress Note ---
Date of Service February 20, 2024 Assessment & Plan (1) JUDY (acute kidney injury): (2) AV junctional bradycardia: (3) Acute hyperkalemia: (4) ASCVD (arteriosclerotic cardiovascular disease): Plan 78-year-old male admitted with symptomatic hypotension and bradycardia, transient junctional bradycardia observded in the setting of acute renal dysfunction with associated hyperkalemia, volume depletion, and acute complicated bronchitis. Beta-dg therapy resumed in the form of carvedilol 3.125 mg twice daily (previously on metoprolol succinate 12.5 mg/day) starting in the evening on February 19, 2024 for hypertension, angina, and ventricular ectopy Recommendations: 1. Maintain normokalemia 2. Spironolactone discontinued; would avoid ousmane forward. 3. Continue Carvedilol aspirin and statin 4. Please contact with any questions. 5. Cardiology follow-up in [place]. I spent a total of 30 minutes on the date of service in preparation, delivery, and documentation of the care provided to this patient excluding any time spent in the performance of separately billed services. This visit was a split-shared visit with the substantive portion of the medical decision making performed by the supervising assembler engine/billing provider. Admission and Anticipated Discharge Date Admission Date: February 16, 2024 Supervising Physician Co-Signing Physician Notes I have reviewed the advance practitioner's documentation, and I agree with, and take responsibility for the plan of care. Patient seen and examined at the bedside. Admitted with ARF, hyperkalemia and junctional bradycardia. Beta-dg transition from metoprolol to low-dose carvedilol. No recurrent bradycardia on telemetry. Respiratory status improved. PE: VSS. hypertensive. Gen: NAD, AAO x3. Heart: Regular rhythm. Normal S1S2. Lungs: clear B/L. No rales, rhonchi, or wheeze. A/P: Transient junctional bradycardia in setting of ARF, hyperkalemia, and vo lume depletion. Spironolactone discontinued. Recommend avoidance in the future. Continue low-dose carvedilol (metoprolol discontinued). Continue aspirin and statin. Outpatient cardiology follow-up as scheduled. I spent a total of 15 minutes on the date of service in preparation, delivery, and documentation of the care provided to this patient, excluding any time spent in the performance of separately billed services. Subjective Patient seen and examined. Chart, medications, telemetry reviewed. No complaints. No chest pain, palpitations, or shortness of breath. Carvedilol initiated yesterday evening without difficulty. Telemetry monitoring reveals sinus rhythm with occasional PVCs, heart rates predominantly in the 60s to 80s. No significant bradycardia noted over the last 24 hours. Review of Systems Review of Systems: Complete review of systems is otherwise as stated above, negative, or noncontributory Physical Exam Physical Exam: General: A&Ox3. NAD. HENT: Normocephalic. Atraumatic. Eyes: PER. Conjunctiva pink, sclera clear. Neck: Left carotid bruit. No JVD. Heart: RRR, 80 bpm. Soft systolic ejection murmur. Lungs: Clear to auscultation. Abdomen: +BS. Soft. Nontender. No masses or organomegaly. Extremities: Minimal right greater than left lower extremity peripheral edema. Varicosities. No clubbing. No cyanosis. Limited neurological examination is without focal deficits. Pulses: radial=2/4, posterior tibial=1/4. Results & Data Vital Signs (Past 12 Hours) Vital Signs Temp Pulse Pulse Resp BP Pulse Ox O2 Del Method 02/20/24 11:16 36.6 C 70 18 126/76 96 Room Air 02/20/24 10:00 91 H 02/20/24 07:41 36.4 C L 96 H 18 155/63 H 96 Room Air 02/20/24 03:41 36.8 C 76 20 156/88 H 98 Room Air Laboratory Results CBC 02/20/24 Range/Units 07:06 WBC 8.62 (4.8-10.8) K/ul RBC 3.28 L (4.70-6.10) M/uL Hgb 10.4 L (14.0-18.0) g/dl Hct 31.5 L (42.0-52.0) % Plt Count 224 (130-400) K/uL Comprehensive Metabolic Panel 02/20/24 Range/Units 07:06 Sodium 138 (136-145) mmol/L Potassium 4.4 (3.5-5.1) mmol/L Chloride 105 (98-107) mmol/L Carbon Dioxide 26 (21-32) mmol/L BUN 31 H (6-23) mg/dl Creatinine 1.82 H (0.6-1.4) mg/dl Glucose 102 H (70-99(Fasting)) mg/dl Calcium 9.1 (8.6-10.3) mg/dl Intake and Output 02/19/24 02/20/24 02/20/24 22:59 06:59 14:59 Other: Weight 87.5 kg Weight Measurement Method Built in [facility]
== END 2024-02-20 15:53 | disposition home or self-care (01) | DRG 202 ==
LOC: ED 21:11 → EDINP 23:59 → SUATTDRO 23:59 → 2S 02-17 01:51
DX: N18.30 Chronic kidney disease, stage 3 unspecified; Z86.16 Personal history of COVID-19; Z88.2 Allergy status to sulfonamides; R25.1 Tremor, unspecified; N40.0 Benign prostatic hyperplasia without lower urinary tract symptoms; R00.1 Bradycardia, unspecified; Z87.891 Personal history of nicotine dependence; J20.9 Acute bronchitis, unspecified; R73.03 Prediabetes; I95.9 Hypotension, unspecified; Z88.0 Allergy status to penicillin; N17.9 Acute kidney failure, unspecified; Z79.82 Long term (current) use of aspirin; Z95.5 Presence of coronary angioplasty implant and graft; E86.1 Hypovolemia; I12.9 Hypertensive chronic kidney disease with stage 1 through stage 4 chronic kidney disease, or unspecified chronic kidney disease; E87.5 Hyperkalemia; E78.5 Hyperlipidemia, unspecified; Z88.8 Allergy status to other drugs, medicaments and biological substances

== ENCOUNTER 2024-08-19 02:31 | Observation (INO) ==
--- NOTE | 2024-08-19 02:44 | Emergency Department Note ---
Impression & Plan Chest pain, CAD (coronary artery disease) ED Provider Note NAME: TODD CLAY AGE: 79 SEX: M : 1945 ARRIVES VIA: Ambulance INFORMANT: Patient ED PROVIDER(S): Jese Villaseñor DO CHIEF COMPLAINT: chest pain HPI: Patient is a 79-year-old male who presents to the ER for chest pain. He notes he has been getting this for the past 3 to 4 days. He notes it mainly occurs with exertion. He got it once while carrying all his gun equipment and then another time while working. Does not proved with rest and gradually abates. He has gotten this with rest as the other day it woke him up from sleep as well. Denies any belly pain, nausea, vomiting, or diarrhea. No dysuria, urgency, or frequency. No cough or congestion. No other exacerbating or remitting factors. ADDITIONAL HISTORY OBTAINED: Per HPI Chronic Medical/Social Conditions Affecting Care: Per HPI PAST MEDICAL HISTORY:See Below PAST SURGICAL HISTORY:See Below FAMILY HISTORY:See Below SOCIAL HISTORY:See Below HOME MEDICATIONS:See Below ALLERGIES:See Below VITALS:See Below PHYSICAL EXAMINATION: GENERAL: Sitting up in bed, alert, well appearing, well nourished, no distress, non-toxic EYE EXAM: normal conjunctiva. PERRL and EOM's grossly intact. OROPHARYNX: mucous membranes are moist NECK: supple, no nuchal rigidity, no adenopathy, non-tender LUNGS: Clear to auscultation. Normal chest wall mechanics HEART: no murmurs, S1 normal and S2 normal ABDOMEN: abdomen soft, non-tender, normo-active bowel sounds, no masses, no rebound or guarding. UPPER EXTREMITIES: upper extremities are grossly normal. LOWER EXTREMITIES: No pitting edema. Calves are equal bilaterally NEURO EXAM: Normal sensorium, cranial nerves II-XII grossly intact, normal speech, no gross weakness of arms, no gross weakness of legs. MEDICAL DECISION MAKING: Patient is a 79-year-old male who presents ER for the above-stated complaint. IV was established and blood work was obtained. Labs show no significant leukocytosis or anemia. BMP was unremarkable with a creatinine of 1.5. LFTs bilirubin was unremarkable. Lipase was normal. Chest x-ray was clean. EKG was nondiagnostic. He was pain-free while in the ER. With his history of 3 previous stents and last cath being over 10 years ago in light of exertional chest pain and discussed case with the hospitalist for further evaluation management treatment. Consults/Care Managements Discussions: Per MDM Triage Nursing notes reviewed. Limited review of prior medical records performed Vital Signs: reviewed and remarkable for no significant abnormalities Differential diagnosis: Cardiac ischemia, aortic dissection, pulmonary embolism, pneumothorax, pneumonia, pericarditis, myocarditis, esophageal rupture, GERD, cholecystitis, pancreatitis, musculoskeletal, as well as other pathologies. ER treatment provided: See below Diagnostics interpreted by me include EKG and cardiac monitoring as listed below: -Cardiac Monitoring: An order was placed for continuous cardiac monitoring. The monitor shows a rate of 60 with sinus rhythm. -ECG: Sinus rhythm rate of 61 Normal axis No PVCs QTc 392 -Laboratory studies:Interpreted by me as stated above in MDM and shown below. Imaging studies: Xrays: As interpreted by me: Portable AP upright 1 view of the chest shows no focal M-Trate CTs show: none Procedures:none Critical Care: None Past Med/Surg History Problem List (Updated 08/19/24 @ 04:03 by Jese Villaseñor DO) CAD (coronary artery disease) (Acute) Chest pain (Acute) ASCVD (arteriosclerotic cardiovascular disease) Hyperkalemia Hyperkaluria JUDY (acute kidney injury) (Acute) Acute hyperkalemia (Acute) Hypotension (Acute) AV junctional bradycardia (Acute) Essential tremor History of COVID-19 (08/2021) Anemia Benign essential tremor PTSD (post-traumatic stress disorder) Prediabetes Tinea corporis History of coronary artery stent placement Distal LAD stent 2007, proximal LAD June 2009, stent to the RCA 2013 Vitamin D deficiency Schatzki's ring Hyperlipidemia Hiatal hernia Gout Depression with anxiety Chronic sinusitis Chronic kidney disease, stage III (moderate) CAD (coronary artery disease) BPH (benign prostatic hyperplasia) Allergic rhinitis Hypertension Arthritis Medical History History of COVID-19 (08/2021) Anemia Sundowning Metabolic encephalopathy Hypoxia Pneumonia due to COVID-19 virus Acute respiratory failure with hypoxia Prediabetes Tinea corporis History of colonic polyps Vitamin D deficiency Schatzki's ring Hyperlipidemia Hiatal hernia Gout Depression with anxiety Chronic sinusitis Chronic kidney disease, stage III (moderate) CAD (coronary artery disease) BPH (benign prostatic hyperplasia) Allergic rhinitis Hypertension Arthritis Surgical History History of eye surgery History of cholecystectomy History of coronary artery stent placement Distal LAD stent 2007, proximal LAD June 2009, stent to the RCA 2013 History of cataract surgery Family History Father Cardiac disorder Hypertension Prostate cancer Myocardial infarction, Onset Age: 65 Brother Cardiac disorder Diabetes Mother Diabetes Liver cancer Ovarian cancer, Onset Age: 59 Sister Diabetes Denies family history of Breast cancer Colorectal cancer Social History Smoking Status: Former smoker Age Quit Using Tobacco: 37; Second Hand Exposure: No; Do You Dip or Chew Tobacco: No; Hx Alcohol Use: No Hx Substance Use: No Preferred Language: Croatian Communication Ability: Effective Visual Impairment: Limited Hearing Ability: Hard of Hearing Paratransit Operator Required: No Beliefs That Will Affect Care: None marital status: Current Living Situation: Spouse and Family Current Living Situation Comment: Lives with at daughter's house current occupational status: retired Feels Safe at Home: Yes Childhood Exposure to Second-Hand Smoke: Yes Diet: regular Diet Comment: regular caffeine: No during the past year weight has: remained stable Dental Care, Regularly: Yes Physical Activity Frequency: 1-2 Times per Week Physical Activity Frequency Comment: walking Seatbelt Use: never Sunscreen Use: No Assistive Devices: Cane, Glasses, Walker and Wheelchair Allergies Allergies Allergy/AdvReac Type Severity Reaction Status Date / Time Corticosteroids Allergy Severe CAUSES Verified 02/16/24 22:48 (Glucocorticoids) BLINDNESS acetic acid Allergy Intermediate Rash - Verified 02/16/24 22:48 Apple Cider Vinegar adhesive Allergy Intermediate SKIN Verified 02/16/24 22:48 IRRITATION AND ULCER WITH EXTENDED USE Penicillins Allergy Intermediate RASH Verified 02/16/24 22:48 Sulfa (Sulfonamide Allergy Intermediate RASH Verified 02/16/24 22:48 Antibiotics) prednisone AdvReac Severe BLINDNESS Verified 02/16/24 22:48 tamsulosin [From Flomax] AdvReac Severe all over Verified 02/16/24 22:48 body pain Home Meds Home Medications Medication Instructions Recorded Confirmed aspirin 81 mg chewable tablet 81 mg PO DAILY 03/30/22 02/16/24 cyanocobalamin (vitamin B-12) 1,000 mcg PO DAILY 02/16/24 02/16/24 1,000 mcg tablet (Vitamin B-12) finasteride 5 mg tablet 5 mg PO DAILY 02/16/24 02/16/24 furosemide 20 mg tablet (Lasix) 20 mg PO QAM 02/16/24 02/16/24 rosuvastatin 40 mg tablet 20 mg PO DAILY 02/16/24 02/16/24 tamsulosin 0.4 mg capsule (Flomax) 0.4 mg PO HS 02/16/24 02/16/24 triamcinolone acetonide 0.1 % 1 applic topical DIRECTED PRN 02/16/24 02/16/24 topical cream Skin Irritation Previous Rx's Medication Instructions Recorded allopurinol 100 mg tablet 300 mg (3 x 100 mg) PO QAM #270 11/15/21 tabs amlodipine 5 mg tablet (Norvasc) 5 mg PO QAM #30 tabs 02/20/24 carvedilol 3.125 mg tablet 3.125 mg PO BIDM #30 tabs 02/20/24 losartan 25 mg tablet 25 mg PO QAM #30 tabs 02/20/24 Results & Data (ED) Vital Signs Vital Signs - 24 hr 08/19/24 02:40 08/19/24 02:42 08/19/24 02:48 Temperature 36.6 C Temperature Source Oral Pulse Rate 68 69 Pulse Rate from SpO2 Sensor Pulse Rhythm Regular Pulse Strength Normal Respiratory Rate 19 Respiratory Effort / Characteristics Non-Labored Spontaneous Respiratory Depth Normal Respiratory Pattern Regular Blood Pressure 186/110 H 154/101 H Blood Pressure Mean 135 135 Blood Pressure Position Sitting Pulse Oximetry 97 Oxygen Delivery Method Room Air Sepsis Recent Fever Within 48 Hours No Sepsis New/Unexplained Change in Mental Status N/A Sepsis Action Taken by Nursing No Action Required 08/19/24 02:48 08/19/24 02:48 08/19/24 02:51 Temperature Temperature Source Pulse Rate 66 Pulse Rate from SpO2 Sensor 66 Pulse Rhythm Pulse Strength Respiratory Rate 10 L Respiratory Effort / Characteristics Respiratory Depth Respiratory Pattern Blood Pressure 154/101 H 154/101 H Blood Pressure Mean 135 135 Blood Pressure Position Pulse Oximetry 97 Oxygen Delivery Method Sepsis Recent Fever Within 48 Hours Sepsis New/Unexplained Change in Mental Status Sepsis Action Taken by Nursing 08/19/24 03:15 08/19/24 03:24 08/19/24 03:30 Temperature Temperature Source Pulse Rate 60 65 60 Pulse Rate from SpO2 Sensor 59 L 63 Pulse Rhythm Pulse Strength Respiratory Rate 13 18 16 Respiratory Effort / Characteristics Respiratory Depth Respiratory Pattern Blood Pressure Blood Pressure Mean Blood Pressure Position Pulse Oximetry 96 97 Oxygen Delivery Method Sepsis Recent Fever Within 48 Hours Sepsis New/Unexplained Change in Mental Status Sepsis Action Taken by Nursing 08/19/24 03:42 08/19/24 03:51 Temperature Temperature Source Pulse Rate 72 65 Pulse Rate from SpO2 Sensor 68 65 Pulse Rhythm Pulse Strength Respiratory Rate 16 17 Respiratory Effort / Characteristics Respiratory Depth Respiratory Pattern Blood Pressure Blood Pressure Mean Blood Pressure Position Pulse Oximetry 98 95 Oxygen Delivery Method Sepsis Recent Fever Within 48 Hours Sepsis New/Unexplained Change in Mental Status Sepsis Action Taken by Nursing Laboratory Data 08/19/24 02:47 08/19/24 02:47 Lab Results 08/19/24 Range/Units 02:47 WBC 7.86 (4.8-10.8) K/ul RBC 3.92 L (4.70-6.10) M/uL Hgb 12.2 L (14.0-18.0) g/dl Hct 37.5 L (42.0-52.0) % MCV 95.7 (80.0-100.0) fL MCH 31.1 (25.0-34.0) pg MCHC 32.5 (32.0-36.0) g/dL RDW Std Deviation 52.7 H (36.4-46.3) fL RDW Coeff of Judith 14.8 H (11.5-14.5) % Plt Count 207 (130-400) K/uL MPV 10.5 (9.4-12.4) fL Immature Gran % (Auto) 0.4 % Neut % (Auto) 63.6 % Lymph % (Auto) 24.0 % [place] % (Auto) 7.1 % Eos % (Auto) 4.6 % Baso % (Auto) 0.3 % Neut # (Auto) 5.00 (1.40-6.50) K/uL Lymph # (Auto) 1.89 (1.20-3.40) K/uL [place] # (Auto) 0.56 (0.11-0.59) K/uL Eos # (Auto) 0.36 (0.00-0.50) K/uL Baso # (Auto) 0.02 (0.00-0.20) K/uL Immature Gran # (Auto) 0.03 (0.01-0.20) K/uL Sodium 138 (136-145) mmol/L Potassium 4.2 (3.5-5.1) mmol/L Chloride 107 (98-107) mmol/L Carbon Dioxide 23 (21-32) mmol/L Anion Gap 8 (3-11) BUN 36 H (6-23) mg/dl Creatinine 1.58 H (0.6-1.4) mg/dl Est Cr Clr Drug Dosing 44.8 ml/min eGFR 44.77 BUN/Creatinine Ratio 22.8 H (10-20) Glucose 102 H (70-99(Fasting)) mg/dl Calcium 8.9 (8.6-10.3) mg/dl Total Bilirubin 0.3 (0.2-1.0) mg/dl AST 20 (13-39) U/L ALT 24 (7-52) U/L Alkaline Phosphatase 96 (34-104) U/L Troponin I High Sens 5.2 (0-20) pg/ml Total Protein 7.1 (6.0-8.3) gm/dl Albumin 4.0 (3.4-5.0) gm/dl Globulin 3.1 (2.5-4.0) gm/dl Albumin/Globulin Ratio 1.3 (0.9-2) Lipase 93 H (11-82) U/L Discharge Plan Visit Data Chief Complaint: Cardiac Assessment Stated Complaint: INTERMITTENT CHEST PAIN X3 DAYS ED Provider: Jese Villaseñor Discharge Problem: Chest pain, CAD (coronary artery disease) Forms Stand Alone Forms: [facility] Prescriptions Prescriptions: No Action allopurinol 100 mg tablet 300 mg PO QAM Qty: 270 1RF aspirin 81 mg tablet,chewable 81 mg PO DAILY cyanocobalamin (vitamin B-12) [Vitamin B-12] 1,000 mcg Tablet 1,000 mcg PO DAILY triamcinolone acetonide 0.1 % Cream 1 applic TOPICAL DIRECTED PRN (Reason: Skin Irritation) tamsulosin [Flomax] 0.4 mg Capsule 0.4 mg PO HS furosemide [Lasix] 20 mg Tablet 20 mg PO QAM finasteride 5 mg Tablet 5 mg PO DAILY rosuvastatin 40 mg Tablet 20 mg PO DAILY amlodipine [Norvasc] 5 mg Tablet 5 mg PO QAM Qty: 30 0RF carvedilol 3.125 mg Tablet 3.125 mg PO BIDM Qty: 30 0RF losartan 25 mg Tablet 25 mg PO QAM Qty: 30 0RF Referrals Referrals: Александр Martínez MD [Primary Care Provider] - Discharge Problem: Chest pain Qualifiers: Chest pain type: unspecified Qualified Code(s): R07.9 - Chest pain, unspecified CAD (coronary artery disease) Qualifiers: Coronary Disease-Associated Artery/Lesion type: unspecified vessel or lesion type [place] vs. transplanted heart: unspecified whether [place] or transplanted heart Associated angina: unspecified whether angina present Qualified Code(s): I 25.10 - Atherosclerotic heart disease of [place] coronary artery without angina pectoris
[2024-08-19 03:18] LABS: Albumin Globulin Ratio 1.3 (0.9-2); BUN Creatinine Ratio 22.8 (10-20); Bilirubin,Total 0.3 mg/dl (0.2-1.0); Calcium 8.9 mg/dl (8.6-10.3); Creatinine Clr Calc Pharmacy 44.8 ml/min; Globulin 3.1 gm/dl (2.5-4.0); Potassium 4.2 mmol/L (3.5-5.1); Total Protein 7.1 gm/dl (6.0-8.3)
[2024-08-19 03:25] LABS: Troponin I High Sensitivity 5.2 pg/ml (0-20)
[2024-08-19 03:30] LABS: Basophils # (auto) 0.02 K/uL (0.00-0.20); Basophils % (auto) 0.3 %; Eosinophils # (auto) 0.36 K/uL (0.00-0.50); Eosinophils % (auto) 4.6 %; Hematocrit (blood only) 37.5 % (42.0-52.0); Hemoglobin 12.2 g/dl (14.0-18.0); Immature Granulocytes # (auto) 0.03 K/uL (0.01-0.20); Immature Granulocytes % (auto) 0.4 %; Lymphocytes # (auto) 1.89 K/uL (1.20-3.40); Mean Corpuscular Hemoglobin 31.1 pg (25.0-34.0); Mean Corpuscular Hgb Conc 32.5 g/dL (32.0-36.0); Mean Corpuscular Volume 95.7 fL (80.0-100.0); Mean Platelet Volume 10.5 fL (9.4-12.4); Monocytes # (auto) 0.56 K/uL (0.11-0.59); Monocytes % (auto) 7.1 %; Neutrophils % (auto) 63.6 %; Platelet Count 207 K/uL (130-400); RDW Coefficient of Variation 14.8 % (11.5-14.5); RDW Standard Deviation 52.7 fL (36.4-46.3); Red Blood Count 3.92 M/uL (4.70-6.10); White Blood Count 7.86 K/ul (4.8-10.8)
--- NOTE | 2024-08-19 04:11 | History & Physical Report ---
Date of Service August 19, 2024 Assessment & Plan (1) Chest pain: Plan: Somewhat atypical ? Secondary to uncontrolled hypertension Rule out ACS, hx CAD status post stent mild AR hyperlipidemia, on statin Rx recent traumatic head bleed as per patient CRI, creatinine at baseline chronic anemia, hemoglobin at baseline prediabetes, hemoglobin A1c off 6.3 from February 2024 chronic tremors, on zonisamide LLE swelling rule out DVT past tobacco abuse OBS PCU Titrate home BP meds Follow troponin TTE, Cardiology consult re: chest pain, uncontrolled hypertension N.p.o. anticipation of ischemic workup LLE venous Dopplers rule out DVT DVT prophylaxis. SCDs if no blood clot on venous Dopplers re: recent traumatic head bleed as per patient Full code Text document was generated using [employer] voice recognition software. It may contain grammatical or spelling errors. Kindly contact undersigned for clarification of any documentation item in question. History of Present Illness Chief Complaint: Chest pain Primary Care Provider: Александр Martínez MD History obtained from patient and records. Medical history significant for CAD status post stent, mild AR, hypertension, hyperlipidemia, recent traumatic head bleed as per patient, CRI (baseline creatinine 1.6-1.8), nephrotic range proteinuria as per records, chronic anemia (baseline hemoglobin 11-12), prediabetes, chronic tremors, gout, BPH, past tobacco abuse. Last [facility] confinement February 2024 for hypotension secondary to hypovolemia from complicated bronchitis. Patient metoprolol switched to Coreg on discharge by Cardiology. Recent confinement at the [facility] in [place] last June 2024 for 'traumatic head bleed' as per patient. No operative intervention. Patient noted intermittent left-sided chest pain symptoms the last few days. Worse on exertion. No cough, no SOB. 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 Blood pressure kind of elevated this week, SBP 180s. Denies unusual headache symptoms. Compliant with home medications. He denies dietary indiscretion or OTC NSAID intake. Left lower extremity a little more swollen than usual as per patient. SBP 180s upon arrival at the ER. Patient currently comfortable. Medical History as above Surgical History : Cholecystectomy, laser surgery of the eye, cataract surgeries Family History : DM, heart disease, stroke, liver cancer Personal/Social history : Past tobacco abuse, no EtOH intake, retired from [employer] Allergies Allergy/AdvReac Type Severity Reaction Status Date / Time Corticosteroids Allergy Severe CAUSES Verified 02/16/24 22:48 (Glucocorticoids) BLINDNESS acetic acid Allergy Intermediate Rash - Verified 02/16/24 22:48 Apple Cider Vinegar adhesive Allergy Intermediate SKIN Verified 02/16/24 22:48 IRRITATION AND ULCER WITH EXTENDED USE Penicillins Allergy Intermediate RASH Verified 02/16/24 22:48 Sulfa (Sulfonamide Allergy Intermediate RASH Verified 02/16/24 22:48 Antibiotics) prednisone AdvReac Severe BLINDNESS Verified 02/16/24 22:48 tamsulosin [From Flomax] AdvReac Severe all over Verified 02/16/24 22:48 body pain Home Medications Medication Instructions Recorded Confirmed Type allopurinol 100 mg tablet 300 mg (3 x 100 mg) PO QAM #270 11/15/21 08/19/24 Rx tabs aspirin 81 mg chewable tablet 81 mg PO DAILY 03/30/22 08/19/24 History cyanocobalamin (vitamin B-12) 1,000 mcg PO DAILY 02/16/24 08/19/24 History 1,000 mcg tablet (Vitamin B-12) finasteride 5 mg tablet 5 mg PO DAILY 02/16/24 08/19/24 History furosemide 20 mg tablet (Lasix) 20 mg PO QAM 02/16/24 08/19/24 History rosuvastatin 40 mg tablet 20 mg PO DAILY 02/16/24 08/19/24 History tamsulosin 0.4 mg capsule (Flomax) 0.4 mg PO HS 02/16/24 08/19/24 History triamcinolone acetonide 0.1 % 1 applic topical DIRECTED PRN 02/16/24 02/16/24 History topical cream Skin Irritation amlodipine 5 mg tablet (Norvasc) 5 mg PO QAM #30 tabs 02/20/24 08/19/24 Rx carvedilol 3.125 mg tablet 3.125 mg PO AMPM 08/19/24 08/19/24 History furosemide 40 mg PO 2XWK 08/19/24 08/19/24 History losartan 25 mg tablet 50 mg PO QAM 08/19/24 08/19/24 History zonisamide 50 mg PO DAILY 08/19/24 08/19/24 History Past Med/Surg History Problem List (Updated 08/19/24 @ 04:03 by Jese Villaseñor DO) CAD (coronary artery disease) (Acute) Chest pain (Acute) ASCVD (arteriosclerotic cardiovascular disease) Hyperkalemia Hyperkaluria JUDY (acute kidney injury) (Acute) Acute hyperkalemia (Acute) Hypotension (Acute) AV junctional bradycardia (Acute) Essential tremor History of COVID-19 (08/2021) Anemia Benign essential tremor PTSD (post-traumatic stress disorder) Prediabetes Tinea corporis History of coronary artery stent placement Distal LAD stent 2007, proximal LAD June 2009, stent to the RCA 2013 Vitamin D deficiency Schatzki's ring Hyperlipidemia Hiatal hernia Gout Depression with anxiety Chronic sinusitis Chronic kidney disease, stage III (moderate) CAD (coronary artery disease) BPH (benign prostatic hyperplasia) Allergic rhinitis Hypertension Arthritis Medical History History of COVID-19 (08/2021) Anemia Sundowning Metabolic encephalopathy Hypoxia Pneumonia due to COVID-19 virus Acute respiratory failure with hypoxia Prediabetes Tinea corporis History of colonic polyps Vitamin D deficiency Schatzki's ring Hyperlipidemia Hiatal hernia Gout Depression with anxiety Chronic sinusitis Chronic kidney disease, stage III (moderate) CAD (coronary artery disease) BPH (benign prostatic hyperplasia) Allergic rhinitis Hypertension Arthritis Surgical History History of eye surgery History of cholecystectomy History of coronary artery stent placement Distal LAD stent 2007, proximal LAD June 2009, stent to the RCA 2013 History of cataract surgery Family History Father Cardiac disorder Hypertension Prostate cancer Myocardial infarction, Onset Age: 65 Brother Cardiac disorder Diabetes Mother Diabetes Liver cancer Ovarian cancer, Onset Age: 59 Sister Diabetes Denies family history of Breast cancer Colorectal cancer Social History Smoking Status: Former smoker Age Quit Using Tobacco: 37; Second Hand Exposure: No; Do You Dip or Chew Tobacco: No; Hx Alcohol Use: No Hx Substance Use: No Preferred Language: Lao Communication Ability: Effective Visual Impairment: Limited Hearing Ability: Hard of Hearing School Director Required: No Beliefs That Will Affect Care: None marital status: Current Living Situation: Family Current Living Situation Comment: and daughter current occupational status: retired Feels Safe at Home: Yes Childhood Exposure to Second-Hand Smoke: Yes Diet: regular Diet Comment: regular caffeine: No during the past year weight has: remained stable Dental Care, Regularly: Yes Physical Activity Frequency: 1-2 Times per Week Physical Activity Frequency Comment: walking Seatbelt Use: never Sunscreen Use: No Assistive Devices: Cane and Glasses Review of Systems Review of Systems: As per HPI, all other systems reviewed and negative Physical Exam Physical Exam: GENERAL: Comfortable, pleasant, no respiratory distress, slightly hard of hearing, SKIN: Pallor, warm HEENT: Pale palpebral conjunctivae, no ptosis, dry buccal mucosa NECK : Supple, no tenderness CHEST : Decreased breath sounds, no tenderness HEART : RRR, no obvious murmurs ABDOMEN: Some distention, nontender EXTREMITIES : Minimal LLE swelling/tenderness, no other conspicuous deformities noted NEUROLOGIC : Coherent, no facial asymmetry, slightly hard of hearing, gait and stance not assessed Results & Data Results & Data Vital Signs (Past 12 Hours) Vital Signs Temp Pulse Resp BP Pulse Ox O2 Del Method 08/19/24 03:51 65 17 95 08/19/24 03:42 72 16 98 08/19/24 03:30 60 16 97 08/19/24 03:24 65 18 08/19/24 03:15 60 13 96 08/19/24 02:51 66 10 L 97 08/19/24 02:48 154/101 H 08/19/24 02:48 154/101 H 08/19/24 02:48 154/101 H 08/19/24 02:42 36.6 C 69 19 186/110 H 97 Room Air 08/19/24 02:40 68 Laboratory Results Laboratory Results WBC 7.86 K/ul (4.8-10.8) 08/19/24 02:47 RBC 3.92 M/uL (4.70-6.10) L 08/19/24 02:47 Hgb 12.2 g/dl (14.0-18.0) L 08/19/24 02:47 Hct 37.5 % (42.0-52.0) L 08/19/24 02:47 MCV 95.7 fL (80.0-100.0) 08/19/24 02:47 MCH 31.1 pg (25.0-34.0) 08/19/24 02:47 MCHC 32.5 g/dL (32.0-36.0) 08/19/24 02:47 RDW Std Deviation 52.7 fL (36.4-46.3) H 08/19/24 02:47 RDW Coeff of Judith 14.8 % (11.5-14.5) H 08/19/24 02:47 Plt Count 207 K/uL (130-400) 08/19/24 02:47 MPV 10.5 fL (9.4-12.4) 08/19/24 02:47 Immature Gran % (Auto) 0.4 % 08/19/24 02:47 Neut % (Auto) 63.6 % 08/19/24 02:47 Lymph % (Auto) 24.0 % 08/19/24 02:47 [place] % (Auto) 7.1 % 08/19/24 02:47 Eos % (Auto) 4.6 % 08/19/24 02:47 Baso % (Auto) 0.3 % 08/19/24 02:47 Neut # (Auto) 5.00 K/uL (1.40-6.50) 08/19/24 02:47 Lymph # (Auto) 1.89 K/uL (1.20-3.40) 08/19/24 02:47 [place] # (Auto) 0.56 K/uL (0.11-0.59) 08/19/24 02:47 Eos # (Auto) 0.36 K/uL (0.00-0.50) 08/19/24 02:47 Baso # (Auto) 0.02 K/uL (0.00-0.20) 08/19/24 02:47 Immature Gran # (Auto) 0.03 K/uL (0.01-0.20) 08/19/24 02:47 Sodium 138 mmol/L (136-145) 08/19/24 02:47 Potassium 4.2 mmol/L (3.5-5.1) 08/19/24 02:47 Chloride 107 mmol/L (98-107) 08/19/24 02:47 Carbon Dioxide 23 mmol/L (21-32) 08/19/24 02:47 Anion Gap 8 (3-11) 08/19/24 02:47 BUN 36 mg/dl (6-23) H 08/19/24 02:47 Creatinine 1.58 mg/dl (0.6-1.4) H 08/19/24 02:47 Est Cr Clr Drug Dosing 44.8 ml/min 08/19/24 02:47 eGFR 44.77 08/19/24 02:47 BUN/Creatinine Ratio 22.8 (10-20) H 08/19/24 02:47 Glucose 102 mg/dl (70-99(Fasting)) H 08/19/24 02:47 Calcium 8.9 mg/dl (8.6-10.3) 08/19/24 02:47 Total Bilirubin 0.3 mg/dl (0.2-1.0) 08/19/24 02:47 AST 20 U/L (13-39) 08/19/24 02:47 ALT 24 U/L (7-52) 08/19/24 02:47 Alkaline Phosphatase 96 U/L (34-104) 08/19/24 02:47 Troponin I High Sens 5.2 pg/ml (0-20) 08/19/24 02:47 Total Protein 7.1 gm/dl (6.0-8.3) 08/19/24 02:47 Albumin 4.0 gm/dl (3.4-5.0) 08/19/24 02:47 Globulin 3.1 gm/dl (2.5-4.0) 08/19/24 02:47 Albumin/Globulin Ratio 1.3 (0.9-2) 08/19/24 02:47 Lipase 93 U/L (11-82) H 08/19/24 02:47 Diagnostic Findings Chest x-ray as per my interpretation atelectasis, cardiomegaly: EKG as per my interpretation : Rate 60, NSR, normal axis, no ischemia (1) Chest pain Chest pain type: unspecified Qualified Code(s): R07.9 - Chest pain, unspecified
[2024-08-19] MEDS ORDERED: PROMETHAZINE 6.25 MG/50.25 ML BAG IV PRN (04:13)
[2024-08-19] MEDS ORDERED: HYDROmorphone INJ 0.5 MG/0.5 ML SYR IV PRN (04:13)
[2024-08-19] MEDS ORDERED: LORazepam 0.5 MG TAB PO PRN (04:13)
[2024-08-19] MEDS ORDERED: oxyCODONE HCL IR 5 MG TAB (IMMEDIATE RELEASE) PO PRN (04:13)
[2024-08-19] MEDS ORDERED: NITROGLYCERIN SL 0.4 MG/TAB TAB SL PRN (04:13)
[2024-08-19] MEDS: carvediloL 3.125 MG TAB PO ONE (04:20)
[2024-08-19 04:31] LABS: Partial Thromboplastin Ratio 1.2; Partial Thromboplastin Time 32 Seconds (21-31)
[2024-08-19] MEDS: SODIUM CHLORIDE 0.9% 500 ML IV ONE (04:57)
--- NOTE | 2024-08-19 05:59 | Ultrasound Report ---
Exam(s): US VENOUS LEFT LOWER EXTREMITY EXAM: US Duplex Left Lower Extremity Veins CLINICAL HISTORY: Reason for exam: leg swelling. TECHNIQUE: Real-time duplex ultrasound scan of the left lower extremity veins integrating B-mode two-dimensional vascular structure, Doppler spectral analysis, color flow Doppler imaging and compression. COMPARISON: No relevant prior studies available. FINDINGS: Deep veins: Unremarkable. No DVT in the visualized common femoral, femoral, proximal deep femoral or popliteal veins. The veins demonstrate normal color flow, are normally compressible, with normal phasic flow and/or augmentation response. Superficial veins: Unremarkable. No thrombus in the visualized great saphenous vein. Soft tissues: No acute findings. No popliteal cyst. IMPRESSION: Normal left lower extremity duplex venous ultrasound. Electronically signed by: Dylan Lee MD 08/19/24 05:58 AM
--- NOTE | 2024-08-19 06:48 | XRay Report ---
XR chest 1V portable HISTORY: 79 years-old Male Chest pain, nonspecific COMPARISON: 02/18/2024 TECHNIQUE: AP view of the chest FINDINGS: Cardiac silhouette is upper limits of normal in size. Coronary arterial stents. Lungs are clear. No p neumothorax or pleural effusion. The bones appear grossly intact. Midthoracic dextroscoliosis. IMPRESSION: No acute process of the chest. ACT 112: Negative or not required by law. The above report was generated using voice recognition software. It may contain grammatical, syntax o r spelling errors. Electronically signed by: Maciej Fields M.D. 08/19/2024 6:47 AM
--- NOTE | 2024-08-19 08:31 | Cardiology Consultation ---
Date of Consultation August 19, 2024 Assessment & Plan (1) Chest pain: * High-sensitivity troponin negative x 3 * EKG within normal limits * Asymptomatic during my assessment * Continue aspirin, carvedilol, amlodipine, rosuvastatin * Patient does not think he would be able to ambulate sufficiently to allow for an exercise be stress test. Given history of hypertension that is suboptimally controlled and history of traumatic intracranial hemorrhage that occurred 2 months ago, and to get his best to avoid increasing his blood pressure with dobutamine and with therefore recommend a Lexiscan pharmacologic nuclear stress test. Will need to arrange this accordingly when the tracer is available and the test may not be until 08/20/2024. Will keep n.p.o. until timing of test determined. (2) Hypertension: * Continue prior to hospital dosing of carvedilol 3.125 mg twice daily, amlo dipine 5 mg daily, Flomax 0.4 mg at bedtime. Will reassess blood pressure after he receives his morning medications (3) Hyperlipidemia: * Continue rosuvastatin 20 mg daily History of Present Illness Attending Physician: Vidal Rowe MD History of Present Illness Mr Soliman is a 79 year old male seen in cardiology consultation per the request of Dr Brito for the evaluation of chest pain. Patient states that he has been having episodes of a sharp left-sided chest discomfort, occurring for the last 3 to 4 days lasting 4 to 5 seconds per episode. The worst episode had awaken him from sleep at 3 AM. Symptoms not necessarily associated with aerobic exertion. At present, patient describes being free of chest discomfort. Patient is followed by cardiology with the [facility] in [place], [place]. He had been seen by our group while hospitalized here in February, for acute kidney injury, hyperkalemia, and transient junctional bradycardia in the setting of spironolactone treatment. Spironolactone had been discontinued and his kidney function had improved. Since admission the patient states he had a mechanical fall about 2 months ago. He was fishing and tripped over some fishing line and per his description was found to have an intracranial hemorrhage and was hospitalized for several days at the [facility] in [place]. He states he has been back on aspirin in the interim. Cardiac Problem List: ASCVD. [facility] 10/01/[address] [facility] by Dr. Mckeon, status post angioplasty and stenting of the LAD and angioplasty of the diagonal branch. Repeat [facility] 06/27/2009 demonstrating 30% stenosis of the LM, proximal stenosis of the LAD, distal patent stent to the LAD, diagonal branch was patent. Septal provider relations coordinator had a 95% stenosis. LCx marginal had 20% stenosis. RCA had distal 20% stenosis. Status post PCI to the proximal portion of the LAD on 06/27/[address] Mckeon. He believes he had another stent, unknown vessel, the took place 10 to 12 years ago at [facility], details unknown Negative nuclear stress 07/2022 Hypertension Hyperlipidemia Aortic insufficiency Family History: Father with an MS at 68. Mother with liver cancer at 62. Sister had an MS in her 40s. One brother drowned at 21. Social History: Reformed smoker, quitting some 50 years ago. No significant alcohol. No illegal drug use. Lives in [place]. 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 Allergies Allergy/AdvReac Type Severity Reaction Status Date / Time Corticosteroids Allergy Severe CAUSES Verified 02/16/24 22:48 (Glucocorticoids) BLINDNESS acetic acid Allergy Intermediate Rash - Verified 02/16/24 22:48 Apple Cider Vinegar adhesive Allergy Intermediate SKIN Verified 02/16/24 22:48 IRRITATION AND ULCER WITH EXTENDED USE Penicillins Allergy Intermediate RASH Verified 02/16/24 22:48 Sulfa (Sulfonamide Allergy Intermediate RASH Verified 02/16/24 22:48 Antibiotics) prednisone AdvReac Severe BLINDNESS Verified 02/16/24 22:48 tamsulosin [From Flomax] AdvReac Severe all over Verified 02/16/24 22:48 body pain Home Medications Medication Instructions Recorded Confirmed Type allopurinol 100 mg tablet 300 mg (3 x 100 mg) PO QA #270 11/15/21 08/19/24 Rx tabs aspirin 81 mg chewable tablet 81 mg PO DAILY 03/30/22 08/19/24 History cyanocobalamin (vitamin B-12) 1,000 mcg PO DAILY 02/16/24 08/19/24 History 1,000 mcg tablet (Vitamin B-12) finasteride 5 mg tablet 5 mg PO DAILY 02/16/24 08/19/24 History furosemide 20 mg tablet (Lasix) 20 mg PO QAM 02/16/24 08/19/24 History rosuvastatin 40 mg tablet 20 mg PO DAILY 02/16/24 08/19/24 History tamsulosin 0.4 mg capsule (Flomax) 0.4 mg PO HS 02/16/24 08/19/24 History triamcinolone acetonide 0.1 % 1 applic topical DIRECTED PRN 02/16/24 02/16/24 History topical cream Skin Irritation amlodipine 5 mg tablet (Norvasc) 5 mg PO QAM #30 tabs 02/20/24 08/19/24 Rx carvedilol 3.125 mg tablet 3.125 mg PO AMPM 08/19/24 08/19/24 History furosemide 40 mg PO 2XWK 08/19/24 08/19/24 History losartan 25 mg tablet 50 mg PO QAM 08/19/24 08/19/24 History zonisamide 50 mg PO DAILY 08/19/24 08/19/24 History Patient History Medical History History of COVID-19 (08/2021) Anemia Sundowning Metabolic encephalopathy Hypoxia Pneumonia due to COVID-19 virus Acute respiratory failure with hypoxia Prediabetes Tinea corporis History of colonic polyps Vitamin D deficiency Schatzki's ring Hyperlipidemia Hiatal hernia Gout Depression with anxiety Chronic sinusitis Chronic kidney disease, stage III (moderate) CAD (coronary artery disease) BPH (benign prostatic hyperplasia) Allergic rhinitis Hypertension Arthritis Surgical History History of eye surgery History of cholecystectomy History of coronary artery stent placement Distal LAD stent 2007, proximal LAD June 2009, stent to the RCA 2013 History of cataract surgery Family History Father Cardiac disorder Hypertension Prostate cancer Myocardial infarction, Onset Age: 65 Brother Cardiac disorder Diabetes Mother Diabetes Liver cancer Ovarian cancer, Onset Age: 59 Sister Diabetes Denies family history of Breast cancer Colorectal cancer Social History Smoking Status: Former smoker Age Quit Using Tobacco: 37; Smoking End Date: 40 years ago; Second Hand Exposure: No; Do You Dip or Chew Tobacco: No; Hx Alcohol Use: No Hx Substance Use: No Preferred Language: Belarusian Communication Ability: Effective Visual Impairment: Limited Hearing Ability: Hard of Hearing 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: No Beliefs That Will Affect Care: None marital status: Current Living Situation: Family Current Living Situation Comment: and daughter current occupational status: retired Other Information That Helps Us Care for You: No Feels Safe at Home: Yes Safety Concerns: Feels Safe At This Time Childhood Exposure to Second-Hand Smoke: Yes Diet: regular Diet Comment: regular caffeine: No during the past year weight has: remained stable Dental Care, Regularly: Yes Physical Activity Frequency: 1-2 Times per Week Physical Activity Frequency Comment: walking Seatbelt Use: never Sunscreen Use: No Assistive Devices: Cane and Glasses Review of Systems Review of Systems: All systems reviewed & are unremarkable except as noted in HPI & below Physical Exam Physical Exam: General: no acute distress and stated age Eyes: conjunctiva are pink and non-injected, sclera clear Neck: normal jugular venous pulse, no hepatojugular reflux Chest: normal shape and normal respiratory effort Lungs: clear to auscultation and percussion Cardiac Exam: - regular heart sounds, no murmurs, rubs, or gallops, no jugular venous distention Abdomen: abdomen soft, non-tender, no abnormal masses and no hepatosplenomegaly Musculoskeletal: no gait disturbance, no weakness Extremities: no edema and no cyanosis Neuro:awake, conversant, follows commands, no focal motor deficits Psych: appropriate affect and insight. Results & Data Vital Signs (Past 12 Hours) Vital Signs Temp Pulse Pulse Resp BP BP Pulse Ox 08/19/24 07:22 36.5 C 60 18 163/85 H 98 08/19/24 06:10 36.4 C L 58 L 16 158/87 H 96 08/19/24 05:00 142/81 H 08/19/24 05:00 142/81 H 08/19/24 04:54 149/98 H 08/19/24 04:54 149/98 H 08/19/24 04:27 63 13 96 08/19/24 04:24 59 L 16 97 08/19/24 04:16 149/80 H 08/19/24 04:15 62 19 96 08/19/24 04:03 65 22 160/106 H 92 08/19/24 03:56 136/91 08/19/24 03:51 65 17 95 08/19/24 03:42 72 16 98 08/19/24 03:30 60 16 97 08/19/24 03:24 65 18 10/09/24 03:15 60 13 96 08/19/24 02:51 66 10 L 97 08/19/24 02:48 154/101 H 08/19/24 02:48 154/101 H 08/19/24 02:48 154/101 H 08/19/24 02:42 36.6 C 69 19 186/110 H 97 08/19/24 02:40 68 O2 Del Method 08/19/24 07:22 Room Air 08/19/24 06:10 Room Air 08/19/24 05:00 08/19/24 05:00 08/19/24 04:54 08/19/24 04:54 08/19/24 04:27 08/19/24 04:24 08/19/24 04:16 08/19/24 04:15 08/19/24 04:03 08/19/24 03:56 08/19/24 03:51 08/19/24 03:42 08/19/24 03:30 08/19/24 03:24 08/19/24 03:15 08/19/24 02:51 08/19/24 02:48 08/19/24 02:48 08/19/24 02:48 08/19/24 02:42 Room Air 08/19/24 02:40 Laboratory Results Cardiac Enzymes 08/19/24 08/19/24 Range/Units 02:47 06:13 AST 20 (13-39) U/L Troponin I High Sens 5.2 5.1 (0-20) pg/ml Coagulation 08/19/24 Range/Units 02:47 APTT 32 H (21-31) Seconds CBC 08/19/24 Range/Units 02:47 WBC 7.86 (4.8-10.8) K/ul RBC 3.92 L (4.70-6.10) M/uL Hgb 12.2 L (14.0-18.0) g/dl Hct 37.5 L (42.0-52.0) % Plt Count 207 (130-400) K/uL Neut # (Auto) 5.00 (1.40-6.50) K/uL Lymph # (Auto) 1.89 (1.20-3.40) K/uL Cedar # (Auto) 0.56 (0.11-0.59) K/uL Eos # (Auto) 0.36 (0.00-0.50) K/uL Baso # (Auto) 0.02 (0.00-0.20) K/uL Comprehensive Metabolic Panel 08/19/24 Range/Units 02:47 Sodium 138 (136-145) mmol/L Potassium 4.2 (3.5-5.1) mmol/L Chloride 107 (98-107) mmol/L Carbon Dioxide 23 (21-32) mmol/L BUN 36 H (6-23) mg/dl Creatinine 1.58 H (0.6-1.4) mg/dl Glucose 102 H (70-99(Fasting)) mg/dl Calcium 8.9 (8.6-10.3) mg/dl AST 20 (13-39) U/L ALT 24 (7-52) U/L Alkaline Phosphatase 96 (34-104) U/L Total Protein 7.1 (6.0-8.3) gm/dl Albumin 4.0 (3.4-5.0) gm/dl Intake and Output 08/18/24 08/19/24 08/19/24 22:59 06:59 14:59 Other: Weight 87.6 kg Weight Measurement Method Built in [facility] Diagnostic Findings EKG performed 08/19/2020 4-30 5 AM and interpreted independently revealed sinus rhythm at 61 bpm, normal EKG Telemetry reveals sinus bradycardia and sinus rhythm in the 50s to 60s at rest in bed Venous duplex is negative for DVT Summary of radiology report of chest x-ray, no acute cardiopulmonary process (1) Chest pain Chest pain type: unspecified Qualified Code(s): R07.9 - Chest pain, unspecified
[2024-08-19] MEDS: allopurinoL 300 MG TAB PO SCH (09:32)
[2024-08-19] MEDS: CYANOCOBALAMIN (B-12) 500 MCG TABLET PO SCH (09:33)
[2024-08-19] MEDS: amLODIPine BESYLATE 5 MG TAB PO SCH (09:33)
[2024-08-19] MEDS: ASPIRIN 81 MG CHEW PO SCH (09:33)
[2024-08-19] MEDS: ROSUVASTATIN CALCIUM 20 MG TAB PO SCH (09:33)
[2024-08-19] MEDS: ZONISAMIDE 25 MG CAPSULE PO SCH (09:33)
[2024-08-19] MEDS: FINASTERIDE 5 MG TAB PO SCH (09:34)
--- OUTSIDE RECORDS SUMMARY | 2024-08-19 10:47 | External Medical Summary | Summary of Care ---
Author Name Unknown Organization [facility] Address [address] [place] [address] Phone [phone] Care Team Providers Care [employer] Media Specialist Name Role Phone Александр Martínez MD Primary Care Provide r Reason for Visit * Reason Comments NEW PATIENT Referral for persist ent rash to chest, head for the past few month. Pt states rah resolved with abx use, returned after pt stopped using. Pt has been using Triamcinolone on rash with good results thus far. * Evaluate & Treat - Unlimited Visits (Within 30 days (routine)) - Authorized Specialty Diagnoses / Procedures Referred By Ellen pal Referred To Contact Dermatology Diagnoses Prurigo nodularis Rash Coby Adams PA-Phyllis [address] [place] [address] Dermatology [facility] [address] [place] [address] Referral ID Status Reason Start Date Expiration Date Visits Requested Visits Authorized [id number] Authorized Specialty Services Required 07/20/2024 01/17/[phone] Encounter Details Date Type Department Care Team (Late st Contact Info) Description 07/21/2024 10:00 AM EDT Office Visit Dermatology [facility] [place] [address] [facility] [place] [address] Kameron Lynch MD [address] [facility] [place] [address] Folliculitis* Allergies Active Allergy Reactions Criticality Noted Date Comments Apple Cider Vinegar 01/30/2017 Penicillins 01/30/2017 Prednisolone 01/30/2017 Sulfa Antibiotics 04/03/2005 rash documented as of this encounter (statuses as of 07/21/2024) Medications Medication Sig Dispensed Refills Start Date End Date Status Vitamin D 25 MCG (1000 UT) Oral Tablet Take 1 Tablet by mouth in the morning. Active Aspirin EC 81 MG Oral Tablet Delayed Release Take by mouth 1 Tablet in the morning. 90 Tablet 3 03/08/2022 Active Tamsulosin HCl 0.4 MG Oral Capsule (Flomax) Take 1 Capsule by mouth in the morning. Active Rosuvastatin Calcium 20 MG Oral Tablet (Crestor)Indications :HTN, goal below 140/90 Take 1 Tablet by mouth in the morning. 90 Tablet 3 03/18/2023 Active Carvedilol 3.125 MG Oral Tablet (Coreg)Indications:H ypertensive kidney disease with stage 3b chronic kidney disease (HCC),Chronic kidney disease, stage 3b (HCC),Coronary artery disease involving [place] coronary artery of [place] heart without angina pectoris,HTN, goal below 140/90 Take 1 Tablet by mouth in the morning and 1 Tablet before bedtime. with food. 180 Tablet 1 02/27/2024 Active Vitamin E 100 UNIT Oral Tablet Take 1 Tablet by mouth in the morning. Active Fluticasone Propionate 50 MCG/ACT Nasal Suspension (Flonase) INSTILL 2 SPRAYS IN EACH NOSTRIL EVERY DAY FOR NASAL POLYPS 12/05/2023 Active Ketoconazole 2 % External Shampoo (Nizoral) SHAMPOO SMALL AMOUNT SKIN TWICE A DAY FOR RASH ON FEET AND LEGS * LEAVE ON UP TO FEW MINUTES BEFORE WASHING OFF 12/17/2023 Active Zonisamide 25 MG Oral Capsule (Zonegran) 1 Capsule. 02/24/2024 Active B-12 1000 MCG Oral Capsule Take 1 Capsule by mouth in the morning. 12/17/2023 Active Furosemide 20 MG Oral Tablet (Lasix) Take 2 tabs in the morning on Saturday, Saturday, Saturday and take 1 tab other days. May take up to 2 extra tablets weekly due to swelling. 150 Tablet 3 03/24/2024 Active Losartan Potassium 25 MG Oral Tablet (Cozaar)Indications: Chronic kidney disease, stage 3b (HCC),Hypertensive kidney disease with stage 3b chronic kidney disease (HCC),Coronary artery disease involving [place] coronary artery of [place] heart without angina pectoris Take 2 Tablets by mouth in the morning. 90 Tablet 1 03/24/2024 Active Allopurinol 100 MG Oral Tablet (Zyloprim) Take 3 Tablets by mouth in the morning. 90 Tablet 11 03/31/2024 Active Finasteride 5 MG Oral Tablet (Proscar)Indications :BPH with obstruction/lower urinary tract symptoms Take 1 Tablet by mouth in the morning. In the morning.. 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 HTN, goal below 140/90 07/04/2006 Overview: 170/100 ADVANCE DIRECTIVE INFORMATION 11/29/2005 Overview: No, Advance Directive brochure offered , patient declined. Rosacea 11/29/2005 Allergic rhinitis 08/05/2003 documented as of this encounter (statuses as of 07/21/2024) Resolved Problems Problem Noted Date Diagnosed Date [...] as of this encounter (statuses as of 07/21/2024) Immunizations Name Administration Dates Next Due Seasonal Influenza, Trivalen t, (IIV3), with Preserv, (Fluzone) 11/14/2006 TD - Tetanus/Diptheria (ADULT) 11/07/2011 TDAP (age 10 and older)(Boostrix) 03/23/2024 documented as of this encounter Social History Tobacco Use Types Packs/Day Years Used Date Smoking Tobacco: Former Passive Smoke Exposure: Past Smokeless Tobacco: Never Alcohol Use Standard Drinks/Week Comments No 0 (1 standard drink = 0.6 oz pur e alcohol) PHQ-2 Answer Date Recorded PHQ Adult Total Score 0 04/10/2024 Hunger Vital Sign Answer Date Recorded Within the past 12 months, y ou worried that your food would run out before you got the money to buy more. Never true 04/10/20 24 Within the past 12 months, t he food you bought just didn't last and you didn't have money to get more. Never true 04/10/2024 Childcare Answer Date Recorded Do you feel overwhelmed with taking care of a child, family member or friend? No 04/10/2024 Does your family need help f inding childcare? (Household - for ages 0-17 years) Not on file 04/10/2024 Clothing Answer Date Recorded Have you been unable to get clothing when it was really needed? No 04/10/2024 Is your family able to get c lothes or diapers when needed? (Household - for ages 0-17 years) Not on file 04/10/2024 Personal Safety Answer Date Recorded Do you feel unsafe or have concerns for your saf ety? No 04/10/2024 Do you have concerns for you r family's safety? (Household - for ages 0-17 years) Not on file 04/10/2024 Utilities Answer Date Recorded Do you have trouble paying y our heating, water, or electric bill? No 04/10/2024 Is your family able to pay t he heat, water, or electric bill? (Household - for ages 0-17 years) Not on file 04/10/2024 Does your family have access to good internet? (Household - for ages 0-17 years) Not on file 04/10/2024 Employment Status Answer Date Recorded Are you unemployed or without regular income? No 04/10/2024 Does the household have a re lar source of income? (Household - for ages 0-17 years) Not on file 04/10/2024 Social Connections Answer Date Recorded How often do you feel lonely or isolated from th ose around you? Rarely 04/10/2024 Financial Resource Strain Answer Date R ecorded Do you have any trouble payi ng for your medications, or do you think you might in the future? No 04/10/2024 Does your family have troubl e paying for medicine? (Household - for ages 0-17 years) Not on file 04/10/2024 Transportation Needs Answer Date Record ed READ ONLY Do you have troubl e getting a ride to medical visits or work? Never True 04/10/2024 Does your family have a hard time getting a ride to doctors visits? (Household - for ages 0-17 years) Not on file 04/10/2024 Has lack of transportation k ept you from medical appointments, meetings, work, or from getting things needed for daily living? Check all that apply. (Adult - for ages 18 years and over) Not on file 04/10/2024 Do you (or your family) have trouble finding or paying for a ride (transportation)? (Household - for ages 0-17 years) Not on file 04/10/2024 Housing Stability Answer Date Recorded Do you currently live in a s helter or have no steady place to sleep at night? No 04/10/2024 READ ONLY Do you think you a re at risk of becoming homeless? No 04/10/2024 Does your family worry about paying for your home or becoming homeless? (Household - for ages 0-17 years) Not on file 0 04/10/2024 Are you homeless or worried that you might be in the future? (Adult - for ages 18 years and over) Not on file Are you (or your family) cedrick eless or worried that you might be in the future? (Household - for ages 0-17 years) Not on file Food Insecurity Answer Date Recorded Do you need food for this week? No 04/10/2024 Are you able to get enough f ood for your family? (Household - for ages 0-17 years) Not on file 04/10/2024 Does your family need food t his week? (Household - for ages 0-17 years) Not on file 04/10/2024 Do you always have enough fo od for your family? (Household - for ages 0-17 years) Not on file 04/10/2024 Sex and Gender Information Value Date Recorded Sex Assigned at Not on file Gender Identity Not on file Sexual Orientation Not on file Job Start Date Occupation Industry Not on file Not on file Not on file documented as of this encounter Progress Notes * Kameron Lynch MD - 07/21/2024 10:07 AM EDT SUBJECTIVE: Chief Complaint: Chief Complaint Patient presents with NEW PATIENT Referral for persistent rash to chest, head for the past few month. Pt states rah resolved with abxuse, returned after pt stopped using. Pt has been using Triamcinolone on rash with good results thus far. HPI: Freddie Soliman is a 79 year old male seen for rash for several months. Chest, back, shoulders.Painful, not itchy. Using TMC with some improvement Started after an antibiotic (keflex), given for a burn. But has been off antibiotic and still has rash Has had many different rashes over life, tells me ever since [place] Tells me had a biopsy done at the [place] years ago which showed a "dermatitis". 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 Pt states rah resolved with abxuse, returned after pt stopped using. Pt has been using Triamcinolone on rash with good results thus far. documented in this encounter Plan of Treatment Upcoming Encounters Date Type Department Care Team (Late st Contact Info) Description 09/10/2024 10:00 AM EDT Office Visit Cardiology [address] [place] [address] Devante Alcala PA-C [address] [place] [address] 09/18/2024 3:00 PM EST Office Visit Nephrology [address] [place] [address] ZemaShirley olivera PA-C [address] [place] [address] Pending Results Name Type Priority Associated Diagnoses Date /Time CULTURE, WOUND, SUPERFICIAL, AEROBIC Lab Routine Folliculitis 07/21/2024 10:38 AM EDT Health Maintenance Due Date Last Done Comments Pneumococcal Vaccine: 65+ Years (1 of 2 - PCV) 1951 Zoster Vaccines (1 of 2) 1997 Adult Wellness Visit 2013 COVID-19 Vaccine (1 - 2022-24 season) 2024 Influenza Vaccine (FLU shot) (#1) 2024 11/19/2019, 11/14/2006, 09/27/2005 GFR 09/23/2024 03/23/2024, 02/09, 02/16/2024, Additional history exists HbA1c 02/15/2025 02/16/2024, 10/12, 08/02/2022 Albumin/Creatinine Ratio 03/23/2025 024, 05/03/2023, 07/19/2022 CKD HGB USE SMARTSET 35888 03/23/202503/23, 02/20/2024, 01/11/2023, Additional history exists CKD PHOS USE SMARTSET 21038 03/23/202503/11, 02/20/2024, 01/11/2023, Additional history exists Depression Screening 04/10/2025 04/10/2024 DTap/Tdap Vaccines (2 - Td or Tdap) 03/23/2034 03/23/2024, 11/07/2011 Colonoscopy Discontinued 01/01/2018 Colorectal Cancer Screening Discontinued Cologuard Discontinued Fecal Occult Blood Test Discontinued HPV (Gardasil) Vaccine Aged Out No lo nger eligible based on patient's age to complete this topic Hepatitis B Vaccine Aged Out No longe r eligible based on patient's age to complete this topic MENINGOCOCCAL (MENACTRA/MENVEO) Aged Out No longer eligible based on patient's age to complete this topic Sigmoidoscopy Discontinued documented as of this encounter Medical Devices Not on filedocumented as of this encounter Visit Diagnoses Diagnosis Folliculitis- Primary Other specified disease of hair and hair follicles documented in this encounter Advance Directives Healthcare Agents on File Name Relationship Healthcare Agent Relationshi p Communication [place] [facility] Health Care Repr esentative (appointed verbally by patient or by statute hierarchy) Care Teams [employer] Media Specialist Relationship Specialty Start Date End Date Александр Martínez MD [address] [place] [address] [place] [phone] PCP - General Family Medicine 01/11/23 documented as of this encounter
--- OUTSIDE RECORDS SUMMARY | 2024-08-19 10:47 | External Medical Summary | Summary of Care ---
Author Name Unknown Organization [facility] Address [address] [place] [address] Phone [phone] Care Team Providers Care Human Factors Ergonomist Name Role Phone Александр Martínez MD Primary Care Provide r Encounter Details Date Type Department Care Team (Late st Contact Info) Description 07/28/2024 Telephone [facility]ology [facility] [address] [place] [address] Kameron Lynch MD [address] [place] [facility] [place] [address] Allergies Active Allergy Reactions Criticality Noted Date Comments Apple Cider Vinegar 01/30/2017 Penicillins 01/30/2017 Prednisolone 01/30/2017 Sulfa Antibiotics 04/03/2005 rash documented as of this encounter (statuses as of 07/31/2024) Medications Medication Sig Dispensed Refills Start Date [...] disease, stage 3b (HCC),Coronary artery disease involving [place] coronary artery of [place] heart without angina pectoris,HTN, goal below 140/90 [...] chronic kidney disease (HCC),Coronary artery disease involving [place] coronary artery of [place] heart without angina pectoris Take 2 Tablets [...] twice daily 60 mL 3 07/21/2024 Active Azelaic Acid 15 % External Gel (Finacea) Apply thin film to scalp twice daily 50 g 2 07/31/2024 Active documented as of this encounter (statuses as of 07/31/2024) Active Problems Problem Noted Date Diagnosed Date [...] hgba1c 6.0/126 Coronary artery disease invo lving [place] coronary artery of [place] heart without angina pectoris 01/03/2022 Gastro-esophageal reflux disease without esophag itis 01/03/2022 Anemia 01/22/2019 Dyslipidemia, goal LDL below 100 10/20/2009 Overview: Per Lipid Taxonomy. HTN, goal below 140/90 07/04/2006 Overview: 170/100 ADVANCE DIRECTIVE INFORMATION 11/29/2005 Overview: No, Advance Directive brochure offered , patient declined. Rosacea 11/29/2005 Allergic rhinitis 08/05/2003 documented as of this encounter (statuses as of 07/31/2024) Resolved Problems Problem Noted Date Diagnosed Date [...] positive stool 01/22/2019 08/02/2022 Mixed dyslipidemia 12/11/2006 Overview: Per Lipid Taxonomy. Other allergic rhinitis 09/27/200507/2022 Overview: ICD-10 update of inactive term Nasal polyp 01/11/2005 09/20/2022 PLEURISY W-O EFFUS OR TB 07/29/200307/2022 documented as of this encounter (statuses as of 07/31/2024) Immunizations Name Administration Dates Next Due Seasonal Influenza, Trivalen t, (IIV3), with Preserv, (Fluzone) 11/14/2006,09/27/2005 TD - Tetanus/Diptheria (ADULT) 11/07/2011 TDAP (age [...] encounter Miscellaneous Notes * Telephone Encounter - Chacha Real LPN - 07/31/2024 9:39 AM EDT Notified patient by voicemail of script at [facility]. * Telephone Encounter - Mariluz Leonard LPN - 07/28/2024 10:35 AM EDT LVM for Freddie to call our office back. If he calls back please relay the message below documented in this encounter Plan of Treatment Upcoming Encounters Date Type Department Care Team (Late st Contact Info) Description 09/10/2024 10:00 AM EDT Office Visit Cardiology [address] [place] [address] Devante Alcala PA-C [address] [place] [phone] 09/18/2024 3:00 PM EST Office Visit Nephrology [address] [place] [address] Shirley [place] PA-C [address] [facility] [place] [address] Health Maintenance Due Date Last Done Comments Pneumococcal Vaccine: 65+ Years (1 of 2 - PCV) 1951 Zoster Vaccines (1 of 2) 1997 Adult Wellness Visit 2013 COVID-19 Vaccine (1 - season) 2024 Influenza Vaccine (FLU shot) (#1) 2024 11/19/2019, 11/14/2006, 09/27/2005 GFR 09/23/2024 03/23/2024, 02/09, 02/16/2024, Additional history exists HbA1c 02/15/2025 02/16/2024, 10/12, 08/02/2022 Albumin/Creatinine Ratio 03/23/2025 024, 05/03/2023, 07/19/2022 CKD HGB USE SMARTSET 46628 03/23/202503/23, 02/20/2024, 01/11/2023, Additional history exists CKD PHOS USE SMARTSET 42783 03/23/202503/11, 02/20/2024, 01/11/2023, Additional history exists Depression [...] Not on filedocumented as of this encounter Advance Directives Healthcare Agents on File Name Relationship Healthcare Agent Relationshi p Communication [place] Adult Child Health Care Repr esentative (appointed verbally by patient or by statute hierarchy) Care Teams Human Factors Ergonomist Relationship Specialty Start Date End Date Александр Martínez MD [address] [place] [address] [place] [phone] PCP - General Family Medicine 01/11/23 documented as of this encounter
--- OUTSIDE RECORDS SUMMARY | 2024-08-19 10:47 | External Medical Summary | Summary of Care ---
Author Name Unknown Organization [facility] Address [address] [place] [address] Phone [phone] Care Team Providers Care Latcher Name Role Phone Александр Martínez MD Primary Care Provide r Encounter Details Date Type Department Care Team (Late st Contact Info) Description 07/28/2024 Telephone [facility] [address] [place] [address] Kameron Lynch MD [address] [place] [address] Allergies Active Allergy Reactions Criticality Noted Date [...] disease, stage 3b (HCC),Coronary artery disease involving [place] coronary artery of [place] heart without angina pectoris,HTN, goal below 140/90 [...] chronic kidney disease (HCC),Coronary artery disease involving [place] coronary artery of [place] heart without angina pectoris Take 2 Tablets [...] hgba1c 6.0/126 Coronary artery disease invo lving [place]ay[place] coronary artery of [place]wi[place]ayp heart without angina pectoris 01/03/2022 Gastro-esophageal reflux [...] encounter Miscellaneous Notes * Telephone Encounter - Nanci Richards OSA - 07/31/2024 9:53 AM EDT Pt advise. Hernán [email or web address] * Telephone Encounter - Chacha Real LPN - 07/31/2024 9:39 AM EDT Notified patient by voicemail of script at pharmacy. * Telephone Encounter - Mariluz Leonard LPN - 07/28/2024 10:35 AM EDT LVM for Freddie to call our office back. If he calls back please relay the message below documented in this encounter Plan of Treatment Upcoming Encounters Date Type Department Care Team (Late st Contact Info) Description 09/10/2024 10:00 AM EDT Office Visit Cardiology [address] [place] [address] Devante Alcala PA-C [address] [place] [address] 09/18/2024 3:00 PM EST Office Visit Nephrology [address] [place] [address] Shirley Ash[place] PA-C [address] [place] [address] Health Maintenance Due Date Last Done Comments Pneumococcal Vaccine: 65+ Years (1 of 2 - PCV) 1951 Zoster Vaccines (1 of 2) 1997 Adult Wellness Visit 2013 COVID-19 Vaccine ( - season) 2024 Influenza Vaccine (FLU shot) (#1) 2024 11/19/2019, 11/14/2006, 09/27/2005 GFR 09/23/2024 03/23/2024, 02/09, 02/16/2024, Additional history exists HbA1c 02/15/2025 02/16/2024, 10/12, 08/02/2022 Albumin/Creatinine Ratio 03/23/2025 024, 05/03/2023, 07/19/2022 CKD HGB USE SMARTSET 20349 03/23/202503/23, 02/20/2024, 01/11/2023, Additional history exists CKD PHOS USE SMARTSET 05946 03/23/202503/11, 02/20/2024, 01/11/2023, Additional history exists Depression [...] Healthcare Agent Relationshi p Communication [place] [facility] Care Repr esentative (appointed verbally by patient or by statute hierarchy) Care Teams Latcher Relationship Specialty Start Date End Date Александр Martínez MD [address] [place] [address] [place] [address] PCP - General Family Medicine 01/11/23 documented as of this encounter
--- OUTSIDE RECORDS SUMMARY | 2024-08-19 10:47 | External Medical Summary | Summary of Care ---
Author Name Unknown Organization [facility] Address [address] [place] [address] Phone [phone] Care Team Providers Care Porcelain Enameler Name Role Phone Александр Martínez MD Primary Care Provide r Encounter Details Date Type Department Care Team (Late st Contact Info) Description 07/28/2024 Telephone [facility]ology [facility] [address] [place] [address] Kameron Lynch MD [address] [facility] [place] [address] Allergies Active Allergy Reactions Criticality Noted Date [...] disease, stage 3b (HCC),Coronary artery disease involving [place] coronary artery of [place] heart without angina pectoris,HTN, goal below 140/90 [...] chronic kidney disease (HCC),Coronary artery disease involving [place] coronary artery of [place] heart without angina pectoris Take 2 Tablets [...] hgba1c 6.0/126 Coronary artery disease invo lving [place] coronary artery of [place] heart without angina pectoris 01/03/2022 Gastro-esophageal reflux [...] Notified patient by voicemail of script at [facility]. * Telephone Encounter - Mariluz Leonard LPN - 07/28/2024 10:35 AM EDT LVM for Freddie to call our office back. If he calls back please relay the message below documented in this encounter Plan of Treatment Upcoming Encounters Date Type Department Care Team (Late st Contact Info) Description 09/10/2024 10:00 AM EDT Office Visit Cardiology [address] [place] [address] Devante Alcala PA-C [address] [place] [address] 09/18/2024 3:00 PM EST Office Visit Nephrology [address] [place] [address] Shirley Ashby PA-C [address] [facility] [place] [address] Health Maintenance Due Date Last Done Comments [...] 024, 05/03/2023, 07/19/2022 CKD HGB USE SMARTSET 69509 03/23/202503/23, 02/20/2024, 01/11/2023, Additional history exists CKD PHOS USE SMARTSET 09014 03/23/202503/11, 02/20/2024, 01/11/2023, Additional history exists Depression [...] patient or by statute hierarchy) Care Teams Porcelain Enameler Relationship Specialty Start Date End Date Александр Martínez MD [address] [place] [address] [place] [address] PCP - General Family Medicine 01/11/23 documented as of this encounter
--- OUTSIDE RECORDS SUMMARY | 2024-08-19 10:47 | External Medical Summary | Summary of Care ---
Author Name Unknown Organization [facility] Address [address] [place] [address] Phone [phone] Care Team Providers Care Commercial Accountant Name Role Phone Александр Martínez MD Primary Care Provide r Reason for Visit * Reason Onset Date Comments Medication Refill 08/12/2024 Encounter Details Date Type Department Care Team (Late st Contact Info) Description 08/12/2024 Refill Ne[address] [place] [phone] Shirley Thomason MD [facility] [place] [address] Chronic kidney disease, stage 3b (HCC); Hypertensive kidney disease with stage 3b chronic kidney disease (HCC); Coronary artery disease involving [place] coronary artery of [place] heart without angina pectoris Allergies Active Allergy Reactions Criticality Noted Date Comments Apple Cider Vinegar 01/30/2017 Penicillins 01/30/2017 Prednisolone 01/30/2017 Sulfa Antibiotics 04/03/2005 rash documented as of this encounter (statuses as of 08/12/2024) Medications Medication Sig Dispensed Refills Start Date [...] 03/18/2023 Active Carvedilol 3.125 MG Oral Tablet (Coreg)Indication s:Hypertensive kidney disease with stage 3b chronic kidney disease (HCC),Chronic kidney disease, stage 3b (HCC),Coronary artery disease involving [place] coronary artery of [place] heart without angina pectoris,HTN, goal below 140/90 [...] to swelling. 150 Tablet 3 03/24/2024 Active Allopurinol 100 MG Oral Tablet (Zyloprim) Take 3 Tablets by mouth in the morning. 90 Tablet 11 03/31/2024 Active Finasteride 5 MG Oral Tablet (Proscar)Indicati ons:BPH with obstruction/lower urinary tract symptoms Take 1 Tablet by mouth in the morning. In the morning.. 90 Tablet 1 04/22/2024 Active Clindamycin Phosphate 1 % External LotionIndications :Folliculitis Apply to rash on chest and back twice daily 60 mL 3 07/21/2024 Active Azelaic Acid 15 % External Gel (Finacea) Apply thin film to scalp twice daily 50 g 2 07/31/2024 Active Losartan Potassium 25 MG Oral Tablet (Cozaar)Indicatio ns:Chronic kidney disease, stage 3b (HCC),Hypertensiv e kidney disease with stage 3b chronic kidney disease (HCC),Coronary artery disease involving [place] coronary artery of [place] heart without angina pectoris Take 2 Tablets by mouth in the morning. 60 Tablet 5 08/12/2024 Active Losartan Potassium 25 MG Oral Tablet (Cozaar)Indicatio ns:Chronic kidney disease, stage 3b (HCC),Hypertensiv e kidney disease with stage 3b chronic kidney disease (HCC),Coronary artery disease involving [place] coronary artery of [place] heart without angina pectoris Take 2 Tablets by mouth in the morning. 90 Tablet 1 03/24/2024 08/12/2024 Discontinued (Refill) documented as of this encounter (statuses as of 08/12/2024) Active Problems Problem Noted Date Diagnosed Date [...] hgba1c 6.0/126 Coronary artery disease invo lving [place] coronary artery of [place] heart without angina pectoris 01/03/2022 Gastro-esophageal reflux disease without esophag itis 01/03/2022 Anemia 01/22/2019 Dyslipidemia, goal LDL below 100 10/20/2009 Overview: Per Lipid Taxonomy. HTN, goal below 140/90 07/04/2006 Overview: 170/100 ADVANCE DIRECTIVE INFORMATION 11/29/2005 Overview: No, Advance Directive brochure offered , patient declined. Elenaa 11/29/2005 Allergic rhinitis 08/05/2003 documented as of this encounter (statuses as of 08/12/2024) Resolved Problems Problem Noted Date Diagnosed Date [...] as of this encounter (statuses as of 08/12/2024) Immunizations Name Administration Dates Next Due Seasonal Influenza Vac., MDV, IM, 0.5 mL (Fluzon e) 11/14/2006 TD - Tetanus/Diptheria (ADULT) 11/07/2011 TDAP [...] No 04/10/2024 Does the [facility] have a [facility]? (Household - for ages [...] encounter Miscellaneous Notes * Telephone Encounter - Shirley Thomason MD - 08/12/2024 4:48 PM EDTSigned Prescriptions: Disp Refills Losartan Potassium 25 MG Oral Tablet (Coza*60 Tab*5 Sig: Take 2 Tablets by mouth in the morning. Authorizing Provider: SHIRLEY THOMASON * Telephone Encounter - Nicole Vincent LPN - 08/12/2024 1:21 PM EDTPending Prescriptions: Disp Refills Losartan Potassium 25 MG Oral Tablet (Coza*60 Tab*5 Sig: Take 2 Tablets by mouth in the morning. * Telephone Encounter - Nicole Vincent LPN - 08/12/2024 1:18 PM EDT Rx pended Message sent to provider for approval Last OV 03/24/24 Next OV 09/18/24 documented in this encounter Plan of Treatment Upcoming Encounters Date Type Department Care Team (Late st Contact Info) Description 09/10/2024 10:00 AM EDT Office Visit Cardiology [address] [place] [phone] Devante Alcala PA-C [address] [place] [address] 09/18/2024 3:00 PM EST Office Visit Nephrology [address] [place] [phone] Shirley Ashby PA-C [address] [facility] [place] [address] Health Maintenance Due Date Last Done Comments [...] 024, 05/03/2023, 07/19/2022 CKD HGB USE SMARTSET 10794 03/23/202503/23, 02/20/2024, 01/11/2023, Additional history exists CKD PHOS USE SMARTSET 63591 03/23/202503/11, 02/20/2024, 01/11/2023, Additional history exists Depression [...] as of this encounter Visit Diagnoses Diagnosis Chronic kidney disease, stage 3b (HCC) Hypertensive kidney disease with stage 3b chronic kidney disease (HCC) Coronary artery disease involving [place] coronary artery of [place] heart without angina pectoris documented in this encounter Advance Directives Healthcare Agents on File Name Relationship Healthcare Agent Relationshi p Communication [place] Adult Child Health Care Repr esentative (appointed verbally by patient or by statute hierarchy) Care Teams Commercial Accountant Relationship Specialty Start Date End Date Александр Martínez MD [address] [place] [address] [place] [phone] PCP - General Family Medicine 01/11/23 documented as of this encounter
--- OUTSIDE RECORDS SUMMARY | 2024-08-19 10:48 | External Medical Summary | Summary of Care ---
Author Name Unknown Organization [facility] Address [address] [place] [address] Phone [phone] Care Team Providers Care Ski Patrol Officer Name Role Phone Александр Martínez MD Primary Care Provide r Reason for Visit * Reason Onset Date Comments Advice 05/11/2024 Encounter Details Date Type Department Care Team (Late st Contact Info) Description 05/11/2024 Telephone Family [address] [phone] Александр Martínez MD [address] [place] [address] [place] [phone] Advice Allergies Active Allergy Reactions Criticality Noted Date Comments Apple Cider Vinegar 01/30/2017 Penicillins 01/30/2017 Prednisolone 01/30/2017 Sulfa Antibiotics 04/03/2005 rash documented as of this encounter (statuses as of 05/15/2024) Medications Medication Sig Dispensed Refills Start Date [...] disease, stage 3b (HCC),Coronary artery disease involving [place] coronary artery of [place] heart without angina pectoris,HTN, goal below 140/90 [...] chronic kidney disease (HCC),Coronary artery disease involving [place] coronary artery of [place] heart without angina pectoris Take 2 Tablets [...] the morning.. 90 Tablet 1 04/22/2024 Active documented as of this encounter (statuses as of 05/15/2024) Active Problems Problem Noted Date Diagnosed Date [...] hgba1c 6.0/126 Coronary artery disease invo lving [place] coronary artery of [place] heart without angina pectoris 01/03/2022 Gastro-esophageal reflux disease without esophag itis 01/03/2022 Anemia 01/22/2019 Dyslipidemia, goal LDL below 100 10/20/2009 Overview: Per Lipid Taxonomy. HTN, goal below 140/90 07/04/2006 Overview: 170/100 ADVANCE DIRECTIVE INFORMATION 11/29/2005 Overview: No, Advance Directive brochure offered , patient declined. Rosacea 11/29/2005 Allergic rhinitis 08/05/2003 documented as of this encounter (statuses as of 05/15/2024) Resolved Problems Problem Noted Date Diagnosed Date [...] as of this encounter (statuses as of 05/15/2024) Immunizations Name Administration Dates Next Due Seasonal Influenza, Split, IIV3, With Preserve, Inj 11/14/2006,09/27/2005 TD - Tetanus/Diptheria (ADULT) 11/07/2011 TDAP [...] 04/10/2024 Does the household have a re gular source of income? (Household - for ages [...] encounter Miscellaneous Notes * Telephone Encounter - Dianelys Stinson OSA - 05/15/2024 3:56 PM EDT No Appointments Available Patient declined appointments?: No What Visit Type is needed? Acute If Acute Visit Type is needed, were surrounding clinics offered to patient (Yes/No)? Yes Was patient offered appointments with other available providers (Yes/No)? Yes See Call Details? (Yes or No): Yes Possible infection * Telephone Encounter - Александр Martínez MD - 05/13/2024 10:57 AM EDT Recommend a clinic visit for eval prior to any medication * Telephone Encounter - Yazmin Clifford OSA - 05/11/2024 3:09 PM EDT Patient had an infection in the skin on the back of his head. He saw Dr Krishna Escoto on 04/20/2024 and was prescribed medication that cleared it up but now after completing the medication it is coming back. No acute appointments available. Please advise. documented in this encounter Plan of Treatment Upcoming Encounters Date Type Department Care Team (Late st Contact Info) Description 09/10/2024 10:00 AM EDT Office Visit Cardiology [address] [place] [phone] Devante Alcala PA-C [address] [place] [address] 12/18/2024 1:00 PM EST Office Visit Nephrology [address] [place] [phone] Shirley Ash[place] PA-C [address] [place] [address] Health Maintenance Due Date Last Done Comments Pneumococcal Vaccine: 65+ Years (1 of 2 - PCV) 1951 Zoster Vaccines (1 of 2) 1997 COVID-19 Vaccine ( - season) 2023 Influenza Vaccine (FLU shot) (#1) 2024 11/19/2019, 11/14/2006, 09/27/2005 GFR 09/23/2024 03/23/2024, 02/09, 02/16/2024, Additional history exists HbA1c 02/15/2025 02/16/2024, 10/12, 08/02/2022 Albumin/Creatinine Ratio 03/23/2025 024, 05/03/2023, 07/19/2022 CKD HGB USE SMARTSET 20348 03/23/202503/23, 02/20/2024, 01/11/2023, Additional history exists CKD PHOS USE SMARTSET 73198 03/23/202503/11, 02/20/2024, 01/11/2023, Additional history exists Depression Screening 04/10/2025 04/10/2024 DTaP,Tdap,and Td Vaccines (2 - Td or Tdap) 03/23/2034 [...] Healthcare Agent Relationshi p Communication [place] [facility] Child Health Care Repr esentative (appointed verbally by patient or by statute hierarchy) Care Teams Ski Patrol Officer Relationship Specialty Start Date End Date Александр Martínez MD [address] [place] [address] [place] [phone] PCP - General Family Medicine 01/11/23 documented as of this encounter
--- OUTSIDE RECORDS SUMMARY | 2024-08-19 10:48 | External Medical Summary | Summary of Care ---
Author Name Unknown Organization [facility] Address [address] [place] [address] Phone [phone] Care Team Providers Care Lease Out Worker Name Role Phone Александр Martínez MD Primary Care Provide r Reason for Visit * Reason Onset Date Comments Blood Pressure Readings 04/22/2024 Encounter Details Date Type Department Care Team (Late st Contact Info) Description 04/22/2024 Telephone NephrologyDontae [address] [facility] [place] [address] Miriam Donovan MD [address] [place] [address] Blood Pressure Readings Allergies Active Allergy Reactions Criticality Noted Date Comments Apple Cider Vinegar 01/30/2017 Penicillins 01/30/2017 Prednisolone 01/30/2017 Sulfa Antibiotics 04/03/2005 rash documented as of this encounter (statuses as of 06/01/2024) Medications Medication Sig Dispensed Refills Start Date [...] disease, stage 3b (HCC),Coronary artery disease involving [place] coronary artery of [place] heart without angina pectoris,HTN, goal below 140/90 [...] chronic kidney disease (HCC),Coronary artery disease involving [place] coronary artery of [place] heart without angina pectoris Take 2 Tablets by mouth in the morning. 90 Tablet 1 03/24/2024 Active Allopurinol 100 MG Oral Tablet (Zyloprim) Take 3 Tablets by mouth in the morning. 90 Tablet 11 03/31/2024 Active Finasteride 5 MG Oral Tablet (Proscar)Indicati ons:BPH with obstruction/lower urinary tract symptoms TAKE 1 TABLET BY MOUTH EVERY MORNING 90 Tablet 01/24/2024 04/21/2024 Discontinued( Refill) Doxycycline Hyclate 100 MG Oral CapsuleIndication s:Folliculitis Take 1 Capsule by mouth in the morning and 1 Capsule before bedtime. Do all this for 10 days. Until gone.. 20 Capsule 04/20/2024 04/30/2024 documented as of this encounter (statuses as of 06/01/2024) Active Problems Problem Noted Date Diagnosed Date [...] hgba1c 6.0/126 Coronary artery disease invo lving [place] coronary artery of [place] heart without angina pectoris 01/03/2022 Gastro-esophageal reflux disease without esophag itis 01/03/2022 Anemia 01/22/2019 Dyslipidemia, goal LDL below 100 10/20/2009 Overview: Per Lipid Taxonomy. HTN, goal below 140/90 07/04/2006 Overview: 170/100 ADVANCE DIRECTIVE INFORMATION 11/29/2005 Overview: No, Advance Directive brochure offered , patient declined. Rosacea 11/29/2005 Allergic rhinitis 08/05/2003 documented as of this encounter (statuses as of 06/01/2024) Resolved Problems Problem Noted Date Diagnosed Date [...] as of this encounter (statuses as of 06/01/2024) Immunizations Name Administration Dates Next Due Seasonal [...] No 04/10/2024 Does the household have a [facility] source of income? (Household - for ages [...] encounter Miscellaneous Notes * Telephone Encounter - Nicole Vincent LPN - 06/01/2024 3:55 PM EDT MyG message sent but was unread by pt LMM on identified phone line BP cuff is validate BP on targetContinue same * Telephone Encounter - Nicole Vincent LPN - 04/28/2024 8:52 AM EDT MyG message sent advising of such * Telephone Encounter - Miiram Donovan MD - 04/24/2024 5:10 PM EDT Home cuff valid. Continue same. Blood pressure at target * Telephone Encounter - Linda Fallon RN - 04/22/2024 8:56 AM EDT Blood pressure log received from pt. Average of 18 readings is 130/78. Log to be scanned into chart. documented in this encounter Plan of Treatment Upcoming Encounters Date Type Department Care Team (Late st Contact Info) Description 09/10/2024 10:00 AM EDT Office Visit Cardiology [address] [place] [phone] Devante Alcala PA-C [address] [place] [address] 12/18/2024 1:00 PM EST Office Visit Nephrology [address] [place] [phone] Shirley Ashby PA-C [address] [place] [address] Health Maintenance Due Date Last Done Comments Pneumococcal Vaccine: 65+ Years (1 of 2 - PCV) 1951 Zoster Vaccines (1 of 2) 1997 COVID-19 Vaccine (1 - 2022-24 season) 2023 Influenza Vaccine (FLU shot) (#1) 2024 11/19/2019, 11/14/2006, 09/27/2005 GFR 09/23/2024 03/23/2024, 02/09, 02/16/2024, Additional history exists HbA1c 02/15/2025 02/16/2024, 10/12, 08/02/2022 Albumin/Creatinine Ratio 03/23/2025 024, 05/03/2023, 07/19/2022 CKD HGB USE SMARTSET 95150 03/23/202503/23, 02/20/2024, 01/11/2023, Additional history exists CKD PHOS USE SMARTSET 45903 03/23/202503/11, 02/20/2024, 01/11/2023, Additional history exists Depression [...] patient or by statute hierarchy) Care Teams Lease Out Worker Relationship Specialty Start Date End Date Александр Martínez MD [address] [place] [address] [place] [phone] PCP - General Family Medicine 01/11/23 documented as of this encounter
--- OUTSIDE RECORDS SUMMARY | 2024-08-19 10:48 | External Medical Summary ---
Author Name Unknown Address Unknown Organization K01:[facility] - [address] [place] [address] Laboratory Report Ordering Provider Test Date Status CORTNEY FISCHER 07/21/2024 10:38:34 Final Light growth normal mague Observation Date Value Abnormality Reference (Units) Status Bacteria identified in Specimen by Culture 07/21/2024 10:38:34 [id number]^STAPHYLOCO CCUS LUGDUNENSIS Abnormal Final Few Staphylococcus lugdunens is Performing Location [facility] - [address] [place] [address] Ordering Provider Test Date Status CORTNEY FISCHER 07/21/2024 10:38:34 Final Observation Date Value Abnormality Reference (Units ) Status Clindamycin 07/21/2024 10:38:34 >=8 Resistant Final Erythromycin susceptibility 07/21/2024 10:38:34 >=8 Resistant Final Oxacillinsusceptibility 07/21/2024 10:38:34 <=0.25 Susceptible Final Tetracyclinesusceptibility 07/21/2024 10:38:34 >=16 Resistant Final TMP-SMZ susceptibility 07/21/2024 10:38:34 <=10 Susceptible Final Vancomycinsusceptibility 07/21/2024 10:38:34 <=0.5 Susceptible Final Test: Culture, Wound, Superf icial, Aerobic
Specimen Source: Chest, Left
Specimen Type: Swab
Specimen Date: 07/21/2024 1038
Result Date: 07/25/2024 1036
Result Status: Final result
Abnormal: Yes
Resulting Lab: [facility]
[address]
[place] [address]

CULTURE

Few Staphylococcus lugdunensis (Abnormal)

Light growth normal mague

SUSCEPTIBILITY

Staphylococcus
lugdunensis
METHOD MICROBROTH
DILUTIONS

CLINDAMYCIN >=8 Resistant
ERYTHROMYCIN >=8 Resistant
OXACILLIN <=0.25 Susceptible
TETRACYCLINE >=16 Resistant
TRIMETH/SULFAMETHOXAZOLE <=10 Susceptible
VANCOMYCIN <=0.5 Susceptible

null Performing Location [facility] - [address] [facility] [address]
--- OUTSIDE RECORDS SUMMARY | 2024-08-19 10:48 | External Medical Summary | Summary of Care ---
Author Name Unknown Organization [facility] Address [address] [place] [address] Phone [phone] Care Team Providers Care Senior Business Objects Developer Name Role Phone Александр Martínez MD Primary [...] Diagnoses Prurigo nodularis Rash Coby Adams PA-Phyllis [address] [facility] [place] [address] Dermatology [facility] [address] [facility] [place] [place] [address] Referral ID Status Reason Start Date Expiration Date Visits Requested Visits Authorized [id number] Authorized Specialty Services Required 07/20/2024 01/17/[phone] Encounter Details Date Type Department Care Team (Late st Contact Info) Description 07/21/2024 10:00 AM EDT Office Visit Dermatology [facility] [place] [address] [facility] [place] [address] Kameron Lynch MD 200 [facility] [place] [address] Folliculitis* Allergies Active Allergy Reactions Criticality Noted [...] disease, stage 3b (HCC),Coronary artery disease involving [place] coronary artery of [place] heart without angina pectoris,HTN, goal below 140/90 [...] chronic kidney disease (HCC),Coronary artery disease involving [place] coronary artery of [place] heart without angina pectoris Take 2 Tablets [...] hgba1c 6.0/126 Coronary artery disease invo lving [place] coronary artery of [place] heart without angina pectoris 01/03/2022 Gastro-esophageal reflux [...] me had a biopsy done at the [facility] years ago which showed a "dermatitis". REVIEW [...] this Kameron Lynch MD REF: COBY ADAMS [address] [facility] [place] [address] (office) [phone] (fax) PCP: АЛЕКСАНДР MARTÍNEZ [address] [place] [address] [place] [address] [phone] documented in this encounter Nursing Notes * [...] 09/10/2024 10:00 AM EDT Office Visit Cardiology [address] [place] [address] Devante Alcala PA-C [address] [place] [address] 09/18/2024 3:00 PM EST Office Visit Nephrology [address] [place] [address] ZemaShirley olivera PA-C [address] [place] [address] Scheduled Orders Name Type Priority Associated Diagnoses Orde r Schedule CULTURE, WOUND, SUPERFICIAL, AEROBIC Lab Routine Folliculitis Ordered: 07/21/2024 Health Maintenance Due Date Last Done Comments Pneumococcal Vaccine: 65+ Years (1 of 2 - PCV) 1951 Zoster Vaccines (1 of 2) 1997 Adult Wellness Visit 2013 COVID-19 Vaccine (1 - 2022- season) 2024 Influenza Vaccine (FLU shot) (#1) 2024 11/19/2019, 11/14/2006, 09/27/2005 GFR 09/23/2024 03/23/2024, 02/09, 02/16/2024, Additional history exists HbA1c 02/15/2025 02/16/2024, 10/12, 08/02/2022 Albumin/Creatinine Ratio 03/23/2025 024, 05/03/2023, 07/19/2022 CKD HGB USE SMARTSET 02913 03/23/202503/23, 02/20/2024, 01/11/2023, Additional history exists CKD PHOS USE SMARTSET 83254 03/23/202503/11, 02/20/2024, 01/11/2023, Additional history exists Depression [...] Agents on File Name Relationship Healthcare Agent [facility] p Communication Kim Land [facility] Repr esentative (appointed verbally by patient or by statute hierarchy) Care Teams Senior Business Objects Developer Relationship Specialty Start Date End Date Александр Martínez MD [address] [place] [address] [place] [phone] PCP - General Family Medicine 01/11/23 documented as of this encounter
--- OUTSIDE RECORDS SUMMARY | 2024-08-19 10:48 | External Medical Summary | Summary of Care ---
Author Name Unknown Organization [facility] Address [address] [place] [address] Phone [phone] Care Team Providers Care Switch Foreman Name Role Phone Александр Martínez MD Primary Care Provide r Reason for Visit * Reason Onset Date Comments Advice 05/11/2024 Encounter Details Date Type Department Care Team (Late st Contact Info) Description 05/11/2024 Telephone Family [address] [address] Александр Martínez MD [address] [place] [address] [place] [phone] Advice Allergies Active Allergy Reactions Criticality Noted Date Comments Apple Cider Vinegar 01/30/2017 Penicillins 01/30/2017 Prednisolone 01/30/2017 Sulfa Antibiotics 04/03/2005 rash documented as of this encounter (statuses as of 05/16/2024) Medications Medication Sig Dispensed Refills Start Date [...] disease, stage 3b (HCC),Coronary artery disease involving [place] coronary artery of [place] heart without angina pectoris,HTN, goal below 140/90 [...] chronic kidney disease (HCC),Coronary artery disease involving [place] coronary artery of [place] heart without angina pectoris Take 2 Tablets [...] as of this encounter (statuses as of 05/16/2024) Active Problems Problem Noted Date Diagnosed Date [...] hgba1c 6.0/126 Coronary artery disease invo lving [place] coronary artery of [place] heart without angina pectoris 01/03/2022 Gastro-esophageal reflux disease without esophag itis 01/03/2022 Anemia 01/22/2019 Dyslipidemia, goal LDL below 100 10/20/2009 Overview: Per Lipid Taxonomy. HTN, goal below 140/90 07/04/2006 Overview: 170/100 ADVANCE DIRECTIVE INFORMATION 11/29/2005 Overview: No, Advance Directive brochure offered , patient declined. Rosacea 11/29/2005 Allergic rhinitis 08/05/2003 documented as of this encounter (statuses as of 05/16/2024) Resolved Problems Problem Noted Date Diagnosed Date [...] as of this encounter (statuses as of 05/16/2024) Immunizations Name Administration Dates Next Due Seasonal [...] 09/10/2024 10:00 AM EDT Office Visit Cardiology [address] [place] [address] Devante Alcala PA-C [address] [place] [address] 12/18/2024 1:00 PM EST Office Visit Nephrology [address] [place] [address] Shirley Ashby PA-C [address] [place] [address] Health Maintenance Due Date Last Done Comments Pneumococcal Vaccine: 65+ Years (1 of 2 - PCV) 1951 Zoster Vaccines (1 of 2) 1997 COVID-19 Vaccine ( - season) 2023 Influenza Vaccine (FLU shot) (#1) 2024 11/19/2019, 11/14/2006, 09/27/2005 GFR 09/23/2024 03/23/2024, 02/09, 02/16/2024, Additional history exists HbA1c 02/15/2025 02/16/2024, 10/12, 08/02/2022 Albumin/Creatinine Ratio 03/23/2025 024, 05/03/2023, 07/19/2022 CKD HGB USE SMARTSET 56936 03/23/202503/23, 02/20/2024, 01/11/2023, Additional history exists CKD PHOS USE SMARTSET 64029 03/23/202503/11, 02/20/2024, 01/11/2023, Additional history exists Depression [...] Healthcare Agent Relationshi p Communication Kim Land [facility] Child Health Care Repr esentative (appointed verbally by patient or by statute hierarchy) Care Teams Switch Foreman Relationship Specialty Start Date End Date Александр Martínez MD [address] [place] [address] [place] [phone] PCP - General Family Medicine 01/11/23 documented as of this encounter
--- OUTSIDE RECORDS SUMMARY | 2024-08-19 10:48 | External Medical Summary | Summary of Care ---
Author Name Unknown Organization [facility] Address [address] [place] [address] Phone [phone] Care Team Providers Care Bush Hog Operator Name Role Phone Александр Martínez MD Primary Care Provide r Reason for Visit * Reason Onset Date Comments Advice 05/11/2024 Encounter Details Date Type Department Care Team (Late st Contact Info) Description 05/11/2024 Telephone Family [address] [address] Александр Martínez MD [address] [place] [address] [place] [phone] Advice Allergies Active Allergy Reactions Criticality Noted [...] disease, stage 3b (HCC),Coronary artery disease involving [place] coronary artery of [place] heart without angina pectoris,HTN, goal below 140/90 [...] chronic kidney disease (HCC),Coronary artery disease involving [place] coronary artery of [place] heart without angina pectoris Take 2 Tablets [...] hgba1c 6.0/126 Coronary artery disease invo lving [place] coronary artery of [place] heart without angina pectoris 01/03/2022 Gastro-esophageal reflux [...] encounter Miscellaneous Notes * Telephone Encounter - Monique Pierce RN - 05/16/2024 1:36 PM EDT I called pt and offered him an appt on SatMay [address] Cruz, he refused. He said he will not see him, while I was looking for another appt, he said it is ridiculous that I can 't gt an appt, I have a lot of issues going on, I again offered an appt on Sat with Dr Cruz and he said he will goto the MD and hung up * Telephone Encounter - Dianelys Stinson OSA [...] 09/10/2024 10:00 AM EDT Office Visit Cardiology [address] [place] [address] Devante Alcala PA-C [address] [place] [address] 12/18/2024 1:00 PM EST Office Visit Nephrology [address] [place] [address] ZeShirley xavier PA-C [address] [place] [address] Health Maintenance Due Date Last Done Comments Pneumococcal Vaccine: 65+ Years (1 of 2 - PCV) 1951 Zoster Vaccines (1 of 2) 1997 COVID-19 Vaccine (1 - 2022-24 season) 2023 Influenza Vaccine (FLU shot) (#1) 2024 11/19/2019, 11/14/2006, 09/27/2005 GFR 09/23/2024 03/23/2024, 02/09, 02/16/2024, Additional history exists HbA1c 02/15/2025 02/16/2024, 1212/2021, 08/02/2022 Albumin/Creatinine Ratio 03/23/2025 024, 05/03/2023, 07/19/2022 CKD HGB USE SMARTSET 79687 03/23/202503/23, 02/20/2024, 01/11/2023, Additional history exists CKD PHOS USE SMARTSET 65407 03/23/202503/11, 02/20/2024, 01/11/2023, Additional history exists Depression [...] patient or by statute hierarchy) Care Teams Bush Hog Operator Relationship Specialty Start Date End Date Александр Martínez MD [address] [place] [address] [place] [phone] PCP - General Family Medicine 01/11/23 documented as of this encounter
--- OUTSIDE RECORDS SUMMARY | 2024-08-19 10:48 | External Medical Summary | Summary of Care ---
Author Name Unknown Organization [facility] Address [address] [place] [address] Phone [phone] Care Team Providers Care Human Resources Services Specialist Name Role Phone Александр Martínez MD Primary Care Provide r Reason for Visit * Reason Onset Date Comments Blood Pressure Readings 04/22/2024 Encounter Details Date Type Department Care Team (Late st Contact Info) Description 04/22/2024 Telephone NephrologyDontae [address] [facility] [place] [address] Miriam Donovan MD [address] [place] [address] Blood Pressure Readings Allergies Active Allergy Reactions Criticality Noted Date Comments Apple Cider Vinegar 01/30/2017 Penicillins 01/30/2017 Prednisolone 01/30/2017 Sulfa Antibiotics 04/03/2005 rash documented as of this encounter (statuses as of 04/28/2024) Medications Medication Sig Dispensed Refills Start Date [...] disease, stage 3b (HCC),Coronary artery disease involving [place] coronary artery of [place] heart without angina pectoris,HTN, goal below 140/90 [...] chronic kidney disease (HCC),Coronary artery disease involving [place] coronary artery of [place] heart without angina pectoris Take 2 Tablets by mouth in the morning. 90 Tablet 1 03/24/2024 Active Allopurinol 100 MG Oral Tablet (Zyloprim) Take 3 Tablets by mouth in the morning. 90 Tablet 11 03/31/2024 Active Doxycycline Hyclate 100 MG Oral CapsuleIndication s:Folliculitis Take 1 Capsule by mouth in the morning and 1 Capsule before bedtime. Do all this for 10 days. Until gone.. 20 Capsule 04/20/2024 04/30/2024 Active Finasteride 5 MG Oral Tablet (Proscar)Indicati ons:BPH with obstruction/lower urinary tract symptoms TAKE 1 TABLET BY MOUTH EVERY MORNING 90 Tablet 01/24/2024 04/21/2024 Discontinued (Refill) documented as of this encounter (statuses as of 04/28/2024) Active Problems Problem Noted Date Diagnosed Date [...] hgba1c 6.0/126 Coronary artery disease invo lving [place] coronary artery of [place] heart without angina pectoris 01/03/2022 Gastro-esophageal reflux disease without esophag itis 01/03/2022 Anemia 01/22/2019 Dyslipidemia, goal LDL below 100 10/20/2009 Overview: Per Lipid Taxonomy. HTN, goal below 140/90 07/04/2006 Overview: 170/100 ADVANCE DIRECTIVE INFORMATION 11/29/2005 Overview: No, Advance Directive brochure offered , patient declined. Rosacea 11/29/2005 Allergic rhinitis 08/05/2003 documented as of this encounter (statuses as of 04/28/2024) Resolved Problems Problem Noted Date Diagnosed Date [...] as of this encounter (statuses as of 04/28/2024) Immunizations Name Administration Dates Next Due Seasonal [...] money to get more. Never true 04/10/2024 Sex and Gender Information Value Date Recorded Sex Assigned at Not on file Gender Identity Not on file Sexual Orientation Not on file Job Start Date Occupation Industry Not on file Not on file Not on file documented as of this encounter Miscellaneous Notes * Telephone Encounter - Nicole Vincent LPN - 04/28/2024 8:52 AM EDT [employer] message sent advising of such * Telephone Encounter - Miriam Donovan MD - 04/24/2024 5:10 PM EDT [...] 09/10/2024 10:00 AM EDT Office Visit Cardiology [address] [place] [address] Devante Alcala PA-C [address] [place] [address] 12/18/2024 1:00 PM EST Office Visit Nephrology [address] [place] [address] ZeShirley xavier PA-C [address] [place] [address] Health Maintenance Due Date Last Done Comments Pneumococcal Vaccine: 65+ Years (1 of 2 - PCV) 1951 Zoster Vaccines (1 of 2) 1997 COVID-19 Vaccine (1 - season) 2023 Influenza Vaccine (FLU shot) (Season Ended) 2024 11/19/2019, 11/14/2006, 09/27/2005 GFR 09/23/2024 03/23/2024, 02/09, 02/16/2024, Additional history exists HbA1c 02/15/2025 02/16/2024, 1212/2021, 08/02/2022 Albumin/Creatinine Ratio 03/23/2025 024, 05/03/2023, 07/19/2022 CKD HGB USE SMARTSET 17620 03/23/202503/23, 02/20/2024, 01/11/2023, Additional history exists CKD PHOS USE SMARTSET 20523 03/23/202503/11, 02/20/2024, 01/11/2023, Additional history exists Depression [...] Healthcare Agent Relationshi p Communication [facility] Child Health Care Repr esentative (appointed verbally by patient or by statute hierarchy) Care Teams Human Resources Services Specialist Relationship Specialty Start Date End Date Александр Martínez MD [address] [place] [address] [place] [phone] PCP - General Family Medicine 01/11/23 documented as of this encounter
--- OUTSIDE RECORDS SUMMARY | 2024-08-19 10:48 | External Medical Summary | Summary of Care ---
Author Name Unknown Organization [facility] Address [address] [place] [address] Phone [phone] Care Team Providers Care Technician Trainee Name Role Phone Александр Martínez MD Primary Care Provide r Reason for Visit * Reason Onset Date Comments Advice 05/11/2024 Encounter Details Date Type Department Care Team (Late st Contact Info) Description 05/11/2024 Telephone Family [address] [address] Александр Martínez MD [address] [place] [address] [place] [phone] Advice Allergies Active Allergy Reactions Criticality Noted Date Comments Apple Cider Vinegar 01/30/2017 Penicillins 01/30/2017 Prednisolone 01/30/2017 Sulfa Antibiotics 04/03/2005 rash documented as of this encounter (statuses as of 05/13/2024) Medications Medication Sig Dispensed Refills Start Date [...] disease, stage 3b (HCC),Coronary artery disease involving [place] coronary artery of [place] heart without angina pectoris,HTN, goal below 140/90 [...] chronic kidney disease (HCC),Coronary artery disease involving [place] coronary artery of [place] heart without angina pectoris Take 2 Tablets [...] as of this encounter (statuses as of 05/13/2024) Active Problems Problem Noted Date Diagnosed Date [...] hgba1c 6.0/126 Coronary artery disease invo lving [place] coronary artery of [place] heart without angina pectoris 01/03/2022 Gastro-esophageal reflux disease without esophag itis 01/03/2022 Anemia 01/22/2019 Dyslipidemia, goal LDL below 100 10/20/2009 Overview: Per Lipid Taxonomy. HTN, goal below 140/90 07/04/2006 Overview: 170/100 ADVANCE DIRECTIVE INFORMATION 11/29/2005 Overview: No, Advance Directive brochure offered , patient declined. Rosacea 11/29/2005 Allergic rhinitis 08/05/2003 documented as of this encounter (statuses as of 05/13/2024) Resolved Problems Problem Noted Date Diagnosed Date [...] as of this encounter (statuses as of 05/13/2024) Immunizations Name Administration Dates Next Due Seasonal Influenza, Split, IIV3, With Preserve, Inj 11/14/2006 TD - Tetanus/Diptheria (ADULT) 11/07/2011 TDAP [...] encounter Miscellaneous Notes * Telephone Encounter - Александр Martínez MD [...] 09/10/2024 10:00 AM EDT Office Visit Cardiology [address] [place] [address] Devante Alcala PA-C [address] [place] [address] 12/18/2024 1:00 PM EST Office Visit Nephrology [address] [place] [address] Shirley Soriano PA-C [address] [facility] [place] [address] Health Maintenance Due Date Last Done Comments Pneumococcal Vaccine: 65+ Years (1 of 2 - PCV) 1951 Zoster Vaccines (1 of 2) 1997 COVID-19 Vaccine (1 - 2022-24 season) 2023 Influenza Vaccine (FLU shot) (#1) 2024 11/19/2019, 11/14/2006, 09/27/2005 GFR 09/23/2024 03/23/2024, 02/09, 02/16/2024, Additional history exists HbA1c 02/15/2025 02/16/2024, 10/12, 08/02/2022 Albumin/Creatinine Ratio 03/23/2025 024, 05/03/2023, 07/19/2022 CKD HGB USE SMARTSET 78362 03/23/202503/23, 02/20/2024, 01/11/2023, Additional history exists CKD PHOS USE SMARTSET 97548 03/23/202503/11, 02/20/2024, 01/11/2023, Additional history exists Depression [...] Relationship Healthcare Agent Relationshi p Communication [facility] Child Health Care Repr esentative (appointed verbally by patient or by statute hierarchy) Care Teams Technician Trainee Relationship Specialty Start Date End Date Александр Martínez MD [address] [place] [address] [place] [phone] PCP - General Family Medicine 01/11/23 documented as of this encounter
--- OUTSIDE RECORDS SUMMARY | 2024-08-19 10:48 | External Medical Summary | Summary of Care ---
Author Name Unknown Organization [facility] Address [address] [place] [address] Phone [phone] Care Team Providers Care Underground Miner Name Role Phone Александр Martínez MD Primary [...] Diagnoses Prurigo nodularis Rash Coby Adams PA-Phyllis [address] [place] [address] Dermatology [facility] [address] [facility] [place] [address] Referral ID Status Reason Start Date Expiration Date Visits Requested Visits Authorized [id number] Authorized Specialty Services Required 07/20/2024 01/17/[phone] Encounter Details Date Type Department Care Team (Late st Contact Info) Description 07/21/2024 10:00 AM EDT Office Visit Dermatology [facility] [place] [address] [facility] [place] [address] Kameron Lynch MD [address] [place] [address] Folliculitis* Allergies Active Allergy Reactions Criticality Noted [...] disease, stage 3b (HCC),Coronary artery disease involving [place] coronary artery of [place] heart without angina pectoris,HTN, goal below 140/90 [...] chronic kidney disease (HCC),Coronary artery disease involving [place] coronary artery of [place] heart without angina pectoris Take 2 Tablets [...] hgba1c 6.0/126 Coronary artery disease invo lving [place] coronary artery of [place] heart without angina pectoris 01/03/2022 Gastro-esophageal reflux [...] me had a biopsy done at the [place] years ago which showed a "dermatitis". REVIEW [...] this Kameron Lynch MD REF: COBY ADAMS [address] [place] [address] (office) [phone] (fax) PCP: АЛЕКСАНДР MARTÍNEZ [address] [place] [address] [place] [address] [phone] documented in this encounter Nursing Notes * [...] 09/10/2024 10:00 AM EDT Office Visit Cardiology [address] [place] [address] Devante Alcala PA-C [address] [place] [address] 09/18/2024 3:00 PM EST Office Visit Nephrology [address] [place] [address] ZemaShirley olivera PA-C [address] [place] [address] Scheduled Orders Name Type Priority Associated Diagnoses [...] 024, 05/03/2023, 07/19/2022 CKD HGB USE SMARTSET 95541 03/23/202503/23, 02/20/2024, 01/11/2023, Additional history exists CKD PHOS USE SMARTSET 28276 03/23/202503/11, 02/20/2024, 01/11/2023, Additional history exists Depression [...] Agents on File Name Relationship Healthcare Agent [facility] p Communication Kim Land [facility] Repr esentative (appointed verbally by patient or by statute hierarchy) Care Teams Underground Miner Relationship Specialty Start Date End Date Александр Martínez MD [address] [place] [address] [place] [phone] PCP - General Family Medicine 01/11/23 documented as of this encounter
--- OUTSIDE RECORDS SUMMARY | 2024-08-19 10:48 | External Medical Summary | Summary of Care ---
Author Name Unknown Organization [facility] Address [address] [place] [address] Phone [phone] Care Team Providers Care Air Dispatcher Name Role Phone Александр Martínez MD Primary Care Provide r Reason for Visit * Reason Onset Date Comments Advice 05/11/2024 Encounter Details Date Type Department Care Team (Late st Contact Info) Description 05/11/2024 Telephone Family [address] [address] Александр Martínez MD [address] [place] [address] [place] [phone] Advice Allergies Active Allergy Reactions Criticality Noted [...] 10:00 AM EDT Office Visit Cardiology [address] [place] [address] Devante Alcala PA-C [address] [place] [address] 12/18/2024 1:00 PM EST Office Visit Nephrology [address] [place] [address] Shirley Ashby PA-C [address] [place] [address] Health Maintenance Due Date Last Done Comments Pneumococcal Vaccine: 65+ Years (1 of 2 - PCV) 1951 Zoster Vaccines (1 of 2) 1997 COVID-19 Vaccine ( - season) 2023 Influenza Vaccine (FLU shot) (#1) 2024 11/19/2019, 11/14/2006, 09/27/2005 GFR 09/23/2024 03/23/2024, 02/09, 02/16/2024, Additional history exists HbA1c 02/15/2025 02/16/2024, 10/12, 08/02/2022 Albumin/Creatinine Ratio 03/23/2025 024, 05/03/2023, 07/19/2022 CKD HGB USE SMARTSET 13822 03/23/202503/23, 02/20/2024, 01/11/2023, Additional history exists CKD PHOS USE SMARTSET 66907 03/23/202503/11, 02/20/2024, 01/11/2023, Additional history exists Depression [...] Healthcare Agent Relationshi p Communication Kim Land [facility] Child Health Care Repr esentative (appointed verbally by patient or by statute hierarchy) Care Teams Air Dispatcher Relationship Specialty Start Date End Date Александр Martínez MD [address] [place] [address] [place] [address] PCP - General Family Medicine 01/11/23 documented as of this encounter
--- OUTSIDE RECORDS SUMMARY | 2024-08-19 10:49 | External Medical Summary | Summary of Care ---
Author Name Unknown Organization [facility] Address [address] [place] [address] Phone [phone] Care Team Providers Care Client Service Supervisor Name Role Phone Александр Martínez MD Primary Care Provide r Reason for Visit * Reason Onset Date Comments FYI 04/17/2024 Encounter Details Date Type Department Care Team (Late st Contact Info) Description 04/17/2024 Telephone Nephrology, Dontae Bush [address] [facility] [place] [address] Miriam Donovan MD [address] [place] [address] FY Allergies Active Allergy Reactions Criticality Noted Date Comments Apple Cider Vinegar 01/30/2017 Penicillins 01/30/2017 Prednisolone 01/30/2017 Sulfa Antibiotics 04/03/2005 rash documented as of this encounter (statuses as of 04/27/2024) Medications Medication Sig Dispensed Refills Start Date [...] disease, stage 3b (HCC),Coronary artery disease involving [place] coronary artery of [place] heart without angina pectoris,HTN, goal below 140/90 [...] chronic kidney disease (HCC),Coronary artery disease involving [place] coronary artery of [place] heart without angina pectoris Take 2 Tablets by mouth in the morning. 90 Tablet 1 03/24/2024 Active Allopurinol 100 MG Oral Tablet (Zyloprim) Take 3 Tablets by mouth in the morning. 90 Tablet 11 03/31/2024 Active documented as of this encounter (statuses as of 04/27/2024) Active Problems Problem Noted Date Diagnosed Date [...] hgba1c 6.0/126 Coronary artery disease invo lving [place] coronary artery of [place] heart without angina pectoris 01/03/2022 Gastro-esophageal reflux disease without esophag itis 01/03/2022 Anemia 01/22/2019 Dyslipidemia, goal LDL below 100 10/20/2009 Overview: Per Lipid Taxonomy. HTN, goal below 140/90 07/04/2006 Overview: 170/100 ADVANCE DIRECTIVE INFORMATION 11/29/2005 Overview: No, Advance Directive brochure offered , patient declined. Rosacea 11/29/2005 Allergic rhinitis 08/05/2003 documented as of this encounter (statuses as of 04/27/2024) Resolved Problems Problem Noted Date Diagnosed Date [...] as of this encounter (statuses as of 04/27/2024) Immunizations Name Administration Dates Next Due Seasonal [...] encounter Miscellaneous Notes * Telephone Encounter - Yesenia Lara OSA - 04/17/2024 2:15 PM EDT Pt brought in Blood pressure lo to [facility] assistant front desk manager. Given to bj at the lab desk for nephro dept to be in on Saturday. Copy scanned to [facility]. documented in this encounter Plan of Treatment Upcoming Encounters Date Type Department Care Team (Late st Contact Info) Description 09/10/2024 10:00 AM EDT Office Visit Cardiology [address] [place] [address] Devante Alcala PA-C [address] [place] [address] 12/18/2024 1:00 PM EST Office Visit Nephrology [address] [place] [address] Shirley Ashby PA-C [address] [facility] [place] [address] Health Maintenance Due Date Last Done Comments Pneumococcal Vaccine: 65+ Years (1 of 2 - PCV) 1951 Zoster Vaccines (1 of 2) 1997 COVID-19 Vaccine (1 - 2022-24 season) 2023 Influenza Vaccine (FLU shot) (Season Ended) 2024 11/19/2019, 11/14/2006, 09/27/2005 GFR 09/23/2024 03/23/2024, 02/09, 02/16/2024, Additional history exists HbA1c 02/15/2025 02/16/2024, 10/12, 08/02/2022 Albumin/Creatinine Ratio 03/23/2025 024, 05/03/2023, 07/19/2022 CKD HGB USE SMARTSET 56264 03/23/202503/23, 02/20/2024, 01/11/2023, Additional history exists CKD PHOS USE SMARTSET 79454 03/23/202503/11, 02/20/2024, 01/11/2023, Additional history exists Depression [...] patient or by statute hierarchy) Care Teams Client Service Supervisor Relationship Specialty Start Date End Date Александр Martínez MD [address] [place] [address] [place] [phone] PCP - General Family Medicine 01/11/23 documented as of this encounter
--- OUTSIDE RECORDS SUMMARY | 2024-08-19 10:49 | External Medical Summary | Summary of Care ---
Author Name Unknown Organization [facility] Address [address] [place] [address] Phone [phone] Care Team Providers Care Web Systems Developer Name Role Phone Александр Martínez MD Primary Care Provide r Reason for Visit * Reason Comments Re-Check Encounter Details Date Type Department Care Team (Late st Contact Info) Description 04/20/2024 10:20 AM EDT Office Visit Family Medicine [address] [phone] Perla Bradford MD [address] [place] [address] [place] [phone] Folliculitis*; Caregiver stress Allergies Active Allergy Reactions Criticality Noted Date Comments Apple Cider Vinegar 01/30/2017 Penicillins 01/30/2017 Prednisolone 01/30/2017 Sulfa Antibiotics 04/03/2005 rash documented as of this encounter (statuses as of 04/20/2024) Medications Medication Sig Dispensed Refills Start Date [...] Active Rosuvastatin Calcium 20 MG Oral Tablet (Crestor)Indication s:HTN, goal below 140/90 Take 1 Tablet by mouth in the morning. 90 Tablet 3 03/18/2023 Active Finasteride 5 MG Oral Tablet (Proscar)Indication s:BPH with obstruction/lower urinary tract symptoms TAKE 1 TABLET BY MOUTH EVERY MORNING 90 Tablet 01/24/2024 Active Carvedilol 3.125 MG Oral Tablet (Coreg)Indications: Hypertensive kidney disease with stage 3b chronic kidney disease (HCC),Chronic kidney disease, stage 3b (HCC),Coronary artery disease involving [place] coronary artery of [place] heart without angina pectoris,HTN, goal below 140/90 [...] Active Losartan Potassium 25 MG Oral Tablet (Cozaar)Indications :Chronic kidney disease, stage 3b (HCC),Hypertensive kidney disease with stage 3b chronic kidney disease (HCC),Coronary artery disease involving [place] coronary artery of [place] heart without angina pectoris Take 2 Tablets by mouth in the morning. 90 Tablet 1 03/24/2024 Active Allopurinol 100 MG Oral Tablet (Zyloprim) Take 3 Tablets by mouth in the morning. 90 Tablet 11 03/31/2024 Active Doxycycline Hyclate 100 MG Oral CapsuleIndications: Folliculitis Take 1 Capsule by mouth in the morning and 1 Capsule before bedtime. Do all this for 10 days. Until gone.. 20 Capsule 04/20/2024 04/30/2024 Active documented as of this encounter (statuses as of 04/20/2024) Active Problems Problem Noted Date Diagnosed Date [...] hgba1c 6.0/126 Coronary artery disease invo lving [place] coronary artery of [place] heart without angina pectoris 01/03/2022 Gastro-esophageal reflux disease without esophag itis 01/03/2022 Anemia 01/22/2019 Dyslipidemia, goal LDL below 100 10/20/2009 Overview: Per Lipid Taxonomy. HTN, goal below 140/90 07/04/2006 Overview: 170/100 ADVANCE DIRECTIVE INFORMATION 11/29/2005 Overview: No, Advance Directive brochure offered , patient declined. Rosacea 11/29/2005 Allergic rhinitis 08/05/2003 documented as of this encounter (statuses as of 04/20/2024) Resolved Problems Problem Noted Date Diagnosed Date [...] as of this encounter (statuses as of 04/20/2024) Immunizations Name Administration Dates Next Due Seasonal [...] on file documented as of this encounter Last Filed Vital Signs Vital Sign Reading Time Taken Comments Blood Pressure 142/78 04/20/2024 10:18 AM EDT Pulse 64 04/20/2024 10:18 AM EDT Temperature 36.1 C (97 F) 04/20/2024 10:18 AM EDT Respiratory Rate - - Oxygen Saturation 97% 04/20/2024 10:18 AM EDT Inhaled Oxygen Concentration - - Weight 88.5 kg (195 lb) 04/20/2024 10:18 AM EDT Height - - Body Mass Index 28.8 02/27/2024 9:29 AM EDT documented in this encounter Progress Notes * Perla Bradford MD - 04/20/2024 10:29 AM EDT Subjective Freddie Soliman is a 78 year old male. Chief Complaint Patient presents with Re-Check HPI: Acute visit for lumps on neck. States he has had skin problems ever since [place]. Sees [place] [facility] for this. Using ketoconazole shampoo for skin problems on scalp, really helps he states. Feels the lumps on neck are related. PMH: Patient Active Problem List Diagnosis Allergic rhinitis ADVANCE DIRECTIVE INFORMATION Rosacea HTN, goal below 140/90 Dyslipidemia, goal LDL below 100 Anemia Coronary artery disease involving [place] coronary artery of [place] heart without angina pectoris Gastro-esophageal reflux disease without esophagitis BPH without obstruction/lower urinary tract symptoms Metabolic syndrome S/P angioplasty with stent Tremor Gout of multiple sites Chronic kidney disease, stage 3b (HCC) Hypertensive kidney disease with stage 3b chronic kidney disease (HCC) Prediabetes Caregiver stress Current Outpatient Medications Medication Sig Dispense Refill Vitamin D 25 MCG (1000 UT) Oral Tablet Take 1 Tablet by mouth in the morning. Aspirin EC 81 MG Oral Tablet Delayed Release Take by mouth 1 Tablet in the morning. 90 Tablet 3 Tamsulosin HCl 0.4 MG Oral Capsule (Flomax) Take 1 Capsule by mouth in the morning. Rosuvastatin Calcium 20 MG Oral Tablet (Crestor) Take 1 Tablet by mouth in the morning. 90 Tablet 3 Finasteride 5 MG Oral Tablet (Proscar) TAKE 1 TABLET BY MOUTH EVERY MORNING 90 Tablet 0 Carvedilol 3.125 MG Oral Tablet (Coreg) Take 1 Tablet by mouth in the morning and 1 Tablet before bedtime. with food. 180 Tablet 1 Vitamin E 100 UNIT Oral Tablet Take 1 Tablet by mouth in the morning. Fluticasone Propionate 50 MCG/ACT Nasal Suspension (Flonase) INSTILL 2 SPRAYS IN EACH NOSTRIL EVERYDAY FOR NASAL POLYPS Ketoconazole 2 % External Shampoo (Nizoral) SHAMPOO SMALL AMOUNT SKIN TWICE A DAY FOR RASH ON FEET AND LEGS * LEAVE ON UP TO FEW MINUTES BEFORE WASHING OFF Zonisamide 25 MG Oral Capsule (Zonegran) 1 Capsule. B-12 1000 MCG Oral Capsule Take 1 Capsule by mouth in the morning. Furosemide 20 MG Oral Tablet (Lasix) Take 2 tabs in the morning on Saturday, Saturday, Saturday and take 1 tab other days. May take up to 2 extra tablets weekly due to swelling. 150 Tablet 3 Losartan Potassium 25 MG Oral Tablet (Cozaar) Take 2 Tablets by mouth in the morning. 90 Tablet 1 Allopurinol 100 MG Oral Tablet (Zyloprim) Take 3 Tablets by mouth in the morning. 90 Tablet 11 Doxycycline Hyclate 100 MG Oral Capsule Take 1 Capsule by mouth in the morning and 1 Capsule beforebedtime. Do all this for 10 days. Until gone.. 20 Capsule 0 No current facility-administered medications for this visit. Review of patient's allergies indicates: Allergen Reactions Apple Cider Vinegar Penicillins Prednisolone Sulfa Antibiotics rash Objective BP 142/78 | Pulse 64 | Temp 36.1 C (97 F) (Tympanic) | Wt 88.5 kg (195 lb) | SpO2 97% | BMI 28.80 kg/m | BSA 2.08 m Skin: small pustules with erythema to base of scalp in the hair ASSESSMENT/PLAN: Folliculitis (Primary) - Doxycycline Hyclate 100 MG Oral Capsule; Take 1 Capsule by mouth in the morning and 1 Capsule before bedtime. Do all this for 10 days. Until gone.. Caregiver stress Does report chronic skin issues, and states he is under the care of [place] [facility]. Appears to havefolliculitis of the scalp (base of scalp) today. Rx doxy. Caregiver stress; Case management is trying to arrange support. Perla Johnson MD documented in this encounter Nursing Notes * Annabella Chandler LPN - 04/20/2024 10:18 AM EDT Lumps on back of neck Come & go Does not know medications. documented in this encounter Plan of Treatment Upcoming Encounters Date Type Department Care Team (Late st Contact Info) Description 09/10/2024 10:00 AM EDT Office Visit Cardiology [address] [place] [phone] Devante Alcala PA-C [address] [place] [address] 12/18/2024 1:00 PM EST Office Visit Nephrology [address] [place] [phone] Shirley Ashby PA-C [address] [place] [address] Health Maintenance Due Date Last Done Comments Pneumococcal Vaccine: 65+ Years (1 of 2 - PCV) 1951 Zoster Vaccines (1 of 2) 1997 COVID-19 Vaccine (1 - 2022-24 season) 2023 Influenza Vaccine (FLU shot) (Season Ended) 2024 11/19/2019, 11/14/2006, 09/27/2005 GFR 09/23/2024 03/23/2024, 02/09, 02/16/2024, Additional history exists HbA1c 02/15/2025 02/16/2024, 10/12, 08/02/2022 Albumin/Creatinine Ratio 03/23/2025 024, 05/03/2023, 07/19/2022 CKD HGB USE SMARTSET 87487 03/23/202503/23, 02/20/2024, 01/11/2023, Additional history exists CKD PHOS USE SMARTSET 38398 03/23/202503/11, 02/20/2024, 01/11/2023, Additional history exists Depression [...] specified disease of hair and hair follicles Caregiver stress Other health problem within the family documented in this encounter Advance Directives Healthcare Agents on File Name Relationship Healthcare Agent Relationshi p Communication [place] Adult Child Health Care Repr esentative (appointed verbally by patient or by statute hierarchy) Care Teams Web Systems Developer Relationship Specialty Start Date End Date Александр Martínez MD [address] [place] [address] [place] [address] PCP - General Family Medicine 01/11/23 documented as of this encounter"
--- OUTSIDE RECORDS SUMMARY | 2024-08-19 10:49 | External Medical Summary | Summary of Care ---
Author Name Unknown Organization [facility] Address [address] [facility] [address] Phone [phone] Care Team Providers Care Corrugator Machine Operator Name Role Phone Александр Martínez MD Primary Care Provide r Reason for Visit * Reason Comments Blood Pressure Check Encounter Details Date Type Department Care Team (Late st Contact Info) Description 04/09/2024 11:00 AM EDT Nurse Only Nephrology [address] [place] [phone] [place], Nurse Nephrology [address] [place] [address] Blood Pressure Check Allergies Active Allergy Reactions Criticality Noted Date Comments Apple Cider Vinegar 01/30/2017 Penicillins 01/30/2017 Prednisolone 01/30/2017 Sulfa Antibiotics 04/03/2005 rash documented as of this encounter (statuses as of 04/09/2024) Medications Medication Sig Dispensed Refills Start Date [...] 03/18/2023 Active Finasteride 5 MG Oral Tablet (Proscar)Indications :BPH with obstruction/lower urinary tract symptoms TAKE 1 TABLET BY MOUTH EVERY MORNING 90 Tablet 01/24/2024 Active Carvedilol 3.125 MG Oral Tablet (Coreg)Indications:H ypertensive kidney disease with stage 3b chronic kidney disease (HCC),Chronic kidney disease, stage 3b (HCC),Coronary artery disease involving [place] coronary artery of [place] heart without angina pectoris,HTN, goal below 140/90 [...] chronic kidney disease (HCC),Coronary artery disease involving [place] coronary artery of [place] heart without angina pectoris Take 2 Tablets by mouth in the morning. 90 Tablet 1 03/24/2024 Active Allopurinol 100 MG Oral Tablet (Zyloprim) Take 3 Tablets by mouth in the morning. 90 Tablet 11 03/31/2024 Active documented as of this encounter (statuses as of 04/09/2024) Active Problems Problem Noted Date Diagnosed Date [...] hgba1c 6.0/126 Coronary artery disease invo lving [place] coronary artery of [place] heart without angina pectoris 01/03/2022 Gastro-esophageal reflux disease without esophag itis 01/03/2022 Anemia 01/22/2019 Dyslipidemia, goal LDL below 100 10/20/2009 Overview: Per Lipid Taxonomy. HTN, goal below 140/90 07/04/2006 Overview: 170/100 ADVANCE DIRECTIVE INFORMATION 11/29/2005 Overview: No, Advance Directive brochure offered , patient declined. Rosacea 11/29/2005 Allergic rhinitis 08/05/2003 documented as of this encounter (statuses as of 04/09/2024) Resolved Problems Problem Noted Date Diagnosed Date [...] as of this encounter (statuses as of 04/09/2024) Immunizations Name Administration Dates Next Due Seasonal Influenza, Split, IIV3, With Preserve, Inj 11/14/2006 TD - Tetanus/Diptheria (ADULT) 11/07/2011 TDAP (age 10 and older)(Boostrix) 03/23/2024 documented as of this encounter Social History Tobacco Use Types Packs/Day Years Used Date Smoking Tobacco: Former Passive Smoke Exposure: Past Smokeless Tobacco: Never Tobacco Cessation:Counseling Given: Not Answered Alcohol Use Standard Drinks/Week Comments No 0 (1 standard drink = 0.6 oz pur e alcohol) Hunger Vital Sign Answer Date Recorded Within the past 12 months, y ou worried that your food would run out before you got the money to buy more. Never true 04/08/20 24 Within the past 12 months, t he food you bought just didn't last and you didn't have money to get more. Never true 04/08/2024 Sex and Gender Information Value Date Recorded Sex Assigned at Not on file Gender Identity Not on file Sexual Orientation Not on file Job Start Date Occupation Industry Not on file Not on file Not on file documented as of this encounter Last Filed Vital Signs Vital Sign Reading Time Taken Comments Blood Pressure 137/79 04/09/2024 11:19 AM EDT cl inic Pulse 64 04/09/2024 11:19 AM EDT Temperature - - Respiratory Rate - - Oxygen Saturation - - Inhaled Oxygen Concentration - - Weight - - Height - - Body Mass Index - - documented in this encounter Nursing Notes * Linda Fallon, RN - 04/09/2024 11:18 AM EDT Home blood pressure cuff checked for accuracy against clinic cuff. Pt demonstrates proper technique. Will complete a 3 day bp log. documented in this encounter Plan of Treatment Upcoming Encounters Date Type Department Care Team (Late st Contact Info) Description 09/10/2024 10:00 AM EDT Office Visit Cardiology [address] [place] [address] Devante Alcala PA-C [address] [place] [address] 12/18/2024 1:00 PM EST Office Visit Nephrology [address] [place] [address] Shirley Ashby PA-C [address] [place] [address] Health Maintenance Due Date Last Done Comments Pneumococcal Vaccine: 65+ Years (1 of 2 - PCV) 1951 Depression Screening 1959 Zoster Vaccines (1 of 2) 1997 COVID-19 Vaccine ( - 2022- season) 2023 Influenza Vaccine (FLU shot) (Season Ended) 2024 11/19/2019, 11/14/2006, 09/27/2005 GFR 09/23/2024 03/23/2024, 02/09, 02/16/2024, Additional history exists HbA1c 02/15/2025 02/16/2024, 10/12, 08/02/2022 Albumin/Creatinine Ratio 03/23/2025 024, 05/03/2023, 07/19/2022 CKD HGB USE SMARTSET 50927 03/23/202503/23, 02/20/2024, 01/11/2023, Additional history exists CKD PHOS USE SMARTSET 02014 03/23/202503/11, 02/20/2024, 01/11/2023, Additional history exists DTaP,Tdap,and Td Vaccines (2 - Td or [...] Not on filedocumented as of this encounter Care Teams Corrugator Machine Operator Relationship Specialty Start Date End Date Александр Martínez MD [address] [place] [address] [place] [address] PCP - General Family Medicine 01/11/23 documented as of this encounter
--- OUTSIDE RECORDS SUMMARY | 2024-08-19 10:49 | External Medical Summary | Summary of Care ---
Author Name Unknown Organization [facility] Address [address] [place] [address] Phone [phone] Care Team Providers Care Lead Bi Developer Name Role Phone Александр Martínez MD Primary Care Provide r Reason for Visit * Reason Onset Date Comments Blood Pressure Readings 04/22/2024 Encounter Details Date Type Department Care Team (Late st Contact Info) Description 04/22/2024 Telephone NephrologyDontae [address] [facility] [place] [address] Miriam Donovan MD [address] [place] [address] Blood Pressure Readings Allergies Active Allergy Reactions Criticality Noted Date Comments Apple Cider Vinegar 01/30/2017 Penicillins 01/30/2017 Prednisolone 01/30/2017 Sulfa Antibiotics 04/03/2005 rash documented as of this encounter (statuses as of 04/24/2024) Medications Medication Sig Dispensed Refills Start Date [...] disease, stage 3b (HCC),Coronary artery disease involving [place] coronary artery of [place] heart without angina pectoris,HTN, goal below 140/90 [...] chronic kidney disease (HCC),Coronary artery disease involving [place] coronary artery of [place] heart without angina pectoris Take 2 Tablets [...] as of this encounter (statuses as of 04/24/2024) Active Problems Problem Noted Date Diagnosed Date [...] hgba1c 6.0/126 Coronary artery disease invo lving [place] coronary artery of [place] heart without angina pectoris 01/03/2022 Gastro-esophageal reflux disease without esophag itis 01/03/2022 Anemia 01/22/2019 Dyslipidemia, goal LDL below 100 10/20/2009 Overview: Per Lipid Taxonomy. HTN, goal below 140/90 07/04/2006 Overview: 170/100 ADVANCE DIRECTIVE INFORMATION 11/29/2005 Overview: No, Advance Directive brochure offered , patient declined. Rosacea 11/29/2005 Allergic rhinitis 08/05/2003 documented as of this encounter (statuses as of 04/24/2024) Resolved Problems Problem Noted Date Diagnosed Date [...] as of this encounter (statuses as of 04/24/2024) Immunizations Name Administration Dates Next Due Seasonal [...] encounter Miscellaneous Notes * Telephone Encounter - Miriam Donovan MD [...] 09/10/2024 10:00 AM EDT Office Visit Cardiology [address] [place] [address] Devante Alcala PA-C [address] [place] [address] 12/18/2024 1:00 PM EST Office Visit Nephrology [address] [place] [address] Shirley Ashby PA-C [address] [place] [address] Health Maintenance Due Date Last Done Comments Pneumococcal Vaccine: 65+ Years (1 of 2 - PCV) 1951 Zoster Vaccines (1 of 2) 1997 COVID-19 Vaccine (1 - 2022-24 season) 2023 Influenza Vaccine (FLU shot) (Season Ended) 2024 11/19/2019, 11/14/2006, 09/27/2005 GFR 09/23/2024 03/23/2024, 02/09, 02/16/2024, Additional history exists HbA1c 02/15/2025 02/16/2024, 10/12, 08/02/2022 Albumin/Creatinine Ratio 03/23/2025 024, 05/03/2023, 07/19/2022 CKD HGB USE SMARTSET [id number] 03/23/202503/23, 02/20/2024, 01/11/2023, Additional history exists CKD PHOS USE SMARTSET 67341 03/23/202503/11, 02/20/2024, 01/11/2023, Additional history exists Depression [...] patient or by statute hierarchy) Care Teams Lead Bi Developer Relationship Specialty Start Date End Date Александр Martínez MD [address] [place] [address] [place] [address] PCP - General Family Medicine 01/11/23 documented as of this encounter
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
--- OUTSIDE RECORDS SUMMARY | 2024-08-19 10:49 | External Medical Summary | Summary of Care ---
Author Name Unknown Organization [facility] Address [address] [place] [address] Phone [phone] Care Team Providers Care Jewelry Engraver Name Role Phone Александр Martínez MD Primary Care Provide r Reason for Visit * Reason Onset Date Comments Blood Pressure Readings 04/22/2024 Encounter Details Date Type Department Care Team (Late st Contact Info) Description 04/22/2024 Telephone NephrologyDontae [address] [facility] [place] [address] Miraim Donovan MD [address] [place] [address] Blood Pressure Readings Allergies Active Allergy Reactions Criticality Noted Date Comments Apple Cider Vinegar 01/30/2017 Penicillins 01/30/2017 Prednisolone 01/30/2017 Sulfa Antibiotics 04/03/2005 rash documented as of this encounter (statuses as of 04/22/2024) Medications Medication Sig Dispensed Refills Start Date [...] disease, stage 3b (HCC),Coronary artery disease involving [place] coronary artery of [place] heart without angina pectoris,HTN, goal below 140/90 [...] chronic kidney disease (HCC),Coronary artery disease involving [place] coronary artery of [place] heart without angina pectoris Take 2 Tablets [...] as of this encounter (statuses as of 04/22/2024) Active Problems Problem Noted Date Diagnosed Date [...] hgba1c 6.0/126 Coronary artery disease invo lving [place] coronary artery of [place] heart without angina pectoris 01/03/2022 Gastro-esophageal reflux disease without esophag itis 01/03/2022 Anemia 01/22/2019 Dyslipidemia, goal LDL below 100 10/20/2009 Overview: Per Lipid Taxonomy. HTN, goal below 140/90 07/04/2006 Overview: 170/100 ADVANCE DIRECTIVE INFORMATION 11/29/2005 Overview: No, Advance Directive brochure offered , patient declined. Rosacea 11/29/2005 Allergic rhinitis 08/05/2003 documented as of this encounter (statuses as of 04/22/2024) Resolved Problems Problem Noted Date Diagnosed Date [...] Overview: Per Lipid Taxonomy. Other allergic rhinitis 09/27/20050 07/2022 Overview: ICD-10 update of inactive term Nasal polyp 01/11/2005 09/20/2022 PLEURISY W-O EFFUS OR TB 07/29/200307/2022 documented as of this encounter (statuses as of 04/22/2024) Immunizations Name Administration Dates Next Due Seasonal [...] 09/10/2024 10:00 AM EDT Office Visit Cardiology [address] [place] [address] Devante Alcala PA-C [address] [place] [address] 12/18/2024 1:00 PM EST Office Visit Nephrology [address] [place] [address] Shirley Ash[place] PA-C [address] [facility] [address] Health Maintenance Due Date Last Done Comments Pneumococcal Vaccine: 65+ Years (1 of 2 - PCV) 1951 Zoster Vaccines (1 of 2) 1997 COVID-19 Vaccine ( - season) 2023 Influenza Vaccine (FLU shot) (Season Ended) 2024 11/19/2019, 11/14/2006, 09/27/2005 GFR 09/23/2024 03/23/2024, 02/09, 02/16/2024, Additional history exists HbA1c 02/15/2025 02/16/2024, 10/12, 08/02/2022 Albumin/Creatinine Ratio 03/23/2025 024, 05/03/2023, 07/19/2022 CKD HGB USE SMARTSET 84190 03/23/202503/23, 02/20/2024, 01/11/2023, Additional history exists CKD PHOS USE SMARTSET 25430 03/23/202503/11, 02/20/2024, 01/11/2023, Additional history exists Depression [...] patient or by statute hierarchy) Care Teams Jewelry Engraver Relationship Specialty Start Date End Date Александр Martínez MD [address] [place] [address] [place] [phone] PCP - General Family Medicine 01/11/23 documented as of this encounter
--- OUTSIDE RECORDS SUMMARY | 2024-08-19 10:49 | External Medical Summary | Summary of Care ---
Author Name Unknown Organization [facility] Address [address] [place] [address] Phone [phone] Care Team Providers Care Cigarette Carton Sealer Name Role Phone Александр Martínez MD Primary Care Provide r Reason for Visit * Reason Onset Date Comments Medication Refill 03/29/2024 Encounter Details Date Type Department Care Team (Late st Contact Info) Description 03/29/2024 Refill Family Medicine [address] [phone] Александр Martínez MD [address] [place] [address] [place] [phone] Allergies Active Allergy Reactions Criticality Noted Date Comments Apple Cider Vinegar 01/30/2017 Penicillins 01/30/2017 Prednisolone 01/30/2017 Sulfa Antibiotics 04/03/2005 rash documented as of this encounter (statuses as of 03/31/2024) Medications Medication Sig Dispensed Refills Start Date [...] 03/18/2023 Active Finasteride 5 MG Oral Tablet (Proscar)Indicati ons:BPH with obstruction/lower urinary tract symptoms TAKE 1 TABLET BY MOUTH EVERY MORNING 90 Tablet 01/24/2024 Active Carvedilol 3.125 MG Oral Tablet (Coreg)Indication s:Hypertensive kidney disease with stage 3b chronic kidney disease (HCC),Chronic kidney disease, stage 3b (HCC),Coronary artery disease involving quileute coronary artery of quileute heart without angina pectoris,HTN, goal below 140/90 [...] morning. 12/17/2023 Active Cephalexin 500 MG Oral CapsuleIndication [...] chronic kidney disease (HCC),Coronary artery disease involving quileute coronary artery of quileute heart without angina pectoris Take 2 Tablets by mouth in the morning. 90 Tablet 1 03/24/2024 Active Allopurinol 100 MG Oral Tablet (Zyloprim) Take 3 Tablets by mouth in the morning. 90 Tablet 11 03/31/2024 Active Allopurinol 100 MG Oral Tablet (Zyloprim) TAKE THREE TABLETS BY MOUTH IN THE MORNING 90 Tablet 5 09/25/2023 03/29/2024 Discontinued (Refill) documented as of this encounter (statuses as of 03/31/2024) Active Problems Problem Noted Date Diagnosed Date [...] hgba1c 6.0/126 Coronary artery disease invo lving quileute coronary artery of quileute heart without angina pectoris 01/03/2022 Gastro-esophageal reflux disease without esophag itis 01/03/2022 Anemia 01/22/2019 Dyslipidemia, goal LDL below 100 10/20/2009 Overview: Per Lipid Taxonomy. HTN, goal below 140/90 07/04/2006 Overview: 170/100 ADVANCE DIRECTIVE INFORMATION 11/29/2005 Overview: No, Advance Directive brochure offered , patient declined. Rosacea 11/29/2005 Allergic rhinitis 08/05/2003 documented as of this encounter (statuses as of 03/31/2024) Resolved Problems Problem Noted Date Diagnosed Date [...] as of this encounter (statuses as of 03/31/2024) Immunizations Name Administration Dates Next Due Seasonal [...] encounter Miscellaneous Notes * Telephone Encounter - Pati Murray RP - 03/31/2024 8:27 AM EDTSigned Prescriptions: Disp Refills Allopurinol 100 MG Oral Tablet (Zyloprim) 90 Tab*11 Sig: Take 3 Tablets by mouth in the morning.Authorizing Provider: Veronica MARTÍNEZ User: PATI MURRAY documented in this encounter Plan of Treatment Upcoming Encounters Date Type Department Care Team (Late st Contact Info) Description 09/10/2024 10:00 AM EDT Office Visit Cardiology [address] [place] [phone] Devante Alcala PA-C [address] [place] [phone] 12/18/2024 1:00 PM EST Office Visit Nephrology [address] [place] [phone] ZemaShirley olivera PA-C [address] [place] [address] Health Maintenance Due Date Last Done Comments [...] 024, 05/03/2023, 07/19/2022 CKD HGB USE SMARTSET 54015 03/23/202503/23, 02/20/2024, 01/11/2023, Additional history exists CKD PHOS USE SMARTSET 88858 03/23/202503/11, 02/20/2024, 01/11/2023, Additional history exists DTaP,Tdap,and [...] filedocumented as of this encounter Care Teams Cigarette Carton Sealer Relationship Specialty Start Date End Date Александр Martínez MD [address] [place] [address] [place] [phone] PCP - General Family Medicine 01/11/23 documented as of this encounter
--- OUTSIDE RECORDS SUMMARY | 2024-08-19 10:49 | External Medical Summary | Summary of Care ---
Author Name Unknown Organization [facility] Address [address] [facility] [place] [address] Phone [phone] Care Team Providers Care Nutrition Partner Name Role Phone Александр Martínez MD Primary Care Provide r Encounter Details Date Type Department Care Team (Late st Contact Info) Description 04/08/2024 11:00 AM EDT Home Visit Care Coordination and Integration [address] [place], [place] [phone] [facility] [address] [place] [address] Allergies Active Allergy Reactions Criticality Noted Date Comments Apple Cider Vinegar 01/30/2017 Penicillins 01/30/2017 Prednisolone 01/30/2017 Sulfa Antibiotics 04/03/2005 rash documented as of this encounter (statuses as of 04/08/2024) Medications Medication Sig Dispensed Refills Start Date [...] as of this encounter (statuses as of 04/08/2024) Active Problems Problem Noted Date Diagnosed Date [...] as of this encounter (statuses as of 04/08/2024) Resolved Problems Problem Noted Date Diagnosed Date [...] as of this encounter (statuses as of 04/08/2024) Immunizations Name Administration Dates Next Due Seasonal [...] Progress Notes * Teresa Acosta, [facility]er - 04/08/2024 2:10 PM EDT Telemedicine visit: No [facility] Frame Opener (PAUL) documentation: Concerned re: caring for . She is a few years older than him and he's worried she's developing dementia. Reports his fell down the stairs a couple days ago - reports she's "bruised up". Painin her back and legs. Lives with his spouse, daughter, and her family. Daughter is a [employer]. She manages their medications. Home is 2-story set up. Brick staircase to enter through front door. Patient states they try to avoid using that. Easier entrance via the back of the home, however no driveway around back. Consider reaching out to [place] for modification assistance for ramp to back door. States "I need to see a doctor about the skin on my neck". Reports sore "lumps". Patient is a [place] with history of Agent [place] exposure. Reports he's seen dermatology in the past with [facility] "that didn't work out too good". Most recently has seen derm from the [place] - had biopsy of similar lumps on extremities - came back unknown. States he has "salve" to apply when scars become dry/scaly. H/o hand tremors. Right is worse than left. He's right hand dominant - states without medication the tremors are so bad he can't eat. 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 Recent issues with blood pressures. Presented to [facility] ED a few weeks ago with low BP and HR. Concerned now BP is increasing. States it had been stable upon DC but now SBP in 140s. Patient states provider at [facility] advised that if HR doesn't improve, he [...] 04/09/2024 11:00 AM EDT Nurse Only Nephrology [address] [place] [phone] [place], Nurse Nephrology [address] [place] [address] 09/10/2024 10:00 AM EDT Office Visit Cardiology [address] [place] [address] Devante Alcala PA-C [address] [place] [address] 12/18/2024 1:00 PM EST Office Visit Nephrology [address] [place] [phone] Shirley Ashby PA-C [address] [place] [address] Health Maintenance Due Date Last Done Comments [...] 024, 05/03/2023, 07/19/2022 CKD HGB USE SMARTSET 14333 03/23/202503/23, 02/20/2024, 01/11/2023, Additional history exists CKD PHOS USE SMARTSET 27121 03/23/202503/11, 02/20/2024, 01/11/2023, Additional history exists DTaP,Tdap,and [...] filedocumented as of this encounter Care Teams Nutrition Partner Relationship Specialty Start Date End Date Александр Martínez MD [address] [place] [address] [place] [phone] PCP - General Family Medicine 01/11/23 documented as of this encounter
--- OUTSIDE RECORDS SUMMARY | 2024-08-19 10:50 | External Medical Summary ---
Author Name Unknown Address Unknown Organization [id number] [place] [address] [place] [address] Laboratory Report Ordering Provider Test Date Status KEV SULLIVAN 03/23/2024 09:52:10 Melyssa l Observation Date Value Abnormality Reference (Units ) Status Parathyrin.intact [Mass/volume] in Serum or Plasma 03/23/2024 09:52:10 50 15-65 (pg/mL) Final Performing Location [facility] [place] [address] [place] [address]
--- OUTSIDE RECORDS SUMMARY | 2024-08-19 10:50 | External Medical Summary ---
Author Name Unknown Address Unknown Organization K01:[facility] [place] [address] [place] [address] Laboratory Report Ordering Provider Test Date Status KEV SULLIVAN 03/23/2024 09:52:10 Melyssa l Observation Date Value Abnormality Reference (Units ) Status Iron 03/23/2024 09:52:10 72 45-176 (ug/dL) Final Iron-binding capacity 03/23/2024 09:52:10 235 Below low normal 250-425 (ug/dL) Final Transferrin Sat % 03/23/2024 09:52:10 31 15-55 (%) Final Performing Location [facility] [place] - [address] [place] [address]
--- OUTSIDE RECORDS SUMMARY | 2024-08-19 10:50 | External Medical Summary | Summary of Care ---
Author Name Unknown Organization [facility] Address [address] [place] [address] Phone [phone] Care Team Providers Care Optical Mechanic Name Role Phone Александр Martínez MD Primary Care Provide r Reason for Visit * Reason Comments Hospital Follow-Up [facility] 02/15-02/20/24. Ed dorie in ankles intermittent and no worse then prior. SOB with exertion like working in the garden. Denies chest pain, palpitations and dizziness. 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 chronic kidney disease (HCC) Gastro-esophageal reflux disease without esophagitis HTN, goal below 140/90 Metabolic syndrome Khanh Cruz MD [address] [place] [address] [place] [phone] Referral ID Status Reason Start Date Expiration Date Visits Requested Visits Authorized [id number] Authorized Specialty Services Required 02/27/[phone] Encounter Details Date Type Department Care Team (Late st Contact Info) Description 03/05/2024 9:00 AM EDT [facility] [place] [phone] Devante Alcala PA-C [address] [place] [address] Hospital discharge follow-up*; HTN, goal below 140/90; Coronary artery disease involving [place] coronary artery of [place] heart without angina pectoris; Dyslipidemia, goal LDL below 70; Stage 3 chronic kidney disease, unspecified whether stage 3a or 3b CKD (HCC) Allergies Active Allergy Reactions Criticality Noted Date Comments Apple Cider Vinegar 01/30/2017 Penicillins 01/30/2017 Prednisolone 01/30/2017 Sulfa Antibiotics 04/03/2005 rash documented as of this encounter (statuses as of 03/05/2024) Medications Medication Sig Dispensed Refills Start Date [...] 09/25/2023 Active Furosemide 20 MG Oral Tablet (Lasix)Indications:H TN, goal below 140/90 TAKE 1 TABLET BY MOUTH EVERY MORNING 90 Tablet 0 12/05/2023 Active Finasteride 5 MG Oral Tablet (Proscar)Indications :BPH with obstruction/lower urinary tract symptoms TAKE 1 TABLET BY MOUTH EVERY MORNING 90 Tablet 0 01/24/2024 Active Carvedilol 3.125 MG Oral Tablet (Coreg)Indications:H ypertensive kidney disease with stage 3b chronic kidney disease (HCC),Chronic kidney disease, stage 3b (HCC),Coronary artery disease involving [place] coronary artery of [place] heart without angina pectoris,HTN, goal below 140/90 Take 1 Tablet by mouth in the morning and 1 Tablet before bedtime. with food. 180 Tablet 1 02/27/2024 Active amLODIPine Besylate 5 MG Oral Tablet (Norvasc)Indications :Hypertensive kidney disease with stage 3b chronic kidney disease (HCC),Chronic kidney disease, stage 3b (HCC),Coronary artery disease involving [place] coronary artery of [place] heart without angina pectoris,HTN, goal below 140/90 Take 0.5 Tablets by mouth in the morning. in the morning.. 45 Tablet 1 02/27/2024 Active Losartan Potassium 25 MG Oral Tablet (Cozaar)Indications: Hypertensive kidney disease with stage 3b chronic kidney disease (HCC),Chronic kidney disease, stage 3b (HCC),Coronary artery disease involving [place] coronary artery of [place] heart without angina pectoris,HTN, goal below 140/90 [...] mouth in the morning. 0 12/17/2023 Active documented as of this encounter (statuses as of 03/05/2024) Active Problems Problem Noted Date Diagnosed Date [...] hgba1c 6.0/126 Coronary artery disease invo lving [place] coronary artery of [place] heart without angina pectoris 01/03/2022 Gastro-esophageal reflux disease without esophag itis 01/03/2022 Anemia 01/22/2019 Dyslipidemia, goal LDL below 100 10/20/2009 Overview: Per Lipid Taxonomy. HTN, goal below 140/90 07/04/2006 Overview: 170/100 ADVANCE DIRECTIVE INFORMATION 11/29/2005 Overview: No, Advance Directive brochure offered , patient declined. Elenaa 11/29/2005 Allergic rhinitis 08/05/2003 documented as of this encounter (statuses as of 03/05/2024) Resolved Problems Problem Noted Date Diagnosed Date [...] as of this encounter (statuses as of 03/05/2024) Immunizations Name Administration Dates Next Due Seasonal [...] Sign Reading Time Taken Comments Blood Pressure 120/70 03/05/2024 8:55 AM EDT Pulse 72 03/05/2024 8:55 AM EDT Temperature - - Respiratory Rate 16 03/05/2024 8:55 AM EDT Oxygen Saturation - - Inhaled Oxygen Concentration - - Weight 88.3 kg (194 lb 9.6 oz) 03/05/2024 8:55 A M EDT Height - - Body Mass Index 28.74 02/27/2024 9:29 AM EDT documented in this encounter Progress Notes * Devante Alcala PA-C - 03/05/2024 9:00 AM EDT History of Present Illness: Freddie Soliman is a 78 year old male who returns today for cardiology follow-up evaluation. [facility] in [place], [place]. Patient admitted to [facility] Apr2023 to February 20, 2024 with symptomatic hypotension and bradycardia, transient junctional bradycardia observded in the setting of acute renal dysfunction with associated hyperkalemia, volume depletion, and acute complicated bronchitis (nasal congestion, cough productive of yellow sputum, worsening shortness ofbreath, decreased oral intake two weeks prior). Initial blood pressure was 85/54. Creatinine was 2.64 g/dL. Potassium was 5.6 mmol/L. Bradycardia improved with correction of hyperkalemia. Beta-dg therapy (metoprolol succinate 12.5 mg/day) was initially held then ultimately resumed in the form of carvedilol 3.125 mg twice daily starting in the evening on February 19, 2024 for hypertension, angina, and ventricular ectopy. Spironolactone, which was added in December 2023 for blood pressure, was discontinued with recommendation to avoid future use of said medication. Patient returns today feeling relatively well from a cardiac standpoint. 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 No chest pain or discomfort. No new or worsening shortness of breath. No palpitations. No excessive fatigue, dizziness, lightheadedness, near syncope, or syncope. No orthopnea or PND to accompany the chronic lower extremity peripheral edema. No reported melena or hematochezia. + Chronic sinus congestion. No fevers or chills. Cardiac Problem List: ASCVD. [facility] 10/01/2008 and [facility] by Dr. Mckeon, status post angioplasty and stenting of the LAD and angioplasty of the diagonal branch. Repeat [facility] 06/27/2009 demonstrating 30% stenosis of the LM, proximal stenosis of the LAD, distal patent stent to the LAD, diagonal branch was patent. Septal access services assistant had a 95% stenosis. LCx marginal had 20% stenosis. RCA had distal 20% stenosis. Status post PCI to the proximal portion of the LAD on 06/27/[address] Mckeon. Hypertension Hyperlipidemia Aortic insufficiency Patient Active Problem List Diagnosis Code Allergic rhinitis J30.9 ADVANCE DIRECTIVE INFORMATION Rosacea L71.9 HTN, goal below 140/90 I10 Dyslipidemia, goal LDL below 100 E78.5 Anemia D64.9 Coronary artery disease involving [place] coronary artery of [place] heart without angina pectoris I25.10 Gastro-esophageal reflux disease without esophagitis K21.9 BPH without obstruction/lower urinary tract symptoms N40.0 Metabolic syndrome E88.810 S/P angioplasty with stent Z95.820 Tremor R25.1 Gout of multiple sites M10.9 Chronic kidney disease, stage 3b (HCC) N18.32 Hypertensive kidney disease with stage 3b chronic kidney disease (HCC) I12.9, N18.32 Prediabetes R73.03 Past Medical History: Diagnosis Date Acute pancreatitis 07/14/2006 Seen in [place], not admitted Allergic rhinitis due to other allergen Bronchitis 02/16/2024 [facility] CKD (chronic kidney disease), stage III (HCC) 07/19/2022 EGFR 44 Encounter for hepatitis C screening test for low risk patient 07/19/2022 negative for B and C HTN, goal below 140/90 07/04/2006 170/100 Metabolic syndrome 08/02/2022 hgba1c 6.0/126 Mixed dyslipidemia 08/05/2003 CHOL 259, HDL 46, LDL 159, TRIG 271 Nasal polyp 01/11/2005 Occult blood positive stool 01/22/2019 Rectal bleeding 01/22/2019 Rosacea 11/29/2005 Spontaneous pneumothorax PAH? Past Surgical History: Procedure Laterality Date CTA HEAD W CONTRAST 05/27/06 chronic sinus congestion, most likely allergic. LAPAROSCOPY; CHOLECYSTECTOMY 01/21/07 Cholecystectomy, Laproscopic, [place] LASER SURGERY OF INNER EYE STRANDS Right 04/24/2017 Micro Pulse Laser procedure OD, LASER SURGERY OF INNER EYE STRANDS Left 11/20/2017 Micropulse Laser OS, Dr. Christie MISCELLANEOUS ORDER ([facility] ONLY) ACT 112 signed, 06/17/2020 REMOVE CATARACT, INSERT LENS PROSTH Right 01/08/2017 OD, REMOVE CATARACT, INSERT LENS PROSTH Left 01/17/2017 OS, US ABDOMEN COMPLETE 01/02/07 two gallstones, wall thickened at 6.3 mm, liver, spleen, kidneys and pancreas normal Family History Problem Relation Age of Onset Stroke Sister Eye Problems Sister Diabetes Mother age 62 Cancer Mother age 62 liver cancer Heart Disorder Father OH age 68 Other (congenital) Sister age 2 wks Diabetes Sister Heart Disorder Sister OH in her 40's Lung Disorder Brother age 62 of COPD Other (accidental) Brother drowned age 21 Family History: Father with an OH at 68. Mother with liver cancer at 62. Sister had an MIin her 40s. One brother drowned at 21. Social History: Reformed smoker, quitting some 50 years ago. No significant alcohol. No illegal drug use. Lives in [place]. 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 Daughter is a FOOD SERVICE ORDER CLERK. Complete Review of Systems is as stated above, negative, or noncontributory. Review of patient's allergies indicates: Allergen Reactions Apple Cider Vinegar Penicillins Prednisolone Sulfa Antibiotics rash Current Outpatient Medications Medication Sig Dispense Refill [...] MOUTH IN THE MORNING 90 Tablet 5 Furosemide 20 MG Oral Tablet (Lasix) TAKE 1 TABLET BY MOUTH EVERY MORNING 90 Tablet 0 Finasteride 5 MG Oral Tablet (Proscar) TAKE 1 TABLET BY MOUTH EVERY MORNING 90 Tablet 0 Carvedilol 3.125 MG Oral Tablet (Coreg) Take 1 Tablet by mouth in the morning and 1 Tablet before bedtime. with food. 180 Tablet 1 amLODIPine Besylate 5 MG Oral Tablet (Norvasc) Take 0.5 Tablets by mouth in the morning. in the morning.. 45 Tablet 1 Losartan Potassium 25 MG Oral Tablet (Cozaar) Take 1 Tablet by mouth in the morning. 90 Tablet 1 Vitamin E 100 UNIT Oral [...] 1 Capsule by mouth in the morning. No current facility-administered medications for this visit. OBJECTIVE/PHYSICAL EXAMINATION: BP 120/70 | Pulse 72 | Resp 16 | Wt 88.3 kg (194 lb 9.6 oz) | BMI 28.74 kg/m | BSA 2.07 m General: Alert and oriented x3. No acute distress. Pleasant. Comfortable. Cooperative. Skin: No rash Eyes: PER. Conjunctiva pink, sclera clear. HENT: Normocephalic. Atraumatic. Neck: No carotid bruits. No JVD. No HJR. Heart: RRR. No murmur. No rub. No gallop. PMI is nondisplaced. Lungs: Clear to auscultation. No wheeze. No rales. No rhonchi Abdomen: +BS. Soft. Nontender. No masses. No organomegaly. Extremities: Trace to 1+ edema. Staxis changes. No clubbing. No cyanosis Pulses: radial=2/4, posterior tibial=2/4. Limited neurological examination: No focal deficit. Data: February 09, 2022 TTE Summary (as per Dr. Bustillo): Normal size left ventricle. Mild concentric LVH. Normal LV systolic function, EF 50 to 55%. No regional wall motion abnormalities. Normal diastolic filling pattern. Normal RV regurgitation. Mild aortic regurgitation. Trivial tricuspid regurgitation. July 18, 2022 [employer] Interpretation Summary (as per Dr. Fabian): Lexiscan nuclear cardiac stress test negative for ischemia. Gated SPECT images reveals normal myocardial thickening and wall motion. The LV ejection fraction is calculated at 65%. Hypertensive resting blood pressure with a normal response to Lexiscan EKG on 03/05/2024: Normal sinus rhythm at 62 bpm. ASSESSMENT: Hospital discharge follow-up. Stable cardiac signs and symptoms. RECOMMENDATIONS/PLAN: Continue as presently prescribed. Laboratory work to be obtained as previously ordered through family practice. OK to take an additional 20 mg of Furosemide 1-2 days per week asneeded. Routine cardiology follow-up in 6 months time or as needed. ER with emergencies. Devante Alcala PA-C Department of Cardiology I spent a total of 30-39 minutes (exact time 30 mins) on the date of service in preparation, delivery, and documentation of the care provided to Freddie Soliman excluding any time spent in the performance of separately billed services. This visit involved medical care services related to at least one serious condition or complex condition requiring ongoing care. This chart was completed in part utilizing [employer] Speech Voice Recognition Software. Grammatical errors, random word insertions, prounoun errors, and incomplete sentences are an occasional consequence of this system due to software limitations, ambient noise, and hardware issues. Any formal questions or concerns about the content, text, or information contained within the body of this dictation should be directly addressed to the provider for clarification. documented in this encounter Nursing Notes * Alex Ward LPN - 03/05/2024 8:55 AM EDT Patient identified by full name and date of Chief Complaint Patient presents with Hospital Follow-Up [facility] 02/15-02/20/24. Edema in ankles intermittent and no worse then prior. SOB with exertion like working in the garden. Denies chest pain, palpitations and dizziness. Examination Room: 4 Name: Freddie Soliman Date of : (1945). Reason for Visit: HD follow up Interim Hospitalization(s): [facility] 02/15-02/20/24 Problems/Concerns: See chief complaint Chest Pain/SOB: See chief complaint [facility] Discussed: Yes [facility] is a way you can talk to your provider online through e-mail. Would you like to sign up? I can activate it for you? ALREADY ACTIVE Patient was instructed to not get up on the exam table until directed and assisted by their provider; patient is to remain seated in the chair/ wheelchair/ exam table for fall prevention and safety reasons. Patient is aware to have assistance to step down off exam table with personnel. Patient voiced full comprehension of instructions. documented in this encounter Plan of Treatment Upcoming Encounters Date Type Department Care Team (Late st Contact Info) Description 03/26/2024 1:00 PM EDT Office Visit Nephrology [address] [place] [phone] Miriam Donovan MD [address] [place] [address] 09/10/2024 10:00 AM EDT Office Visit Cardiology [address] [place] [address] Devante Alcala PA-C [address] [place] [address] Scheduled Orders Name Type Priority Associated Diagnoses Orde r Schedule EKG EKG Routine HTN, goal below 140/90 Ordered: 03/05/2024 Health Maintenance Due Date Last Done Comments Pneumococcal Vaccine: 65+ Years (1 of 2 - PCV) 1951 Depression Screening 1959 Zoster Vaccines (1 of 2) 1997 DTaP,Tdap,and Td Vaccines (1 - Tdap) 11/08/2011 11/07/2011 COVID-19 Vaccine (1 - 2022- season) 2023 HbA1c 11/01/2023 11/01/2022, 08/02/2022 Albumin/Creatinine Ratio 05/03/2024 05/03/2023, 09/0 06/2022 Influenza Vaccine (FLU shot) (Season Ended) 2024 11/19/2019, 11/14/2006, 09/27/2005 GFR 08/21/2024 02/20/2024, 06/01/2023, 01/11/2023, Additional history exists CKD HGB USE SMARTSET 04410 02/19/202502/19, 01/11/2023, 01/11/2023, Additional history exists CKD PHOS USE SMARTSET 94775 02/19/202502/09, 01/11/2023, 01/18/2022, Additional history exists Colonoscopy Discontinued 01/01/2018 Colorectal Cancer Screening Discontinued [...] as of this encounter Visit Diagnoses Diagnosis Hospital discharge follow-up- Primary Other follow-up examination HTN, goal below 140/90 Unspecified essential hypertension Coronary artery disease involving [place] coronary artery of [place] heart without angina pectoris Dyslipidemia, goal LDL below 70 Other and unspecified hyperlipidemia Stage 3 chronic kidney disease, unspecified whether stage 3a or 3b CKD (HCC) documented in this encounter Care Teams Optical Mechanic Relationship Specialty Start Date End Date Александр Martínez MD [address] [place] [address] [place] [phone] PCP - General Family Medicine 01/11/23 documented as of this encounter"
--- OUTSIDE RECORDS SUMMARY | 2024-08-19 10:50 | External Medical Summary ---
Author Name Unknown Address Unknown Organization K01:[facility] [address] [place] [address] Laboratory Report Ordering Provider Test Date Status JOLANTAKRYSTIANNAVI KYLECARLOS 03/23/2024 09:52:10 Melyssa l Observation Date Value Abnormality Reference (Units ) Status Hemoglobin 03/23/2024 09:52:10 11.6 Below low normal 14 .0-16.8 (g/dL) Final Performing Location [facility] - [address] [place] [address]
--- OUTSIDE RECORDS SUMMARY | 2024-08-19 10:50 | External Medical Summary | Summary of Care ---
Author Name Unknown Organization [facility] Address [address] [place] [address] Phone [phone] Care Team Providers Care Lead Pressman Name Role Phone Александр Martínez MD Primary Care Provide r Reason for Visit * Reason Onset Date Comments Health Maintenance 03/18/2024 Encounter Details Date Type Department Care Team (Late st Contact Info) Description 03/18/2024 Telephone Family [address] [phone] Александр Martínez MD [address] [place] [address] [place] [phone] Health Maintenance Allergies Active Allergy Reactions Criticality Noted Date Comments Apple Cider Vinegar 01/30/2017 Penicillins 01/30/2017 Prednisolone 01/30/2017 Sulfa Antibiotics 04/03/2005 rash documented as of this encounter (statuses as of 03/18/2024) Medications Medication Sig Dispensed Refills Start Date [...] disease, stage 3b (HCC),Coronary artery disease involving [place] coronary artery of [place] heart without angina pectoris,HTN, goal below 140/90 Take 1 Tablet by mouth in the morning and 1 Tablet before bedtime. with food. 180 Tablet 1 02/27/2024 Active amLODIPine Besylate 5 MG Oral Tablet (Norvasc)Indications :Hypertensive kidney disease with stage 3b chronic kidney disease (HCC),Chronic kidney disease, stage 3b (HCC),Coronary artery disease involving [place] coronary artery of [place] heart without angina pectoris,HTN, goal below 140/90 Take 0.5 Tablets by mouth in the morning. in the morning.. 45 Tablet 1 02/27/2024 Active Losartan Potassium 25 MG Oral Tablet (Cozaar)Indications: Hypertensive kidney disease with stage 3b chronic kidney disease (HCC),Chronic kidney disease, stage 3b (HCC),Coronary artery disease involving [place] coronary artery of [place] heart without angina pectoris,HTN, goal below [...] as of this encounter (statuses as of 03/18/2024) Active Problems Problem Noted Date Diagnosed Date [...] hgba1c 6.0/126 Coronary artery disease invo lving [place] coronary artery of [place] heart without angina pectoris 01/03/2022 Gastro-esophageal reflux disease without esophag itis 01/03/2022 Anemia 01/22/2019 Dyslipidemia, goal LDL below 100 10/20/2009 Overview: Per Lipid Taxonomy. HTN, goal below 140/90 07/04/2006 Overview: 170/100 ADVANCE DIRECTIVE INFORMATION 11/29/2005 Overview: No, Advance Directive brochure offered , patient declined. Rosacea 11/29/2005 Allergic rhinitis 08/05/2003 documented as of this encounter (statuses as of 03/18/2024) Resolved Problems Problem Noted Date Diagnosed Date [...] as of this encounter (statuses as of 03/18/2024) Immunizations Name Administration Dates Next Due Seasonal [...] encounter Miscellaneous Notes * Telephone Encounter - Maribel Dyer LPN - 03/18/2024 10:09 AM EDT Care Gaps Comprehensive Care Outreach Last Office/Telemedicine Visit: 02/27/2024 (in office), Visit date not found (telemedicine) Next Office Visit: Visit date not found Hemoglobin AIC Results: Lab Results Component Value Date/Time HEMOGLOBIN A1C - [facility] 5.8 (H) 11/01/2022 09:08 AM HEMOGLOBIN A1C - [facility] 6.0 (H) 08/02/2022 12:26 PM BP Readings from Last 1 Encounters: 03/05/24 120/70 Reviewed Health Maintenance below: Health Maintenance Topic Date Due Pneumococcal Vaccine: 65+ Years (1 of 2 - PCV) Never done Depression Screening Never done Zoster Vaccines (1 of 2) Never done DTaP,Tdap,and Td Vaccines (1 - Tdap) 11/08/2011 COVID-19 Vaccine (1 - season) Never done HbA1c 11/01/2023 Albumin/Creatinine Ratio 05/03/2024 Ov declined for patient Lab already ordered requested from [facility] Care Gap Outreach Action Taken: Spoke to patient documented in this encounter Plan of Treatment Upcoming Encounters Date Type Department Care Team (Late st Contact Info) Description 03/24/2024 1:00 PM EDT Office Visit Nephrology [address] [place] [address] Miriam Donovan MD [address] [place] [address] 09/10/2024 10:00 AM EDT Office Visit Cardiology [address] [place] [phone] Devante Alcala PA-C [address] [place] [address] Health Maintenance Due Date Last Done Comments [...] 2024 11/19/2019, 11/14/2006, 09/27/2005 GFR 08/21/2024 02/20/2024, 04/12, 01/11/2023, Additional history exists CKD HGB USE SMARTSET 22989 02/19/202502/19, 01/11/2023, 01/11/2023, Additional history exists CKD PHOS USE SMARTSET 29011 02/19/2025 0411/2023, 01/11/2023, 01/18/2022, Additional history exists Colonoscopy Discontinued [...] filedocumented as of this encounter Care Teams Lead Pressman Relationship Specialty Start Date End Date Александр Martínez MD [address] [place] [address] [place] [phone] PCP - General Family Medicine 01/11/23 documented as of this encounter
--- OUTSIDE RECORDS SUMMARY | 2024-08-19 10:50 | External Medical Summary ---
Author Name Unknown Address Unknown Organization K01:[facility] - [address] [place] [address] Laboratory Report Ordering Provider Test Date Status KEV SULLIVAN 03/23/2024 09:52:10 Melyssa l Normal: <30 mg/g creatinine< br/>High: 30-300 mg/g creatinine
Very High: >300 mg/g creatinine
Nephrotic: >2200 mg/g creatinine Observation Date Value Abnormality Reference (Units ) Status Albumin, Urine 03/23/2024 09:52:10 164.10 (mg/dL) Final Creatinine, Urine 03/23/2024 09:52:10 99 (mg/dL) Final Albumin/Creatinine [Mass Ratio] in Urine 03/23/2024 09:52:10 1658 Above high normal <30 (mg/g Creat) Final Performing Location [facility] [address] [facility] [address]
--- OUTSIDE RECORDS SUMMARY | 2024-08-19 10:50 | External Medical Summary ---
Author Name Unknown Address Unknown Organization K01:[facility] - [address] [place] [address] Laboratory Report Ordering Provider Test Date Status KEV SULLIVAN 03/23/2024 09:52:10 Melyssa l Observation Date Value Abnormality Reference (Units ) Status Phosphate 03/23/2024 09:52:10 3.9 2.5-4.8 (m g/dL) Final Performing Location [facility] - [address] [place] [address]
--- OUTSIDE RECORDS SUMMARY | 2024-08-19 10:50 | External Medical Summary ---
Author Name Unknown Address Unknown Organization K01:[facility] [place] [address] [place] [address] Laboratory Report Ordering Provider Test Date Status KEV SULLIVAN 03/23/2024 09:52:10 Melyssa l Observation Date Value Abnormality Reference (Units ) Status BUN 03/23/2024 09:52:10 27 Above high normal 6-20 (mg/dL) Final Creatinine 03/23/2024 09:52:10 1.7 Above high normal 0.6-1.2 (mg/dL) Final Glomerular filtration rate/1.73 sq M.predicted [Volume Rate/Area] in Serum, Plasma or Blood by Creatinine-based formula (CKD-EPI) 03/23/2024 09:52:10 41 Below low normal >=60 (mL/min) Final eGFR is calculated based on the CKD-EPI 2020 equation Sodium 03/23/2024 09:52:10 139 135-146 (m mol/L) Final Potassium 03/23/2024 09:52:10 4.7 3.5-5.1 (m mol/L) Final Cl 03/23/2024 09:52:10 108 Above high normal 98 -107 (mmol/L) Final CO2 03/23/2024 09:52:10 22 22-32 (mmo l/L) Final Anion gap 03/23/2024 09:52:10 9 7-15 (mmol /L) Final Glucose 03/23/2024 09:52:10 102 70-120 (mg /dL) Final Calcium 03/23/2024 09:52:10 8.9 8.4-10.2 ( mg/dL) Final Performing Location [facility] [place] [address] [place] [address]
--- OUTSIDE RECORDS SUMMARY | 2024-08-19 10:50 | External Medical Summary ---
Author Name Unknown Address Unknown Organization K01:[facility] [place] [address] [place] [address] Laboratory Report Ordering Provider Test Date Status KATELIN WATSON 03/23/2024 09:52:10 Final Observation Date Value Abnormality Reference (Units ) Status Uric Acid 03/23/2024 09:52:10 5.2 3.4-7.0 (m g/dL) Final Performing Location [facility] - [address] [place] [address]
--- OUTSIDE RECORDS SUMMARY | 2024-08-19 10:50 | External Medical Summary | Summary of Care ---
Author Name Unknown Organization [facility] Address [address] [place] [address] Phone [phone] Care Team Providers Care Christmas Tree Farmer Name Role Phone Александр Martínez MD Primary Care Provide r Reason for Visit * Reason Onset Date Comments Appointment 03/17/2024 Encounter Details Date Type Department Care Team (Late st Contact Info) Description 03/17/2024 Telephone NephrologyDontae [address] [facility] [place] [address] Miriam Donovan MD [address] [place] [address] Appointment Allergies Active Allergy Reactions Criticality Noted [...] disease, stage 3b (HCC),Coronary artery disease involving [place] coronary artery of [place] heart without angina pectoris,HTN, goal below 140/90 Take 1 Tablet by mouth in the morning and 1 Tablet before bedtime. with food. 180 Tablet 1 02/27/2024 Active amLODIPine Besylate 5 MG Oral Tablet (Norvasc)Indications :Hypertensive kidney disease with stage 3b chronic kidney disease (HCC),Chronic kidney disease, stage 3b (HCC),Coronary artery disease involving [place] coronary artery of [place] heart without angina pectoris,HTN, goal below 140/90 Take 0.5 Tablets by mouth in the morning. in the morning.. 45 Tablet 1 02/27/2024 Active Losartan Potassium 25 MG Oral Tablet (Cozaar)Indications: Hypertensive kidney disease with stage 3b chronic kidney disease (HCC),Chronic kidney disease, stage 3b (HCC),Coronary artery disease involving [place] coronary artery of [place] heart without angina pectoris,HTN, goal below 140/90 [...] hgba1c 6.0/126 Coronary artery disease invo lving [place] coronary artery of [place] heart without angina pectoris 01/03/2022 Gastro-esophageal reflux [...] Inj 11/14/2006,09/27/2005 TD - Tetanus/Diptheria (ADULT) 11/07/2011 documented as [...] encounter Miscellaneous Notes * Telephone Encounter - Destinee Kennedy OSA - 03/18/2024 8:06 AM EDT 03/18/24 Called patient, left message. Trying to get patient re-scheduled with Nephrology for appointment on 03/26. Provider is not available on 03/26/24. Please offer 03/24/[address] Donovan in forhospital discharge. * Telephone Encounter - Destinee Kennedy OSA - 03/17/2024 1:49 PM EDT 03/17/24 Called patient, left message. Trying to get patient re-scheduled with Nephrology for appointment on 03/26. Provider is not available on 03/26/24. Please offer 03/24/[address] Donovan in forhospital discharge. My G message being sent out as well. documented in this encounter Plan of Treatment Upcoming Encounters Date Type Department Care Team (Late st Contact Info) Description 03/26/2024 1:00 PM EDT Office Visit Nephrology [address] [place] [phone] Miriam Donovan MD [address] [place] [address] 09/10/2024 10:00 AM EDT Office Visit Cardiology [address] [place] [address] Devante Alcala PA-C [address] [place] [address] Health Maintenance Due Date Last Done Comments Pneumococcal Vaccine: 65+ Years (1 of 2 - PCV) 1951 Depression Screening 1959 Zoster Vaccines (1 of 2) 1997 DTaP,Tdap,and Td Vaccines (1 - Tdap) 11/08/2011 11/07/2011 COVID-19 Vaccine (1 - season) 2023 HbA1c 11/01/2023 11/01/2022, 08/02/2022 Albumin/Creatinine Ratio 05/03/2024 05/03/2023, 09/0 06/2022 Influenza Vaccine (FLU shot) (Season Ended) 2024 11/19/2019, 11/14/2006, 09/27/2005 GFR 08/21/2024 02/20/2024, 06/2 01/2023, 01/11/2023, Additional history exists CKD HGB USE SMARTSET 12518 02/19/202502/19, 01/11/2023, 01/11/2023, Additional history exists CKD PHOS USE SMARTSET 12749 02/19/2025 04/11/2023, 01/11/2023, 01/18/2022, Additional history exists Colonoscopy Discontinued [...] filedocumented as of this encounter Care Teams Christmas Tree Farmer Relationship Specialty Start Date End Date Александр Martínez MD [address] [place] [address] [place] [phone] PCP - General Family Medicine 01/11/23 documented as of this encounter
--- OUTSIDE RECORDS SUMMARY | 2024-08-19 10:50 | External Medical Summary | Summary of Care ---
Author Name Unknown Organization [facility] Address [address] [place] [address] Phone [phone] Care Team Providers Care Supervisor Hot Dip Plating Name Role Phone Александр Martínez MD Primary Care Provide r Encounter Details Date Type Department Care Team (Late st Contact Info) Description 03/19/2024 Orders Only Family Medicine [address] [phone] Александр Martínez MD [address] [place] [address] [place] [phone] Allergies Active Allergy Reactions Criticality Noted Date Comments Apple Cider Vinegar 01/30/2017 Penicillins 01/30/2017 Prednisolone 01/30/2017 Sulfa Antibiotics 04/03/2005 rash documented as of this encounter (statuses as of 03/19/2024) Medications Medication Sig Dispensed Refills Start Date [...] disease, stage 3b (HCC),Coronary artery disease involving [place] coronary artery of one[place] heart without angina pectoris,HTN, goal below 140/90 Take 1 Tablet by mouth in the morning and 1 Tablet before bedtime. with food. 180 Tablet 1 02/27/2024 Active amLODIPine Besylate 5 MG Oral Tablet (Norvasc)Indications :Hypertensive kidney disease with stage 3b chronic kidney disease (HCC),Chronic kidney disease, stage 3b (HCC),Coronary artery disease involving [place] coronary artery of one[place] heart without angina pectoris,HTN, goal below 140/90 Take 0.5 Tablets by mouth in the morning. in the morning.. 45 Tablet 1 02/27/2024 Active Losartan Potassium 25 MG Oral Tablet (Cozaar)Indications: Hypertensive kidney disease with stage 3b chronic kidney disease (HCC),Chronic kidney disease, stage 3b (HCC),Coronary artery disease involving [place] coronary artery of one[place] heart without angina pectoris,HTN, goal below 140/90 [...] as of this encounter (statuses as of 03/19/2024) Active Problems Problem Noted Date Diagnosed Date [...] hgba1c 6.0/126 Coronary artery disease invo lving one[place] coronary artery of oneida heart without angina pectoris 01/03/2022 Gastro-esophageal reflux disease without esophag itis 01/03/2022 Anemia 01/22/2019 Dyslipidemia, goal LDL below 100 10/20/2009 Overview: Per Lipid Taxonomy. HTN, goal below 140/90 07/04/2006 Overview: 170/100 ADVANCE DIRECTIVE INFORMATION 11/29/2005 Overview: No, Advance Directive brochure offered , patient declined. Rosacea 11/29/2005 Allergic rhinitis 08/05/2003 documented as of this encounter (statuses as of 03/19/2024) Resolved Problems Problem Noted Date Diagnosed Date [...] as of this encounter (statuses as of 03/19/2024) Immunizations Name Administration Dates Next Due Seasonal [...] 03/24/2024 1:00 PM EDT Office Visit Nephrology [address] [place] [phone] Miriam Donovan MD [address] [place] [address] 09/10/2024 10:00 AM EDT Office Visit Cardiology [address] [place] [address] Devante Alcala PA-C [address] [place] [address] Health Maintenance Due Date Last Done Comments Pneumococcal Vaccine: 65+ Years (1 of 2 - PCV) 1951 Depression Screening 1959 Zoster Vaccines (1 of 2) 1997 DTaP,Tdap,and Td Vaccines (1 - Tdap) 11/08/2011 11/07/2011 COVID-19 Vaccine ( season) 2023 HbA1c 11/01/2023 02/16/2024, 10/12, 08/02/2022 Albumin/Creatinine Ratio 05/03/2024 05/03/2023, 06/2022 Influenza Vaccine (FLU shot) (Season Ended) 2024 11/19/2019, 11/14/2006, 09/27/2005 GFR 08/21/2024 02/20/2024, 05/2024, 05/03/2023, Additional history exists CKD HGB USE SMARTSET 05296 02/19/202502/19, 01/11/2023, 01/11/2023, Additional history exists CKD PHOS USE SMARTSET 74831 02/19/202502/09, 01/11/2023, 01/18/2022, Additional history exists Colonoscopy [...] Not on filedocumented as of this encounter Procedures Procedure Name Priority Date/Time Associated Diagnosis Comments CHEMISTRY-OUTSIDE Routine 02/16/2024 documented in this encounter Results * (ABNORMAL) CHEMISTRY-OUTSIDE (02/16/2024) Not all results display below - see scan for full detail OUTSIDE LAB (SEE SCANNED REPORT) CREATININE-OUTSID E LAB 1.82(A) 0.6 - 1.4 OUTSIDE LAB (SEE SCANNED REPORT) EGFR-OUTSIDE LAB OUT SIDE LAB (SEE SCANNED REPORT) POTASSIUM-OUTSIDE LAB 4.4 3.5 - 5.1 OUTSIDE LAB (SEE SCANNED REPORT) GLUCOSE-OUTSIDE LAB 102(A) 70 - 99 OUTSIDE LAB (SEE SCANNED REPORT) HOURS FASTING OUTSID E LAB (SEE SCANNED REPORT) TRIGLYCERIDES-OUT SIDE LAB OUTSIDE LAB (SEE SCANNED REPORT) CHOLESTEROL-OUTSI DE LAB OUTSIDE LAB (SEE SCANNED REPORT) HDL-OUTSIDE LAB OUTS DEEP LAB (SEE SCANNED REPORT) CHOL/HDL RATIO-OUTSIDE LAB OUTSIDE LA B (SEE SCANNED REPORT) LDL (CALCULATED)-OUTS DEEP LAB OUTSIDE LAB (SEE SCANNED REPORT) LDL (DIRECT MEASURE)-OUTSIDE LAB OUTSIDE LAB (SEE SCANNED REPORT) HEMOGLOBIN, U3G-PGXBJNC LAB 6.3(A) 4.5 - 5.6 OUTSIDE LAB (SEE SCANNED REPORT) PHOSPHORUS-OUTSID E LAB OUTSIDE LAB (SEE SCANNED REPORT) PTH-OUTSIDE LAB OUTS DEEP LAB (SEE SCANNED REPORT) MICROALBUMIN RATIO-OUTSIDE LAB OUTSIDE LA B (SEE SCANNED REPORT) PROTEIN, UA-OUTSIDE LAB OUTSIDE LAB (SEE SCANNED REPORT) HGB OUTSIDE LA B (SEE SCANNED REPORT) 02/16/2024 Krystle Mai MD LABORATORY OUTSIDE LAB (SEE SCANNED REPORT) documented in this encounter Care Teams Supervisor Hot Dip Plating Relationship Specialty Start Date End Date Александр Martínez MD [address] [place] [address] [place] [phone] PCP - General Family Medicine 01/11/23 documented as of this encounter
--- OUTSIDE RECORDS SUMMARY | 2024-08-19 10:50 | External Medical Summary | Summary of Care ---
Author Name Unknown Organization [facility] Address [address] [place] [address] Phone [phone] Care Team Providers Care School Business Manager Name Role Phone Александр Martínez MD Primary Care Provide r Reason for Visit * Reason Onset Date Comments Appointment 03/17/2024 Encounter Details Date Type Department Care Team (Late st Contact Info) Description 03/17/2024 Telephone NephrologyDontae [address] [place] [address] Miriam Donovan MD [address] [place] [address] Appointment Allergies Active Allergy Reactions Criticality Noted Date Comments Apple Cider Vinegar 01/30/2017 Penicillins 01/30/2017 Prednisolone 01/30/2017 Sulfa Antibiotics 04/03/2005 rash documented as of this encounter (statuses as of 03/17/2024) Medications Medication Sig Dispensed Refills Start Date [...] disease, stage 3b (HCC),Coronary artery disease involving [place] coronary artery of [place] heart without angina pectoris,HTN, goal below 140/90 Take 1 Tablet by mouth in the morning and 1 Tablet before bedtime. with food. 180 Tablet 1 02/27/2024 Active amLODIPine Besylate 5 MG Oral Tablet (Norvasc)Indications :Hypertensive kidney disease with stage 3b chronic kidney disease (HCC),Chronic kidney disease, stage 3b (HCC),Coronary artery disease involving [place] coronary artery of [place] heart without angina pectoris,HTN, goal below 140/90 Take 0.5 Tablets by mouth in the morning. in the morning.. 45 Tablet 1 02/27/2024 Active Losartan Potassium 25 MG Oral Tablet (Cozaar)Indications: Hypertensive kidney disease with stage 3b chronic kidney disease (HCC),Chronic kidney disease, stage 3b (HCC),Coronary artery disease involving [place] coronary artery of [place] heart without angina pectoris,HTN, goal below 140/90 [...] as of this encounter (statuses as of 03/17/2024) Active Problems Problem Noted Date Diagnosed Date [...] hgba1c 6.0/126 Coronary artery disease invo lving [place] coronary artery of [place] heart without angina pectoris 01/03/2022 Gastro-esophageal reflux disease without esophag itis 01/03/2022 Anemia 01/22/2019 Dyslipidemia, goal LDL below 100 10/20/2009 Overview: Per Lipid Taxonomy. HTN, goal below 140/90 07/04/2006 Overview: 170/100 ADVANCE DIRECTIVE INFORMATION 11/29/2005 Overview: No, Advance Directive brochure offered , patient declined. Rosacea 11/29/2005 Allergic rhinitis 08/05/2003 documented as of this encounter (statuses as of 03/17/2024) Resolved Problems Problem Noted Date Diagnosed Date [...] as of this encounter (statuses as of 03/17/2024) Immunizations Name Administration Dates Next Due Seasonal [...] 03/26/2024 1:00 PM EDT Office Visit Nephrology [address] [place] [phone] Miriam Donovan MD [facility] [place] [address] 09/10/2024 10:00 AM EDT Office Visit Cardiology [address] [place] [address] Devante Alcala PA-C [address] [place] [address] Health Maintenance Due Date Last Done Comments Pneumococcal Vaccine: 65+ Years (1 of 2 - PCV) 1951 Depression Screening 1959 Zoster Vaccines (1 of 2) 1997 DTaP,Tdap,and Td Vaccines (1 - Tdap) 11/08/2011 11/07/2011 COVID-19 Vaccine (1 - 2022- season) 2023 HbA1c 11/01/2023 11/01/2022, 08/02/2022 Albumin/Creatinine Ratio 05/03/2024 05/03/2023, 090 06/2022 Influenza Vaccine (FLU shot) (Season Ended) 2024 11/19/2019, 11/14/2006, 09/27/2005 GFR 08/21/2024 02/20/2024, 04/12, 01/11/2023, Additional history exists CKD HGB USE SMARTSET 87121 02/19/202502/19, 01/11/2023, 01/11/2023, Additional history exists CKD PHOS USE SMARTSET 97936 02/19/202502/09, 01/11/2023, 01/18/2022, Additional history exists Colonoscopy [...] filedocumented as of this encounter Care Teams School Business Manager Relationship Specialty Start Date End Date Александр Martínez MD NPI: [id number] [place] [address] [place] [phone] PCP - General Family Medicine 01/11/23 documented as of this encounter
--- OUTSIDE RECORDS SUMMARY | 2024-08-19 10:50 | External Medical Summary | Summary of Care ---
Author Name Unknown Organization [facility] Address [address] [place] [address] Phone [phone] Care Team Providers Care Advanced Clinical Specialist Name Role Phone Александр Martínez MD Primary Care Provide r Reason for Referral * Social Care (Within 10 days (routine)) - Authorized Specialty Diagnoses / Procedures Referred By Ellen pal Referred To Contact Military Cook Diagnoses Caregiver burden Perla Bradford MD [address] [place] [address] [place] [phone] Referral ID Status Reason Start Date Expiration Date Visits Requested Visits Authorized [id number] Authorized Specialty Services Required 03/23/2024 999 999 Question Answer Referral Priority Within 10 days (routine) Where should this appointment be scheduled? [facility] Role Extension Service Agent Extension Service Agent Referral Reason Frail Elderly Comments Is patient being transitioned from [facility] to Complex Case Management? No Patient is overwhelmed with caregiving for his and daughter and grandchildren; has no support. They have serious medical issues (daughter with brain cancer, recurrent blood clots, grandchild with autism, with chronic pain and physically disabled). Needs support. Reason for Visit * Reason Comments Acute Encounter Details Date Type Department Care Team ([facility] st Contact Info) Description 03/23/2024 10:20 AM EDT Office Visit Family Medicine [address] [place] [phone] Perla Bradfodr MD [address] [place] [address] [place] [phone] Second degree burn of right thigh, initial encounter*; Caregiver burden Allergies Active Allergy Reactions Criticality Noted Date [...] disease, stage 3b (HCC),Coronary artery disease involving [place] coronary artery of [place] heart without angina pectoris,HTN, goal below 140/90 Take 1 Tablet by mouth in the morning and 1 Tablet before bedtime. with food. 180 Tablet 1 02/27/2024 Active amLODIPine Besylate 5 MG Oral Tablet (Norvasc)Indication s:Hypertensive kidney disease with stage 3b chronic kidney disease (HCC),Chronic kidney disease, stage 3b (HCC),Coronary artery disease involving [place] coronary artery of [place] heart without angina pectoris,HTN, goal below 140/90 Take 0.5 Tablets by mouth in the morning. in the morning.. 45 Tablet 1 02/27/2024 Active Losartan Potassium 25 MG Oral Tablet (Cozaar)Indications :Hypertensive kidney disease with stage 3b chronic kidney disease (HCC),Chronic kidney disease, stage 3b (HCC),Coronary artery disease involving [place] coronary artery of [place] heart without angina pectoris,HTN, goal below 140/90 [...] hgba1c 6.0/126 Coronary artery disease invo lving [place] coronary artery of [place] heart without angina pectoris 01/03/2022 Gastro-esophageal reflux [...] positive stool 01/22/2019 08/02/2022 Mixed dyslipidemia 12/11/2006 12//200 9 Overview: Per Lipid Taxonomy. Other allergic [...] Sign Reading Time Taken Comments Blood Pressure 122/64 03/23/2024 9:24 AM EDT Pulse 60 03/23/2024 9:24 AM EDT Temperature 36.3 C (97.3 F) 03/23/2024 9:24 AM ED T Respiratory Rate 16 03/23/2024 9:24 AM EDT Oxygen Saturation - - Inhaled Oxygen Concentration - - Weight 87.5 kg (193 lb) 03/23/2024 9:24 AM EDT Height - - Body Mass Index 28.5 02/27/2024 9:29 AM EDT documented in this encounter Progress Notes * Krishna Escoto, Perla De La Garza MD - 03/23/2024 9:37 AM EDT Subjective Freddie Soliman is a 78 year old male. Chief Complaint Patient presents with Acute HPI: Burn to right thigh 1 week ago. Has been applying OTC antibiotic ointment, but yesterday got red and painful and he worries is infected. Area was red and had blister, that has subsequently scabbed. Tearful in clinic today, states family has a lot of problems and he is overwhelmed with caregiving for his (disabled), daughter (brain cancer), grandchild (autism); unable to keep up with everyone's needs and completely overwhelmed. PMH: Patient Active Problem List Diagnosis Code Allergic rhinitis J30.9 ADVANCE DIRECTIVE INFORMATION Rosacea L71.9 HTN, goal below 140/90 I10 Dyslipidemia, goal LDL below 100 E78.5 Anemia D64.9 Coronary artery disease involving [place] coronary artery of [place] heart without angina pectoris I25.10 Gastro-esophageal reflux disease without esophagitis K21.9 BPH without obstruction/lower urinary tract symptoms N40.0 Metabolic syndrome E88.810 S/P angioplasty with stent Z95.820 Tremor R25.1 Gout of multiple sites M10.9 Chronic kidney disease, stage 3b (HCC) N18.32 Hypertensive kidney disease with stage 3b chronic kidney disease (HCC) I12.9, N18.32 Prediabetes R73.03 Current Outpatient Medications Medication Sig Dispense Refill amLODIPine Besylate 5 MG Oral Tablet (Norvasc) Take 0.5 Tablets by mouth in the morning. in the morning.. 45 Tablet 1 Cephalexin 500 MG Oral Capsule Take 1 Capsule by mouth in the morning and 1 Capsule at noon and 1 Capsule before bedtime. Do all this for 10 days. 30 Capsule 0 Vitamin D 25 MCG (1000 UT) Oral [...] before bedtime. with food. 180 Tablet 1 Losartan Potassium 25 MG Oral [...] Penicillins Prednisolone Sulfa Antibiotics rash Objective BP 122/64 | Pulse 60 | Temp 36.3 C (97.3 F) | Resp 16 | Wt 87.5 kg (193 lb) | BMI 28.50 kg/m | BSA 2.06 m Physical Exam Constitutional: Appearance: Normal appearance. Cardiovascular: Rate and Rhythm: Normal rate and regular rhythm. Pulmonary: Effort: Pulmonary effort is normal. Breath sounds: Normal breath sounds. Musculoskeletal: Cervical back: Neck supple. Skin: General: Skin is warm and dry. Comments: Right medial thigh area of warm erythema and scab Neurological: Mental Status: He is alert. ASSESSMENT/PLAN: Second degree burn of right thigh, initial encounter (Primary) - Cephalexin 500 MG Oral Capsule; Take 1 Capsule by mouth in the morning and 1 Capsule at noon and 1 Capsule before bedtime. Do all this for 10 days. - TDAP (AGE 10 AND OLDER)(BOOSTRIX) Caregiver burden - POPULATION HEALTH REFERRAL OP Perla Johnson MD documented in this encounter Nursing Notes * Monique Pierce RN - 03/23/2024 9:24 AM EDT Walk In for a burn on right upper leg, the burn happened a week ago, he thinks it may be infected Pt unsure of his medications documented in this encounter Plan of Treatment Upcoming Encounters Date Type Department Care Team (Late st Contact Info) Description 03/24/2024 1:00 PM EDT Office Visit Nephrology [address] [place] [address] Miriam Donovan MD [facility] [place] [address] 09/10/2024 10:00 AM EDT Office Visit Cardiology [address] [place] [address] Devante Alcala PA-Phyllis [address] [place] [address] Scheduled Referrals Name Type Priority Associated Diagnoses Orde r Schedule POPULATION HEALTH REFERRAL OP Referral Within 10 days (routine) Caregiver burden Ordered: 03/23/2024 Health Maintenance Due Date Last Done Comments Pneumococcal Vaccine: 65+ Years (1 of 2 - PCV) 1951 Depression Screening 1959 Zoster Vaccines (1 of 2) 1997 COVID-19 Vaccine (1 - season) 2023 Albumin/Creatinine Ratio 05/03/2024 05/03/2023, 06/2022 Influenza Vaccine (FLU shot) (Season Ended) 2024 11/19/2019, 11/14/2006, 09/27/2005 GFR 08/21/2024 02/20/2024, 05/2024, 05/03/2023, Additional history exists HbA1c 02/15/2025 02/16/2024, 1212/2021, 08/02/2022 CKD HGB USE SMARTSET 18204 02/19/202502/19, 01/11/2023, 01/11/2023, Additional history exists CKD PHOS USE SMARTSET 82619 02/19/202502/09, 01/11/2023, 01/18/2022, Additional history exists DTaP,Tdap,and [...] burden Other health problem within the family documented in this encounter Care Teams Advanced Clinical Specialist Relationship Specialty Start Date End Date Александр Martínez MD [address] [place] [address] [place] [phone] PCP - General Family Medicine 01/11/23 documented as of this encounter"
--- OUTSIDE RECORDS SUMMARY | 2024-08-19 10:50 | External Medical Summary | Summary of Care ---
Author Name Unknown Organization [facility] Address [address] [place] [address] Phone [phone] Care Team Providers Care Motor And Generator Brush Cutter Name Role Phone Александр Martínez MD Primary Care Provide r Reason for Visit * Reason Onset Date Comments Medication Refill 03/16/2024 Encounter Details Date Type Department Care Team (Late st Contact Info) Description 03/16/2024 Refill Family Medicine [address] [phone] Khanh Cruz MD [address] [place] [address] [place] [address] Hypertensive kidney disease with stage 3b chronic kidney disease (HCC); Chronic kidney disease, stage 3b (HCC); Coronary artery disease involving beaver coronary artery of beaver heart without angina pectoris; HTN, goal below 140/90 Allergies Active Allergy Reactions Criticality Noted Date [...] disease, stage 3b (HCC),Coronary artery disease involving beaver coronary artery of beaver heart without angina pectoris,HTN, goal below 140/90 Take 1 Tablet by mouth in the morning and 1 Tablet before bedtime. with food. 180 Tablet 1 02/27/2024 Active amLODIPine Besylate 5 MG Oral Tablet (Norvasc)Indications :Hypertensive kidney disease with stage 3b chronic kidney disease (HCC),Chronic kidney disease, stage 3b (HCC),Coronary artery disease involving beaver coronary artery of beaver heart without angina pectoris,HTN, goal below 140/90 Take 0.5 Tablets by mouth in the morning. in the morning.. 45 Tablet 1 02/27/2024 Active Losartan Potassium 25 MG Oral Tablet (Cozaar)Indications: Hypertensive kidney disease with stage 3b chronic kidney disease (HCC),Chronic kidney disease, stage 3b (HCC),Coronary artery disease involving beaver coronary artery of beaver heart without angina pectoris,HTN, goal below 140/90 [...] hgba1c 6.0/126 Coronary artery disease invo lving beaver coronary artery of beaver heart without angina pectoris 01/03/2022 Gastro-esophageal reflux [...] encounter Miscellaneous Notes * Telephone Encounter - Maya Galloway, [facility] - 03/17/2024 1:47 PM EDT Refused Prescriptions: Disp Refills amLODIPine Besylate 5 MG Oral Tablet (Norv*45 Tab*1 Sig: Take 0.5 Tablets by mouth in the morning. in the morning..Refused By: MAYA GALLOWAY for Refusal: Too soon Losartan Potassium 25 MG Oral Tablet (Coza*90 Tab*1 Sig: Take 1 Tablet by mouth in the morning.Refused By: MAYA GALLOWAY for Refusal: Too soon documented in this encounter Plan of Treatment Upcoming Encounters Date Type Department Care Team (Late st Contact Info) Description 03/26/2024 1:00 PM EDT Office Visit Nephrology [address] [place] [phone] Miriam Donovan MD [address] [facility] [place] [address] 09/10/2024 10:00 AM EDT Office Visit Cardiology [address] [place] [address] Devante Alcala PA-C [address] [place] [address] Health Maintenance Due Date Last Done Comments [...] Additional history exists CKD HGB USE SMARTSET 59300 02/19/202502/19, 01/11/2023, 01/11/2023, Additional history exists CKD PHOS USE SMARTSET 04059 02/19/2025 04/11/2023, 01/11/2023, 01/18/2022, Additional history exists [...] as of this encounter Visit Diagnoses Diagnosis Hypertensive kidney disease with stage 3b chronic kidney disease (HCC) Chronic kidney disease, stage 3b (HCC) Coronary artery disease involving beaver coronary artery of beaver heart without angina pectoris HTN, goal below 140/90 Unspecified essential hypertension documented in this encounter Care Teams Motor And Generator Brush Cutter Relationship Specialty Start Date End Date Александр Martínez MD [address] [place] [address] [place] [phone] PCP - General Family Medicine 01/11/23 documented as of this encounter
--- OUTSIDE RECORDS SUMMARY | 2024-08-19 10:50 | External Medical Summary ---
Author Name Unknown Address Unknown Organization K01:[facility] [place] - [facility] [address] [facility] [address] Laboratory Report Ordering Provider Test Date Status KATELIN WATSON 03/23/2024 09:52:10 Final Observation Date Value Abnormality Reference (Units) Status PARAPROTEIN NORMAL/ABNORMAL 03/23/2024 09:52:10 Normal Normal Final Protein 03/23/2024 09:52:10 6.6 6.0-8.3 (g/dL) Final Albumin/Protein.total [Pure mass fraction] in Serum or Plasma by Electrophoresis 03/23/2024 09:52:10 3.39 3.30-4.40 (g/dL) Final Alpha 1 globulin/Protein.tota l [Pure mass fraction] in Serum or Plasma by Electrophoresis 03/23/2024 09:52:10 0.24 0.10-0.30 (g/dL) Final Alpha 2 globulin/Protein.tota l [Pure mass fraction] in Serum or Plasma by Electrophoresis 03/23/2024 09:52:10 1.13 Above high normal 0.60-1.00 (g/dL) Final Beta globulin/Protein.tota l [Pure mass fraction] in Serum or Plasma by Electrophoresis 03/23/2024 09:52:10 0.94 0.80-1.30 (g/dL) Final Gamma globulin/Protein.tota l [Pure mass fraction] in Serum or Plasma by Electrophoresis 03/23/2024 09:52:10 0.90 0.70-1.70 (g/dL) Final Protein Fractions [Interpretation] in Serum or Plasma by Electrophoresis Narrative 03/23/2024 09:52:10 No paraprotein detected. Final Performing Location [facility] [place] - [address] [facility] [address]
--- OUTSIDE RECORDS SUMMARY | 2024-08-19 10:50 | External Medical Summary ---
Author Name Unknown Address Unknown Organization K01:[facility]ORY [facility] - [address] [place] [address] Laboratory Report Ordering Provider Test Date Status BRIE SULLIVANJAYLA 03/23/2024 09:52:10 Melyssa l Deficient: <20 ng/mL
Ins ufficient: 20-29 ng/mL
Recommended/Optimum:30-50 ng/mL

Vitamin D intoxication is rare. If suspicious of Vitamin D toxicity, evaluation of serum Calcium and PTH is recommended. Observation Date Value Abnormality Reference (Units ) Status 25-OH Vitamin D total 03/23/2024 09:52:10 27 >19 (ng/mL) Final Performing Location [facility] - [address] [place] [address]
--- OUTSIDE RECORDS SUMMARY | 2024-08-19 10:50 | External Medical Summary ---
Author Name Unknown Address Unknown Organization [id number]:[facility]ATORY [facility] [place] - [address] [facility] [address] Laboratory Report Ordering Provider Test Date Status KEV SULLIVAN 03/23/2024 09:52:10 Melyssa l Observation Date Value Abnormality Reference (Units ) Status Color of Urine by Auto 03/23/2024 09:52:10 Light Yellow Colorless, Light Yellow, Yellow, Dark Yellow Final Clarity, Urine 03/23/2024 09:52:10 Clear Clear Final Glucose [Mass/volume] in Urine by Automated test strip 03/23/2024 09:52:10 Negative Negative (mg/dL) Final Bilirubin.total [Presence] in Urine by Automated test strip 03/23/2024 09:52:10 Negative Negative Final Ketones [Mass/volume] in Urine by Automated test strip 03/23/2024 09:52:10 Negative Negative (mg/dL) Final Specific gravity, Urine 03/23/2024 09:52:10 1.015 1.003-1.030 Final Hemoglobin [Presence] in Urine by Automated test strip 03/23/2024 09:52:10 Negative Negative Final pH, Urine 03/23/2024 09:52:10 6.0 5.0-7.5 (Units) Final Protein [Mass/volume] in Urine by Automated test strip 03/23/2024 09:52:10 >300 Abnormal Negative (mg/dL) Final Urobilinogen [Mass/volume] in Urine by Automated test strip 03/23/2024 09:52:10 Normal Normal (mg/dL) Final Nitrite [Presence] in Urine by Automated test strip 03/23/2024 09:52:10 Negative Negative Final Leukocyte esterase [Presence] in Urine by Automated test strip 03/23/2024 09:52:10 Negative Negative Final RBC, Urine 03/23/2024 09:52:10 0-2 0-2 (/HPF) Final WBC, Urine 03/23/2024 09:52:10 0-2 0-2 (/HPF) Final Bacteria [#/area] in Urine sediment by Microscopy high power field 03/23/2024 09:52:10 0-25 0-25 (/HPF) Final Performing Location LAB[facility]ATORY [facility] [place] - [facility] [address] [facility] [address]
--- OUTSIDE RECORDS SUMMARY | 2024-08-19 10:51 | External Medical Summary | Summary of Care ---
Author Name Unknown Organization [facility] Address [address] [place] [address] Phone [phone] Care Team Providers Care Financial Wellness Coach Name Role Phone Александр Martínez MD Primary Care Provide r Encounter Details Date Type Department Care Team (Late st Contact Info) Description 02/17/2024 Result Scan Unspecified Department <No scans attached> Allergies Active Allergy Reactions Criticality Noted Date Comments Apple Cider Vinegar 01/30/2017 Penicillins 01/30/2017 Prednisolone 01/30/2017 Sulfa Antibiotics 04/03/2005 rash documented as of this encounter (statuses as of 02/27/2024) Medications Medication Sig Dispensed Refills Start Date [...] Active Rosuvastatin Calcium 20 MG Oral Tablet (Crestor)Indications: HTN, goal below 140/90 Take 1 Tablet by mouth in the morning. 90 Tablet 3 03/18/2023 Active Allopurinol 100 MG Oral Tablet (Zyloprim) TAKE THREE TABLETS BY MOUTH IN THE MORNING 90 Tablet 5 09/25/2023 Active Furosemide 20 MG Oral Tablet (Lasix)Indications:HT N, goal below 140/90 TAKE 1 TABLET BY MOUTH EVERY MORNING 90 Tablet 0 12/05/2023 Active Finasteride 5 MG Oral Tablet (Proscar)Indications: BPH with obstruction/lower urinary tract symptoms TAKE 1 TABLET BY MOUTH EVERY MORNING 90 Tablet 0 01/24/2024 Active documented as of this encounter (statuses as of 02/27/2024) Active Problems Problem Noted Date Diagnosed Date [...] hgba1c 6.0/126 Coronary artery disease invo lving curyung coronary artery of curyung heart without angina pectoris 01/03/2022 Gastro-esophageal reflux disease without esophag itis 01/03/2022 Anemia 01/22/2019 Dyslipidemia, goal LDL below 100 10/20/2009 Overview: Per Lipid Taxonomy. HTN, goal below 140/90 07/04/2006 Overview: 170/100 ADVANCE DIRECTIVE INFORMATION 11/29/2005 Overview: No, Advance Directive brochure offered , patient declined. Rosacea 11/29/2005 Allergic rhinitis 08/05/2003 documented as of this encounter (statuses as of 02/27/2024) Resolved Problems Problem Noted Date Diagnosed Date [...] as of this encounter (statuses as of 02/27/2024) Immunizations Name Administration Dates Next Due Seasonal [...] 03/26/2024 1:00 PM EDT Office Visit Nephrology [address] [place] [address] Miriam Donovan MD [address] [place] [address] [place], [place] [address] Health Maintenance Due Date Last Done Comments Pneumococcal Vaccine: 65+ Years (1 of 2 - PCV) 1951 Depression Screening 1957 Zoster Vaccines (1 of 2) 1997 DTaP,Tdap,and Td Vaccines (1 - Tdap) 11/08/2011 11/07/2011 COVID-19 Vaccine (1 - 2022-24 season) 2023 HbA1c 11/01/2023 11/01/2022, 08/02/2022 GFR 11/02/2023 02/20/2024, 06/2 01/2023, 01/11/2023, Additional history exists CKD HGB USE SMARTSET 85360 01/12/202402/19, 01/11/2023, 01/11/2023, Additional history exists CKD PHOS USE SMARTSET 93587 01/12/2024 0411/2023, 01/11/2023, 01/18/2022, Additional history exists Albumin/Creatinine Ratio 05/03/2024 05/03/2023, 0906/2022 Influenza Vaccine (FLU shot) (Season Ended) 2024 11/19/2019, 11/14/2006, 09/27/2005 Colonoscopy Discontinued 01/01/2018 Colorectal Cancer Screening Discontinued [...] Procedure Name Priority Date/Time Associated Diagnosis Comments OUTSIDE LAB RESULTS 02/17/2024 OUTSIDE LAB RESULTS 02/16/2024 documented in this encounter Results * OUTSIDE LAB RESULTS (02/17/2024) 02/17/2024 No Physician Data Unknown LABORATORY * OUTSIDE LAB RESULTS (02/16/2024) 02/16/2024 No Physician Data Unknown LABORATORY documented in this encounter Care Teams Financial Wellness Coach Relationship Specialty Start Date End Date Александр Martínez MD [address] [place] [address] [place] [phone] PCP - General Family Medicine 01/11/23 documented as of this encounter
--- OUTSIDE RECORDS SUMMARY | 2024-08-19 10:51 | External Medical Summary | Summary of Care ---
Author Name Unknown Organization [facility] Address [address] [place] [address] Phone [phone] Care Team Providers Care Thermodynamics Teacher Name Role Phone Александр Martínez MD Primary Care Provide r Reason for Visit * Reason Onset Date Comments Hospital Follow-Up 02/24/2024 Encounter Details Date Type Department Care Team (Late st Contact Info) Description 02/24/2024 Telephone General Internal Medicine [facility] [place] [address] [facility] [address] Александр Martínez MD [address] [place] [address] [place] [phone] Hospital Follow-Up Allergies Active Allergy Reactions Criticality Noted Date Comments Apple Cider Vinegar 01/30/2017 Penicillins 01/30/2017 Prednisolone 01/30/2017 Sulfa Antibiotics 04/03/2005 rash documented as of this encounter (statuses as of 02/25/2024) Medications Medication Sig Dispensed Refills Start Date End Date Status Vitamin D 25 MCG (1000 UT) Oral Tablet Take 1 Tablet by mouth in the morning. 0 Active Aspirin EC 81 MG Oral Tablet Delayed Release Take by mouth 1 Tablet in the morning. 90 Tablet 3 03/08/2022 Active Primidone 50 MG Oral Tablet (Mysoline)Indication s:Essential tremor TAKE 50 MG IN THE AM [...] Active Losartan Potassium 50 MG Oral Tablet (Cozaar)Indications: HTN, goal below 140/90 TAKE 1 TABLET [...] as of this encounter (statuses as of 02/25/2024) Active Problems Problem Noted Date Diagnosed Date [...] hgba1c 6.0/126 Coronary artery disease invo lving navajo coronary artery of navajo heart without angina pectoris 01/03/2022 Gastro-esophageal reflux disease without esophag itis 01/03/2022 Anemia 01/22/2019 Dyslipidemia, goal LDL below 100 10/20/2009 Overview: Per Lipid Taxonomy. HTN, goal below 140/90 07/04/2006 Overview: 170/100 ADVANCE DIRECTIVE INFORMATION 11/29/2005 Overview: No, Advance Directive brochure offered , patient declined. [place] 11/29/2005 Allergic rhinitis 08/05/2003 documented as of this encounter (statuses as of 02/25/2024) Resolved Problems Problem Noted Date Diagnosed Date [...] as of this encounter (statuses as of 02/25/2024) Immunizations Name Administration Dates Next Due Seasonal [...] Telephone Encounter - Александр Martínez MD - 02/25/2024 12:12 PM EDT I have not seen pt in the clinic since 01/2023 therefore will see the pt in the clinic then refer the pt to MTM * Telephone Encounter - Nicole Vincent LPN - 02/24/2024 4:02 PM EDT Orders placed in [facility] lab system MTM referral placed Please arrange f/u apt as indicated and advise of need for labs 3 days prior to apt at any [facility] lab Then send back to renal nurse * Telephone Encounter - Suleman Arshad RN - 02/24/2024 1:29 PM EDT Patient discharged to home from [facility] on 02/20/24. Nephrology consulted for hyperkalemia and recommends: recommend hospital d/c visit w/ Dr Donovan in 2-4 wks w/ neph nurse to order bmp, uacm, ACR, pth, 25 OHD, transferrin sat, hgb phos all to be drawn about 3 days before appt AND pt to bring home bp cuff if he has one to nephro visit; renal nurse also to refer pt to MTM to partner w/ me on HTN mgt goal <130/80. Please assist with these recommendations. Thank you documented in this encounter Plan of Treatment Upcoming Encounters Date Type Department Care Team (Late st Contact Info) Description 02/27/2024 9:40 AM EDT Office Visit Family Medicine [address] [place] [phone] Khanh Cruz MD [address] [place] [address] [place] [phone] 03/26/2024 1:00 PM EDT Office Visit Nephrology [address] [place] [address] Miriam Donovan MD [address] [facility] [place] [address] Scheduled Orders Name Type Priority Associated Diagnoses Orde r Schedule BASIC METABOLIC PANEL Lab Routine Hyperkalemia HTN, goal below 140/90 Chronic kidney disease, stage 3b (HCC) Expected: 02/24/2024 (Approximate), Expires: 02/23/2025 URINALYSIS WITH MICROSCOPIC EXAM Lab Routine Hyperkalemia HTN, goal below 140/90 Chronic kidney disease, stage 3b (HCC) Expected: 02/24/2024 (Approximate), Expires: 02/23/2025 ALBUMIN / CREATININE RATIO, URINE Lab Routine Hyperkalemia HTN, goal below 140/90 Chronic kidney disease, stage 3b (HCC) Expected: 02/24/2024 (Approximate), Expires: 02/23/2025 PTH Lab Routine Hyperkalemia HTN, goal below 140/90 Chronic kidney disease, stage 3b (HCC) Expected: 02/24/2024 (Approximate), Expires: 02/23/2025 25-HYDROXY VITAMIN D Lab Routine Hyperkalemia HTN, goal below 140/90 Chronic kidney disease, stage 3b (HCC) Vitamin D deficiency Expected: 02/24/2024 (Approximate), Expires: 02/23/2025 IRON SCREEN, INCLUDING TIBC Lab Routine Hyperkalemia HTN, goal below 140/90 Chronic kidney disease, stage 3b (HCC) Expected: 02/24/2024 (Approximate), Expires: 02/23/2025 HGB Lab Routine Hyperkalemia HTN, goal below 140/90 Chronic kidney disease, stage 3b (HCC) Expected: 02/24/2024 (Approximate), Expires: 02/23/2025 PHOSPHORUS Lab Routine Hyperkalemia HTN, goal below 140/90 Chronic kidney disease, stage 3b (HCC) Expected: 02/24/2024 (Approximate), Expires: 02/23/2025 Health Maintenance Due Date Last Done Comments Pneumococcal Vaccine: 65+ Years (1 of 2 - PCV) 1951 Depression Screening 1959 Zoster Vaccines (1 of 2) 1997 DTaP,Tdap,and Td Vaccines (1 - Tdap) 11/08/2011 11/07/2011 COVID-19 Vaccine (1 - season) 2023 HbA1c 11/01/2023 11/01/2022, 08/02/2022 GFR 11/02/2023 05/03/2023, 0 01/2023, 11/01/2022, Additional history exists CKD HGB USE SMARTSET 44696 01/12/202401/11, 01/11/2023, 11/01/2022, Additional history exists CKD PHOS USE SMARTSET 77068 01/12/20240 01/2023, 01/18/2022, 01/03/2022 Albumin/Creatinine Ratio 05/03/2024 05/03/2023, 090 06/2022 Influenza [...] as of this encounter Visit Diagnoses Diagnosis Hyperkalemia- Primary Hyperpotassemia HTN, goal below 140/90 Unspecified essential hypertension Chronic kidney disease, stage 3b (HCC) Vitamin D deficiency Unspecified vitamin D deficiency documented in this encounter Care Teams Thermodynamics Teacher Relationship Specialty Start Date End Date Александр Martínez MD [address] [place] [address] [place] [address] PCP - General Family Medicine 01/11/23 documented as of this encounter
--- OUTSIDE RECORDS SUMMARY | 2024-08-19 10:51 | External Medical Summary | Summary of Care ---
Author Name Unknown Organization [facility] Address [address] [place] [address] Phone [phone] Care Team Providers Care Spring Inspector Name Role Phone Александр Martínez MD Primary Care Provide r Reason for Referral * Evaluate & Treat - Unlimited Visits (Within 10 days (routine)) - Authorized Specialty Diagnoses / Procedures Referred By Contact Referred To Contact Cardiovascular Medicine / Cardiology Diagnoses Hypertensive kidney disease with stage 3b chronic kidney disease (HCC) Chronic kidney disease, stage 3b (HCC) Coronary artery disease involving [place] coronary artery of [place] heart without angina pectoris Anemia due to stage 3b chronic kidney disease (HCC) Gastro-esophageal reflux disease without esophagitis HTN, goal below 140/90 Metabolic syndrome Khanh Cruz MD [address] [place] [address] [place] [phone] Referral ID Status Reason Start Date Expiration Date Visits Requested Visits Authorized [id number] Authorized Specialty Services Required 02/27/2024 999 999 Question Answer Referral Priority Within 10 days (routine) Where should this appointment be scheduled? [facility] To which of the following clinics are you referring your patient? General Cardiology Clinic Comments Hospital follow up Reason for Visit * Reason Comments Hospital Follow-Up Encounter Details Date Type Department Care Team ([facility] st Contact Info) Description 02/27/2024 9:40 AM EDT Office Visit Family Medicine [address] [place] [phone] Khanh Cruz MD [address] [place] [address] [place] [phone] Hypertensive kidney disease with stage 3b chronic kidney disease (HCC)*; Chronic kidney disease, stage 3b (HCC); Coronary artery disease involving [place] coronary artery of [place] heart without angina pectoris; Anemia due to stage 3b chronic kidney disease (HCC); Gastro-esophageal reflux disease without esophagitis; HTN, goal below 140/90; Metabolic syndrome Allergies Active Allergy Reactions Criticality Noted Date [...] disease, stage 3b (HCC),Coronary artery disease involving [place] coronary artery of [place] heart without angina pectoris,HTN, goal below 140/90 Take 1 Tablet by mouth in the morning and 1 Tablet before bedtime. with food. 180 Tablet 1 02/27/2024 Active amLODIPine Besylate 5 MG Oral Tablet (Norvasc)Indicati ons:Hypertensive kidney disease with stage 3b chronic kidney disease (HCC),Chronic kidney disease, stage 3b (HCC),Coronary artery disease involving [place] coronary artery of [place] heart without angina pectoris,HTN, goal below 140/90 Take 0.5 Tablets by mouth in the morning. in the morning.. 45 Tablet 1 02/27/2024 Active Losartan Potassium 25 MG Oral Tablet (Cozaar)Indicatio ns:Hypertensive kidney disease with stage 3b chronic kidney disease (HCC),Chronic kidney disease, stage 3b (HCC),Coronary artery disease involving [place] coronary artery of [place] heart without angina pectoris,HTN, goal below 140/90 Take 1 Tablet by mouth in the morning. 90 Tablet 1 02/27/2024 Active Primidone 50 MG Oral Tablet (Mysoline)Indicat ions:Essential tremor TAKE 50 MG IN THE AM AND 50 MG IN THE PM 60 Tablet 5 08/14/2022 02/27/2024 Discontinued (Patient preference/d iscontinuati on) Metoprolol Succinate ER 25 MG Oral Tablet Extended Release 24 Hour (toPROL XL) Take 0.5 Tablets by mouth in the morning. 30 Tablet 5 01/31/2023 02/27/2024 Discontinued (Patient preference/d iscontinuati on) Losartan Potassium 50 MG Oral Tablet (Cozaar)Indicatio ns:HTN, goal below 140/90 TAKE 1 TABLET BY MOUTH EVERY MORNING 90 Tablet 4 03/29/2023 02/27/2024 Discontinued (Patient preference/d iscontinuati on) amLODIPine Besylate 10 MG Oral Tablet (Norvasc) Take 1 Tablet by mouth in the morning. 100 Tablet 3 09/06/2023 02/27/2024 Discontinued (Patient preference/d iscontinuati on) documented as of this encounter (statuses as [...] hgba1c 6.0/126 Coronary artery disease invo lving [place] coronary artery of [place] heart without angina pectoris 01/03/2022 Gastro-esophageal reflux [...] Sign Reading Time Taken Comments Blood Pressure 122/70 02/27/2024 9:29 AM EDT Pulse 80 02/27/2024 9:29 AM EDT Temperature 36.1 C (97 F) 02/27/2024 9:29 AM EDT Respiratory Rate 16 02/27/2024 9:29 AM EDT Oxygen Saturation 96% 02/27/2024 9:29 AM EDT Inhaled Oxygen Concentration - - Weight 88 kg (194 lb) 02/27/2024 9:29 AM EDT Height 175.3 cm (5' 9") 02/27/2024 9:29 AM EDT Body Mass Index 28.65 02/27/2024 9:29 AM EDT documented in this encounter Progress Notes * Khanh Cruz MD - 02/27/2024 9:33 AM EDT Admitted to [facility] 02/15, discharged 02/19 for bronchitis, bradycardia, hemoglobin was 9.5 K+ was high/ Meds adjusted and he feels pretty good now. He sees Dr Donovan but needs cardiology referral. Denies nausea, vomiting, or diarrhea. Denies fevers, chills or sweats. No chest pain or dyspnea. He wouldlike a handicap placard Patient Active Problem List Diagnosis Code Allergic rhinitis J30.9 ADVANCE DIRECTIVE INFORMATION Adria L71.9 HTN, goal below 140/90 I10 Dyslipidemia, goal LDL below 100 E78.5 Anemia D64.9 Coronary artery disease involving [place] coronary artery of [place] heart without angina pectoris I25.10 Gastro-esophageal reflux [...] Diagnosis Date Acute pancreatitis 07/14/2006 Seen in [place], not admitted Allergic rhinitis due to other allergen Bronchitis 02/16/2024 [facility] CKD (chronic kidney disease), stage III (HCC) [...] likely allergic. LAPAROSCOPY; CHOLECYSTECTOMY 01/21/07 Cholecystectomy, Laproscopic, [place] LASER SURGERY OF INNER EYE STRANDS Right 04/24/2017 Micro Pulse Laser procedure OD, LASER SURGERY OF INNER EYE STRANDS Left 11/20/2017 Micropulse Laser OS, Dr. Christie MISCELLANEOUS ORDER ([facility] ONLY) ACT 112 signed, 06/17/2020 REMOVE CATARACT, INSERT LENS PROSTH Right 01/08/2017 OD, REMOVE CATARACT, INSERT LENS PROSTH Left 01/17/2017 OS, ABDOMEN COMPLETE 01/02/07 two gallstones, wall thickened at 6.3 mm, liver, spleen, kidneys and pancreas normal Review of patient's allergies indicates: Allergen Reactions Apple Cider Vinegar Penicillins Prednisolone Sulfa Antibiotics rash Social History Socioeconomic History Marital status: Single Spouse name: Not on file Number of children: 3 Years of education: Not on file Highest education level: Not on file Occupational History 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 Tobacco Use Smoking status: Former Passive exposure: Past Smokeless tobacco: Never Vaping Use Vaping Use: Never used Substance and Sexual Activity Alcohol use: No Drug use: No Sexual activity: Yes Partners: Female Other Topics Concern Not on file Social History Narrative Not on file Social Determinants of Health Financial Resource Strain: Not on file Food Insecurity: Not on file Transportation Needs: Not on file Physical Activity: Not on file Stress: Not on file Social Connections: Not on file Intimate Partner Violence: Not on file Housing Stability: Not on file O: Blood pressure 122/70, pulse 80, temperature 36.1 C (97 F), resp. rate 16, height 1.753 m (5' 9"), weight 88 kg (194 lb), SpO2 96%. General appearance: well developed, well nourished and in noacute distress. Head normocephalic and atraumatic. No facial asymmetry. Eye exam; PEERLA, EOMI. No scleral icterus or nystagmus. Conjunctiva are pink and not injected. Oropharynx: no exudate, no pharyngeal inflammation or post nasal drip. The palate is free of lesions and the uvula is normal. Trachea is in the midline. Neck supple with no adenopathy or thyromegaly. No carotid bruits. Chest expands equally and is symmetrical with normal AP diameter. Lungs clear, with no wheezes, rales, or rhonchi. Heart: S1 and S2 normal. PMI not obviously displaced. Heart regular, no murmurs, gallops, clicks or rubs. No CVA tenderness. No calf swelling or tenderness. No pedal edema. No skin rashes. Extremities unremarkable. A: Hypertensive kidney disease with stage 3b chronic kidney disease (HCC) (Primary) - Carvedilol 3.125 MG Oral Tablet (Coreg); Take 1 Tablet by mouth in the morning and 1 Tablet before bedtime. with food. - amLODIPine Besylate 5 MG Oral Tablet (Norvasc); Take 0.5 Tablets by mouth in the morning. in the morning.. - Losartan Potassium 25 MG Oral Tablet (Cozaar); Take 1 Tablet by mouth in the morning. - CARDIOLOGY REFERRAL OP Chronic kidney disease, stage 3b (HCC) - Carvedilol 3.125 MG Oral Tablet (Coreg); Take 1 Tablet by mouth in the morning and 1 Tablet before bedtime. with food. - amLODIPine Besylate 5 MG Oral Tablet (Norvasc); Take 0.5 Tablets by mouth in the morning. in the morning.. - Losartan Potassium 25 MG Oral Tablet (Cozaar); Take 1 Tablet by mouth in the morning. - CARDIOLOGY REFERRAL OP Coronary artery disease involving [place] coronary artery of [place] heart without angina pectoris - Carvedilol 3.125 MG Oral Tablet (Coreg); Take 1 Tablet by mouth in the morning and 1 Tablet before bedtime. with food. - amLODIPine Besylate 5 MG Oral Tablet (Norvasc); Take 0.5 Tablets by mouth in the morning. in the morning.. - Losartan Potassium 25 MG Oral Tablet (Cozaar); Take 1 Tablet by mouth in the morning. 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 with food. - amLODIPine Besylate 5 MG Oral Tablet (Norvasc); Take 0.5 Tablets by mouth in the morning. in the morning.. - Losartan Potassium 25 MG Oral Tablet (Cozaar); Take 1 Tablet by mouth in the morning. - CARDIOLOGY REFERRAL OP Metabolic syndrome - CARDIOLOGY REFERRAL OP Continue other meds as before. Follow Up: Return if symptoms worsen or fail to improve. documented in this encounter Nursing Notes * Monique Pierce RN - 02/27/2024 9:29 AM EDT [facility] follow up for elevated potassium and heart issues pt feels well now documented in this encounter Plan of Treatment Upcoming Encounters Date Type Department Care Team (Late st Contact Info) Description 03/26/2024 1:00 PM EDT Office Visit Nephrology [address] [place] [phone] Miriam Donovan MD [address] [place] [address] Dr [place] [phone] Scheduled Referrals Name Type Priority Associated Diagnoses Orde r Schedule CARDIOLOGY REFERRAL OP Referral Within 10 days (routine) Hypertensive kidney disease with stage 3b chronic kidney disease (HCC) Chronic kidney disease, stage 3b (HCC) Coronary artery disease involving [place] coronary artery of [place] heart without angina pectoris Anemia due to stage 3b chronic kidney disease (HCC) Gastro-esophageal reflux disease without esophagitis HTN, goal below 140/90 Metabolic syndrome Ordered: 02/27/2024 Health Maintenance Due Date Last Done Comments Pneumococcal Vaccine: 65+ Years (1 of 2 - PCV) 1951 Depression Screening 1959 Zoster Vaccines (1 of 2) 1997 DTaP,Tdap,and Td Vaccines (1 - Tdap) 11/08/2011 11/07/2011 COVID-19 Vaccine (1 - season) 2023 HbA1c 11/01/2023 11/01/2022, 08/02/2022 GFR 11/02/2023 02/20/2024, 04/12, 01/11/2023, Additional history exists CKD HGB USE SMARTSET 97310 01/12/202402/19, 01/11/2023, 01/11/2023, Additional history exists CKD PHOS USE SMARTSET 61239 01/12/202402/09, 01/11/2023, 01/18/2022, Additional history exists Albumin/Creatinine Ratio 05/03/2024 05/03/2023, 090 06/2022 Influenza [...] disease with stage 3b chronic kidney disease (HCC)- Primary Chronic kidney disease, stage 3b (HCC) Coronary artery disease involving [place] coronary artery of [place] heart without angina pectoris Anemia due to stage 3b chronic kidney disease (HCC) Gastro-esophageal reflux disease without esophagitis Esophageal reflux HTN, goal below 140/90 Unspecified essential hypertension Metabolic syndrome Dysmetabolic Syndrome X documented in this encounter Care Teams Spring Inspector Relationship Specialty Start Date End Date Александр Martínez MD [address] [place] [address] [place] [phone] PCP - General Family Medicine 01/11/23 documented as of this encounter
--- OUTSIDE RECORDS SUMMARY | 2024-08-19 10:51 | External Medical Summary | Summary of Care ---
Author Name Unknown Organization [facility] Address [address] [place] [address] Phone [phone] Care Team Providers Care Nuclear Auxiliary Operator Name Role Phone Александр Martínez MD Primary Care Provide r Reason for Visit * Reason Onset Date Comments Appointment 02/27/2024 Cardiology Encounter Details Date Type Department Care Team (Late st Contact Info) Description 02/27/2024 Telephone Family Medicine [address] [phone] Khanh Cruz MD [address] [place] [address] [place] [phone] Appointment (Cardiology ) Allergies Active Allergy Reactions Criticality Noted Date [...] disease, stage 3b (HCC),Coronary artery disease involving [place] coronary artery of [place] heart without angina pectoris,HTN, goal below 140/90 Take 1 Tablet by mouth in the morning and 1 Tablet before bedtime. with food. 180 Tablet 1 02/27/2024 Active amLODIPine Besylate 5 MG Oral Tablet (Norvasc)Indications :Hypertensive kidney disease with stage 3b chronic kidney disease (HCC),Chronic kidney disease, stage 3b (HCC),Coronary artery disease involving [place] coronary artery of [place] heart without angina pectoris,HTN, goal below 140/90 Take 0.5 Tablets by mouth in the morning. in the morning.. 45 Tablet 1 02/27/2024 Active Losartan Potassium 25 MG Oral Tablet (Cozaar)Indications: Hypertensive kidney disease with stage 3b chronic kidney disease (HCC),Chronic kidney disease, stage 3b (HCC),Coronary artery disease involving [place] coronary artery of [place] heart without angina pectoris,HTN, goal below 140/90 Take 1 Tablet by mouth in the morning. 90 Tablet 1 02/27/2024 Active documented as of this encounter (statuses [...] hgba1c 6.0/126 Coronary artery disease invo lving [place] coronary artery of [place] heart without angina pectoris 01/03/2022 Gastro-esophageal reflux [...] encounter Miscellaneous Notes * Telephone Encounter - Marilu Morales OSA - 02/27/2024 1:41 PM EDT I left message on patient's VM to call me (RE: He did not checkout today when he was here, he also needs Cardiology appt). documented in this encounter Plan of Treatment Upcoming Encounters Date Type Department Care Team (Late st Contact Info) Description 03/26/2024 1:00 PM EDT Office Visit Nephrology [address] [place] [phone] Miriam Donovan MD [address] [place] [address], [place] [phone] Health Maintenance Due Date Last Done Comments Pneumococcal Vaccine: 65+ Years (1 of 2 - PCV) 1951 Depression Screening 1959 Zoster Vaccines (1 of 2) 1997 DTaP,Tdap,and Td Vaccines (1 - Tdap) 11/08/2011 11/07/2011 COVID-19 Vaccine (1 - season) 2023 HbA1c 11/01/2023 11/01/2022, 08/02/2022 Albumin/Creatinine Ratio 05/03/2024 05/03/2023, 06/2022 Influenza Vaccine (FLU shot) (Season Ended) 2024 11/19/2019, 11/14/2006, 09/27/2005 GFR 08/21/2024 02/20/2024, 04/12, 01/11/2023, Additional history exists CKD HGB USE SMARTSET 67918 02/19/202502/19, 01/11/2023, 01/11/2023, Additional history exists CKD PHOS USE SMARTSET 01793 02/19/202502/09, 01/11/2023, 01/18/2022, Additional history exists Colonoscopy [...] filedocumented as of this encounter Care Teams Nuclear Auxiliary Operator Relationship Specialty Start Date End Date Александр Martínez MD [address] [place] [address] [place] [phone] PCP - General Family Medicine 01/11/23 documented as of this encounter
--- OUTSIDE RECORDS SUMMARY | 2024-08-19 10:51 | External Medical Summary | Summary of Care ---
Author Name Unknown Organization [facility] Address [address] [place] [address] Phone [phone] Care Team Providers Care White Spooler Name Role Phone Александр Martínez MD Primary Care Provide r Encounter Details Date Type Department Care Team (Late st Contact Info) Description 02/27/2024 Orders Only Family Medicine [address] [phone] Александр Martínez MD [address] [place] [address] [place] [phone] Allergies Active Allergy Reactions Criticality Noted Date [...] disease, stage 3b (HCC),Coronary artery disease involving [place] coronary artery of [place] heart without angina pectoris,HTN, goal below 140/90 Take 1 Tablet by mouth in the morning and 1 Tablet before bedtime. with food. 180 Tablet 1 02/27/2024 Active amLODIPine Besylate 5 MG Oral Tablet (Norvasc)Indications :Hypertensive kidney disease with stage 3b chronic kidney disease (HCC),Chronic kidney disease, stage 3b (HCC),Coronary artery disease involving [place] coronary artery of [place] heart without angina pectoris,HTN, goal below 140/90 Take 0.5 Tablets by mouth in the morning. in the morning.. 45 Tablet 1 02/27/2024 Active Losartan Potassium 25 MG Oral Tablet (Cozaar)Indications: Hypertensive kidney disease with stage 3b chronic kidney disease (HCC),Chronic kidney disease, stage 3b (HCC),Coronary artery disease involving [place] coronary artery of [place] heart without angina pectoris,HTN, goal below [...] hgba1c 6.0/126 Coronary artery disease invo lving [place] coronary artery of [place] heart without angina pectoris 01/03/2022 Gastro-esophageal [...] 03/26/2024 1:00 PM EDT Office Visit Nephrology [address] [place] [phone] Miriam Donovan MD [address] [place] [address] [place] [address] Health Maintenance Due Date Last Done Comments Pneumococcal Vaccine: 65+ Years (1 of 2 - PCV) 1951 Depression Screening 1959 Zoster Vaccines (1 of 2) 1997 DTaP,Tdap,and Td Vaccines (1 - Tdap) 11/08/2011 11/07/2011 COVID-19 Vaccine (1 - 2022- season) 2023 HbA1c 11/01/2023 11/01/2022, 08/02/2022 GFR 11/02/2023 02/20/2024, 04/12, 01/11/2023, Additional history exists CKD HGB USE SMARTSET 91471 01/12/202402/19, 01/11/2023, 01/11/2023, Additional history exists CKD PHOS USE SMARTSET 03249 01/12/2024 04/11/2023, 01/11/2023, 01/18/2022, Additional history exists Albumin/Creatinine Ratio [...] Priority Date/Time Associated Diagnosis Comments CHEMISTRY-OUTSIDE Routine 02/20/2024 XR CHEST 1 VIEW Routine 02/18/2024 CT CHEST WO CONTRAST Routine 02/17/2024 documented in this encounter Results * (ABNORMAL) CHEMISTRY-OUTSIDE (02/20/2024) Not all results display below - see scan for full detail OUTSIDE LAB (SEE SCANNED REPORT) Comment:SCAN INCLUDES - INPT LABS: CBC, BMP, PHOS, MG CREATININE-OUTSID E LAB 1.82(A) 0.6 - 1.4 MG/DL OUTSIDE LAB (SEE SCANNED REPORT) EGFR-OUTSIDE LAB 35.3 ML/MIN/1.7 3M2 OUTSIDE LAB (SEE SCANNED REPORT) POTASSIUM-OUTSIDE LAB 4.4 3.5 - 5.1 MMOL/L OUTSIDE LAB (SEE SCANNED REPORT) GLUCOSE-OUTSIDE LAB 102(A) 70 - 99 MG/DL OUTSIDE LAB (SEE SCANNED REPORT) HOURS FASTING [...] LAB OUTSIDE LAB (SEE SCANNED REPORT) HEMOGLOBIN, [id number] LAB OUTSIDE LAB (SEE SCANNED REPORT) PHOSPHORUS-OUTSID E LAB 3.5 2.5 - 4.9 MG/DL OUTSIDE LAB (SEE SCANNED REPORT) PTH-OUTSIDE LAB OUTS DEEP LAB (SEE SCANNED REPORT) MICROALBUMIN RATIO-OUTSIDE LAB OUTSIDE LA B (SEE SCANNED REPORT) PROTEIN, UA-OUTSIDE LAB OUTSIDE LAB (SEE SCANNED REPORT) HGB 10.4(A) 14.0 - 18.0 G/DL OUTSIDE LAB (SEE SCANNED REPORT) 02/20/2024 Tiarra Comer MD LABORATORY OUTSIDE LAB (SEE SCANNED REPORT) * XR CHEST 1 VIEW (02/18/2024) Anatomical Region Laterality Modality Chest Other 02/18/2024 Mehul Brito MD RADIOLOGY (RAD G ENERAL) * CT CHEST WO CONTRAST (02/17/2024) Anatomical Region Laterality Modality Chest, Body, Cardio Other 02/17/2024 Mehul Brito MD RAD CT documented in this encounter Care Teams White Spooler Relationship Specialty Start Date End Date Александр Martínez MD [address] [place] [address] [place] [phone] PCP - General Family Medicine 01/11/23 documented as of this encounter
--- OUTSIDE RECORDS SUMMARY | 2024-08-19 10:51 | External Medical Summary | Summary of Care ---
Author Name Unknown Organization [facility] Address [address] [place] [address] Phone [phone] Care Team Providers Care Redeye Gunner Name Role Phone Александр Martínez MD Primary Care Provide r Encounter Details Date Type Department Care Team (Late st Contact Info) Description 02/26/2024 Orders Only PATIENT PORTAL DO NOT DELETE THIS DEPT USED BY [place] KUMAR [phone] Allergies Active Allergy Reactions Criticality Noted Date Comments Apple Cider Vinegar 01/30/2017 Penicillins 01/30/2017 Prednisolone 01/30/2017 Sulfa Antibiotics 04/03/2005 rash documented as of this encounter (statuses as of 02/26/2024) Medications Medication Sig Dispensed Refills Start Date [...] as of this encounter (statuses as of 02/26/2024) Active Problems Problem Noted Date Diagnosed Date [...] hgba1c 6.0/126 Coronary artery disease invo lving [place] coronary artery of [place] heart without angina pectoris 01/03/2022 Gastro-esophageal reflux disease without esophag itis 01/03/2022 Anemia 01/22/2019 Dyslipidemia, goal LDL below 100 10/20/2009 Overview: Per Lipid Taxonomy. HTN, goal below 140/90 07/04/2006 Overview: 170/100 ADVANCE DIRECTIVE INFORMATION 11/29/2005 Overview: No, Advance Directive brochure offered , patient declined. Rosacea 11/29/2005 Allergic rhinitis 08/05/2003 documented as of this encounter (statuses as of 02/26/2024) Resolved Problems Problem Noted Date Diagnosed Date [...] as of this encounter (statuses as of 02/26/2024) Immunizations Name Administration Dates Next Due Seasonal [...] 9:40 AM EDT Office Visit Family Medicine [place] [phone] Khanh Cruz MD [address] [place] [address] [place] [phone] 03/26/2024 1:00 PM EDT Office Visit Nephrology [address] [place] [phone] Miriam Donovan MD [address] [place], [place] [address] [address] Health Maintenance Due Date Last Done Comments Pneumococcal Vaccine: 65+ Years (1 of 2 - PCV) 1951 Depression Screening 1959 Zoster Vaccines (1 of 2) 1997 DTaP,Tdap,and Td Vaccines (1 - Tdap) 11/08/2011 11/07/2011 COVID-19 Vaccine ( - season) 2023 HbA1c 11/01/2023 11/01/2022, 08/02/2022 GFR 11/02/2023 05/03/2023, 0 01/2023, 11/01/2022, Additional history exists CKD HGB USE SMARTSET 12427 01/12/202401/11, 01/11/2023, 11/01/2022, Additional history exists CKD PHOS USE SMARTSET 47325 01/12/2024 030 01/2023, 01/18/2022, 01/03/2022 Albumin/Creatinine Ratio 05/03/2024 05/03/2023, 0906/2022 Influenza Vaccine [...] filedocumented as of this encounter Care Teams Redeye Gunner Relationship Specialty Start Date End Date Александр Martínez MD [address] [place] [address] [place] [phone] PCP - General Family Medicine 01/11/23 documented as of this encounter
--- NOTE | 2024-08-19 13:48 | Communication Note ---
Date of Service: August 19, 2024 Patient seen and examined at bedside. He is lying on the bed comfortably; not in distress He denies any chest pain at this time Evaluated by cardiology; plan for Lexiscan. On physical exam; Constitutional: WD/WN, vitals as above, NAD, sitting up in bed, pleasant, conversing easily Respiratory: normal respiratory effort, lungs clear to auscultation, no wheeze, rales, rhonchi. Normal insp/exp effort, no accessory muscle use Cardiovascular: RRR, no murmur, no edema Vessels: no JVD or carotid bruit Chest: normal inspection of chest Abdomen: normal bowel sounds, soft, nontender, no hepatosplenomegaly Musculoskeletal: no cyanosis or clubbing, extremities motor strength 5/5 Skin: no rashes, warm and dry normal turgor Neurologic: PERRL, EOMI, accommodation nl, no face palsy, no dysarthria CN's II- XI intact bilaterally and moves all extremities Psychiatric: A+Ox3, euthymic affect Assessment/plan Chest pain ACS ruled out High sensitive troponin negative x 3 EKG within normal limits Echocardiogram shows EF of 55 to 60% with grade 1 diastolic dysfunction Awaiting Lexiscan. Continue on aspirin and Lipitor Hypertensioncontinue home meds Please note the above document was generated using voice recognition software. It may contain grammatical, syntax or spelling errors. Any formal questions or concerns about the content, text or information contained within the body of this dictation should be directly addressed to the provider for clarification
--- NOTE | 2024-08-19 14:38 | Myocardial Perfusion Study ---
Date of Service August 19, 2024 Myocardial Perfusion Study [facility] Myocardial Perfusion Study Report Procedure: 1. Myocardial perfusion study performed in multiple views/images 2. Lexiscan pharmacologic stress ECG Indications: 1. Patient with what sounds to be a mechanical fall. Atrial fibrillation noted on EKG and telemetry chest pain, history of coronary heart disease Ordering Provider: Joby Dumont DO Procedural details: For the stress portion of the study, Lexiscan 0.4 mg was intravenously administered followed by a saline flush. This was followed by 31.8mCi of technetium 99m Cardiolite, injected at 12:58 PM on 08/19/2024. 30 minutes following the injection, imaging of the heart was performed in multiple projections. For the rest portion of the study, 10 mCi technetium 99m Cardiolite was injected intravenously at11:30 AM on08/19/2024. 1 hour following the injection, imaging of the heart was performed in the same projections. Lexiscan stress ECG: Resting ECG demonstrated: Sinus rhythm in the 60s with normal ST segments Maximum heart rate: [ 93 bpm Maximal, age-predicted heart rate: 65% Resting blood pressure: 164/90 mmHg Maximum blood pressure: 185/[address] changes:None Arrhythmia: None Symptoms: Transient cough and shortness of breath. No chest discomfort. Symptoms resolved in the post-rest recovery interval. Findings: Rotating raw imaging demonstrated no significant lung uptake. There is no significant motion artifact. Heart size appeared Normal. Myocardial perfusion demonstrated A small sized fixed perfusion defect in the basal inferior segment consistent with small scar with inducible ischemia.. Ejection fraction: 64% Wall motion: Normal No significant transient ischemic dilation. Impression: 1. The pharmacologic myocardial perfusion imaging study reveals a small fixed basal inferior perfusion defect consistent with a small scar without inducible ischemia. 2.Hypertensive blood pressure response to pharmacologic stress was observed. 3.The calculated left ventricular ejection fraction=64% by gated SPECT
--- NOTE | 2024-08-19 15:00 | Communication Note ---
Date of Service: August 19, 2024 Patient reassessed after nuclear stress test. He was accompanied by his spouse, Yulia. They both describe that there has been a significant amount of stress in their household. Their daughter has had health problems and has had to take a leave of absence from her job. They have a grandchild with special needs for pulmonary care. Stress test was negative for inducible ischemia. Hypertensive blood pressure response to stress was noted. Spironolactone was discontinued at his previous hospital stay at this institution 6 months ago in the setting of acute kidney injury and hyperkalemia. He was however discharged on losartan either 25 mg daily or 50 mg daily. Is difficult to determine from the patient and from the records. The losartan however has fallen off his medication list. The patient attempted to call the clinical pharmacist with the [place] [facility] with whom he has been working well is in the room, but he was unable to get through. He thinks his daughter would likely know his medications. He is going [facility] as his daughter for clarification, in the meantime, recommend resuming losartan 25 mg daily, first dose now to start. I asked his nurse to take him for a walk in the hallway. If his blood pressure is improved, and he feels well with walking, can likely be discharged later today.
--- NOTE | 2024-08-19 15:13 | Electrocardiogram Report ---
Test Reason : Blood Pressure : */* mmHG Vent. Rate : 61 BPM Atrial Rate : 61 BPM P-R Int : 164 ms QRS Dur : 82 ms QT Int : 390 ms P-R-T Axes : 46 66 71 degrees QTcB Int : 392 ms Normal sinus rhythm Normal ECG When compared with ECG of 16-Feb-2024 23:13, No significant change was found Confirmed by Elbert Kelly ([id number]) on 08/19/2024 3:13:16 PM Referred By: REFERRED SELF Confirmed By: Elbert Kelly
[2024-08-19] MEDS: REGADENOSON 0.4 MG/5 ML SYR IV ONE (15:21)
[2024-08-19 15:43] VITALS: BP 143/78; PULSE 66; RESP 16; TEMP 97.3; O2SAT 96
--- NOTE | 2024-08-19 15:45 | Discharge Summary ---
Date of Service August 19, 2024 Admission HPI Per Admitting Provider History obtained from patient and records. Medical history significant for CAD status post stent, mild AR, hypertension, hyperlipidemia, recent traumatic head bleed as per patient, CRI (baseline creatinine 1.6-1.8), nephrotic range proteinuria as per records, chronic anemia (baseline hemoglobin 11-12), prediabetes, chronic tremors, gout, BPH, past tobacco abuse. Last [facility] confinement February 2024 for hypotension secondary to hypovolemia from complicated bronchitis. Patient metoprolol switched to Coreg on discharge by Cardiology. Recent confinement at the [facility] in [place] last June 2024 for 'traumatic head bleed' as per patient. No operative intervention. Patient noted intermittent left-sided chest pain symptoms the last few days. Worse on exertion. No cough, no SOB. 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 Blood pressure kind of elevated this week, SBP 180s. Denies unusual headache symptoms. Compliant with home medications. He denies dietary indiscretion or OTC NSAID intake. Left lower extremity a little more swollen than usual as per patient. SBP 180s upon arrival at the ER. Patient currently comfortable. Medical History as above Surgical History : Cholecystectomy, laser surgery of the eye, cataract surgeries Family History : DM, heart disease, stroke, liver cancer Personal/Social history : Past tobacco abuse, no EtOH intake, retired from [employer] business Admission Exam Per Admitting Provider GENERAL: Comfortable, pleasant, no respiratory distress, slightly hard of hearing, SKIN: Pallor, warm HEENT: Pale palpebral conjunctivae, no ptosis, dry buccal mucosa NECK : Supple, no tenderness CHEST : Decreased breath sounds, no tenderness HEART : RRR, no obvious murmurs ABDOMEN: Some distention, nontender EXTREMITIES : Minimal LLE swelling/tenderness, no other conspicuous deformities noted NEUROLOGIC : Coherent, no facial asymmetry, slightly hard of hearing, gait and stance not assessed Principal Diagnosis Chest pain, ACS ruled out Discharge Exam Constitutional: WD/WN, vitals as above, NAD, sitting up in bed, pleasant, conversing easily Respiratory: normal respiratory effort, lungs clear to auscultation, no wheeze, rales, rhonchi. Normal insp/exp effort, no accessory muscle use Cardiovascular: RRR, no murmur, no edema Vessels: no JVD or carotid bruit Chest: normal inspection of chest Abdomen: normal bowel sounds, soft, nontender, no hepatosplenomegaly Musculoskeletal: no cyanosis or clubbing, extremities motor strength 5/5 Skin: no rashes, warm and dry normal turgor Neurologic: PERRL, EOMI, accommodation nl, no face palsy, no dysarthria CN's II- XI intact bilaterally and moves all extremities Psychiatric: A+Ox3, euthymic affect Discharge Data Allergies Allergy/AdvReac Type Severity Reaction Status Date / Time Corticosteroids Allergy Severe CAUSES Verified 02/16/24 22:48 (Glucocorticoids) BLINDNESS acetic acid Allergy Intermediate Rash - Verified 02/16/24 22:48 Apple Cider Vinegar adhesive Allergy Intermediate SKIN Verified 02/16/24 22:48 IRRITATION AND ULCER WITH EXTENDED USE Penicillins Allergy Intermediate RASH Verified 02/16/24 22:48 Sulfa (Sulfonamide Allergy Intermediate RASH Verified 02/16/24 22:48 Antibiotics) prednisone AdvReac Severe BLINDNESS Verified 02/16/24 22:48 tamsulosin [From Flomax] AdvReac Severe all over Verified 02/16/24 22:48 body pain Consultations 08/19/24 03:40 ED Decision to Admit Stat 08/19/24 06:27 Consult Cardiology Routine Ordered Studies 08/19/24 04:10 US venous doppler LE LT Stat Hospital Course (1) Chest pain: Plan Chest pain ACS ruled out Patient presented with left-sided chest pain on exertion High sensitive troponin negative x 3 EKG within normal limits Echocardiogram shows EF of 55 to 60% with grade 1 diastolic dysfunction Patient was evaluated by cardiology; stress test was negative for inducible ischemia. Patient was recommended to continue antihypertensive at home. He was prescribed losartan 25 mg once a day as recommended by cardiology. He was also recommended to have home blood pressure monitoring. Please note the above document was generated using voice recognition software. It may contain grammatical, syntax or spelling errors. Any formal questions or concerns about the content, text or information contained within the body of this dictation should be directly addressed to the provider for clarification Total Time Total Time Spent Total Time Spent (In Minutes): 35 Total Time Includes: Examination of the Patient, Discharge Planning, Medication Reconciliation, Communication With Other Providers and Other Discharge Plan Discharge Items Patient Disposition: Home - Self-Care Reason For Visit: CHEST PAIN Discharge Diagnosis: Chest pain, ACS ruled out Activity: Resume your previous activity Non-emergency contact: Primary Care Provider Call non-emergency contact if: you have any medication questions and your symptoms worsen Follow-up/Referrals: Devante Alcala [Physician Extrusion Technician] - (Date & Time 09/10/2024 10:00 AM Provider Devante Alcala, PAKashifC Department Cardiology [facility] ) Александр Martínez MD [Primary Care Provider] - (Date & Time 08/25/2024 4:40 PM Provider Lynne Moore CRNP Department Family Medicine [facility] ) Diet: Regular Addtl Attending Provider Instructions: You were admitted to the hospital due to chest pain. Your evaluated by cardiology and underwent stress test which was negative. Please continue to take your antihypertensive. Please measure your blood pressure at home on a sitting position with your both feet on the ground and arm rested daily. Make a note of it and follow-up with your primary care doctor. Pending Studies at Discharge: No Stand-Alone Forms: My [facility] [place], Smoking Cessation Medications and DC Order Prescriptions: New losartan 50 mg tablet 50 mg PO DAILY Qty: 30 0RF Continued allopurinol 100 mg tablet 300 mg PO QAM Qty: 270 1RF aspirin 81 mg tablet,chewable 81 mg PO DAILY carvedilol 3.125 mg tablet 3.125 mg PO AMPM furosemide 40 mg PO [id number] Rx Instructions: takes only mondays and zonisamide tablet 50 mg PO DAILY cyanocobalamin (vitamin B-12) [Vitamin B-12] 1,000 mcg Tablet 1,000 mcg PO DAILY triamcinolone acetonide 0.1 % Cream 1 applic TOPICAL DIRECTED PRN (Reason: Skin Irritation) tamsulosin [Flomax] 0.4 mg Capsule 0.4 mg PO HS furosemide [Lasix] 20 mg Tablet 20 mg PO QAM Rx Instructions: takes everyday except mondays and finasteride 5 mg Tablet 5 mg PO DAILY rosuvastatin 40 mg Tablet 20 mg PO DAILY amlodipine [Norvasc] 5 mg Tablet 5 mg PO QAM Qty: 30 0RF Discontinued losartan 25 mg tablet 50 mg PO QAM Discharge Orders: Discharge Order (Routine); Ordered 08/19/24 Ordered By: Vidal Rowe Admission Data Admit Date/Time: 08/19/24 04:11 Attending Provider: Vidal Rowe Admit Provider: Mehul Brito Primary Care Provider: Александр Martínez Other Providers: Mehul Brito; [facility] Other Interventions: Discharge Summary Assessment (RN) Last Done: 08/19/24 16:21
[2024-08-19] MEDS: LOSARTAN POTASSIUM 25 MG TAB PO SCH (15:55)
[2024-08-19] MEDS ORDERED: carvediloL 3.125 MG TAB PO SCH (17:00)
[2024-08-19] MEDS ORDERED: TAMSULOSIN HCL 0.4 MG CAP PO SCH (21:00)
== END 2024-08-19 17:23 | disposition home or self-care (01) ==
LOC: 2S 02:31 → ED 02:31 → 2S 05:18